=== PATIENT | male | born 1945 | race Caucasian/White ===

== ENCOUNTER 2021-11-09 15:49 | Emergency (ER) | payer OTHER ==
--- OUTSIDE RECORDS SUMMARY | 2021-11-09 15:53 | XMS REPORT | Continuity of Care Document ---
:1945 Author Organization [facility] t Address [address] [place] [address] Care Team Providers Name Role Phone Yolanda FULTON Attending Clinician Freedom SMALLWOOD Attending Clinician Unavailable Agustina DAMON Attending Clinician Unavailable Yolanda Attending Clinician Unavailable CHRIS PEREZ Attending Clinician Unavailable Yolanda Attending Clinician Unavailable CHRIS PEREZ Admitting Clinician Unavailable Payers Payer Name Policy Type Policy Number Effective Date Expiration Date S ource Problems Condition Condition Condition Status Onset Resolution Last Treating Co mments Source Name Details Category Date Date Treatment Clinician Date HIV HIV Disease Active Overview: [facility] positive positive 06-24 [facility] lt 00:00: g of this 00 note might be different from the original. 06/24/21T meryg dovato without problem. VL still pending from off campus lab. Will check labs per routine at [facility] in 6 months. Mail lab order to his home. 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 c c Pure Pure Disease Active UT hyperchole hyperchole 12-05 He alth sterolemia sterolemia 00:00: 00 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 12-05 Health mellitus mellitus 00:00: 00 COVID-19 COVID-19 Disease Active UT virus virus 12-03 Health infection infection 00:00: 00 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 12-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 00:00: 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 (AIDS) (AIDS) Colon Colon Disease Active [facility] Trigger Trigger Disease Active [facility] finger finger 5-21 Health 00:00: 00 Hearing Hearing Disease Active [facility] loss loss 5-10 Health 00:00: 00 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 Impairment Impairment Disease Active U T level: lo level: lo 5-10 Heal th vision of vision of 00:00: one eye one eye 00 Rhinitis Rhinitis Disease Active UT 5-10 Health 00:00: 00 Unspecifie Unspecifie Disease Active U T d visual d visual 5-10 Health loss loss 00:00: 00 History of History of Problem Resolve Univers Stroke Stroke d ity of syndrome syndrome [place] [facility] Acquired Acquired Problem Active Unive rs immune immune [place]y of deficiency [place] syndrome syndrome Physic i (AIDS) (AIDS) ans History of History of Problem Resolve [facility] allergic allergic d ity of rhinitis rhinitis [place] [facility] History of History of Problem Resolve [facility] Chronic Chronic d ity of obstructiv obstructiv [place] [facility] pulmonary pulmonary ans disease disease History of History of Problem Resolve [facility] sinus sinus d ity of tachycardi tachycardi [place] [facility] ans History of History of Problem Resolve [facility] herpes herpes d ity of zoster zoster [place] [facility] History of History of Problem Resolve Univers hyperlipid hyperlipid d it y of emia emia [place] [facility] ans History of History of Problem Resolve Univers Need for Need for d ity of Zostavax Zostavax [place] administra administra Ph ysici tion tion ans History of History of Problem Resolve Univers pneumococc pneumococc d it y of al al [place] vaccinatio vaccinatio Ph ysici n n ans History of History of Problem Resolve Univers Polyneurop Polyneurop d it y of athy athy [place] [facility] ans History of History of Problem Resolve Univers prostatiti prostatiti d it y of s s [place] [facility] History of History of Problem Resolve [facility] sleep sleep d ity of apnea apnea [place] [facility] History of History of Problem Resolve [facility] Urinary Urinary d ity of tract tract [place] infection infection Phys ici ans Personal Personal Problem Resolve Univ ers history of history of d it y of gout gout [place] [facility] Rhinitis Rhinitis Problem Active Unive rs ity of [place] [facility] Hearing Hearing Problem Active [facility] loss loss ity of [place] [facility] Impairment Impairment Problem Active U nivers level of level of ity of vision vision [place] [facility] Idiopathic Idiopathic Problem Active U nivers chronic chronic ity of gout gout [place] without without Physici tophus tophus ans Trigger Trigger Problem Active Univers finger finger ity of [place] [facility] ans Type 2 Type 2 Problem Active Univers diabetes diabetes ity of mellitus mellitus [place] [facility] Pure Pure Problem Active Univers hyperchole hyperchole it y of sterolemia sterolemia [place] [facility] Essential Essential Problem Active Uni vers hypertensi hypertensi it y of on, on, [place] malignant malignant Phys ici ans Congestive Congestive Problem Active U nivers heart heart ity of failure failure [place] [facility] Peripheral Peripheral Problem Active U nivers neuropathy neuropathy it y of , , [place] hereditary hereditary Ph ysici /idiopathi /idiopathi an s c c COVID-19 COVID-19 Problem Active Unive rs virus virus ity of infection infection [place] [facility] [place] Allergies, Adverse Reactions, Alerts This patient has no known allergies or adverse reactions. Family History Family Member Diagnosis Comments Start Date Stop Date Source Unknown Family history of Family Univers ity of Family Member Hypertension History [place] [facility] Unknown Family history of Family Univers ity of Family Member Congestive Heart Failure History [place] [facility] Unknown Family history of Family Univers ity of Family Member Essential History [place] Hypercholesterolemia Phys icians Father Family history of Univers ity of Hypertensive Heart [place] Disease Physicians Social History Social Habit Start Date Stop Date Quantity Comments Source History [facility] Alcohol Std Drinks Medica l Center History [facility] - Alcohol Binge Medical Asad ter Tobacco use and 2019-01-29 2019-01-[address] [facility] - exposure 00:00:00 00:[facility]:00 [facility] Center Alcohol intake 2019-01-29 2019-01-29 [facility] alcohol [facility] Center (finding) History SDOH 2019-01-25 2019-01-[address] [facility] - Alcohol Frequency 00:00:00 00:00:00 [facility] Center Tobacco Comment 2019-01-25 2019-01-[address] [facility] - 00:00[facility]00 00[facility]:00 [facility] Center History of tobacco 1980-01-[address] [facility] - use 00:[facility] Center Sex Ass[birth year] At [birth year] [facility] 00:00:00 00:00:00 Smoking Status Start Date Stop Date Source Unknown if ever smoked [place] [facility] Former smoker 2019-01-29 00:00:00 2019-01-29 00:00:[address] [facility] Medications Ordered Filled Start Stop Current Ordering Indication Dosage Frequency Signature Comments Components Source Medication Medication Date Date Medication? Clinician (SIG) Name Name Acetaminoph Yes UT en 500 MG 8-18 Health capsule 18:29: 05 Acetaminoph Yes UT en 500 MG 8-18 Health capsule 18:29: 05 Acetaminoph 0 Yes UT en 500 MG 8-18 Health capsule 18:29: 05 Accu-Chek 2020-0 Yes TEST BLOOD UT SmartView 5-27 SUGAR Health test strip 00:00: EVERY DAY 00 Accu-Chek 2020-0 Yes TEST BLOOD UT SmartView 5-27 SUGAR Health test strip 00:00: EVERY DAY 00 Accu-Chek 2020-0 Yes TEST BLOOD UT SmartView 5-27 SUGAR Health test strip 00:00: EVERY DAY 00 finasteride Yes 5mg QD Take 5 mg U T (Proscar) 5 5-21 by mouth 1 He alth MG tablet 00:00: (one) time 00 each day. finasteride 2021-0 Yes 5mg QD Take 5 mg U T (Proscar) 5 5-21 by mouth 1 He alth MG tablet 00:00: (one) time 00 each day. finasteride 2021-0 Yes 5mg QD Take 5 mg U T (Proscar) 5 5-21 by mouth 1 He alth MG tablet 00:00: (one) time 00 each day. furosemide 2021-0 Yes 40mg QD Take 40 mg U T (Lasix) 40 4-22 by mouth 1 Hea lth MG tablet 00:00: (one) time 00 each day. furosemide 2021-0 Yes 40mg QD Take 40 mg U T (Lasix) 40 4-22 by mouth 1 Hea lth MG tablet 00:00: () time 00 each day. furosemide 2021-0 Yes 40mg QD Take 40 mg U T (Lasix) 40 4-22 by mouth 1 Hea lth MG tablet 00:00: () time 00 each day. doxazosin 2021-0 Yes 4mg QD Take 4 mg UT (Cardura) 4 4-10 by mouth 1 He alth MG tablet 00:00: (one) time 00 each day. doxazosin 2021-0 Yes 4mg QD Take 4 mg UT (Cardura) 4 4-10 by mouth 1 He alth MG tablet 00:00: (one) time 00 each day. doxazosin 2021-0 Yes 4mg QD Take 4 mg UT (Cardura) 4 4-10 by mouth 1 He alth MG tablet 00:00: (one) time 00 each day. citalopram 2021-0 Yes 20mg QD Take 20 mg U T (CeleXA) 20 4-07 by mouth 1 He alth MG tablet 00:00: (one) time 00 each day. citalopram 2021-0 Yes 20mg QD Take 20 mg U T (CeleXA) 20 4-07 by mouth 1 He alth MG tablet 00:00: (one) time 00 each day. citalopram 2021-0 Yes 20mg QD Take 20 mg U T (CeleXA) 20 4-07 by mouth 1 He alth MG tablet 00:00: (one) time 00 each day. amLODIPine- 2021-0 Yes QD Take by UT benazepril 3-27 mouth 1 Health (Lotrel) 00:00: (one) time 10-40 MG 00 each day. capsule amLODIPine- 2020-0 Yes QD Take by UT benazepril 3-27 mouth 1 Health (Lotrel) 00:00: (one) time 10-40 MG 00 each day. capsule amLODIPine- 2020-0 Yes QD Take by UT benazepril 3-27 mouth 1 Health (Lotrel) 00:00: (one) time 10-40 MG 00 each day. 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 (Atripla) 600-200-300 MG tablet efavirenz-e 0 Yes 1{tbl} QD Take 1 UT mtricitabin 1-06 tablet by [facility] e-tenofovir 00:00: mouth 1 disoproxil 00 (one) time fumarate each day. (Atripla) 600-200-300 MG tablet efavirenz-e 0 Yes 1{tbl} QD Take 1 UT mtricitabin 1-06 tablet by [facility] e-tenofovir 00:00: mouth 1 disoproxil 00 (one) time fumarate each day. (Atripla) 600-200-300 MG tablet albuterol 0 Yes INHALE 2 UT 108 (90 1-04 PUFFS BY Health Base) 00:00: MOUTH MCG/ACT 00 EVERY 4 inhaler HOURS NEEDED NOT COVERED predniSONE Yes 40mg QD Take 40 mg U T (Deltasone) 1-04 by mouth 1 He alth 20 MG 00:00: (one) time tablet 00 each day. albuterol Yes INHALE 2 UT 108 (90 1-04 PUFFS BY Health Base) 00:00: MOUTH MCG/ACT 00 EVERY 4 inhaler HOURS NEEDED NOT COVERED predniSONE Yes 40mg QD Take 40 mg U T (Deltasone) 1-04 by mouth 1 He alth 20 MG 00:00: (one) time tablet 00 each day. albuterol Yes INHALE 2 UT 108 (90 1-04 PUFFS BY Health Base) 00:00: MOUTH MCG/ACT 00 EVERY 4 inhaler HOURS NEEDED NOT COVERED predniSONE Yes 40mg QD Take 40 mg U T (Deltasone) 1-04 by mouth 1 He alth 20 MG 00:00: (one) time tablet 00 each day. Accu-Chek Accu-Chek 2019-0 2020- No Na Ellis as [facility] Smart View Smart View 12-0524 directed [facility] - test strips test strips 00:00: 00:00 Memoria 00 :00 l Outpati ent Clinics zoster Yes INJECT 0.5 UT vaccine-rec 6-12 ML Health ombinant 00:00: Intramuscu adjuvanted 00 lar Give (Shingrix) 1st 50 injection MCG/0.5ML now, then vaccine second injection in 2-6 months zoster Yes INJECT 0.5 UT vaccine-rec 6-12 ML Health ombinant 00:00: Intramuscu adjuvanted 00 lar Give (Shingrix) 1st 50 injection MCG/0.5ML now, then vaccine second injection in 2-6 months zoster 2018- Yes INJECT 0.5 UT vaccine-rec 6-12 ML Health ombinant 00:00: Intramuscu adjuvanted 00 lar Give (Shingrix) 1st 50 injection MCG/0.5ML now, then vaccine second injection in 2-6 months Shingrix 50 Shingrix 50 2018- Yes Jean Marie INJECT 0.5 Univers MCG MCG 6-12 [place] ML ity of Intramuscul Intramuscul 00:00: 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 Intramuscu [place] ar ar 00 lar Give Physici Suspension Suspension 1st ans Reconstitut Reconstitut injection ed ed now, then second injection in 2-6 months Shingrix 50 Shingrix 50 2019-0 Yes Jean Marie Inject 0.5 Univers MCG/0.5ML MCG/0.5ML 6-12 [place] ML ity of Intramuscul Intramuscul 00:00: 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 intramuscu [place] ar ar 00 lar second Physici Suspension Suspension dosage in ans Reconstitut Reconstitut 2 to 6 ed ed months FLAXSEED 2018-0 Yes Q.5D Take by [facility] ORAL 3-23 mouth 2 [facility] - 12:08: (two) Medical 09 times Center daily. multivitami 2019-0 Yes 1{tbl} QD Take [address] n per 3-23 tablet by [facility] - tablet 12:08: mouth Medical 09 daily. Center SAW 0 Yes Take by [facility] PALMETTO 3-23 mouth. [facility] - ORAL 12:08: Medical 09 Center glucosamine 2018-0 Yes QD Take by [facility] /chondr james 3-23 mouth [facility] - A sod 12:08: daily. Medical (OSTEO 09 Center BI-FLEX ORAL) traMADol 2018-0 Yes 50mg Take [address] (ULTRAM) 50 3-23 by mouth Luke s - mg tablet 12:08: every 6 Medic al 09 (six) Center hours as needed for Pain. fluticasone 2018-0 Yes Inhale by [facility] /salmeterol 3-23 mouth via Hussein es - (ADVAIR 12:08: inhaler as Medi viraj DISKUS 09 needed. Center INHL) albuterol 2018-0 Yes 1{puff} Inhale [address] HFA 3-23 puff by [facility] - (VENTOLIN 12:08: mouth via Med ical HFA) 90 09 inhaler Center mcg/actuati every 6 on inhaler (six) hours as needed for Wheezing. metFORMIN 2018-0 Yes 500mg Take [address] (GLUCOPHAGE 3-23 mg by [facility] - ) 500 MG 12:08: mouth 2 Medica l tablet 09 (two) Center times daily with breakfast and dinner. efavirenz-e 2018-0 Yes 1{tbl} QD Take [address] mtrictabine 3-23 tablet by Hussein es - -tenofovir 12:08: mouth Medica l (ATRIPLA) 09 nightly. Center 600-200-300 mg per tablet amlodipine- 2018-0 Yes 1{capsu Q.5D Take [address] benazepril 3-23 le} capsule by Hussein es - (LOTREL) 12:08: mouth 2 Medica l 10-40 mg 09 (two) Center per capsule times daily . eplerenone 0 Yes 25mg QD Take [address] (INSPRA) 25 3-23 by mouth Luke s - MG tablet 12:08: daily. Medica l 09 [place] furosemide 0 Yes 40mg QD Take [address] (LASIX) 40 3-23 by mouth [facility] - MG tablet 12:08: daily. Medica l 09 [place] metoprolol 0 Yes 100mg Q.5D Take [address] (LOPRESSOR) 3-23 mg by [facility] - 100 MG 12:08: mouth 2 Medical tablet 09 (two) Center times daily. aspirin 81 2018-0 Yes 81mg QD Take [address] MG EC -23 by mouth [facility] - tablet 12:08: daily. Medical [address] [place] [address] gabapentin 0 Yes 600mg [id number] Take [address] (NEURONTIN) 3-23 [id number] mg by L ukes - 600 MG 12:08: 3D mouth 3 Medical tablet 09 (three) Center times daily. FLAXSEED 2018-0 Yes Q.5D Take by [facility] ORAL 3-23 mouth 2 [facility] - 12:08: (two) Medical 09 times Center daily. multivitami 2018-0 Yes 1{tbl} QD Take [address] n per 3-23 tablet by [facility] - tablet 12:08: mouth Medical 09 daily. [place] SAW 0 Yes Take by [facility] PALMETTO -23 mouth. [facility] - ORAL 12:08: Medical 09 [place] glucosamine 0 Yes QD Take by [facility] /chondr james 3-23 mouth [facility] - A sod 12:08: daily. Medical (OSTEO 09 Center BI-FLEX ORAL) traMADol 2018-0 Yes 50mg Take [address] (ULTRAM) 50 -23 by mouth Luke s - mg tablet 12:08: every 6 Medic al 09 (six) Center hours as needed for Pain. fluticasone 2018- Yes Inhale by [facility] /salmeterol 3-23 mouth via Hussein es - (ADVAIR 12:08: inhaler as Medi viraj DISKUS 09 needed. Center INHL) albuterol 2018-0 Yes 1{puff} Inhale [address] HFA 3-23 puff by [facility] - (VENTOLIN 12:08: mouth via Med ical HFA) 90 09 inhaler Center mcg/actuati every 6 on inhaler (six) hours as needed for Wheezing. metFORMIN 2018- Yes 500mg Take [address] (GLUCOPHAGE 3-23 mg by [facility] - ) 500 MG 12:08: mouth 2 Medica l tablet 09 (two) Center times daily with breakfast and dinner. efavirenz-e 0 Yes 1{tbl} QD Take [address] mtrictabine 3-23 tablet by Hussein es - -tenofovir 12:08: mouth Medica l (ATRIPLA) 09 nightly. Center 600-200-300 mg per tablet amlodipine- 2018-0 Yes 1{capsu Q.5D Take [address] benazepril 3-23 le} capsule by Hussein es - (LOTREL) 12:08: mouth 2 Medica l 10-40 mg 09 (two) Center per capsule times daily . eplerenone Yes 25mg QD Take [address] (INSPRA) 25 3-23 by mouth Luke s - MG tablet 12:08: daily. Medica l 09 [place] furosemide 0 Yes 40mg QD Take [address] (LASIX) 40 3-23 by mouth [facility] - MG tablet 12:08: daily. Medica l 09 Center metoprolol 0 Yes 100mg Q.5D Take [address] (LOPRESSOR) 3-23 mg by [facility] - 100 MG 12:08: mouth 2 Medical tablet 09 (two) Center times daily. aspirin 81 2019-0 Yes 81mg QD Take [address] MG EC 3-23 by mouth [facility] - tablet 12:08: daily. Medical 09 Center gabapentin 2019-0 Yes 600mg [id number] Take [address] (NEURONTIN) 3-23 [id number] mg by L ukes - 600 MG 12:08: 3D mouth 3 Medical tablet 09 (three) Center times daily. metFORMIN Yes TAKE 1 UT (Glucophage 5-24 TABLET Health ) 500 MG 00:00: TWICE tablet 00 DAILY metFORMIN Yes TAKE 1 UT (Glucophage 5-24 TABLET Health ) 500 MG 00:00: TWICE tablet 00 DAILY metFORMIN Yes TAKE 1 UT (Glucophage 5-24 TABLET Health ) 500 MG 00:00: TWICE tablet 00 DAILY metFORMIN metFORMIN Yes Jean Marie 1 Q0.5D TAKE 1 Univers HCl - 500 HCl - 500 5-24 [place] TABLET ity of MG Oral MG Oral 00:00: 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 TWICE [place] Tablet Tablet 00 DAILY Physici ans gabapentin 2012-11 Yes TAKE 1 UT (Neurontin) 0-07 TABLET BY Hea lth 600 MG 00:00: MOUTH tablet 00 EVERY 8 HOURS gabapentin 2012-11 Yes TAKE 1 UT (Neurontin) 0-07 TABLET BY Hea lth 600 MG 00:00: MOUTH tablet 00 EVERY 8 HOURS gabapentin 2012-11 Yes TAKE 1 UT (Neurontin) 0-07 TABLET BY Hea lth 600 MG 00:00: MOUTH tablet 00 EVERY 8 HOURS Gabapentin Gabapentin 2012-11 Yes Jean Marie 1 Q8H TAKE 1 Univers 600 MG Oral 600 MG Oral 0-07 [place] TABLET BY ity of Tablet Tablet 00:00: 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 MOUTH [place] 00 EVERY 8 Physici HOURS ans doxazosin Yes TAKE 1 UT (Cardura) 2 8-23 TABLET Health MG tablet 00:00: TWICE 00 DAILY eplerenone Yes TAKE 1 UT (Inspra) 25 8-23 TABLET Health MG tablet 00:00: DAILY. 00 doxazosin Yes TAKE 1 UT (Cardura) 2 8-23 TABLET Health MG tablet 00:00: TWICE 00 DAILY eplerenone Yes TAKE 1 UT (Inspra) 25 8-23 TABLET Health MG tablet 00:00: DAILY. 00 doxazosin Yes TAKE 1 UT (Cardura) 2 8-23 TABLET Health MG tablet 00:00: TWICE 00 DAILY eplerenone Yes TAKE 1 UT (Inspra) 25 8-23 TABLET Health MG tablet 00:00: DAILY. 00 Doxazosin Doxazosin Yes TAHIR 1 Q0.5D TAKE 1 Univers Mesylate 2 Mesylate 2 8-23 [place] TABLET ity of MG Oral MG Oral 00:00: M.D. TWICE [place] Tablet Table[facility] Eplerenone Eplerenone Yes TAHIR 1 QD TAKE 1 Univers 25 MG Oral 25 MG Oral 8-23 [place] TABLET ity of Tablet Tablet 00:00: M.D. DAILY. [place] [facility] ans Flaxseed, Yes UT Linseed, 2-12 Health (Flaxseed 00:00: Oil) 1000 00 MG capsule furosemide Yes UT (Lasix) 20 2-12 Health MG tablet 00:00: 00 Flaxseed, Yes UT Linseed, 2-12 Health (Flaxseed 00:00: Oil) 1000 00 MG capsule furosemide Yes UT (Lasix) 20 2-12 Health MG tablet 00:00: 00 Flaxseed, Yes UT Linseed, 2-12 Health (Flaxseed 00:00: Oil) 1000 00 MG capsule furosemide Yes UT (Lasix) 20 2-12 Health MG tablet 00:00: 00 Furosemide Furosemide Yes Jean Marie Univers 20 MG Oral 20 MG Oral 2-12 [place] ity of Tablet Tablet 00:00: 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 [place] [facility] ans Flaxseed Flaxseed Yes Jean Marie Univ ers Oil 1000 MG Oil 1000 MG 2-12 [place] ity of Oral Oral 00:00: 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 [place] Capsule Capsule Physici ans metoprolol Yes TAKE 1 UT tartrate 3-31 TABLET Health (Lopressor) 00:00: EVERY 12 100 MG 00 HOURS tablet DAILY0.15m g atorvastati Yes TAKE 1 UT n (Lipitor) 3-31 TABLET Health 20 MG 00:00: DAILY AT tablet 00 BEDTIME. metoprolol Yes TAKE 1 UT tartrate 3-31 TABLET Health (Lopressor) 00:00: EVERY 12 100 MG 00 HOURS tablet DAILY0.15m g atorvastati Yes TAKE 1 UT n (Lipitor) 3-31 TABLET Health 20 MG 00:00: DAILY AT tablet 00 BEDTIME. metoprolol Yes TAKE 1 UT tartrate 3-31 TABLET Health (Lopressor) 00:00: EVERY 12 100 MG 00 HOURS tablet DAILY0.15m g atorvastati Yes TAKE 1 UT n (Lipitor) 3-31 TABLET Health 20 MG 00:00: DAILY AT tablet 00 BEDTIME. Lipitor 20 Lipitor 20 Yes Jean Marie TAKE 1 Univers MG Oral MG Oral 3-31 [place] TABLET it y of Tablet Tablet 00:00: 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 DAILY AT [place] 00 BEDTIME. Physici ans Metoprolol Metoprolol Yes Jean Marie TAKE 1 Univers Tartrate Tartrate 3-31 [place] TABLET ity of 100 MG Oral 100 MG Oral 00:00: 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 EVERY 12 [place] Tablet Tablet 00 HOURS Physici DAILY0.15m ans g Acetaminoph Acetaminoph Yes U nivers en 500 MG en 500 MG ity o f CAPS CAPS [place] Physici ans Immunizations Ordered Filled Date Status Comments Source Immunization Name Immunization Name Zoster, 2019-08-07 [facility] Unspecified 00:00:00 Zoster, 2019-08-07 Completed [facility] Recombinant 00:00:00 Influenza, High 2019-08-07 Completed [facility] Dose Seasonal, 00:00:00 Preservative Free Zoster, 2019-08-07 Completed [facility] Unspecified 00:00:00 Zoster, 2019-08-07 Completed [facility] Recombinant 00:00:00 Influenza, High 2019-08-07 Completed [facility] Dose Seasonal, 00:00:00 Preservative Free Zoster, 2019-08-07 Completed [facility] Unspecified 00:00:00 Zoster, 2019-08-07 Completed [facility] Recombinant 00:00:00 Influenza, High 2019-08-07 Completed [facility] Dose Seasonal, 00:00:00 Preservative Free Influenza 2019-08-07 Completed University of 00:00:00 [place] [facility] Shingrix 50 MCG 2019-08-07 Completed Universit y of Intramuscular 00:00:00 [place] Suspension Physicians Reconstituted Prevnar 13 2019-04-18 Completed University of Intramuscular 13:47:00 [place] Suspension Physicians Pneumococcal 2019-04-18 [facility] Conjugate PCV 13 00:00:00 Pneumococcal 2019-04-18 Completed [facility] Conjugate PCV 13 00:00:00 Pneumococcal 2019-04-18 Completed [facility] Conjugate PCV 13 00:00:00 Pneumococcal 2019-04-18 Completed [facility] Conjugate PCV 13 00:00:00 Pneumococcal 2019-04-18 Completed [facility] Conjugate PCV 13 00:00:00 Pneumococcal 2019-04-18 Completed [facility] Conjugate PCV 13 00:00:00 Influenza, High 2018-08-07 Completed [facility] Dose Seasonal, 00:00:00 Preservative Free Influenza, High 2018-08-07 Completed [facility] Dose Seasonal, 00:00:00 Preservative Free Influenza, High 2018-08-07 Completed [facility] Dose Seasonal, 00:00:00 Preservative Free Influenza 2018-08-07 Completed University of 00:00:00 [place] [facility] Tdap 2016-11-07 [facility]pleted [facility] 00:00:00 Tdap 2016-11-07 Completed [facility] 00:00:00 Tdap 2016-11-07 Completed [facility] 00:00:00 Zoster, 2015-11-07 Completed [facility] Unspecified 00:00:00 Zoster, 2015-11-07 Completed [facility] Recombinant 00:00:00 Zoster, 2015-11-07 Completed [facility] Unspecified 00:00:00 Zoster, 2015-11-07 Completed [facility] Recombinant 00:00:00 Zoster, 2015-11-07 Completed [facility] Unspecified 00:00:00 Zoster, 2015-11-07 Completed [facility] Recombinant 00:00:00 Influenza, 2015-07-02 Completed [facility] Unspecified 00:00:00 Influenza, 2015-07-02 Completed [facility] Unspecified 00:00:00 Influenza, 2015-07-02 Completed [facility] Unspecified 00:00:00 Influenza 2015-07-02 Completed University of 00:00:00 [place] [facility] Influenza, 2010-07-14 Completed [facility] Unspecified 00:00:00 Influenza, 2010-07-14 Completed [facility] Unspecified 00:00:00 Influenza, 2010-07-14 Completed [facility] Unspecified 00:00:00 Influenza 2010-07-14 Completed University of 00:00:00 [place] [facility] Novel 2009-11-06 Completed [facility] [id number], 00:00:00 all formulations Novel 2009-11-06 Completed [facility] [id number], 00:00:00 all formulations Novel 2009-11-06 Completed [facility] [id number], 00:00:00 all formulations H1N1 Influenza Inj 2009-11-06 Completed Univer sity of 00:00:00 [place] [facility] Fluzone High-Dose Unknown Completed Approx Univers ity of 0.5 ML [place] [facility] Suspension Prefilled Syringe Shingrix 50 MCG Unknown Completed [facility] [place] [facility] Physicians Reconstituted Tdap Unknown Completed [facility] Physicians Vital Signs Vital Name Observation Time Observation Value Comments Source Systolic blood 2020-12-03 143 mm[Hg] [facility] pressure 16:46:00 [place] [facility] Diastolic blood 2020-12-03 79 mm[Hg] University [facility] f pressure 16:46:00 [place] [facility] Weight 2020-12-03 190 [lb_av] [facility] 16:46:00 [place] [facility] Body mass index 2020-12-03 25.77 kg/m2 [place] [facility] (BMI) [Ratio] 16:46:00 [place] [facility] Heart Rate 2020-12-03 68 /min [facility] 16:46:00 [place] [facility] BP Systolic 2019-11-05 106 mm[Hg] Location: [facility] 13:07:00 Position: [place] [facility] Sitting BP Diastolic 2019-11-05 60 mm[Hg] Location: [facility] 13:07:00 Position: [place] [facility] Sitting Height 2019-11-05 72 [in_us] [facility] 13:07:00 [place] [facility] Weight 2019-11-05 218.5 [lb_av] [facility] 13:07:00 [place] [facility] Body Mass Index 2019-11-05 29.63 kg/m2 [place] [facility] Calculated 13:07:00 [place] [facility] Temperature 2019-11-05 97.7 [degF] Method: Oral [facility] 13:07:00 [place] [facility] Heart Rate 2019-11-05 66 /min Location: [facility] 13:07:00 Brachial [place] [facility] Artery; Respiration Rate 2019-11-05 20 /min [facility] 13:07:00 [place] [facility] BP Systolic 2018-10-04 107 mm[Hg] Location: [facility] 13:09:00 Position: [place] [facility] Sitting BP Diastolic 2018-10-04 62 mm[Hg] Location: [facility] 13:09:00 Position: [place] [facility] Sitting Height 2018-10-04 72 [in_us] [facility] 13:09:00 [place] [facility] Weight 2018-10-04 233.375 [lb_av] [facility] f 13:09:00 [place] [facility] Body Mass Index 2018-10-04 31.65 kg/m2 University o f Calculated 13:09:00 [place] [facility] Temperature 2018-10-04 97.6 [degF] Method: [facility] 13:09:00 [place] [facility] Heart Rate 2018-10-04 80 /min Location: R [facility] 13:09:00 Brachial [place] [facility] Artery; Respiration Rate 2018-10-04 16 /min [place] [facility] 13:09:00 [place] [facility] BP Systolic 2018-03-27 110 mm[Hg] Location: [facility]; [facility] 13:04:00 Position: [place] [facility]ician [facility] Sitting BP Diastolic 2018-03-27 58 mm[Hg] Location: RU; [facility] 13:04:00 Position: [place] [facility] Sitting Height 2018-03-27 72 [in_us] [facility] 13:04:00 [place] [facility] Weight 2018-03-27 230.125 [lb_av] [facility] f 13:04:00 [place] [facility] Body Mass Index 2018-03-27 31.21 kg/m2 [place] [facility] Calculated 13:04:00 [place] [facility] Temperature 2018-03-27 97.7 [degF] Method: [facility] 13:04:00 [place] [facility] Heart Rate 2018-03-27 76 /min Location: R [facility] 13:04:00 Brachial [place] [facility] Artery; Respiration Rate 2018-03-27 16 /min [facility] 13:04:00 [place] [facility] BP Systolic 2017-10-03 124 mm[Hg] Location: [facility]; [facility] 13:24:00 Position: [place] [facility] Sitting BP Diastolic 2017-10-03 70 mm[Hg] Location: [facility]; [facility] 13:24:00 Position: [place] [facility] Sitting Height 2017-10-03 72 [in_us] [place] [facility] 13:24:00 [place] [facility] Weight 2017-10-03 238.125 [lb_av] [facility] f 13:24:00 [place] [facility] Body Mass Index 2017-10-03 32.3 kg/m2 University o f Calculated 13:24:00 [place] [facility] Temperature 2017-10-03 97.7 [degF] Method: [facility] 13:24:00 [place] [facility] Heart Rate 2017-10-03 73 /min Location: R [facility] 13:24:00 Brachial [place] [facility] Artery; Respiration Rate 2017-10-03 16 /min [facility] 13:24:00 [place] [facility] Procedures Procedure Date / Time Performing Clinician Source Performed [QL] URINALYSIS, COMPLETE 2020-12-03 [facility]icians [QL] LIPID PANEL 2020-12-03 00:00:00 [facility] [Q] HIV 1 RNA, QN PCR 2020-12-03 00:00:00 [facility] W/RFL TIMI Physicians (RTI,PI,INTEGRASE) [QLH] VITAMIN D, 2019-11-05 00:00:00 [facility] 25-HYDROXY, LC/MS/MS Physicians [QLH] HEMOGLOBIN A1c 2019-11-05 00:00:00 [facility] Physicians [QLH] CMP W/EGFR 2019-11-05 00:00:00 [facility] Physicians [QLH] CD4/CD8 Ratio 2019-11-05 00:00:00 [facility] Profile Physicians [QLH] CBC (INCLUDES 2019-11-05 00:00:00 [facility] DIFF/PLT) Physicians [QH] HIV 1 RNA, 2019-11-05 00:00:00 [facility] QUANTITATIVE REAL TIME PCR Physi cians [QLH] URINALYSIS, COMPLETE 2019-11-05 00:00[facility] TO [facility] Physicians [QLH] CMP W/EGFR 2018-10-04 00:00:00 [facility] Physicians [QLH] CD4/CD8 Ratio 2018-10-04 00:00:00 [facility] Profile Physicians [QLH] CBC (INCLUDES 2018-10-04 00:00:00 [facility] DIFF/PLT) Physicians [QLH] LIPID PANEL 2018-10-04 00:00:00 [facility] Physicians [QH] HIV 1 RNA, 2018-10-04 00:00:00 [facility] [place] QUANTITATIVE REAL TIME PCR Physi cians [QLH] HEMOGLOBIN A1c 2018-10-04 00:00:00 [facility] Physicians [QLH] LIPID PANEL 2018-03-27 00:00:00 [facility] Physicians [QLH] CMP W/EGFR 2018-03-27 00:00:00 [facility] Physicians [QH] HIV 1 RNA, 2018-03-27 00:00:00 [facility] [place] QUANTITATIVE REAL TIME PCR Physi cians [QLH] LIPID PANEL 2017-10-03 00:00:00 [facility] Physicians [QLH] CD4/CD8 Ratio 2017-10-03 00:00:00 [facility] Profile Physicians [L] RNA, Real Time PCR 2017-10-03 00:00:00 [facility] (Non-Graph) Physicians [QLH] HEMOGLOBIN A1c 2017-10-03 00:00:00 [facility] Physicians [QLH] URINALYSIS, COMPLETE 2017-10-03 00:[facility] Physicians History of [facility] Gastrointestinal Surgery Physici ans Laparoscopic Procedure Detail [facility] Phys[facility] Plan of Care Planned Activity Planned Date Details Comments Source Future Scheduled 2021-07-[address] [facility] - Test 00:00:00 (Season Ended) [code Medical Center = INFLUENZA VACCINE (Season Ended)] Future Scheduled 2021-07-[address] [facility] - Test 00:00:00 (Season Ended) [code Medical Center = INFLUENZA VACCINE (Season Ended)] Future Scheduled 2021-06-02 [QL] URINALYSIS, [facility] Test 00:00:00 COMPLETE W/REFLEX TO Physici ans CULTURE [code = [QL] URINALYSIS, COMPLETE W/REFLEX TO CULTURE] Future Scheduled 2021-06-02 [QL] LIPID PANEL [facility] Test 00:00:00 [code = [QL] LIPID Physician s PANEL] Future Scheduled 2021-06-02 [Q] HIV 1 RNA, QN PCR Un [facility] Test 00:00:00 W/RFL TIMI Physicians (RTI,PI,INTEGRASE) [code = [Q] HIV 1 RNA, QN PCR W/RFL TIMI (RTI,PI,INTEGRASE)] Future Scheduled 2020-11-[address] [facility] - Test 00:00:00 (12+) [code = Medical Center DEPRESSION SCREENING (12+)] Future Scheduled 2020-11-[address] [facility] - Test 00:00:00 (12+) [code = Medical Center DEPRESSION SCREENING (12+)] Future Scheduled 2020-11-05 [QLH] VITAMIN D, Univers [facility] Test 00:00:00 25-HYDROXY, LC/MS/MS Physici ans [code = [QLH] VITAMIN D, 25-HYDROXY, LC/MS/MS] Future Scheduled 2020-11-05 [QLH] HEMOGLOBIN A1c [facility] Test 00:00:00 [code = [QL] Physicians HEMOGLOBIN A1c] Future Scheduled 2020-11-05 [QLH] CMP W/EGFR [facility] Test 00:00:00 [code = [QLH] CMP Physicians W/EGFR] Future Scheduled 2020-11-05 [QLH] CD4/CD8 Ratio [facility] Test 00:00:00 Profile [code = [QLH] Physic ians CD4/CD8 Ratio Profile] Future Scheduled 2020-11-05 [QLH] CBC (INCLUDES [facility] Test 00:00:00 DIFF/PLT) [code = Physicians [QL] CBC (INCLUDES DIFF/PLT)] Future Scheduled 2020-11-05 [QH] HIV 1 RNA, [facility] Test 00:00:00 QUANTITATIVE REAL Physicians TIME PCR [code = 08834] Future Scheduled 2020-11-05 [QLH] URINALYSIS, [facility] Test 00:00:00 COMPLETE W/REFLEX TO Physici ans CULTURE [code = [QLH] URINALYSIS, COMPLETE W/REFLEX TO CULTURE] Diagnostic Test 2019-04-03 [QLH] CMP W/EGFR [facility] Pending 00:00:00 [code = [QLH] CMP Physicians W/EGFR] Diagnostic Test 2019-04-03 [QLH] CD4/CD8 Ratio [facility] Pending 00:00:00 Profile [code = [QL] Physic ians CD4/CD8 Ratio Profile] Diagnostic Test 2019-04-03 [QLH] CBC (INCLUDES [facility] Pending 00:00:00 DIFF/PLT) [code = Physicians [QL] CBC (INCLUDES DIFF/PLT)] Diagnostic Test 2019-04-03 [QLH] LIPID PANEL [facility] Pending 00:00:00 [code = [QLH] LIPID Physicia ns PANEL] Diagnostic Test 2019-04-03 [QH] HIV 1 RNA, [facility] Pending 00:00:00 QUANTITATIVE REAL Physicians TIME PCR [code = 80227] Diagnostic Test 2019-04-03 [QLH] HEMOGLOBIN A1c [facility] Pending 00:00:00 [code = [QLH] Physicians HEMOGLOBIN A1c] Diagnostic Test 2019-04-03 [QLH] CMP W/EGFR [facility] Pending 00:00:00 [code = [QLH] CMP Physicians W/EGFR] Diagnostic Test 2019-04-03 [QLH] CD4/CD8 Ratio [facility] Pending 00:00:00 Profile [code = [QLH] Physic ians CD4/CD8 Ratio Profile] Diagnostic Test 2019-04-03 [QLH] CBC (INCLUDES [facility] Pending 00:00:00 DIFF/PLT) [code = Physicians [QLH] CBC (INCLUDES DIFF/PLT)] Diagnostic Test 2019-04-03 [QLH] LIPID PANEL [facility] Pending 00:00:00 [code = [QLH] LIPID Physicia ns PANEL] Diagnostic Test 2019-04-03 [QH] HIV 1 RNA, [facility] Pending 00:00:00 QUANTITATIVE REAL Physicians TIME PCR [code = 87045] Diagnostic Test 2019-04-03 [QLH] HEMOGLOBIN A1c [facility] Pending 00:00:00 [code = [QLH] Physicians HEMOGLOBIN A1c] Diagnostic Test 2019-04-03 [QLH] CMP W/EGFR [facility] Pending 00:00:00 [code = [QLH] CMP Physicians W/EGFR] Diagnostic Test 2019-04-03 [QLH] CD4/CD8 Ratio [facility] Pending 00:00:00 Profile [code = [QLH] Physic ians CD4/CD8 Ratio Profile] Diagnostic Test 2019-04-03 [QLH] CBC (INCLUDES [facility] Pending 00:00:00 DIFF/PLT) [code = Physicians [QLH] CBC (INCLUDES DIFF/PLT)] Diagnostic Test 2019-04-03 [QLH] LIPID PANEL [facility] Pending 00:00:00 [code = [QLH] LIPID Physicia ns PANEL] Diagnostic Test 2019-04-03 [QH] HIV 1 RNA, [facility] Pending 00:00:00 QUANTITATIVE REAL Physicians TIME PCR [code = 85266] Diagnostic Test 2019-04-03 [QLH] HEMOGLOBIN A1c [facility] Pending 00:00:00 [code = [QLH] Physicians HEMOGLOBIN A1c] Diagnostic Test 2019-04-03 [QLH] CMP W/EGFR [facility] Pending 00:00:00 [code = [QLH] CMP Physicians W/EGFR] Diagnostic Test 2019-04-03 [QLH] CD4/CD8 Ratio [facility] Pending 00:00:00 Profile [code = [QLH] Physic ians CD4/CD8 Ratio Profile] Diagnostic Test 2019-04-03 [QLH] CBC (INCLUDES [facility] Pending 00:00:00 DIFF/PLT) [code = Physicians [QLH] CBC (INCLUDES DIFF/PLT)] Diagnostic Test 2019-04-03 [QLH] LIPID PANEL [facility] Pending 00:00:00 [code = [QLH] LIPID Physicia ns PANEL] Diagnostic Test 2019-04-03 [QH] HIV 1 RNA, [facility] Pending 00:00:00 QUANTITATIVE REAL Physicians TIME PCR [code = 55666] Diagnostic Test 2019-04-03 [QLH] HEMOGLOBIN A1c [facility] Pending 00:00:00 [code = [QLH] Physicians HEMOGLOBIN A1c] Diagnostic Test 2019-04-03 [QLH] CMP W/EGFR [facility] Pending 00:00:00 [code = [QLH] CMP Physicians W/EGFR] Diagnostic Test 2019-04-03 [QLH] CD4/CD8 Ratio [facility] Pending 00:00:00 Profile [code = [QLH] Physic ians CD4/CD8 Ratio Profile] Diagnostic Test 2019-04-03 [QLH] CBC (INCLUDES [facility] Pending 00:00:00 DIFF/PLT) [code = Physicians [QLH] CBC (INCLUDES DIFF/PLT)] Diagnostic Test 2019-04-03 [QLH] LIPID PANEL [facility] Pending 00:00:00 [code = [QLH] LIPID Physicia ns PANEL] Diagnostic Test 2019-04-03 [QH] HIV 1 RNA, [facility] Pending 00:00:00 QUANTITATIVE REAL Physicians TIME PCR [code = 02466] Diagnostic Test 2019-04-03 [QLH] HEMOGLOBIN A1c [facility] Pending 00:00:00 [code = [QLH] Physicians HEMOGLOBIN A1c] Future Scheduled 2019-01-26 Hemoglobin A1c [facility] Test 00:[facility] (procedure) [code = 81893124] Future Scheduled 2019-01-[address] [facility] - Test 00:00:00 [facility] (procedure) [code = 43623857] Diagnostic Test 2018-09-27 [QLH] LIPID PANEL [facility] Pending 00:00:00 [code = [QLH] LIPID Physicia ns PANEL] Diagnostic Test 2018-09-27 [QLH] CMP W/EGFR [facility] Pending 00:00:00 [code = [QLH] CMP Physicians W/EGFR] Diagnostic Test 2018-09-27 [QH] HIV 1 RNA, Univers [facility] Pending 00:00:00 QUANTITATIVE REAL Physicians TIME PCR [code = 55073] Diagnostic Test 2018-09-27 [QLH] LIPID PANEL Univers [facility] [place] [facility] Pending 00:00:00 [code = [QLH] LIPID Physicia ns PANEL] Diagnostic Test 2018-09-27 [QLH] CMP W/EGFR [facility] Pending 00:00:00 [code = [QLH] CMP Physicians W/EGFR] Diagnostic Test 2018-09-27 [QH] HIV 1 RNA, [facility] Pending 00:00:00 QUANTITATIVE REAL Physicians TIME PCR [code = 30387] Diagnostic Test 2018-09-27 [QLH] LIPID PANEL Univers [facility] [place] [facility] Pending 00:00:00 [code = [QLH] LIPID Physicia ns PANEL] Diagnostic Test 2018-09-27 [QLH] CMP W/EGFR [facility] Pending 00:00:00 [code = [QLH] CMP Physicians W/EGFR] Diagnostic Test 2018-09-27 [QH] HIV 1 RNA, [facility] Pending 00:00:00 QUANTITATIVE REAL Physicians TIME PCR [code = 83829] Diagnostic Test 2018-09-27 [QLH] LIPID PANEL Univers [facility] Pending 00:00:00 [code = [QLH] LIPID Physicia ns PANEL] Diagnostic Test 2018-09-27 [QLH] CMP W/EGFR [facility] Pending 00:00:00 [code = [QLH] CMP Physicians W/EGFR] Diagnostic Test 2018-09-27 [QH] HIV 1 RNA, [facility] Pending 00:00:00 QUANTITATIVE REAL Physicians TIME PCR [code = 62333] Diagnostic Test 2018-09-27 [QLH] LIPID PANEL [facility] Pending 00:00:00 [code = [QLH] LIPID Physicia ns PANEL] Diagnostic Test 2018-09-27 [QLH] CMP W/EGFR [facility] Pending 00:00:00 [code = [QLH] CMP Physicians W/EGFR] Diagnostic Test 2018-09-27 [QH] HIV 1 RNA, [facility] Pending 00:00:00 QUANTITATIVE REAL Physicians TIME PCR [code = 28651] Diagnostic Test 2018-09-27 [QLH] LIPID PANEL [facility] Pending 00:00:00 [code = [QLH] LIPID Physicia ns PANEL] Diagnostic Test 2018-09-27 [QLH] CMP W/EGFR [facility] Pending 00:00:00 [code = [QLH] CMP Physicians W/EGFR] Diagnostic Test 2018-09-27 [QH] HIV 1 RNA, [facility] Pending 00:00:00 QUANTITATIVE REAL Physicians TIME PCR [code = 58525] Diagnostic Test 2018-04-03 [QLH] LIPID PANEL [facility] Pending 00:00:00 [code = [QLH] LIPID Physicia ns PANEL] Diagnostic Test 2018-04-03 [QLH] CD4/CD8 Ratio [facility] Pending 00:00:00 Profile [code = [QLH] Physic ians CD4/CD8 Ratio Profile] Diagnostic Test 2018-04-03 [L] RNA, Real Time [facility] Pending 00:00:00 PCR (Non-Graph) [code Physic ians = [L] RNA, Real Time PCR (Non-Graph)] Diagnostic Test 2018-04-03 [QLH] HEMOGLOBIN A1c [facility] Pending 00:00:00 [code = [QLH] Physicians HEMOGLOBIN A1c] Diagnostic Test 2018-04-03 [QLH] URINALYSIS, [facility] Pending 00:00:00 COMPLETE W/REFLEX TO Physici ans CULTURE [code = [QLH] URINALYSIS, COMPLETE W/REFLEX TO CULTURE] Diagnostic Test 2018-04-03 [QLH] LIPID PANEL [facility] Pending 00:00:00 [code = [QLH] LIPID Physicia ns PANEL] Diagnostic Test 2018-04-03 [QLH] CD4/CD8 Ratio [facility] Pending 00:00:00 Profile [code = [QLH] Physic ians CD4/CD8 Ratio Profile] Diagnostic Test 2018-04-03 [L] RNA, Real Time [facility] Pending 00:00:00 PCR (Non-Graph) [code Physic ians = [L] RNA, Real Time PCR (Non-Graph)] Diagnostic Test 2018-04-03 [QLH] HEMOGLOBIN A1c [facility] Pending 00:00:00 [code = [QLH] Physicians HEMOGLOBIN A1c] Diagnostic Test 2018-04-03 [QLH] URINALYSIS, [facility] Pending 00:00:00 COMPLETE W/REFLEX TO Physici ans CULTURE [code = [QLH] URINALYSIS, COMPLETE W/REFLEX TO CULTURE] Diagnostic Test 2018-04-03 [QLH] LIPID PANEL [facility] Pending 00:00:00 [code = [QLH] LIPID Physicia ns PANEL] Diagnostic Test 2018-04-03 [QLH] CD4/CD8 Ratio [facility] Pending 00:00:00 Profile [code = [QLH] Physic ians CD4/CD8 Ratio Profile] Diagnostic Test 2018-04-03 [L] RNA, Real Time [facility] Pending 00:00:00 PCR (Non-Graph) [code Physic ians = [L] RNA, Real Time PCR (Non-Graph)] Diagnostic Test 2018-04-03 [QLH] HEMOGLOBIN A1c [facility] Pending 00:00:00 [code = [QLH] Physicians HEMOGLOBIN A1c] Diagnostic Test 2018-04-03 [QLH] URINALYSIS, [facility] Pending 00:00:00 COMPLETE W/REFLEX TO Physici ans CULTURE [code = [QLH] URINALYSIS, COMPLETE W/REFLEX TO CULTURE] Diagnostic Test 2018-04-03 [QLH] LIPID PANEL [facility] Pending 00:00:00 [code = [QLH] LIPID Physicia ns PANEL] Diagnostic Test 2018-04-03 [QLH] CD4/CD8 Ratio [facility] Pending 00:00:00 Profile [code = [QLH] Physic ians CD4/CD8 Ratio Profile] Diagnostic Test 2018-04-03 [L] RNA, Real Time [facility] Pending 00:00:00 PCR (Non-Graph) [code Physic ians = [L] RNA, Real Time PCR (Non-Graph)] Diagnostic Test 2018-04-03 [QLH] HEMOGLOBIN A1c [facility] Pending 00:00:00 [code = [QLH] Physicians HEMOGLOBIN A1c] Diagnostic Test 2018-04-03 [QLH] URINALYSIS, [facility] Pending 00:00:00 COMPLETE W/REFLEX TO Physici ans CULTURE [code = [QLH] URINALYSIS, COMPLETE W/REFLEX TO CULTURE] Future Scheduled 2009-08-[address] [facility] [facility] Test 00:00:00 WELLNESS (YEAR 2 or Medical Center FIRST YEAR if no IPPE) [code = MEDICARE ANNUAL WELLNESS (YEAR 2 or FIRST YEAR if no IPPE)] Future Scheduled 2009-08-[address] [facility] Test 00:00:00 WELLNESS (YEAR 2 or Medical Center FIRST YEAR if no IPPE) [code = MEDICARE ANNUAL WELLNESS (YEAR 2 or FIRST YEAR if no IPPE)] Future Scheduled 2008 PNEUMOCOCCAL 65+ YRS [facility] - Test 00:00:00 (1 of 1 - Medical Center [id number] PCV13) [code = PNEUMOCOCCAL 65+ YRS (1 of 1 - [id number] PCV13)] Future Scheduled 2008 PNEUMOCOCCAL 65+ YRS [facility] - Test 00:00:00 (1 of 1 - [facility] Center [id number] PCV13) [code = PNEUMOCOCCAL 65+ YRS (1 of 1 - [id number] PCV13)] Future Scheduled 1993 SHINGLES VACCINES ([address] [facility] - Test 00:00:00 of 2) [code = Medical Center SHINGLES VACCINES (1 of 2)] Future Scheduled 1993 SHINGLES VACCINES ([address] [facility] - Test 00:00:00 of 2) [code = Medical Center SHINGLES VACCINES (1 of 2)] Future Scheduled 1962 DTAP/TDAP/TD [facility]ACCINES [facility]:00 (1 - Tdap) [code = Medical C enter DTAP/TDAP/TD VACCINES (1 - Tdap)] Future Scheduled 1962 DTAP/TDAP/TD [facility]ACCINES [facility] 00:00:00 (1 - Tdap) [code = Medical C enter DTAP/TDAP/TD VACCINES (1 - Tdap)] Future Scheduled 1961 HEPATITIS C [facility]CRE[facility]ING [facility]00 [code = HEPATITIS C Medical Center SCREENING] Future Scheduled 1961 HEPATITIS C [facility]ING [facility] 00:[facility]:00 [code = HEPATITIS C Medical Center SCREENING] Future Scheduled [address] DIABETIC EYE EXAM [facility] - Test 00:00:00 [code = DIABETIC EYE Medical Center EXAM] Future Scheduled 1953 Urine screening for [facility] - Test 00:00:00 protein (procedure) Medical Center [code = [id number]] Future Scheduled [address] DIABETIC EYE EXAM [facility] - Test 00:00:00 [code = DIABETIC EYE Medical Center EXAM] Future Scheduled 1953 Urine screening for [facility] - Test 00:00:00 protein (procedure) Medical Center [code = [id number]] Encounters Start End Encounter Admission Attending Care Care Encounter Source Date/Time Date/Time Type Type Clinicians Facility Department ID 2021-08-12 2021-08-12 Outpatient [facility] [id number] [facility] 2021-06-24 2021-06-24 Telephonic THEO Guerrero [id number] [place] 13:20:54 16:20:55 Encounter Jean Marie CHOUDHARY [id number] Health MEDICAL [id number] [facility] [id number] 2021-06-24 2021-06-24 Orders Vernell Loja [id number] [place] 00:00:[place] 00:00:00 Only Vernell Loja [id number] Health MEDICAL [id number] [facility] [id number] 2021-06-24 2021-06-24 Telephone Rashmi Berrios [id number] [place] 00:00:[place] 00:00:00 Rashmi Berrios [id number] [facility] [id number] [place] [id number] 2021-06-10 2021-06-10 Outpatient [facility] [id number] [facility] 2021-05-13 2021-05-13 Outpatient [facility] [id number] [facility] 2021-03-11 2021-03-11 Outpatient [facility] [id number] [facility] 2021-02-24 2021-02-24 Outpatient [facility] [id number] [facility] 2021-02-11 2021-02-11 Outpatient [facility] [id number] [facility] 2020-12-29 2020-12-29 Outpatient [facility] [id number] [facility] 2020-12-03 2020-12-03 [id number] 16:00:00 16:00:00 erlin Aj APRN lty - it y of Colleen Guerrero Physici APRN ans 2020-11-12 2020-11-12 Outpatient [facility] [id number] [facility] 2020-07-31 2020-07-31 Outpatient [facility]ML[facility] [id number] [facility] 2020-07-31 2020-07-31 Outpatient [facility]ML[facility] [id number] [facility] 2020-07-21 2020-07-21 [facility] [id number] [facility] 14:10:00 14:10:00 t [employer]enden [employer] s coComment [facility] Out[facility] Clinics 2020-06-18 2020-06-18 [facility] [id number] 11:09:00 11:09:00 t Wenden [employer] [facility] Medicine Outpati ent Clinics 2020-06-12 2020-06-12 [facility] [id number] 10:34:00 10:34:00 t Inherited Health [facility] Medicine Outpati ent Clinics 2020-05-19 2020-05-19 [facility] [id number] 13:08:00 13:08:00 t Inherited Health [facility] Medicine Outpati ent Clinics 2020-04-28 2020-04-28 [facility] [id number] 09:20:00 09:20:00 t Inherited Health [facility] Medicine Outpati ent Clinics 2020-02-07 2020-02-07 [facility] [id number] 10:34:00 10:34:00 t Inherited Health [facility] Medicine Outpati ent Clinics 2020-01-21 2020-01-21 [facility] [id number] 13:40:00 13:40:00 t [employer] [facility] Medicine Outpati ent Clinics 2019-12-17 2019-12-17 [facility] [id number] 14:00:00 14:00:00 t Inherited Health [facility] Medicine Outpati ent Clinics 2019-12-12 2019-12-12 [facility] [id number] 15:25:00 15:25:00 t [employer] coComment [facility] [facility] 2019-12-05 2019-12-05 [facility] [id number] 16:40:00 16:40:00 t [facility] 2019-12-04 2019-12-04 [facility] [id number] 16:11:00 16:11:00 t [facility] 2019-11-05 2019-11-05 AppointTHEO Vie[facility] [id number] 13:00:00 13:00:00 t; DONALDO Aj lty - it y of Colleen Guerrero 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 2019-08-24 2019-08-24 [facility] [id number] [address] 11:23:00 11:23:00 t [facility] 2019-06-06 2019-06-06 [facility] [id number] 09:20:00 09:20:00 t [facility] s [facility] 2019-04-18 2019-04-18 [facility] THEO Guerrero [id number] [facility] 13:00:00 13:00:00 t; DONALDO Aj y of Celia Guerrero 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 2018-12-06 2018-12-06 [facility] [id number] 08:45:00 08:45:00 t [facility] s [facility] 2018-11-17 2018-11-17 [facility] [id number] [address] 11:56:00 11:56:00 t [facility] 2018-10-04 2018-10-04 AppointTHEO Vieira [id number] [facility] 13:00:00 13:00:00 t; DONALDO Aj Multi it y of Lee Guerrero 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 2018-06-05 2018-06-05 [facility] [id number] 08:15:00 08:15:00 t [facility] 2018-03-27 2018-03-27 [facility] THEO Guerrero [place] [id number] [facility] 13:00:00 13:00:00 t; DONALDO Aj Multi it y of Lexie, Specialty Vinh as 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 2017-10-03 2017-10-03 [facility] THEO Guerrero [place] [id number] [facility] 13:15:00 13:15:00 t; GABRIELA Aj Multi ity of [place], Specialty Vinh as GABRIELA Aj Physic i ans 2017-03-30 2017-03-30 [facility] THEO Guerrero UTP [id number] Univers 13:00:00 13:00:00 t; GABRIELA Aj ity of [place], [place] GABRIELA Aj Physic i ans 2016-09-22 2016-09-22 [facility] Yolanda THEO UTP [id number] Univers 11:15:00 11:15:00 t; GABRIELA Aj ity of [place], [place] GABRIELA Aj Physic i ans 2016-01-14 2016-01-14 [facility] [id number] [facility] 09:30:00 09:30:00 t; GABRIELA Aj ity of [place], [place] GABRIELA Aj Physic i ans 2016-01-07 2016-01-07 [facility] Yolanda, THEO UTP [id number] Univers 10:00:00 10:00:00 t; GABRIELA Aj ity of [place], [place] GABRIELA Aj Physic i ans Results Test Description Test Time Test Comments Results Result Comments Source Positive Retinal Eye Exam (Diabetic) 2019-02-14 06:00:00 Test Item Value Reference Range Interpretation Comme nts Positive Diabetic Eye Screening (test code = Positive Diabetic Eye [id number] A Screening) [facility] [id number] 18:51:00Surgical Pathology Report Case: [id number] Authorizing Provider: Terri Perez Collected: 01/26/2019 Joie Molina MD OrderingLocation: [facility] Received: 01/29/2019 0754 Pathologist: Nora Ramon MD Specimen: Polyp, Colon - Sigmoid COLON, SIGMOID, POLYP, POLYPECTOMY: - TUBULAR ADENOMA Signing Pathologist Direct Phone Line: [phone] signed by Nora Ramon MD on 01/31/2019 at 6:51 PMNo definitive features of high grade dysplasia are seen.Intradepartmental consultation: Dr. Krishna Austin has also reviewed selected slide ofthis case (A1) and concurs with the diagnosis.[id number] polypSigmoid colon polypThe specimen is received in a formalin-filled container and labeled with the patient's information and labeled "sigmoid colon polyp" and consists of two fuentes-red polyps measuring 0.6 and 1 cm in aggregate. Both are inked blue at the resection margin. Serially sectioned and submitted entirely as follows: A1, larger polyp,A2, smaller polyp. CG/pl PerformedHEPATIC FUNCTION [id number] 06:16:00 Test Item Value Reference Range Interpretation Comments TOTAL PROTEIN (BEAKER) (test code = 5.9 gm/dL 6.0-8.3 L 770) ALBUMIN (BEAKER) (test code = 1145) 3.3 g/dL 3.5-5.0 L BILIRUBIN TOTAL (BEAKER) (test code 0.4 mg/dL 0.2-1.2 = 377) BILIRUBIN DIRECT (BEAKER) (test 0.2 mg/dL 0.1-0.5 code = 706) ALKALINE PHOSPHATASE (BEAKER) (test 71 U/L 40-150 code = 346) AST (SGOT) (BEAKER) (test code = 19 U/L 5-34 353) ALT (SGPT) (BEAKER) (test code = 18 U/L 6-55 347) BASIC METABOLIC [id number] 06:16:00 Test Item Value Reference Range Interpretation Comments SODIUM (BEAKER) 140 meq/L 136-145 (test code = 381) POTASSIUM (BEAKER) 3.4 meq/L 3.5-5.1 L (test code = 379) CHLORIDE (BEAKER) 107 meq/L 98-107 (test code = 382) CO2 (BEAKER) (test 27 meq/L 22-29 code = 355) BLOOD UREA NITROGEN 9 mg/dL 7-21 (BEAKER) (test code = 354) CREATININE (BEAKER) 0.70 mg/dL 0.57-1.25 (test code = 358) GLUCOSE RANDOM 87 mg/dL 70-105 (BEAKER) (test code = 652) CALCIUM (BEAKER) 9.2 mg/dL 8.4-10.2 (test code = 697) EGFR (BEAKER) (test 110 mL/min/1.73 ESTIM ATED GFR IS code = 1092) sq m NOT ACCURATE CREATININE CLEARANCE IN PREDICTING GLOMERULAR FILTRATION RATE . ESTIMATED GFR I S NOT APPLICABLE FOR DIALYSIS PATIEN TS. CBC W/PLT COUNT & AUTO [id number] 05:39:00 Test Item Value Reference Range Interpretation Comments WHITE BLOOD CELL COUNT (BEAKER) 6.5 K/ L 3.5-10.5 (test code = 775) RED BLOOD CELL COUNT (BEAKER) 3.93 M/ L 4.63-6.08 L (test code = 761) HEMOGLOBIN (BEAKER) (test code = 13.1 GM/DL 13.7-17.5 L 410) HEMATOCRIT (BEAKER) (test code = 37.9 % 40.1-51.0 L 411) MEAN CORPUSCULAR VOLUME (BEAKER) 96.4 fL 79.0-92.2 H (test code = 753) MEAN CORPUSCULAR HEMOGLOBIN 33.3 pg 25.7-32.2 H (BEAKER) (test code = 751) MEAN CORPUSCULAR HEMOGLOBIN CONC 34.6 GM/DL 32.3-36.5 (BEAKER) (test code = 752) RED CELL DISTRIBUTION WIDTH 12.2 % 11.6-14.4 (BEAKER) (test code = 412) PLATELET COUNT (BEAKER) (test 127 K/CU MM 150-450 L code = 756) MEAN PLATELET VOLUME (BEAKER) 9.0 fL 9.4-12.4 L (test code = 754) NUCLEATED RED BLOOD CELLS 0 /100 WBC 0-0 (BEAKER) (test code = 413) NEUTROPHILS RELATIVE PERCENT 62 % (BEAKER) (test code = 429) LYMPHOCYTES RELATIVE PERCENT 27 % (BEAKER) (test code = 430) MONOCYTES RELATIVE PERCENT 9 % (BEAKER) (test code = 431) EOSINOPHILS RELATIVE PERCENT 1 % (BEAKER) (test code = 432) BASOPHILS RELATIVE PERCENT 0 % (BEAKER) (test code = 437) NEUTROPHILS ABSOLUTE COUNT 4.03 K/ L 1.78-5.38 (BEAKER) (test code = 670) LYMPHOCYTES ABSOLUTE COUNT 1.78 K/ L 1.32-3.57 (BEAKER) (test code = 414) MONOCYTES ABSOLUTE COUNT (BEAKER) 0.59 K/ L 0.30-0.82 (test code = 415) EOSINOPHILS ABSOLUTE COUNT 0.09 K/ L 0.04-0.54 (BEAKER) (test code = 416) BASOPHILS ABSOLUTE COUNT (BEAKER) 0.02 K/ L 0.01-0.08 (test code = 417) IMMATURE GRANULOCYTES-RELATIVE 0 % 0-1 PERCENT (BEAKER) (test code = 2801) POCT-GLUCOSE [id number] 22:19:00 Test Item Value Reference Range Interpretation Comments POC-GLUCOSE METER 157 mg/dL 70-110 H TESTED AT [place] [address] ([facility]) (test code = LILY Phillip [facility] 1538) [address] POCT-GLUCOSE [id number] 16:45:00 Test Item Value Reference Range Interpretation Comments POC-GLUCOSE METER 129 mg/dL 70-110 H TESTED AT [place] [address] ([facility]) ([facility] = [facility] 1538) [address] POTASSIUM-STAT [id number] 12:37:00 Test Item Value Reference Range Interpretation Comments POTASSIUM (BEAKER) (test code = 3.5 meq/L 3.6-5.5 L 379) HEMOGLOBIN-STAT [id number] 12:37:00 Test Item Value Reference Range Interpretation Comments HEMOGLOBIN (BEAKER) (test code = 14.2 g/dL 13.0-16.8 410) POCT-GLUCOSE [id number] 12:20:00 Test Item Value Reference Range Interpretation Comments POC-GLUCOSE METER 98 mg/dL 70-110 TESTED AT [place] [address] ([facility]) (test code = [facility] [address] 1538)
--- NOTE | 2021-11-09 17:02 | RAD REPORT ---
EXAM DESCRIPTION: RAD - Shoulder Right 2 View - 11/09/2021 4:42 pm CLINICAL HISTORY: PAIN COMPARISON: No comparisons FINDINGS: Diffuse osteopenia is seen. Prominent glenohumeral joint arthritic changes are present. Mo derate ossific fragment is seen in the axillary recess region. No acute fracture or dislocation visua lized.
--- NOTE | 2021-11-09 17:03 | RAD REPORT ---
EXAM DESCRIPTION: RAD - Humerus Right - 11/09/2021 4:42 pm CLINICAL HISTORY: PAIN COMPARISON: No comparisons FINDINGS: Moderate diffuse osteopenia is seen. Significant glenohumeral arthritic changes are presen t. Calcific fragment is noted axillary recess region. No acute fracture seen.
--- NOTE | 2021-11-09 17:07 | EDPHYS ---
Physician Documentation [facility] Name: Gavin Fraire Age: 76 yrs Sex: Male : 1945 Arrival Date: 11/09/2021 Time: 15:53 Bed Waiting Private MD: Radha Ellis ED Physician Vikash Jay HPI: 11/09 16:24 This 76 yrs old Male presents to ER via Ambulatory with complaints of Fall Injury, Arm kb Injury. 16:24 Details of fall: The patient fell from an upright position, while walking. Onset: The kb symptoms/episode began/occurred today. Associated injuries: The patient sustained anterior aspect of right shoulder and posterior aspect of right shoulder, painful injury. Severity of symptoms: At their worst the symptoms were moderate, in the emergency department the symptoms are unchanged. The patient has not experienced similar symptoms in the past. The patient has not recently seen a physician. Pt states he was walking up a hill and fell onto outstretched hand. reports pain to right shoulder . Historical: - Allergies: 16:06 No Known Allergies; iw - PMHx: 16:06 COPD; CHF; HIV; Hypertension; cva/tia, L eye blind; "borderline diabetes"; iw - Immunization history:: Adult Immunizations up to date, Client reports receiving the 2nd dose of the Covid vaccine. - Social history:: Smoking status: Patient denies any tobacco usage or history of. ROS: 16:24 Constitutional: Negative for fever, chills, and weight loss. kb 16:24 MS/extremity: Positive for decreased range of motion, pain, tenderness, of the posterior aspect of right shoulder and anterior aspect of right shoulder. 16:24 All other systems are negative. Exam: 16:24 Constitutional: This is a well developed, well nourished patient who is awake, alert, kb and in no acute distress. Head/Face: Normocephalic, atraumatic. ENT: Moist Mucous membranes Respiratory: Respirations even and unlabored. No increased work of breathing. Talking in full sentences Skin: Warm, dry with normal turgor. Normal color. Neuro: Awake and alert, GCS 15, oriented to person, place, time, and situation. Moves all extremities. Normal gait. Psych: Awake, alert, with orientation to person, place and time. Behavior, mood, and affect are within normal limits. 16:24 Musculoskeletal/extremity: Extremities: grossly normal except: noted in the posterior aspect of right shoulder and anterior aspect of right shoulder: decreased ROM, pain, tenderness, ROM: limited active range of motion due to pain, limited passive range of motion due to pain, Circulation is intact in all extremities. Vital Signs: 16:04 BP 138 / 52; Pulse 66; Resp 18; Temp 97.4; Pulse Ox 97% ; Weight 90.72 kg; Height 6 ft. iw 0 in. (182.88 cm); Pain 3/10; 16:04 Body Mass Index 27.12 (90.72 kg, 182.88 cm) iw MDM: 16:25 Data reviewed: vital signs, nurses notes. Data interpreted: Pulse oximetry: on room air kb is 97 %. Interpretation: normal. 16:54 Patient medically screened. kb 17:05 Counseling: I had a detailed discussion with the patient and/or guardian regarding: the kb historical points, exam findings, and any diagnostic results supporting the discharge/admit diagnosis, radiology results, the need for outpatient follow up, a family practitioner, to return to the emergency department if symptoms worsen or persist or if there are any questions or concerns that arise at home. 11/09 16:09 Order name: Shoulder Right (2 View) XRAY; Complete Time: 17:04 iw 11/09 16:09 Order name: Humerus Right XRAY; Complete Time: 17:04 iw 11/09 17:06 Order name: Sling kb Administered Medications: No medications were administered Disposition: 11/10 08:46 Co-signature as Attending Physician, Vikash Jay MD I agree with the assessment and geno plan of care. Disposition Summary: 11/09/21 17:06 Discharge Ordered Location: Home kb Condition: Stable kb Diagnosis - Pain in right shoulder kb - Fall on same level from slipping, tripping and stumbling without subsequent kb striking against object Followup: kb - With: Emergency Department - When: As needed - Reason: Worsening of condition Followup: kb - With: Private Physician - When: 2 - 3 days - Reason: Recheck today's complaints, Continuance of care, Re-evaluation by your physician Discharge Instructions: - Discharge Summary Sheet kb - Shoulder Pain, [id number]-[id number] kb Forms: - Medication Reconciliation Form kb - Thank You Letter kb - Antibiotic Education kb - Prescription Opioid Use kb Signatures: Dispatcher [employer] Jessica Galeana, HUMAN RESOURCES BENEFITS COORDINATOR-C HUMAN RESOURCES BENEFITS COORDINATOR-Vikash Chavez MD MD cha Williams, Irene, RN RN iw Corrections: (The following items were deleted from the chart) 11/09 16:07 16:06 PMHx: Pneumonia; iw iw
--- NOTE | 2021-11-09 17:07 | ER ---
Nurse's Notes [facility] Name: Gavin Fraire Age: 76 yrs Sex: Male : 1945 Arrival Date: 11/09/2021 Time: 15:53 Bed Waiting Private MD: Radha Ellis Diagnosis: Pain in right shoulder;Fall on same level from slipping, tripping and stumbling without subsequent striking against object Presentation: 11/09 16:04 Chief complaint: Patient states: was walking up a hill and fell. Broke fall with right iw hand. c/o pain to right arm and shoulder. Coronavirus screen: Vaccine status: Patient reports receiving the 2nd dose of the covid vaccine. Ebola Screen: Patient negative for fever greater than or equal to 101.5 degrees Fahrenheit, and additional compatible Ebola Virus Disease symptoms Patient denies exposure to infectious person. Patient denies travel to an Ebola-affected area in the 21 days before illness onset. No symptoms or risks identified at this time. Initial Sepsis Screen: Does the patient meet any 2 criteria? No. Patient's initial sepsis screen is negative. Does the patient have a suspected source of infection? No. Patient's initial sepsis screen is negative. Risk Assessment: Do you want to hurt yourself or someone else? Patient reports no desire to harm self or others. Onset of symptoms was November 09, 2021. 16:04 Method Of Arrival: Ambulatory iw 16:04 Acuity: PERLITA 4 iw Triage Assessment: 16:05 General: Appears in no apparent distress. comfortable, Behavior is calm, cooperative. iw Pain: Complains of pain in right arm Pain currently is 3 out of 10 on a pain scale. Historical: - Allergies: 16:06 No Known Allergies; iw - PMHx: 16:06 COPD; CHF; HIV; Hypertension; cva/tia, L eye blind; "borderline diabetes"; iw - Immunization history:: Adult Immunizations up to date, Client reports receiving the 2nd dose of the Covid vaccine. - Social history:: Smoking status: Patient denies any tobacco usage or history of. Vital Signs: 16:04 BP 138 / 52; Pulse 66; Resp 18; Temp 97.4; Pulse Ox 97% ; Weight 90.72 kg; Height 6 ft. iw 0 in. (182.88 cm); Pain 3/10; 16:04 Body Mass Index 27.12 (90.72 kg, 182.88 cm) iw ED Course: 15:53 Patient arrived in ED. as 15:53 Radha Ellis MD is Private Physician. as 16:05 Triage completed. iw 16:05 Arm band placed on. iw 16:42 Shoulder Right (2 View) XRAY In Process Unspecified. EDMS 16:42 Humerus Right XRAY In Process Unspecified. EDMS 16:49 Jessica Jose FNP-C is PHCP. kb 16:49 Vikash Jay MD is Attending Physician. kb Administered Medications: No medications were administered Outcome: 17:06 Discharge ordered by . kb 17:23 Patient left the ED. kb Signatures: Dispatcher [employer] EDMS Jessica Jose FNP-C FNP-Ckb Martinez, Amelia as Williams, Irene, RN RN iw Corrections: (The following items were deleted from the chart) 16:07 16:06 PMHx: Pneumonia; iw iw 16:08 16:04 Pulse 66bpm; Resp 18bpm; Pulse Ox 97%; Temp 97.4F; iw iw
[2021-11-09 17:27] VITALS: BP 138/52; TEMP 97.4; O2SAT 97
== END 2021-11-09 17:23 | disposition home or self-care (01) ==
LOC: ER 15:49
DX: M25.511 Pain in right shoulder (principal); W01.0XXA Fall on same level from slipping, tripping and stumbling without subsequent striking against object, initial encounter; Y93.01 Activity, walking, marching and hiking; I10 Essential (primary) hypertension; Z21 Asymptomatic human immunodeficiency virus [HIV] infection status
CPT/HCPCS: 99282

== ENCOUNTER 2022-07-20 08:16 | Emergency (ER) | payer OTHER ==
--- OUTSIDE RECORDS SUMMARY | 2022-07-20 08:24 | XMS REPORT | Continuity of Care Document ---
:1945 Author Organization [facility] t Address [address] [place] [address] Dr. V[address]. [address] [place] [address] Care Team Providers Name Role Phone Jean Marie Guerrero APRN Primary Care Physician Radha Ellis Attending Clinician Unavailable JEAN MARIE GUERRERO Attending Clinician Unavailable Jana Silveira RN Attending Clinician Unavailable Vernell Loja MA Attending Clinician Unavailable Rashmi Berrios RN Attending Clinician Unavailable Jean Marie Guerrero APRN Attending Clinician Unavailable TERRI PEREZ Attending Clinician Unavailable Jean Marie Guerrero NP Attending Clinician Unavailable TERRI PEREZ Admitting Clinician Unavailable Payers Payer Name Policy Type Policy Number Effective Date Expiration Date S rosanne MEDICARE PART A [id number] 2008 AND B 00:00:00 Problems Condition Condition Condition Status Onset Resolution Last Treating Co mments Source Name Details Category Date Date Treatment Clinician Date HIV HIV Disease Active Overview: [facility] positive positive 8-18 [facility] 00:00: g of this 00 note might be different from the original. 06/24/21T aking dovato without problem. VL still pending from off campus lab. Will check labs per routine at [facility] in 6 months. Mail lab order to his home. 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 c c Pure Pure Disease Active hyperchole hyperchole 12-05 He alth sterolemia sterolemia 00:00: 00 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 12-05 Health mellitus mellitus 00:00: 00 COVID-19 COVID-19 Disease Active [facility] virus virus 12-03 Health infection infection 00:00: 00 Acquired Acquired Disease Active immune immune 12-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 00:00: 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 (AIDS) (AIDS) Colon Colon Disease [facility] Trigger Trigger Disease Active [facility] finger finger 5-21 Health 00:00: 00 Hearing Hearing Disease Active [facility] loss loss 5-10 Health 00:00: 00 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 Idiopathic Idiopathic Disease Active [facility] T chronic [...] 00 History of History of Problem Resolve [facility] Stroke Stroke d Physici syndrome syndrome ans Acquired Acquired Problem Active [facility] immune immune [facility] deficiency deficiency an s syndrome syndrome (AIDS) (AIDS) History of History of Problem Resolve UT allergic allergic d Physic i rhinitis rhinitis ans History of History of Problem Resolve [facility] Chronic Chronic d Physici obstructiv obstructiv an s e e pulmonary pulmonary disease disease History of History of Problem Resolve [facility] sinus sinus d [facility]ici tachycardi tachycardi an s a a History of History of Problem Resolve UT herpes herpes d Physici zoster zoster ans History of History of Problem Resolve UT hyperlipid hyperlipid d Ph ysici emia emia ans History of History of Problem Resolve UT Need for Need for d Physic i Zostavax Zostavax ans administra administra tion tion History of History of Problem Resolve UT pneumococc pneumococc d Ph ysici al al ans vaccinatio vaccinatio n n History of History of Problem Resolve UT Polyneurop Polyneurop d Ph ysici athy athy ans History of History of Problem Resolve UT prostatiti prostatiti d Ph ysici s s ans History of History of Problem Resolve UT sleep sleep d Physici apnea apnea ans History of History of Problem Resolve UT Urinary Urinary d Physici tract tract ans infection infection Personal Personal Problem Resolve UT history of history of d Ph ysici gout gout ans Rhinitis Rhinitis Problem Active [facility] ans Hearing Hearing Problem Active [facility] loss loss Physici ans Impairment Impairment Problem Active U T level of level of Physic i vision vision ans Idiopathic Idiopathic Problem Active U T chronic chronic Physici gout gout 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 Trigger Trigger Problem Active UT finger finger Physici ans Type 2 Type 2 Problem Active UT diabetes diabetes Physic i mellitus mellitus ans Pure Pure Problem Active UT hyperchole hyperchole Ph ysici sterolemia sterolemia an s Essential Essential Problem Active UT hypertensi hypertensi Ph ysici on, on, ans malignant malignant Congestive Congestive Problem Active U T heart heart Physici failure failure ans 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 Family History Family Member Diagnosis Comments Start Date Stop Date Source Unknown Family history of Family [facility] Family Member Hypertension History Unknown Family history of Family [facility] Family Member Congestive Heart Failure History Unknown Family history of Family [facility] Family Member Essential History Hypercholesterolemia Father Family history of [facility] Hypertensive Heart Disease Social History Social Habit Start Date Stop Date Quantity Comments Source Exposure to Not sure [facility] SARS-CoV-2 (event) History SDOH [facility] Alcohol Binge Medical Asad ter History SDOH [facility] Alcohol Comment Medical C enter History SDOH [facility] Alcohol Std Drinks [facility] Alcohol intake 2019-01-29 2019-01-29 [facility] (finding) Tobacco Comment 2019-01-25 2019-01-[address] [facility] Tobacco use and 2019-01-25 2019-01-[address] [facility] exposure 00:00[facility]00 00:[facility]:00 [facility] History SDOH 2019-01-25 2019-01-[address] [facility] Alcohol Frequency 00:00:00 00:00:00 Medical Center History of tobacco 1980-01-[address] [facility] use 00:00:00 [facility] Center Sex Assigned At [address] [facility] Smoking Status Start Date Stop Date Source Tobacco smoking [facility] consumption unknown Former smoker 2019-01-29 00:00:00 2019-01-[address] [facility] 00:[facility]:00 Center Medications Ordered Filled Start Stop Current Ordering Indication Dosage Frequency Signature Comments Components Source Medication Medication Date Date Medication? Clinician (SIG) Name Name arformotero Yes Q12H every 12 UT l (Brovana) 2-16 (twelve) Heal th 15 MCG/2ML 12:22: hours. nebulizer 10 solution aspirin 81 Yes 81mg QD Take 81 mg U T MG EC 2-16 by mouth 1 Health tablet 12:22: (one) time 10 each day. Multiple Yes 1{tbl} QD Take 1 UT Vitamin 2-16 tablet by Health (Multi-Tamica 12:22: mouth 1 min) tablet 10 (one) time each day. tiotropium Yes 1{capsu 1 capsule UT (Spiriva 2-16 le} 1 (one) Health HandiHaler) 12:22: time each 18 MCG 10 day at the inhalation same time. capsule traMADol 0 Yes 1 (one) UT (Ultram) 50 2-16 time each Hea lth MG tablet 12:22: day at the 10 same time. clotrimazol Yes USE 1 UT e-betametha 1-24 APPLICATIO He alth sone 00:00: N (Lotrisone) 00 EXTERNALLY cream TWICE A DAY 42 DAYS DULoxetine Yes 60mg QD Take 60 mg U T (Cymbalta) 1-21 by mouth 1 Hea lth [address] 00:00: (one) time capsule 00 each day. Acetaminoph 0 Yes UT en 500 MG 8-18 Health capsule 18:29: 05 Acetaminoph 2020-0 Yes UT en 500 MG 8-18 Health capsule 18:29: 05 Acetaminoph 2020-0 Yes UT en 500 MG 8-18 Health capsule 18:29: 05 Acetaminoph 2020-0 Yes UT en 500 MG 8-18 Health capsule 13:29: 05 Acetaminoph 2020-0 Yes UT en 500 MG 8-18 Health capsule 13:29: 05 Accu-Chek 2020-0 Yes TEST BLOOD UT [...] test strip 00:00: EVERY DAY 00 finasteride 0 Yes 5mg QD Take 5 mg U T (Proscar) 5 5-21 by mouth 1 He alth MG tablet 00:00: (one) time 00 each day. finasteride 0 Yes 5mg QD Take 5 mg U T (Proscar) 5 5-21 by mouth 1 He alth MG tablet 00:00: (one) time 00 each day. finasteride 2021-0 Yes 5mg QD Take 5 mg U T (Proscar) 5 5-21 by mouth 1 He alth MG tablet 00:00: () time 00 each day. finasteride 2021-0 Yes 5mg QD Take 5 mg U T (Proscar) 5 5-21 by mouth 1 He alth MG tablet 00:00: () time 00 each day. finasteride 2021-0 Yes 5mg QD Take 5 mg U T (Proscar) 5 5-21 by mouth 1 He alth MG tablet 00:00: () time 00 each [...] mouth 1 He alth MG tablet 00:00: () time 00 each day. doxazosin 2021-0 Yes 4mg QD Take 4 mg UT (Cardura) 4 4-10 by mouth 1 He alth MG tablet 00:00: () time 00 each day. doxazosin 2021-0 Yes 4mg QD Take 4 mg UT (Cardura) 4 4-10 by mouth 1 He alth MG tablet 00:00: () time 00 each [...] 10-40 MG 00 each day. capsule amLODIPine- 2021-0 Yes QD Take by UT benazepril 3-27 mouth 1 Health (Lotrel) 00:00: (one) time 10-40 MG 00 each day. capsule amLODIPine- 2021-0 Yes QD Take by UT benazepril 3-27 mouth 1 Health (Lotrel) 00:00: (one) time 10-40 MG 00 each day. capsule amLODIPine- 2021-0 Yes QD Take by UT benazepril 3-27 mouth 1 Health (Lotrel) 00:00: (one) time 10-40 MG 00 each day. 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 (Atripla) 600-200-300 MG tablet efavirenz-e Yes 1{tbl} QD Take 1 UT mtricitabin 1-06 tablet by [facility] e-tenofovir 00:00: mouth 1 disoproxil 00 (one) time fumarate each day. (Atripla) 600-200-300 MG tablet efavirenz-e Yes 1{tbl} QD Take 1 UT mtricitabin 1-06 tablet by [facility] e-tenofovir 00:00: mouth 1 disoproxil 00 (one) time fumarate each day. (Atripla) 600-200-300 MG tablet efavirenz-e 0 Yes 1{tbl} QD Take 1 UT mtricitabin 1-06 tablet by [facility] e-tenofovir 00:00: mouth 1 disoproxil 00 (one) time fumarate each day. (Atripla) 600-200-300 MG tablet efavirenz-e 0 Yes 1{tbl} QD Take 1 UT mtricitabin 1-06 tablet by [facility] e-tenofovir 00:00: mouth 1 disoproxil 00 (one) time fumarate each day. (Atripla) 600-200-300 MG tablet albuterol 0 Yes INHALE 2 UT 108 (90 1-04 PUFFS BY Health Base) 00:00: MOUTH MCG/ACT 00 EVERY 4 inhaler HOURS NEEDED NOT COVERED predniSONE 0 Yes 40mg QD Take 40 mg U T (Deltasone) 1-04 by mouth 1 He alth 20 MG 00:00: (one) time tablet 00 each day. albuterol 0 Yes INHALE 2 UT 108 (90 1-04 PUFFS BY Health Base) 00:00: MOUTH MCG/ACT 00 EVERY 4 inhaler HOURS NEEDED NOT COVERED predniSONE 0 Yes 40mg QD Take 40 mg U T (Deltasone) 1-04 by mouth 1 He alth 20 MG 00:00: (one) time tablet 00 each day. albuterol 0 Yes INHALE 2 UT 108 (90 1-04 PUFFS BY Health Base) 00:00: MOUTH MCG/ACT 00 EVERY 4 inhaler HOURS NEEDED NOT COVERED predniSONE Yes 40mg QD Take 40 mg U T (Deltasone) 1-04 by mouth 1 He alth 20 MG 00:00: (one) time tablet 00 each day. albuterol 0 Yes INHALE 2 UT 108 (90 1-04 PUFFS BY Health Base) 00:00: MOUTH MCG/ACT 00 EVERY 4 inhaler HOURS NEEDED NOT COVERED predniSONE 0 Yes 40mg QD Take 40 mg U T (Deltasone) 1-04 by mouth 1 He alth 20 MG 00:00: (one) time tablet 00 each day. albuterol 0 Yes INHALE 2 UT 108 (90 1-04 PUFFS BY Health Base) 00:00: MOUTH MCG/ACT 00 EVERY 4 inhaler HOURS NEEDED NOT COVERED predniSONE 0 Yes 40mg QD Take 40 mg U T (Deltasone) 1-04 by mouth 1 He alth 20 MG 00:00: (one) time tablet 00 each day. 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 Center 600-200-300 mg per tablet amlodipine- 2019-0 Yes 1{capsu Q.5D Take [address] benazepril 3- le} capsule by [facility] (LOTREL) 12:08: mouth 2 Medica l 10-40 mg 09 (two) Center per capsule times daily . eplerenone 2018-0 Yes 25mg QD Take [address] (INSPRA) 25 -23 by mouth Luke s MG tablet 12:08: daily. Medica l 09 [place] furosemide 0 Yes 40mg QD Take [address] (LASIX) 40 -23 by mouth [facility] MG tablet 12:08: daily. Medica l 09 [place] metoprolol 0 Yes 100mg Q.5D Take [address] (LOPRESSOR) 3-23 mg by [facility] 100 MG 12:08: mouth 2 Medical tablet 09 (two) Center times daily. aspirin 81 2018- Yes 81mg QD Take [address] MG EC - by mouth [facility] tablet 12:08: daily. Medical 09 [place] gabapentin 0 Yes 600mg [id number] Take [address] (NEURONTIN) 3-23 [id number] mg by L ukes 600 MG 12:08: 3D mouth 3 Medical tablet 09 (three) Center times daily. FLAXSEED 2018-0 Yes Q.5D Take by [facility] ORAL - mouth 2 [facility] 12:08: (two) Medical 09 times Center daily. multivitami 2019-0 Yes 1{tbl} QD Take [address] n per 01-27 tablet by [facility] tablet 12:08: mouth Medical 09 daily. [place] SAW 2018-0 Yes Take by [facility] PALMETTO -23 mouth. [facility] ORAL 12:08: Medical 09 [place] glucosamine 2018-0 Yes QD Take by [facility] /chondr james -23 mouth [facility] A sod 12:08: daily. Medical (OSTEO 09 [place] BI-FLEX ORAL) traMADol 2018-0 Yes 50mg Take [address] [facility] (ULTRAM) 50 -23 by mouth Luke s mg tablet 12:08: every 6 Medic al 09 (six) Center hours as needed for Pain. fluticasone 2018-0 Yes Inhale by [facility] /salmeterol 3-23 mouth via [facility] (ADVAIR 12:08: inhaler as Medi viraj DISKUS 09 needed. Center INH) albuterol 2018- Yes 1{puff} Inhale [address] HFA 3-23 puff by [facility] (VENTOLIN 12:08: mouth via Med ical HFA) 90 09 inhaler Center mcg/actuati every 6 on inhaler (six) hours as needed for Wheezing. efavirenz-e 2018- Yes 1{tbl} QD Take [address] mtrictabine 3-23 tablet by [facility] es -tenofovir 12:08: mouth Medica l (ATRIPLA) 09 nightly. Center 600-200-300 mg per tablet amlodipine- 0 Yes 1{capsu Q.5D Take [address] benazepril 3-23 le} capsule by [facility] (LOTREL) 12:08: mouth 2 Medica l 10-40 mg 09 (two) Center per capsule times daily . eplerenone Yes 25mg QD Take [address] (INSPRA) 25 3-23 by mouth Luke s MG tablet 12:08: daily. Medica l 09 [place] furosemide 0 Yes 40mg QD Take [address] (LASIX) 40 3-23 by mouth [facility] MG tablet 12:08: daily. Medica l 09 [place] metoprolol 0 Yes 100mg Q.5D Take [address] (LOPRESSOR) 3-23 mg by [facility] 100 MG 12:08: mouth 2 Medical tablet 09 (two) Center times daily. aspirin 81 2018- Yes 81mg QD Take [address] MG EC 3-23 by mouth [facility] tablet 12:08: daily. Medical 09 Center gabapentin 0 Yes 600mg Q.[id number] Take [address] (NEURONTIN) 3-23 [id number] mg by L ukes 600 MG 12:08: 3D mouth 3 Medical tablet 09 (three) Center times daily. FLAXSEED 2019-0 Yes Q.5D Take by [facility] ORAL 3-23 mouth 2 [facility] 12:08: (two) Medical 09 times Center daily. multivitami 2018- Yes 1{tbl} QD Take [address] n per 3-23 tablet by [facility] tablet 12:08: mouth Medical 09 daily. Center metFORMIN 2018- Yes 500mg Take [address] (GLUCOPHAGE 3-23 mg by [facility] ) 500 MG 12:08: mouth 2 Medica l tablet 09 (two) Center times daily with breakfast and dinner. SAW 2018-0 Yes Take by [facility] 3-23 mouth. [facility] ORAL 12:08: Medical 09 Center glucosamine 2019-0 Yes QD Take by [facility] /chondr james 3-23 mouth [facility] A sod 12:08: daily. Medical (OSTEO 09 Center BI-FLEX ORAL) traMADol 2018-0 Yes 50mg Take [address] (ULTRAM) 50 3-23 by mouth Luke s mg tablet 12:08: every 6 Medic al 09 (six) Center hours as needed for Pain. fluticasone 0 Yes Inhale by [facility] /salmeterol 3-23 mouth via [facility] (ADVAIR 12:08: inhaler as Medi viraj DISKUS 09 needed. Center INHL) albuterol 2018-0 Yes 1{puff} Inhale [address] HFA 3-23 puff by [facility] (VENTOLIN 12:08: mouth via Med ical HFA) 90 09 inhaler Center mcg/actuati every 6 on inhaler (six) hours as needed for Wheezing. metFORMIN Yes 500mg Take [address] (GLUCOPHAGE 3-23 mg by [facility] ) 500 MG 12:08: mouth 2 Medica l tablet 09 (two) Center times daily with breakfast and dinner. efavirenz-e 2018-0 Yes 1{tbl} QD Take [address] mtrictabine 3-23 tablet by Hussein es -tenofovir 12:08: mouth Medica l (ATRIPLA) 09 nightly. Center 600-200-300 mg per tablet amlodipine- 2018-0 Yes 1{capsu Q.5D Take [address] benazepril 3-23 le} capsule by [facility] (LOTREL) 12:08: mouth 2 Medica l 10-40 mg 09 (two) Center per capsule times daily . eplerenone 2019-0 Yes 25mg QD Take [address] (INSPRA) 25 3-23 by mouth Luke s MG tablet 12:08: daily. Medica l 09 Center furosemide 2018-0 Yes 40mg QD Take [address] (LASIX) 40 3-23 by mouth [facility] MG tablet 12:08: daily. Medica l 09 [place] metoprolol 2019-0 Yes 100mg Q.5D Take [address] (LOPRESSOR) 3-23 mg by [facility] 100 MG 12:08: mouth 2 Medical tablet 09 (two) Center times daily. aspirin 81 2019-0 Yes 81mg QD Take [address] MG EC 3-23 by mouth [facility] tablet 12:08: daily. Medical [address] [place] [address] gabapentin 2019-0 Yes 600mg [id number] Take [address] (NEURONTIN) 3-23 [id number] mg by L ukes 600 MG 12:08: 3D mouth 3 Medical tablet 09 (three) Center times daily. FLAXSEED 2019-0 Yes Q.5D Take by [facility] ORAL 3-23 mouth 2 [facility] 12:08: (two) Medical 09 times Center daily. multivitami 2019-0 Yes 1{tbl} QD Take [address] n per 3-23 tablet by [facility] tablet 12:08: mouth Medical 09 daily. [place] SAW 2018-0 Yes Take by [facility] 3-23 mouth. [facility] ORAL 12:08: Medical 09 Center glucosamine 2019-0 Yes QD Take by [facility] /chondr james 3-23 mouth [facility] A sod 12:08: daily. Medical (OSTEO 09 Center BI-FLEX ORAL) traMADol 2019-0 Yes 50mg Take [address] (ULTRAM) 50 3-23 by mouth Luke s mg tablet 12:08: every 6 Medic al 09 (six) Center hours as needed for Pain. fluticasone 2019-0 Yes Inhale by [facility] /salmeterol 3-23 mouth via [facility] (ADVAIR 12:08: inhaler as Medi viraj DISKUS 09 needed. Center INHL) albuterol 2019-0 Yes 1{puff} Inhale [address] HFA 3-23 puff by [facility] (VENTOLIN 12:08: mouth via Med ical HFA) 90 09 inhaler Center mcg/actuati every 6 on inhaler (six) hours as needed for Wheezing. metFORMIN 2019-0 Yes 500mg Take [address] (GLUCOPHAGE 3-23 mg by [facility] ) 500 MG 12:08: mouth 2 Medica l tablet 09 (two) Center times daily with breakfast and dinner. 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 00 doxazosin Yes TAKE 1 UT (Cardura) 2 8-23 TABLET Health MG tablet 00:00: TWICE 00 DAILY Doxazosin Doxazosin Yes TAHIR 1 Q0.5D TAKE 1 UT Mesylate 2 Mesylate 2 8-23 [facility] TABLET [facility] MG Oral MG Oral 00:00: M.D. TWICE ans Tablet Tablet 00 DAILY eplerenone Yes TAKE 1 UT (Inspra) 25 8-23 TABLET Health MG tablet 00:00: DAILY. 00 Eplerenone Eplerenone Yes TAHIR 1 QD TAKE 1 UT 25 MG Oral 25 MG Oral 8-23 [facility] TABLET [facility] Tablet Tablet 00:00: M.D. DAILY. ans doxazosin Yes TAKE 1 UT (Cardura) [...] TABLET Health MG tablet 00:00: DAILY. 00 Furosemide Furosemide Yes Jean Marie UT 20 MG Oral 20 MG Oral 2-12 [facility] Tablet Tablet 00:00: 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 ans 00 Flaxseed Flaxseed Yes Jean Marie UT Oil 1000 MG Oil 1000 MG 2-12 [facility] Oral Oral 00:00: 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 ans Capsule Capsule 00 Flaxseed, Yes UT Linseed, 2-12 Health [...] 20 2-12 Health MG tablet 00:00: 00 Lipitor 20 Lipitor 20 Yes Jean Marie TAKE 1 UT MG Oral MG Oral 3-31 [facility] TABLET Ph ysici Tablet Tablet 00:00: 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 DAILY AT ans 00 BEDTIME. Metoprolol Metoprolol Yes Jean Marie TAKE 1 UT Tartrate Tartrate 3-31 [facility] TABLET [facility] 100 MG Oral 100 MG Oral 00:00: 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 EVERY 12 ans Tablet Tablet 00 HOURS DAILY0.15m g metoprolol Yes TAKE 1 UT tartrate 3-31 [...] MG 00:00: DAILY AT tablet 00 BEDTIME. Acetaminoph Acetaminoph Yes U T en 500 MG en 500 MG Physi ci CAPS CAPS ans Immunizations Ordered Filled Date Status Comments Source Immunization Name Immunization Name Zoster, Unspecified 2019-08-07 Completed [facility] alth 00:00:00 Zoster, Recombinant 2019-08-07 Completed [facility] 00:00:00 Influenza, High 2019-08-07 [facility] Dose Seasonal, 00:00:00 Preservative Free Zoster, Unspecified 2019-08-07 Completed [facility] 00:00:00 Zoster, Recombinant 2019-08-07 Completed [facility] 00:00:00 Influenza, High 2019-08-07 [facility] D[facility]al 00:00:00 Zoster, Unspecified 2019-08-07 Completed [facility] alth 00:00:00 Zoster, Recombinant 2019-08-07 Completed [facility] 00:00:00 Influenza, High 2019-08-07 [facility] Dose Seasonal 00:00:00 Zoster, Unspecified 2019-08-07 Completed [facility] alth 00:00:00 Zoster, Recombinant 2019-08-07 Completed [facility] 00:00:00 Influenza, High 2019-08-07 [facility]pleted [facility] Dose Seasonal, 00:00:00 Preservative Free Zoster, Unspecified 2019-08-07 Completed [facility] alth 00:00:00 Zoster, Recombinant 2019-08-07 Completed [facility] alth 00:00:00 Influenza, High 2019-08-07 [facility]pleted [facility] Dose Seasonal, 00:00:00 Preservative Free Influenza 2019-08-07 Completed [facility] 00:00:00 Shingrix 50 MCG 2019-08-07 Completed [facility] ians Intramuscular 00:00:00 Suspension Reconstituted Prevnar 13 2019-04-18 Completed [facility] Intramuscular 13:47:00 Suspension Pneumococcal 2019-04-18 Completed [facility] Conjugate PCV [...] Influenza, High 2018-08-07 Completed [facility] Dose Seasonal 00:00:00 Influenza, High 2018-08-07 Completed [facility] Dose Seasonal 00:00:00 Influenza, High 2018-08-07 Completed [facility] Dose Seasonal, 00:00:00 Preservative Free Influenza, High 2018-08-07 Completed [facility] Dose Seasonal, 00:00:00 Preservative Free Influenza 2018-08-07 Completed [facility] 00:00:00 Tdap 2016-11-07 [facility]pleted [facility] 00:00:00 Tdap 2016-11-07 [facility]pleted [facility] 00:00:00 Tdap 2016-11-07 [facility]pleted [facility] 00:00:00 Tdap 2016-11-07 [facility]pleted [facility] 00:00:00 Tdap 2016-11-07 [facility]pleted [facility] 00:00:00 Zoster, Unspecified 2015-11-07 Completed [facility] al[facility] 00:00:00 Zoster, Recombinant 2015-11-07 Completed [facility] 00:00:00 Zoster, Unspecified 2015-11-07 Completed [facility] 00:00:00 Zoster, Recombinant 2015-11-07 Completed [facility] 00:00:00 Zoster, Unspecified 2015-11-07 Completed [facility] 00:00:00 Zoster, Recombinant 2015-11-07 Completed [facility] 00:00:00 Zoster, Unspecified 2015-11-07 Completed [facility] 00:00:00 Zoster, Recombinant 2015-11-07 Completed [facility] 00:00:00 Zoster, Unspecified 2015-11-07 Completed [facility] 00:00:00 Zoster, Recombinant 2015-11-07 Completed [facility] 00:00:00 Influenza, 2015-07-02 [facility]pleted [facility] Unspecified 00:00:00 Influenza, 2015-07-02 Completed [facility] Unspecified 00:00:00 Influenza, 2015-07-02 Completed [facility] 00:00:00 Influenza, 2015-07-02 Completed [facility] 00:00:00 Influenza, 2015-07-02 Completed [facility] 00:00:00 Influenza 2015-07-02 Completed [facility] 00:00:00 Influenza, 2010-07-14 Completed [facility] 00:00:00 Influenza, 2010-07-14 Completed [facility] 00:00:00 Influenza, 2010-07-14 Completed [facility] 00:00:00 Influenza, 2010-07-14 Completed [facility] 00:00:00 Influenza, 2010-07-14 Completed [facility] 00:00:00 Influenza 2010-07-14 Completed [facility] 00:00:00 Novel 2009-11-06 Completed [facility] Tvbivtylt-X2V7-30, 00:00:00 all formulations Novel 2009-11-06 Completed [facility] Kxebwdtrg-U1S8-42, 00:00:00 all formulations Novel 2009-11-06 Completed [facility] Kfdqzfrhv-Q7R3-07, 00:00:00 all formulations Novel 2009-11-06 Completed [facility] Rkcwehmfi-L4U2-68, 00:00:00 all formulations Novel 2009-11-06 Completed [facility] Rhhzppdjs-E7H6-22, 00:00:00 all formulations H1N1 Influenza Inj 2009-11-06 Completed [facility] 00:00:00 Fluzone High-Dose Unknown Completed Approx [facility] 0.5 ML Intramuscular Suspension Prefilled Syringe Shingrix 50 MCG Unknown Completed [facility] Intramuscular Suspension Reconstituted Tdap Unknown Completed [facility] Vital Signs Vital Name Observation Time Observation Value Comments Source Systolic blood 2020-12-03 16:46:00 143 mm[Hg] [facility] pressure Diastolic blood 2020-12-03 16:46:00 79 mm[Hg] [facility] pressure Weight 2020-12-03 16:46:00 190 [lb_av] [facility] Body mass index 2020-12-03 16:46:00 25.77 kg/m2 [facility] (BMI) [Ratio] Heart Rate 2020-12-03 16:46:00 68 /min [facility] BP Systolic 2019-11-05 13:07:00 106 mm[Hg] Location: RUE; [facility] Position: Sitting BP Diastolic 2019-11-05 13:07:00 60 mm[Hg] Location: RUE; [facility] Position: Sitting Height 2019-11-05 13:07:00 72 [in_us] [facility] Weight 2019-11-05 13:07:00 218.5 [lb_av] [facility] Body Mass Index 2019-11-05 13:07:00 29.63 kg/m2 [facility] Calculated Temperature 2019-11-05 13:07:00 97.7 [degF] Method: Oral [facility] Heart Rate 2019-11-05 13:07:00 66 /min [facility]: R [facility] Brachial Artery; Respiration Rate 2019-11-05 13:07:00 20 /min [facility] BP Systolic 2018-10-04 13:09:00 107 mm[Hg] Location: RUE; [facility] Position: Sitting BP Diastolic 2018-10-04 13:09:00 62 mm[Hg] Location: RUE; [facility] Position: Sitting Height 2018-10-04 13:09:00 72 [in_us] [facility] Weight 2018-10-04 13:09:00 233.375 [lb_av] [facility] Body Mass Index 2018-10-04 13:09:00 31.65 kg/m2 [facility] Calculated Temperature 2018-10-04 13:09:00 97.6 [degF] Method: Oral [facility] Heart Rate 2018-10-04 13:09:00 80 /min [facility]: [facility] Brachial Artery; Respiration Rate 2018-10-04 13:09:00 16 /min [facility] BP Systolic 2018-03-27 13:04:00 110 mm[Hg] Location: RUE; [facility] Position: Sitting BP Diastolic 2018-03-27 13:04:00 58 mm[Hg] Location: RUE; [facility] Position: Sitting Height 2018-03-27 13:04:00 72 [in_us] [facility] Weight 2018-03-27 13:04:00 230.125 [lb_av] [facility] Body Mass Index 2018-03-27 13:04:00 31.21 kg/m2 [facility] Calculated Temperature 2018-03-27 13:04:00 97.7 [degF] Method: Oral [facility] Heart Rate 2018-03-27 13:04:00 76 /min [facility]: [facility] Brachial Artery; Respiration Rate 2018-03-27 13:04:00 16 /min [facility] BP Systolic 2017-10-03 13:24:00 124 mm[Hg] Location: [facility]; [facility] Position: Sitting BP Diastolic 2017-10-03 13:24:00 70 mm[Hg] [facility]; [facility] Position: Sitting Height 2017-10-03 13:24:00 72 [in_us] [facility] Weight 2017-10-03 13:24:00 238.125 [lb_av] [facility] Body Mass Index 2017-10-03 13:24:00 32.3 kg/m2 [facility] Calculated Temperature 2017-10-03 13:24:00 97.7 [degF] Method: Oral [facility] Heart Rate 2017-10-03 13:24:00 73 /min [facility]: [facility] Brachial Artery; Respiration Rate 2017-10-03 13:24:00 16 /min [facility] Procedures Procedure Date / Time Performed Performing Clinician [facility] e [QL] URINALYSIS, COMPLETE 2020-12-03 00:00:00 [facility] W/REFLEX TO CULTURE [QL] LIPID PANEL 2020-12-03 00:00:00 [facility] [Q] HIV 1 RNA, QN PCR W/RFL 2020-12-03 00:00:00 [facility] TIMI (RTI,PI,INTEGRASE) [QLH] VITAMIN D, 25-HYDROXY, 2019-11-05 00:00:00 [facility] LC/MS/MS [QLH] HEMOGLOBIN A1c 2019-11-05 00:00:00 [facility] [QLH] CMP W/EGFR 2019-11-05 00:00:00 [facility] [QLH] CD4/CD8 Ratio Profile 2019-11-05 00:00:00 [facility] [QLH] CBC (INCLUDES DIFF/PLT) 2019-11-05 00:00:00 [facility] [QH] HIV 1 RNA, QUANTITATIVE 2019-11-05 00:00:00 [facility] REAL TIME PCR [QLH] URINALYSIS, COMPLETE 2019-11-05 00:00:00 [facility] W/REFLEX TO CULTURE [QLH] CMP W/EGFR 2018-10-04 00:00:00 [facility] [QLH] CD4/CD8 Ratio Profile 2018-10-04 00:00:00 [facility] [QLH] CBC (INCLUDES DIFF/PLT) 2018-10-04 00:00:00 [facility] [QLH] LIPID PANEL 2018-10-04 00:00:00 [facility] [QH] HIV 1 RNA, QUANTITATIVE 2018-10-04 00:00:00 [facility] REAL TIME PCR [QLH] HEMOGLOBIN A1c 2018-10-04 00:00:00 [facility] [QLH] LIPID PANEL 2018-03-27 00:00:00 [facility] [QLH] CMP W/EGFR 2018-03-27 00:00:00 [facility] [QH] HIV 1 RNA, QUANTITATIVE 2018-03-27 00:00:00 [facility] REAL TIME PCR [QLH] LIPID PANEL 2017-10-03 00:00:00 [facility] [QLH] CD4/CD8 Ratio Profile 2017-10-03 00:00:00 [facility] [L] RNA, Real Time PCR 2017-10-03 00:00:00 [facility] (Non-Graph) [QLH] HEMOGLOBIN A1c 2017-10-03 00:00:00 [facility] [QLH] URINALYSIS, COMPLETE 2017-10-03 00:00:00 [facility] W/REFLEX TO CULTURE History [facility] Gastrointestinal [facility] Surgery Laparoscopic Procedure Detail History of Surgery [facility] Deferens Vasectomy Plan of Care Planned Activity Planned Date Details Comments Source Future Scheduled 2021-07-[address] [facility] 00:00:00 (Season Ended) [code Medical Center = INFLUENZA VACCINE (Season Ended)] Future Scheduled 2021-07-[address] [facility] 00:00:00 (Season Ended) [code Medical Center = INFLUENZA VACCINE (Season Ended)] Future Scheduled 2021-06-02 [QL] UR[facility]ALYSIS, [facility] 00:[facility]:00 COMPLETE W/REFLEX TO CULTURE [code = [QL] URINALYSIS, COMPLETE W/REFLEX TO CULTURE] Future Scheduled 2021-06-02 [QL] LIPID PANEL [facility] 00:00:00 [code = [QL] LIPID PANEL] Future Scheduled 2021-06-02 [Q] HIV 1 RNA, QN PCR [facility] 00:00:00 W/RFL TIMI (RTI,PI,INTEGRASE) [code = [Q] HIV 1 RNA, QN PCR W/RFL TIMI (RTI,PI,INTEGRASE)] Future Scheduled 2020-11-[address] [facility] 00:00:00 (12+) [code = Medical Center DEPRESSION SCREENING (12+)] Future Scheduled 2020-11-[address] [facility] 00:00:00 (12+) [code = [facility] DEPRESSION SCREENING (12+)] Future Scheduled 2020-11-05 [QLH] VITAMIN D, [facility] 00:00:00 25-HYDROXY, LC/MS/MS [code = [QLH] VITAMIN D, 25-HYDROXY, LC/MS/MS] Future Scheduled 2020-11-05 [QLH] HEMOGLOBIN A1c [facility] 00:00:00 [code = [QLH] HEMOGLOBIN A1c] Future Scheduled 2020-11-05 [QLH] CMP W/EGFR [facility] 00:00:00 [code = [QLH] CMP W/EGFR] Future Scheduled 2020-11-05 [QLH] CD4/CD8 Ratio [facility] 00:00:00 Profile [code = [QLH] CD4/CD8 Ratio Profile] Future Scheduled 2020-11-05 [QLH] CBC (INCLUDES [facility] 00:[facility]:00 DIFF/PLT) [code = [QLH] CBC (INCLUDES DIFF/PLT)] Future Scheduled 2020-11-05 [QH] HIV 1 RNA, [facility] 00:00:00 QUANTITATIVE REAL TIME PCR [code = 36374] Future Scheduled 2020-11-05 [QLH] URINALYSIS, [facility] 00:00:00 COMPLETE W/REFLEX TO CULTURE [code = [QLH] URINALYSIS, COMPLETE W/REFLEX TO CULTURE] Diagnostic Test 2019-04-03 [QLH] CMP W/EGFR [facility] Pending 00:00:00 [code = [QLH] CMP W/EGFR] Diagnostic Test 2019-04-03 [QLH] CD4/CD8 Ratio [facility] 00:00:00 Profile [code = [QLH] CD4/CD8 Ratio Profile] Diagnostic Test 2019-04-03 [QLH] CBC (INCLUDES [facility]ending 00:00:00 DIFF/PLT) [code = [QLH] CBC (INCLUDES DIFF/PLT)] Diagnostic Test 2019-04-03 [QLH] LIPID PANEL [facility] Pending 00:00:00 [code = [QLH] LIPID PANEL] Diagnostic Test 2019-04-03 [QH] HIV 1 RNA, [facility] Pending 00:00:00 QUANTITATIVE REAL TIME PCR [code = 09291] Diagnostic Test 2019-04-03 [QLH] HEMOGLOBIN A1c [facility] Pending 00:00:00 [code = [QLH] HEMOGLOBIN A1c] Diagnostic Test 2019-04-03 [QLH] CMP W/EGFR [facility] 00:00:00 [code = [QLH] CMP W/EGFR] Diagnostic Test 2019-04-03 [QLH] CD4/CD8 Ratio [facility] 00:00:00 Profile [code = [QLH] CD4/CD8 Ratio Profile] Diagnostic Test 2019-04-03 [QLH] CBC (INCLUDES [facility]ending 00:00:00 DIFF/PLT) [code = [QLH] CBC (INCLUDES DIFF/PLT)] Diagnostic Test 2019-04-03 [QLH] LIPID PANEL [facility] Pending 00:00:00 [code = [QLH] LIPID PANEL] Diagnostic Test 2019-04-03 [QH] HIV 1 RNA, [facility] Pending 00:00:00 QUANTITATIVE REAL TIME PCR [code = 80672] Diagnostic Test 2019-04-03 [QLH] HEMOGLOBIN A1c [facility] Pending 00:00:00 [code = [QLH] HEMOGLOBIN A1c] Diagnostic Test 2019-04-03 [QLH] CMP W/EGFR [facility] 00:00:00 [code = [QLH] CMP W/EGFR] Diagnostic Test 2019-04-03 [QLH] CD4/CD8 Ratio [facility] 00:00:00 Profile [code = [QLH] CD4/CD8 Ratio Profile] Diagnostic Test 2019-04-03 [QLH] CBC (INCLUDES [facility]ending 00:00:00 DIFF/PLT) [code = [QLH] CBC (INCLUDES DIFF/PLT)] Diagnostic Test 2019-04-03 [QLH] LIPID PANEL [facility]ending 00:00:00 [code = [QLH] LIPID PANEL] Diagnostic Test 2019-04-03 [QH] HIV 1 RNA, [facility] Pending 00:00:00 QUANTITATIVE REAL TIME PCR [code = 25771] Diagnostic Test 2019-04-03 [QLH] HEMOGLOBIN A1c [facility] 00:00:00 [code = [QLH] HEMOGLOBIN A1c] Diagnostic Test 2019-04-03 [QLH] CMP W/EGFR [facility] 00:00:00 [code = [QLH] CMP W/EGFR] Diagnostic Test 2019-04-03 [QLH] CD4/CD8 Ratio [facility] 00:00:00 Profile [code = [QLH] CD4/CD8 Ratio Profile] Diagnostic Test 2019-04-03 [QLH] CBC (INCLUDES [facility] 00:00:00 DIFF/PLT) [code = [QLH] CBC (INCLUDES DIFF/PLT)] Diagnostic Test 2019-04-03 [QLH] LIPID PANEL [facility] 00:00:00 [code = [QLH] LIPID PANEL] Diagnostic Test 2019-04-03 [QH] HIV 1 RNA, [facility]ending 00:00:00 QUANTITATIVE REAL TIME PCR [code = 04257] Diagnostic Test 2019-04-03 [QLH] HEMOGLOBIN A1c [facility] 00:00:00 [code = [QLH] HEMOGLOBIN A1c] Diagnostic Test 2019-04-03 [QLH] CMP W/EGFR [facility] 00:00:00 [code = [QLH] CMP W/EGFR] Diagnostic Test 2019-04-03 [QLH] CD4/CD8 Ratio [facility] 00:00:00 Profile [code = [QLH] CD4/CD8 Ratio Profile] Diagnostic Test 2019-04-03 [QLH] CBC (INCLUDES [facility] 00:00:00 DIFF/PLT) [code = [QLH] CBC (INCLUDES DIFF/PLT)] Diagnostic Test 2019-04-03 [QLH] LIPID PANEL [facility] 00:00:00 [code = [QLH] LIPID PANEL] Diagnostic Test 2019-04-03 [QH] HIV 1 RNA, [facility] Pending 00:00:00 QUANTITATIVE REAL TIME PCR [code = 50348] Diagnostic Test 2019-04-03 [QLH] HEMOGLOBIN A1c [facility] 00:00:00 [code = [QLH] HEMOGLOBIN A1c] Future Scheduled 2019-01-[address] [facility] (procedure) [code = 08856239] Future Scheduled 2019-01-[address] [facility] (procedure) [code = 34167357] Diagnostic Test 2018-09-27 [QLH] LIPID PANEL [facility] 00:00:00 [code = [QLH] LIPID PANEL] Diagnostic Test 2018-09-27 [QLH] CMP W/EGFR [facility] 00:00:00 [code = [QLH] CMP W/EGFR] Diagnostic Test 2018-09-27 [QH] HIV 1 RNA, [facility]ending 00:00:00 QUANTITATIVE REAL TIME PCR [code = 77709] Diagnostic Test 2018-09-27 [QLH] LIPID PANEL [facility]ending 00:00:00 [code = [QLH] LIPID PANEL] Diagnostic Test 2018-09-27 [QLH] CMP W/EGFR [facility] 00:00:00 [code = [QLH] CMP W/EGFR] Diagnostic Test 2018-09-27 [QH] HIV 1 RNA, [facility] Pending 00:00:00 QUANTITATIVE REAL TIME PCR [code = 48519] Diagnostic Test 2018-09-27 [QLH] LIPID PANEL [facility]ending 00:00:00 [code = [QLH] LIPID PANEL] Diagnostic Test 2018-09-27 [QLH] CMP W/EGFR [facility] 00:00:00 [code = [QLH] CMP W/EGFR] Diagnostic Test 2018-09-27 [QH] HIV 1 RNA, [facility] Pending 00:00:00 QUANTITATIVE REAL TIME PCR [code = 42266] Diagnostic Test 2018-09-27 [QLH] LIPID PANEL [facility]ending 00:00:00 [code = [QLH] LIPID PANEL] Diagnostic Test 2018-09-27 [QLH] CMP W/EGFR [facility]ending 00:00:00 [code = [QLH] CMP W/EGFR] Diagnostic Test 2018-09-27 [QH] HIV 1 RNA, [facility] Pending 00:00:00 QUANTITATIVE REAL TIME PCR [code = 95580] Diagnostic Test 2018-09-27 [QLH] LIPID PANEL [facility] Pending 00:00:00 [code = [QLH] LIPID PANEL] Diagnostic Test 2018-09-27 [QLH] CMP W/EGFR [facility] 00:00:00 [code = [QLH] CMP W/EGFR] Diagnostic Test 2018-09-27 [QH] HIV 1 RNA, [facility] Pending 00:00:00 QUANTITATIVE REAL TIME PCR [code = 22906] Diagnostic Test 2018-09-27 [QLH] LIPID PANEL [facility]ending 00:00:00 [code = [QLH] LIPID PANEL] Diagnostic Test 2018-09-27 [QLH] CMP W/EGFR [facility] 00:00:00 [code = [QLH] CMP W/EGFR] Diagnostic Test 2018-09-27 [QH] HIV 1 RNA, [facility] Pending 00:00:00 QUANTITATIVE REAL TIME PCR [code = 25084] Diagnostic Test 2018-04-03 [QLH] LIPID PANEL [facility]ending 00:00:00 [code = [QLH] LIPID PANEL] Diagnostic Test 2018-04-03 [QLH] CD4/CD8 Ratio [facility] 00:00:00 Profile [code = [QLH] CD4/CD8 Ratio Profile] Diagnostic Test 2018-04-03 [L] RNA, Real Time [facility] 00:00:00 PCR (Non-Graph) [code = [L] RNA, Real Time PCR (Non-Graph)] Diagnostic Test 2018-04-03 [QLH] HEMOGLOBIN A1c [facility]ending 00:00:00 [code = [QLH] HEMOGLOBIN A1c] Diagnostic Test 2018-04-03 [QLH] URINALYSIS, [facility] Pending 00:00:00 COMPLETE W/REFLEX TO CULTURE [code = [QLH] URINALYSIS, COMPLETE W/REFLEX TO CULTURE] Diagnostic Test 2018-04-03 [QLH] LIPID PANEL [facility]ending 00:00:00 [code = [QLH] LIPID PANEL] Diagnostic Test 2018-04-03 [QLH] CD4/CD8 Ratio [facility] 00:00:00 Profile [code = [QLH] CD4/CD8 Ratio Profile] Diagnostic Test 2018-04-03 [L] RNA, Real Time [facility] 00:00:00 PCR (Non-Graph) [code = [L] RNA, Real Time PCR (Non-Graph)] Diagnostic Test 2018-04-03 [QLH] HEMOGLOBIN A1c [facility]ending 00:00:00 [code = [QLH] HEMOGLOBIN A1c] Diagnostic Test 2018-04-03 [QLH] URINALYSIS, [facility]ending 00:00:00 COMPLETE W/REFLEX TO CULTURE [code = [QLH] URINALYSIS, COMPLETE W/REFLEX TO CULTURE] Diagnostic Test 2018-04-03 [QLH] LIPID PANEL [facility]ending 00:00:00 [code = [QLH] LIPID PANEL] Diagnostic Test 2018-04-03 [QLH] CD4/CD8 Ratio [facility] 00:00:00 Profile [code = [QLH] CD4/CD8 Ratio Profile] Diagnostic Test 2018-04-03 [L] RNA, Real Time [facility] 00:00:00 PCR (Non-Graph) [code = [L] RNA, Real Time PCR (Non-Graph)] Diagnostic Test 2018-04-03 [QLH] HEMOGLOBIN A1c [facility]ending 00:00:00 [code = [QLH] HEMOGLOBIN A1c] Diagnostic Test 2018-04-03 [QLH] URINALYSIS, [facility]ending 00:00:00 COMPLETE W/REFLEX TO CULTURE [code = [QLH] URINALYSIS, COMPLETE W/REFLEX TO CULTURE] Diagnostic Test 2018-04-03 [QLH] LIPID PANEL [facility]ending 00:00:00 [code = [QLH] LIPID PANEL] Diagnostic Test 2018-04-03 [QLH] CD4/CD8 Ratio [facility] 00:00:00 Profile [code = [QLH] CD4/CD8 Ratio Profile] Diagnostic Test 2018-04-03 [L] RNA, Real Time [facility] 00:00:00 PCR (Non-Graph) [code = [L] RNA, Real Time PCR (Non-Graph)] Diagnostic Test 2018-04-03 [QLH] HEMOGLOBIN A1c [facility] 00:00:00 [code = [QLH] HEMOGLOBIN A1c] Diagnostic Test 2018-04-03 [QLH] URINALYSIS, [facility]ending 00:00:00 COMPLETE W/REFLEX TO CULTURE [code = [QLH] URINALYSIS, COMPLETE W/REFLEX TO CULTURE] Future Scheduled 2009-08-[address] [facility] 00:00:00 WELLNESS (YEAR 2 or Medical Center FIRST YEAR if no IPPE) [code = MEDICARE ANNUAL WELLNESS (YEAR 2 or FIRST YEAR if no IPPE)] Future Scheduled 2009-08-[address] [facility] 00:00:00 WELLNESS (YEAR 2 or Medical Center FIRST YEAR if no IPPE) [code = MEDICARE ANNUAL WELLNESS (YEAR 2 or FIRST YEAR if no IPPE)] Future Scheduled 2008 PNEUMOCOCCAL 65+ YRS [facility] 00:00:00 (1 of 1 - Medical Center [id number] PCV13) [code = PNEUMOCOCCAL 65+ YRS (1 of 1 - [id number] PCV13)] Future Scheduled 2008 PNEUMOCOCCAL 65+ YRS [facility] 00:00:00 (1 of 1 - [facility] [id number] PCV13) [code = PNEUMOCOCCAL 65+ YRS (1 of 1 - [id number] PCV13)] Future Scheduled 1993 SHINGLES VACCINES ([address] [facility] 00:00:00 of 2) [code = [facility] SHINGLES VACCINES (1 of 2)] Future Scheduled 1993 SHINGLES VACCINES ([address] [facility] 00:00:00 of 2) [code = [facility] SHINGLES VACCINES (1 of 2)] Future Scheduled 1962 DTAP/TDAP/TD [facility]ACCINES [facility] 00:00:00 (1 - Tdap) [code = Medical C enter DTAP/TDAP/TD VACCINES (1 - Tdap)] Future Scheduled 1962 DTAP/TDAP/TD [facility]ACCINES [facility] 00:00:00 (1 - Tdap) [code = Medical C enter DTAP/TDAP/TD VACCINES (1 - Tdap)] Future Scheduled 1961 HE[facility]ITIS C [facility]ING [facility] 00:00:00 [code = HEPATITIS C Medical Center SCREENING] Future Scheduled 1961 HEPATITIS C [facility] 00:00:00 [code = HEPATITIS C Medical Center SCREENING] Future Scheduled [address] DI[address]ETIC EYE EXAM [facility] 00:00:00 [code = DIABETIC EYE Medical Center EXAM] Future Scheduled 1953 Urine screening for [facility] 00:00:00 protein (procedure) Medical Center [code = 155950229] Future Scheduled [address] EYE EXAM [facility] 00:00:00 [code = DIABETIC EYE Medical Center EXAM] Future Scheduled 1953 Urine screening for [facility] 00:00:00 protein (procedure) Medical Center [code = 807470747] Encounters Start End Encounter Admission Attending Care Care Encounter Source Date/Time Date/Time Type Type Clinicians Facility Department ID 2022-05-14 Out[facility] [id number] 2 Common 11:45:00 [facility] 2022-05-05 Outpatient Caleb Rad[facility] [id number] 2 Common 14:39:00 [facility] 2022-03-16 Outpatient [facility] [id number] [place] 09:11:45 [id number] [facility] 2022-02-16 Outpatient Caleb Radha [facility] [id number] 2 Common 08:33:01 [facility] 2022-02-15 Outpatient Ellis Radha [facility] [id number] 2 Common 08:35:00 [facility] 2021-12-02 Outpatient Ellis Radha [facility] [id number] 2 Common 14:14:32 [id number] [facility] 2021-12-02 Outpatient Ellis, Na [facility] [id number] 2 Common 13:56:08 [id number] [facility] 2021-12-02 Outpatient Ellis, Na [facility] [id number] 2 Common 13:28:46 [id number] [facility] 2021-12-02 Outpatient Ellis, Na [facility] [id number] 2 Common 12:48:43 [id number] [facility] 2021-12-02 Outpatient Ellis, Na [facility] [id number] 2 Common 12:48:23 [id number] [facility] 2021-12-02 Outpatient Ellis, Na [facility] [id number] 2 Common 12:46:22 [id number] [facility] 2021-12-02 Outpatient Ellis, Na [facility] [id number] 2 Common 12:28:48 [id number] [facility] 2021-12-02 Outpatient Ellis, Na [facility] [id number] 2 Common 12:17:49 [id number] [facility] 2021-12-02 Outpatient Ellis, Na [facility] [id number] 2 Common 12:15:28 [id number] [facility] 2021-12-02 Outpatient Ellis, Na [facility] [id number] 2 Common 11:48:08 [id number] [facility] 2021-12-02 Outpatient Ellis, Na [facility] [id number] 2 Common 11:36:26 [id number] [facility] 2021-12-02 Outpatient Ellis, Na [facility] [id number] 2 Common 11:27:13 [id number] [facility] 2021-12-02 Outpatient Ellis, Na [facility] [id number] 2 Common 11:18:24 [id number] [facility] 2021-12-02 Outpatient Ellis, Na [facility] [id number] 2 Common 11:13:46 [id number] [facility] 2021-12-02 Outpatient Caleb, Na [facility] [id number] 2 Common 11:06:49 [id number] [facility] 2021-12-02 Outpatient Caleb, Na [facility] [id number] 2 Common 11:04:24 [id number] [facility] 2021-11-30 Outpatient DANG [facility] [id number] [place] 09:05:52 [facility] 2022-07-19 2022-07-19 ambulatory [facility] [id number] Common 00:00:00 00:00:00 [facility] 2022-07-01 2022-07-01 ambulatory [facility] [id number] Common 00:00:00 00:00:00 [facility] 2022-07-01 2022-07-01 ambulatory [facility] [id number] Common 00:00:00 00:00:00 [facility] 2022-06-21 2022-06-21 ambulatory [facility] [id number] Common 00:00:00 00:00:00 [facility] 2022-05-18 2022-05-18 ambulatory [facility] [id number] Common 00:00:00 00:00:00 [facility] 2022-04-30 2022-04-30 ambulatory [facility] [id number] Common 00:00:00 00:00:00 [facility] 2022-02-17 2022-02-17 ambulatory [facility] [id number] Common 00:00:00 00:00:00 [facility] 2022-01-14 2022-01-14 ambulatory [facility] [id number] Common 00:00:00 00:00:00 [facility] 2021-12-23 2021-12-23 Telephone Jana Silveira [place] [id number] [place] 00:00:00 00:00:00 Jana Silveira [id number] Health MEDICAL [id number] [facility] [id number] 2021-11-30 2021-11-30 Telephone THEO Guerrero [id number] [place] 00:00:00 00:00:00 Jean Marie CHOUDHARY [id number] H [facility] MEDICAL [id number] [facility] [id number] 2021-11-30 2021-11-30 ambulatory STLMLC STLMLC [id number] Common 00:00:00 00:00:00 [facility] 2021-11-18 2021-11-18 ambulatory STLMLC STLMLC [id number] Common 00:00:00 00:00:00 [facility] 2021-08-12 2021-08-12 Outpatient STLMLC STLMLC [id number] Common 00:00:00 00:00:00 [facility] 2021-06-24 2021-06-24 Telephonic THEO Guerrero [id number] [place] 13:20:54 16:20:55 Encounter Jean Marie MCKEONFRANCO [id number] Health MEDICAL [id number] [facility] [id number] 2021-06-24 2021-06-24 Orders Vernell Loja [id number] [place] 00:00:00 00:00:00 Only Vernell Loja [id number] Health MEDICAL [id number] [facility] [id number] 2021-06-24 2021-06-24 Telephone Rashmi Berrios [place] 1.2.84 [id number] [id number] [place] 00:00:00 00:00:00 Rashmi Berrios [id number] Health MEDICAL [id number] [facility] [id number] 2021-06-10 2021-06-10 Outpatient STLMLC STLMLC [id number] Common 00:00:00 00:00:00 [facility] 2021-05-13 2021-05-13 Outpatient STLMLC STLMLC [id number] Common 00:00:00 00:00:00 [facility] 2021-03-11 2021-03-11 Outpatient STLMLC STLMLC [id number] Common 00:00:00 00:00:00 [facility] 2021-02-24 2021-02-24 Outpatient STLMLC STLMLC [id number] Common 00:00:00 00:00:00 [facility] 2021-02-11 2021-02-11 Outpatient STLMLC STLMLC [id number] Common 00:00:00 00:00:00 [facility] 2020-12-29 2020-12-29 Outpatient STLMLC STLMLC [id number] Common 00:00:00 00:00:00 [facility] 2020-12-03 2020-12-03 THEO Padgett [id number] [place] 16:00:00 16:00:00 erlin Aj APRN lty - Ph Colleen Dozier APRN 2020-11-12 2020-11-12 Outpatient STLMLC STLMLC [id number] Common 00:00:00 00:00:00 [facility] 2020-07-31 2020-07-31 Outpatient STLMLC STLMLC [id number] Common 00:00:00 00:00:00 [facility] 2020-07-31 2020-07-31 Outpatient STLMLC STLMLC [id number] Common 00:00:00 00:00:00 [facility] 2020-07-21 2020-07-21 [facility]patient [facility] [id number] Common 14:10:00 14:10:[address] [facility] 2020-06-18 2020-06-18 [facility] [id number] Common 11:09:00 11:09:[address] [facility] 2020-06-12 2020-06-12 [facility] [id number] Common 10:34:00 10:34:[address] [facility] 2020-05-19 2020-05-19 [facility] [id number] Common 13:08:00 13:08:[address] [facility] 2020-04-28 2020-04-28 [facility] [id number] Common 09:20:00 09:20:[address] [facility] 2020-02-07 2020-02-07 [facility] [id number] Common 10:34:00 10:34:[address] [facility] 2020-01-21 2020-01-21 [facility] [id number] Common 13:40:00 13:40:[address] [facility] 2019-12-17 2019-12-17 [facility] [id number] Common 14:00:00 14:00:[address] [facility] 2019-12-12 2019-12-12 [facility] [id number] Common 15:25:00 15:25:[address] [facility] 2019-12-05 2019-12-05 [facility] [id number] Common 16:40:00 16:40:[address] [facility] 2019-12-04 2019-12-04 [facility] [id number] Common 16:11:00 16:11:[address] [facility] 2019-11-05 2019-11-05 THEO [place] [id number] [place] 13:00:00 13:00:00 tAri Aj APRN lty - Ph Colleen Dozier APRN 2019-08-24 2019-08-24 [facility] [id number] Common 11:23:00 11:23:[address] [facility] 2019-06-06 2019-06-06 [facility] [id number] Common 09:20:00 09:20:[address] [facility] 2019-04-18 2019-04-18 Solomon Guerrero, THEO [facility]TP [id number] [place] 13:00:00 13:00:00 t; DONALDO Aj Ph kar Dozier, 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 2018-12-06 2018-12-06 [facility] [id number] Common 08:45:00 08:45:[address] [facility] 2018-11-17 2018-11-17 [facility] [id number] Common 11:56:00 11:56:[address] [facility] 2018-10-04 2018-10-04 Solomon Guerrero, THEO [place] [id number] [place] 13:00:00 13:00:00 t; DONALDO Aj Multi Ph santy Guerrero, Specialty ans DONALDO Aj 2018-06-05 2018-06-05 [facility] [id number] Common 08:15:00 08:15:[address] [facility] 2018-03-27 2018-03-27 Solomon Guerrero, [facility] [place] [id number] [place] 13:00:00 13:00:00 t; DONALDO Aj Multi Ph santy Guerrero, Specialty ans DONALDO Aj 2017-10-03 2017-10-03 Solomon Guerrero, THEO [place] [id number] [place] 13:15:00 13:15:00 t; GABRIELA Aj Phys gustavo Guerrero, Specialty ans GABRIELA Aj 2017-03-30 2017-03-30 Solomon Guerrero, THEO [facility] [id number] [place] 13:00:00 13:00:00 t; GABRIELA Aj Phys gustavo Calebcke, ans Jean Marie, WATERPROOFER 2016-09-22 2016-09-22 Solomon Guerrero, THEO [facility] [id number] [place] 11:15:00 11:15:00 t; GABRIELA Aj gustavo Elliscke, ans Jean Marie, WATERPROOFER 2016-01-14 2016-01-14 THEO Padgett [facility] [id number] [place] 09:30:00 09:30:00 t; GABRIELA Aj Phys gustavo Elliscke, ans Jean Marie, WATERPROOFER 2016-01-07 2016-01-07 Solomon Guerrero, THEO [facility] [id number] [place] 10:00:00 10:00:00 t; GABRIELA Aj gustavo Elliscke, kar Aj NP Results Test Description Test Time Test Comments Results Result Comments Source Positive Retinal Eye Exam (Diabetic) 2019-02-14 06:00:00 Test Item Value Reference Range Interpretation Comme nts Positive Diabetic Eye Screening (test code = Positive Diabetic Eye [id number] A Screening) [place] PhysiciansTISSUE [id number] 18:51:00Surgical Pathology Report Case: [id number] Authorizing Provider: Terri Perez Collected: 01/26/2019 154Agnes Molina MD Ordering Location: [facility] Received: 01/29/2019 0754 Pathologist: Nora Ramon MD Specimen: Polyp, Colon - Sigmoid COLON, SIGMOID, POLYP, POLYPECTOMY: - TUBULAR ADENOMA Signing Pathologist Direct Phone Line: [phone] signed by Nora Ramon MD on01/31/2019 at 6:51 PMNo definitive features of high grade dysplasia are seen.Intradepartmental consult ation: Dr. Krishna Austin has also reviewed selected slide of this case (A1) and concurs with the diagnosis.[id number] polypSigmoid colon polypThe specimen is received in a formalin-filled container and labeled with the patient's information and labeled "sigmoid colon polyp" and consists of two fuentes-red polyps measuring 0.6 and 1 cm in aggregate. Both are inked blue at the resection margin. Serially sectioned and submitted entirely as follows: A1, larger polyp, A2, smaller polyp. CG/pl PerformedHEPATIC FUNCTION [id number] 06:16:00 Test Item Value Reference Range Interpretation [...] = 18 U/L 6-55 347) BASIC METABOLIC [id number] 06:16:00 Test Item Value Reference Range Interpretation [...] PATIEN TS. CBC W/PLT COUNT & AUTO [id number] 05:39:00 Test Item Value Reference Range Interpretation [...] PERCENT (BEAKER) (test code = 2801) POCT-GLUCOSE [id number] 22:19:00 Test Item Value Reference Range Interpretation Comments POC-GLUCOSE METER 157 mg/dL 70-110 H TESTED AT [facility] 6720 (BEAKER) (test code = LILY Phillip [facility] 1538) [id number] POCT-GLUCOSE [id number] 16:45:00 Test Item Value Reference Range Interpretation Comments POC-GLUCOSE METER 129 mg/dL 70-110 H TESTED AT [place] [address] ([facility]) (test code = LILY Phillip [facility] 1538) [address] POTASSIUM-STAT [id number] 12:37:00 Test Item Value Reference Range Interpretation Comments POTASSIUM ([facility]) (test code = 3.5 meq/L 3.6-5.5 L 379) HEMOGLOBIN-STAT [id number] 12:37:00 Test Item Value Reference Range Interpretation Comments HEMOGLOBIN ([facility]) (test code = 14.2 g/dL 13.0-16.8 410) POCT-GLUCOSE [id number] 12:20:00 Test Item Value Reference Range Interpretation Comments POC-GLUCOSE METER 98 mg/dL 70-110 TESTED AT [place] [address] ([facility]) (test code = LILY Phillip [facility] [address] 1538)
[2022-07-20 09:31] LABS: Hematocrit 38.5 % (39.6-49.0); Lymphocytes % 32.5 % (15.3-44.8); MCV 101.7 fL (80-100); MPV 6.8 fL (7.6-11.3); RBC Red Blood Cell Count 3.79 M/uL (4.33-5.43)
[2022-07-20 09:40] LABS: Protime INR 1.08
[2022-07-20 09:52] LABS: Albumin 3.2 g/dL (3.4-5.0); Bilirubin Direct 0.2 mg/dL (0-0.2); Bilirubin Total 0.6 mg/dL (0.2-1.0); Magnesium 2.1 mg/dL (1.8-2.4); Potassium 3.5 mmol/L (3.5-5.1); Protein, Total 6.6 g/dL (6.4-8.2); Troponin High Sensitivity 5.9 pg/mL (<58.9)
--- NOTE | 2022-07-20 10:48 | RAD REPORT ---
EXAM DESCRIPTION: US - Extrem Venous W Compress [place] - 07/20/2022 10:17 am CLINICAL HISTORY: Painbilateral lower extremities COMPARISON: None. TECHNIQUE: Real-time sonographic evaluation of the bilateral lower extremity common femoral, superfi cial femoral, popliteal and posterior tibial veins was performed. FINDINGS: Normal compressibility, flow augmentation, phasic flow and spontaneous flow are identified in the left and right lower extremity common femoral, superficial femoral, popliteal and posterior t ibial veins. No intraluminal filling defects seen. A 2.5 centimeter left popliteal fossa cyst is present without cyst rupture or hemorrhage findings. IMPRESSION: No DVT in either lower extremity. Small left popliteal fossa cyst without rupture or hemorrhage findings.
--- NOTE | 2022-07-20 10:55 | RAD REPORT ---
EXAM DESCRIPTION: RAD - Chest Single View - 07/20/2022 10:24 am CLINICAL HISTORY: COUGH COMPARISON: January 2018 TECHNIQUE: AP portable chest image was obtained 07/20/2022 10:24 am . FINDINGS: Lung volumes are low. Chronic interstitial opacification matches prior imaging. No acute f ailure, infiltrate or mass lesion identifiable. Heart and vasculature are normal. No measurable pleur al effusion and no pneumothorax. No acute bony abnormality seen. No acute aortic findings suspected. IMPRESSION: No acute cardiopulmonary process. No worrisome change from the prior study.
[2022-07-20] MEDS ORDERED: MUPIROCIN 2% OINT 22GM TUBE TOP ONE (11:08)
--- NOTE | 2022-07-20 11:13 | EDPHYS ---
Physician Documentation [facility] Name: Gavin Fraire Age: 76 yrs Sex: Male : 1945 Arrival Date: 07/20/2022 Time: 08:30 Bed 15 Private MD: ED Physician Vikash Jay HPI: 07/20 11:05 This 76 yrs old Male presents to ER via Ambulatory with complaints of Leg geno Swelling. 11:05 The patient presents with pain, swelling, tenderness. The complaints affect the right geno leg. Context: The problem was sustained at home, resulted from an unknown cause, the patient can fully bear weight. Onset: The symptoms/episode began/occurred 2 day(s) ago. Modifying factors: The symptoms are alleviated by elevating leg, remaining still. Associated signs and symptoms: The patient has no apparent associated signs or symptoms. Treatment prior to arrival includes: no previous treatment. Severity of symptoms: At their worst the symptoms were mild, in the emergency department the symptoms are unchanged. The patient has not experienced similar symptoms in the past. Historical: - PMHx: 08:50 CHF; COPD; cva/tia, L eye blind; HIV; Hypertension; Diabetes mellitus; jh5 - Immunization history:: Adult Immunizations up to date. - Social history:: Smoking status: Patient denies any tobacco usage or history of. - Family history:: not pertinent. ROS: 11:05 Constitutional: Negative for fever, chills, and weight loss, Eyes: Negative for injury, geno pain, redness, and discharge, ENT: Negative for injury, pain, and discharge, Neck: Negative for injury, pain, and swelling, Cardiovascular: Negative for chest pain, palpitations, and edema, Respiratory: Negative for shortness of breath, cough, wheezing, and pleuritic chest pain, Abdomen/GI: Negative for abdominal pain, nausea, vomiting, diarrhea, and constipation, Back: Negative for injury and pain, : Negative for injury, bleeding, discharge, and swelling, Skin: Negative for injury, rash, and discoloration, Neuro: Negative for headache, weakness, numbness, tingling, and seizure, Psych: Negative for depression, anxiety, suicide ideation, homicidal ideation, and hallucinations, Allergy/Immunology: Negative for hives, rash, and allergies, Endocrine: Negative for neck swelling, polydipsia, polyuria, polyphagia, and marked weight changes, Hematologic/Lymphatic: Negative for swollen nodes, abnormal bleeding, and unusual bruising. 11:05 MS/extremity: Positive for erythema, pain, swelling, tenderness, red, minimally tender , multiple scratches. Exam: 11:05 Constitutional: This is a well developed, well nourished patient who is awake, alert, geno and in no acute distress. Head/Face: Normocephalic, atraumatic. Eyes: Pupils equal round and reactive to light, extra-ocular motions intact. Lids and lashes normal. Conjunctiva and sclera are non-icteric and not injected. Cornea within normal limits. Periorbital areas with no swelling, redness, or edema. ENT: Nares patent. No nasal discharge, no septal abnormalities noted. Tympanic membranes are normal and external auditory canals are clear. Oropharynx with no redness, swelling, or masses, exudates, or evidence of obstruction, uvula midline. Mucous membranes moist. Neck: Trachea midline, no thyromegaly or masses palpated, and no cervical lymphadenopathy. Supple, full range of motion without nuchal rigidity, or vertebral point tenderness. No Meningismus. Chest/axilla: Normal chest wall appearance and motion. Nontender with no deformity. No lesions are appreciated. Cardiovascular: Regular rate and rhythm with a normal S1 and S2. No gallops, murmurs, or rubs. Normal PMI, no JVD. No pulse deficits. Respiratory: Lungs have equal breath sounds bilaterally, clear to auscultation and percussion. No rales, rhonchi or wheezes noted. No increased work of breathing, no retractions or nasal flaring. Abdomen/GI: Soft, non-tender, with normal bowel sounds. No distension or tympany. No guarding or rebound. No evidence of tenderness throughout. Back: No spinal tenderness. No costovertebral tenderness. Full range of motion. Male : Normal genitalia with no discharge or lesions. Neuro: Awake and alert, GCS 15, oriented to person, place, time, and situation. Cranial nerves II-XII grossly intact. Motor strength 5/5 in all extremities. Sensory grossly intact. Cerebellar exam normal. Normal gait. Psych: Awake, alert, with orientation to person, place and time. Behavior, mood, and affect are within normal limits. 11:05 Musculoskeletal/extremity: ROM: no acute changes, intact in all extremities, full active range of motion, full passive range of motion, Circulation is intact in all extremities. numbness, Compartment Syndrome exam of affected extremity: is normal. Joints: All joints are normal except DVT Exam: No signs of deep vein thrombosis. no pain, no swelling, no tenderness, negative Homans' sign noted on exam, no appreciated bluish discoloration, no increased warmth, pain, swelling, erythema, that is mild. 11:05 Skin: cellulitis, that is minimal, on the lateral aspect of right calf, right ankle, right calf, right Achilles, medial aspect of right calf, right titus and anterior aspect of right ankle. 11:15 ECG was reviewed by the Attending Physician. [facility] Vital Signs: 08:47 BP 125 / 73; Pulse 72; Resp 18; Temp 98.4; Pulse Ox 100% ; Weight 95.25 kg; Height 6 jh5 ft. 0 in. (182.88 cm); Pain 6/10; 11:29 BP 129 / 68; Pulse 71; Resp 18; Pulse Ox 94% on R/A; em6 08:47 Body Mass Index 28.48 (95.25 kg, 182.88 cm) jh5 MDM: 08:58 Patient medically screened. [facility] 11:11 Differential diagnosis: contusion, tendonitis. Data reviewed: vital signs, nurses [facility] notes, lab test result(s), EKG, radiologic studies, doppler, plain films. Data interpreted: fermentation engineer: rate is 72 beats/min, rhythm is regular, Pulse oximetry: on room air is 100 %. Test interpretation: by ED physician or midlevel provider: ECG, plain radiologic studies. Counseling: I had a detailed discussion with the patient and/or guardian regarding: the historical points, exam findings, and any diagnostic results supporting the discharge/admit diagnosis, lab results, radiology results, the need for outpatient follow up, for definitive care, a family practitioner, a general surgeon. 07/20 08:59 Order name: Basic Metabolic Panel; Complete Time: 10:49 [facility] 07/20 08:59 Order name: CBC with Diff; Complete Time: 10:49 [facility] 07/20 08:59 Order name: LFT's; Complete Time: 10:49 [facility] 07/20 08:59 Order name: Magnesium; Complete Time: 10:49 [facility] 07/20 08:59 Order name: NT PRO-BNP; Complete Time: 10:49 [facility] 07/20 08:59 Order name: PT-INR; Complete Time: 10:49 [facility] 07/20 08:59 Order name: Troponin HS; Complete Time: 10:49 [facility] 07/20 08:59 Order name: XRAY Chest (1 view); Complete Time: 11:00 [facility] 07/20 08:59 Order name: EKG; Complete Time: 09:01 [facility] 07/20 08:59 Order name: Cardiac monitoring; Complete Time: 09:23 [facility] 07/20 08:59 Order name: US Extremity Venous W Compression [place]; Complete Time: 10:50 [facility] 07/20 08:59 Order name: EKG - Nurse/Tech; Complete Time: 09:23 [facility] 07/20 08:59 Order name: IV Saline Lock; Complete Time: 09:23 [facility] 07/20 08:59 Order name: Labs collected and sent; Complete Time: 09:23 [facility] 07/20 08:59 Order name: O2 Per Protocol; Complete Time: 09:38 [facility] 07/20 08:59 Order name: O2 Sat Monitoring; Complete Time: 09:23 [facility] EC:15 Rate is 67 beats/min. Rhythm is regular. QRS Stitzer is Normal. DE interval is normal. QRS geno interval is normal. QT interval is normal. No Q waves. T waves are Normal. No ST changes noted. Clinical impression: NSR w/ Non-specific ST/T Changes and No evidence of ischemia. Interpreted by me. Reviewed by me. Administered Medications: 11:00 Drug: Bactroban (mupirocin) Ointment 2 % 1 application Route: Topical; Site: affected em6 area; 11:38 Follow up: Response: No adverse reaction em6 11:15 Drug: Doxycycline 200 mg Route: PO; em6 11:37 Follow up: Response: No adverse reaction em6 11:15 Drug: Bactrim (trimethoprim-sulfamethoxazole) (160 mg-800 mg (DS) 1 tablet Route: PO; em6 11:37 Follow up: Response: No adverse reaction em6 Disposition Summary: 07/20/22 11:13 Discharge Ordered Location: Home geno Problem: new geno Symptoms: have improved geno Condition: Stable geno Diagnosis - Cellulitis of right lower limb geno - Type 2 diabetes mellitus with hyperglycemia geno Followup: geno - With: Private Physician - When: 2 - 3 days - Reason: Recheck today's complaints, Continuance of care, Re-evaluation by your physician Discharge Instructions: - Discharge Summary Sheet geno - Cellulitis, Adult geno - Type 2 Diabetes Mellitus, Diagnosis, Adult geno - Hyperglycemia geno - Cellulitis, Adult, [id number] [facility] - Diabetes Mellitus and Nutrition, Adult [facility] Forms: - Medication Reconciliation Form [facility] - Thank You Letter geno - Antibiotic Education [facility] - Prescription Opioid Use [facility] Prescriptions: - Doxycycline Hyclate 100 mg Oral Tablet - take 1 tablet by ORAL route every 12 hours; 20 tablet; Refills: 0, Product [facility] Selection Permitted - Bactrim DS 800-160 mg Oral Tablet - take 1 tablet by ORAL route every 12 hours for 10 days; 20 tablet; Refills: 0, [facility] Product Selection Permitted - Centany 2 % Topical ointment - apply 1 application by TOPICAL route 3 times per day; 45 gram; Refills: 0, [facility] Product Selection Permitted Signatures: Dispatcher [employer] Vikash Gipson MD MD cha Rees, Jessica RN RN jh5 Andressa Cifuentes RN RN em6 Corrections: (The following items were deleted from the chart) 08:51 08:50 PMHx: "borderline diabetes"; [facility]
--- NOTE | 2022-07-20 11:13 | ER ---
Nurse's Notes [facility] Name: Gavin Fraire Age: 76 yrs Sex: Male : 1945 Arrival Date: 07/20/2022 Time: 08:30 Bed 15 Private MD: Diagnosis: Cellulitis of right lower limb;Type 2 diabetes mellitus with hyperglycemia Presentation: 07/20 08:47 Chief complaint: Patient states: right calf, ankle, and foot swelling to just right jh5 leg. Thought it was fluid retention due to his CHF. Pt denies any trauma to right leg. Coronavirus screen: Vaccine status: Patient reports receiving the 2nd dose of the covid vaccine. Ebola Screen: Patient negative for fever greater than or equal to 101.5 degrees Fahrenheit, and additional compatible Ebola Virus Disease symptoms Patient denies exposure to infectious person. Patient denies travel to an Ebola-affected area in the 21 days before illness onset. Initial Sepsis Screen: Does the patient meet any 2 criteria? No. Patient's initial sepsis screen is negative. Does the patient have a suspected source of infection? No. Patient's initial sepsis screen is negative. Risk Assessment: Do you want to hurt yourself or someone else? Patient reports no desire to harm self or others. Onset of symptoms was July 08, 2022. 08:47 Method Of Arrival: Ambulatory [facility] 08:47 Acuity: PERLITA 3 jh5 Triage Assessment: 08:50 General: Appears in no apparent distress. uncomfortable, well groomed, well developed, 5 Behavior is calm, cooperative, appropriate for age. Pain: Complains of pain in right leg. Historical: - PMHx: 08:50 CHF; COPD; cva/tia, L eye blind; HIV; Hypertension; Diabetes mellitus; jh5 - Immunization history:: Adult Immunizations up to date. - Social history:: Smoking status: Patient denies any tobacco usage or history of. - Family history:: not pertinent. Screenin:00 Abuse screen: Denies threats or abuse. em6 09:00 Nutritional screening: No deficits noted. Tuberculosis screening: No symptoms or risk em6 factors identified. Fall Risk IV access (20 points). Assessment: 09:00 General: Appears in no apparent distress. Behavior is calm, cooperative. Pain: Pain: em6 Complains of pain in right lower leg Pain currently is 4 out of 10 on a pain scale. 09:00 Neuro: Mcclendon Agitation-Sedation Scale (RASS): 0 - Alert and Calm. Cardiovascular: em6 Heart tones present Patient's skin is warm and dry. Respiratory: Airway is patent Respiratory effort is even, unlabored, Respiratory pattern is regular, symmetrical, Breath sounds are clear bilaterally. GI: No signs and/or symptoms were reported involving the gastrointestinal system. : No signs and/or symptoms were reported regarding the genitourinary system. EENT: No signs and/or symptoms were reported regarding the EENT system. Derm: Skin redness noted in the right lower leg. skin is dry. no drainage noted. swelling noted only in right leg. Musculoskeletal: Circulation, motion, and sensation intact. Range of motion: intact in all extremities. 10:00 Reassessment: Patient appears in no apparent distress at this time. No changes from em6 previously documented assessment. Patient and/or family updated on plan of care and expected duration. Pain level reassessed. Patient is alert, oriented x 3, equal unlabored respirations, skin warm/dry/pink. 11:29 Reassessment: Patient appears in no apparent distress at this time. No changes from em6 previously documented assessment. Patient and/or family updated on plan of care and expected duration. Pain level reassessed. Patient is alert, oriented x 3, equal unlabored respirations, skin warm/dry/pink. Vital Signs: 08:47 BP 125 / 73; Pulse 72; Resp 18; Temp 98.4; Pulse Ox 100% ; Weight 95.25 kg; Height 6 jh5 ft. 0 in. (182.88 cm); Pain 6/10; 11:29 BP 129 / 68; Pulse 71; Resp 18; Pulse Ox 94% on R/A; em6 08:47 Body Mass Index 28.48 (95.25 kg, 182.88 cm) [facility] ED Course: 08:30 Patient arrived in ED. am2 08:50 Triage completed. [facility] 08:50 Arm band placed on right wrist. [facility] 08:58 Vikash Jay MD is Attending Physician. [facility] 09:00 Patient has correct armband on for positive identification. Bed in low position. Call em6 light in reach. Side rails up X 1. 09:22 Inserted saline lock: 20 gauge in right forearm, using aseptic technique. Blood mb7 collected. 09:23 EKG done, by ED staff, reviewed by Vikash Jay MD. mb7 09:23 Basic Metabolic Panel Sent. mb7 09:23 CBC with Diff Sent. mb7 09:23 LFT's Sent. mb7 09:23 NT PRO-BNP Sent. mb7 09:23 Magnesium Sent. mb7 09:23 Troponin HS Sent. mb7 09:23 PT-INR Sent. mb7 09:37 Nate Andrade, RN is Primary Nurse. jd3 09:47 Radiology exam delayed due to pt not in room at the time of attempt. md1 10:18 US Extremity Venous W Compression [place] In Process Unspecified. EDMS 10:27 XRAY Chest (1 view) In Process Unspecified. EDMS 11:36 No provider procedures requiring assistance completed. IV discontinued, intact, em6 bleeding controlled, No redness/swelling at site. Pressure dressing applied. Administered Medications: 11:00 Drug: Bactroban (mupirocin) Ointment 2 % 1 application Route: Topical; Site: affected em6 area; 11:38 Follow up: Response: No adverse reaction em6 11:15 Drug: Doxycycline 200 mg Route: PO; em6 11:37 Follow up: Response: No adverse reaction em6 11:15 Drug: Bactrim (trimethoprim-sulfamethoxazole) (160 mg-800 mg (DS) 1 tablet Route: PO; em6 11:37 Follow up: Response: No adverse reaction em6 Medication: 11:29 VIS not applicable for this client. em6 Outcome: 11:13 Discharge ordered by . geno 11:37 Discharged to home ambulatory. em6 11:37 Condition: stable 11:37 Discharge instructions given to patient, Instructed on discharge instructions, follow up and referral plans. medication usage, Demonstrated understanding of instructions, follow-up care, medications, Prescriptions given X 3. 11:38 Patient left the ED. em6 Signatures: Dispatcher [employer] EDMS Vikash Jay MD MD cha Moreno, Amanda am2 Nate Andrade, RN RN jd3 Shellie Wolf md1 Nathalie Charles RN RN 5 Komal Ayala mb7 Andressa Cifuentes RN RN em6 Corrections: (The following items were deleted from the chart) 08:51 08:50 PMHx: "borderline diabetes"; jh5 jh5 11:27 09:00 Pain: em6 em6 11:25 Neuro: Mcclendon Agitation-Sedation Scale (RASS): 0 - Alert and Calm em6 em6 : 11:25 Cardiovascular: Heart tones present Patient's skin is warm and dry. em6 em6 : 11:25 Respiratory: Airway is patent Respiratory effort is even, unlabored, Respiratory em6 pattern is regular, symmetrical, Breath sounds are clear bilaterally. em6 :25 GI: No signs and/or symptoms were reported involving the gastrointestinal system. em6 em6 11:25 : No signs and/or symptoms were reported regarding the genitourinary system. [id number] 11:25 EENT: No signs and/or symptoms were reported regarding the EENT system. em6 em6 : 11:25 Derm: Skin redness noted in the right lower leg. skin is dry. no drainage noted. em6 swelling noted only in right leg. em6 11:25 Musculoskeletal: Circulation, motion, and sensation intact. Range of motion: em6 intact in all extremities, em6
[2022-07-20] MEDS ORDERED: SMZ./TMP. 800/160 MG TABLET ONE (11:24)
[2022-07-20] MEDS ORDERED: DOXYCYCLINE 100 MG CAP PO ONE (11:25)
[2022-07-20 12:31] VITALS: TEMP 98.4
[2022-07-20 12:34] VITALS: BP 129/68; O2SAT 94
--- NOTE | 2022-07-21 17:13 | EKG ---
Test Date: 2022-07-20 Test Time: 09:19:09 [employer]: MB MEASUREMENT RESULTS: Intervals: Rate: 67 NM: 172 QRSD: 94 QT: 426 QTc: 450 [place]: P: 54 NM: 172 QRS: -9 T: 60 INTERPRETIVE STATEMENTS: Normal sinus rhythm Possible Anterior infarct, age undetermined Abnormal ECG Compared to ECG 07/20/2022 09:18:07 Myocardial infarct finding now present T-wave abnormality no longer present Prolonged QT interval no longer present Electronically Signed On 07-21-22 17:07:07 CDT by Ryne Gonzalez
--- NOTE | 2022-07-21 17:13 | EKG ---
Test Date: 2022-07-20 Test Time: 09:18:07 Fry Cook: ELSA MEASUREMENT RESULTS: Intervals: Rate: 67 [place]: 184 QRSD: 82 QT: 438 QTc: 462 [place]: P: 50 [place]: 184 QRS: -2 T: 136 INTERPRETIVE STATEMENTS: Normal sinus rhythm Low voltage QRS Abnormal QRS-T angle, consider primary T wave abnormality Prolonged QT Abnormal ECG Compared to ECG 01/06/2018 05:56:08 Low QRS voltage now present T-wave abnormality now present Prolonged QT interval now present Sinus tachycardia no longer present Fusion complex(es) no longer present Electronically Signed On 07-21-22 17:07:08 CDT by Ryne Gonzalez
== END 2022-07-20 11:38 | disposition home or self-care (01) ==
LOC: ER 08:16
DX: L03.115 Cellulitis of right lower limb (principal); E11.65 Type 2 diabetes mellitus with hyperglycemia; I10 Essential (primary) hypertension; Z21 Asymptomatic human immunodeficiency virus [HIV] infection status
CPT/HCPCS: 36415; 71045; 80048; 80076; 83735; 83880; 84484; 85025; 85610; 93005; 93970; 99284

== ENCOUNTER 2022-11-18 15:23 | Inpatient (IN) | payer OTHER ==
--- OUTSIDE RECORDS SUMMARY | 2022-11-18 15:31 | XMS REPORT | Continuity of Care Document ---
:1945 Author Organization [facility] t Address Critical access hospital[address] [place] [address] Care Team Providers Name Role Phone Jean [...] Expiration Date S rosanne MEDICARE PART A [id number] 2008 AND B 00:00:00 Rosalind Miller [id number] Common Sp miguel - [facility] MEDICARE MB [id number] 2008 [facility] NOVITAS 00:00:00 - [facility] Problems Condition Condition Condition Status Onset Resolution Last Treating Co mments Source Name Details Category Date Date Treatment Clinician Date AF AF Disease Active UT (paroxysma (paroxysma 18 He alth l atrial l atrial 00:00: fibrillati fibrillati 00 on) on) Essential Essential Disease Active hypertensi hypertensi 12-05 He alth on, on, 00:00: malignant malignant 00 Memory Memory Disease Active loss loss 12-05 Health 00:00: 00 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 , , 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 c c Pure Pure Disease Active hyperchole hyperchole 12-05 He alth sterolemia sterolemia 00:00: 00 COVID-19 COVID-19 Disease Active virus virus 12-03 Health infection infection 00:00: 00 Acquired Acquired Disease Active immune immune 12-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 00:00: 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 (AIDS) (AIDS) Colon Colon Disease Active [facility] Trigger Trigger [...] visual 5-10 Health loss loss 00:00: 00 [id number] Left Problem Common hydrocele [facility] [id number] Gross Problem Common hematuria [facility] [id number] Lower Problem Common urinary Spirit tract - [facility] symptoms (LUTS) [facility] [id number] Balanopost Problem Com mon hitis [facility] [id number] Incomplete Problem Co mmon emptying Spirit of bladder - [facility] [id number] BPH loc w Problem Com mon urin Spirit obs/LUTS - [facility] [id number] Venous Problem Common stasis Spirit dermatitis - [facility] of lower extremity [facility] [id number] Neuropathy Problem Co mmon of right Spirit lower - [facility] extremity [facility] Atrial AF Problem Common fibrillati (paroxysma Sp miguel on l atrial - CHI fibrillati St ) [facility] Primary Primary Problem Common localized localized Spir it osteoarthr osteoarthr - [facility] osis of osis, St ankle lower leg [facility] AND/OR Medical foot Center [id number] COPD with Problem Com mon acute Spirit lower [facility] respirator [facility] infection [facility] Seasonal Allergic Problem Commo n allergic rhinitis, Spiri t rhinitis seasonal - [facility] 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 - [facility] Benign Benign Problem Common prostatic prostatic Spir it hypertroph hypertroph - [facility] Chronic Chronic Problem Common obstructiv obstructiv Sp miguel e e - [facility] pulmonary pulmonary [facility] [id number] Other Problem Common chronic Spirit pain - [facility] Type II Controlled Problem Comm on diabetes type 2 [facility] mellitus diabetes - [facility] without mellitus St complicati without [facility] on complicati Medica l on, Center without long-term current use of insulin [id number] Insect Problem Common bite, Spirit initial - [facility] encounter [facility] 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, - [facility] systolic, St left NYHA [facility] class 4 Medical Center Primary Acute gout Problem Comm on gout [facility] HIV HIV Problem Common positive positive [facility] [id number] Unsteady Problem Commo n gait [facility] [id number] COPD Problem Common exacerbati Spirit on - [facility] [id number] Recent Problem Common change in Spirit frequency - [facility] of bowel [facility] [id number] Requires Problem Com mon 07 supplement Spirit al oxygen - [facility] [id number] History of Problem Co mmon colon Spirit polyps - [facility] [id number] Congestive Problem Com mon heart Spirit failure, - [facility] unspecifie [facility] chronicity Medica , [place] unspecifie d heart failure type [id number] Obstructiv Problem Com mon e sleep Spirit apnea - [facility] Edema Edema, Problem Common lower Spirit extremity - [facility] Mixed Depression Problem Commo n anxiety with Spirit and anxiety - [facility]I depressive [facility] [id number] Type 2 Problem Common diabetes, Spirit controlled - [facility] , with [facility] [id number] Benign Problem Commo n 101 prostatic Spirit hyperplasi - [facility] a with [facility] urinary [facility] tract Center symptoms Anxiety Anxiety Problem Common Spirit - [facility] Hypertensi HTN Problem Commo n on (hypertens Spirit ion) - [facility] Hyperlipid Hyperlipid Problem C ommon emia emia [facility] History of History of Problem Resolve UT [...] Date Stop Date Quantity Comments Source History of Tobacco [facility] - Use [facility] Center History SDOH [facility] Alcohol Binge Medical Asad ter History SDOH [facility] Alcohol Comment Medical C enter History SDOH [facility] Alcohol Std Drinks Medica l Center Exposure to Not sure [facility] SARS-CoV-2 (event) Alcohol intake 2019-01-29 2019-01-29 [facility] Medical Center (finding) Tobacco Comment 2019-01-25 2019-01-[address] [facility] 00:[facility] Center Tobacco use and 2019-01-25 2019-01-[address] [facility] exposure 00:00:00 00:00:00 Medical Center History SDOH 2019-01-25 2019-01-[address] [facility] Alcohol Frequency 00:00:00 00:00:00 [facility] Center Sex Assigned At [address] [facility] 00[facility]00 [facility] Center Smoking Status Start Date Stop Date Source Former Smoker 2022-11-02 00:00:00 2022-11-02 Common Spiri t - [facility] 00:00:00 [facility] Tobacco smoking [facility] consumption unknown Medications Ordered Filled Start Stop Current Ordering Indication Dosage Frequency Signature Comments Components Source Medication Medication Date Date Medication? Clinician (SIG) Name Name yiselo Yes Q12H every 12 UT l (Brovana) [...] at the inhalation same time. capsule traMADol Yes 1 (one) UT (Ultram) 50 2-16 time each Hea lth MG tablet 12:22: day at the 10 same time. clotrimazol Yes USE 1 UT e-betametha -24 APPLICATIO He alth sone 00:00: N (Lotrisone) 00 EXTERNALLY cream TWICE A DAY 42 DAYS Clotrimazol Clotrimazol 2021- No 1{appli BID Clotrimazo e-Betametha e-Betametha 11-30 04-18 cation} le-Betamet sone 1-0.05 sone 1-0.05 00:00: 00:00 hasone % % 00 :00 1-0.05 % Clotrimazol Clotrimazol 202- No 1{appli BID Clotrimazo e-Betametha e-Betametha 24 04-18 cation} le-Betamet sone 1-0.05 sone 1-0.05 00:00: 00:00 hasone % % 00 :00 1-0.05 % DULoxetine Yes 60mg QD Take 60 mg U T (Cymbalta) 1-21 by mouth 1 [facility]a [facility] [address] 00:00: (one) time capsule 00 each day. Acetaminoph 2021-0 Yes UT en 500 MG 8-18 Health [...] test strip 00:00: EVERY DAY 00 finasteride 2020-0 Yes 5mg QD Take 5 mg U T (Proscar) 5 5-21 by mouth 1 He alth MG tablet 00:00: (one) time 00 each day. finasteride 2020-0 Yes 5mg QD Take 5 mg U T (Proscar) 5 5-21 by mouth 1 He alth MG tablet 00:00: (one) time 00 each day. finasteride 2020-0 Yes 5mg QD Take 5 mg U T (Proscar) 5 5-21 by mouth 1 He alth MG tablet 00:00: (one) time 00 each day. finasteride 2020-0 Yes 5mg QD Take 5 mg U T (Proscar) 5 5-21 by mouth 1 He alth MG tablet 00:00: (one) time 00 each day. finasteride 2020-0 Yes 5mg QD Take 5 mg U T (Proscar) 5 5-21 by mouth 1 He alth MG tablet 00:00: (one) time 00 each day. furosemide 2020-0 Yes 40mg QD Take 40 mg U [...] 00:00: (one) time 00 each day. citalopram 1-0 Yes 20mg QD Take 20 mg U T (CeleXA) 20 4-07 by mouth 1 He alth MG tablet 00:00: (one) time 00 each day. citalopram 2021-0 Yes 20mg QD Take 20 mg U T (CeleXA) 20 4-07 by mouth 1 He alth MG tablet 00:00: (one) time 00 each day. amLODIPine- 1-0 Yes QD Take by UT benazepril 3-27 mouth 1 Health (Lotrel) 00:00: (one) time 10-40 MG 00 each day. capsule amLODIPine- 1-0 Yes QD Take by UT benazepril 3-27 mouth 1 Health (Lotrel) 00:00: (one) time 10-40 MG 00 each day. capsule amLODIPine- 1-0 Yes QD Take by UT benazepril 3-27 mouth 1 Health (Lotrel) 00:00: (one) time 10-40 MG 00 each day. capsule amLODIPine- 1-0 Yes QD Take by UT benazepril 3-27 mouth 1 Health (Lotrel) 00:00: (one) time 10-40 MG 00 each day. capsule amLODIPine- 1-0 Yes QD Take by UT benazepril 3-27 mouth 1 Health (Lotrel) 00:00: (one) time 10-40 MG 00 each day. capsule Dolutegravi 2020-0 Yes TAKE 1 UT r-lamiVUDin 1-27 TABLET Health e (Dovato) 00:00: DAILY 50-300 MG 00 tablet Dolutegravi 2020-0 Yes TAKE 1 UT r-lamiVUDin 1-27 TABLET Health e (Dovato) 00:00: DAILY 50-300 MG 00 tablet Dolutegravi 1-0 Yes TAKE 1 UT r-lamiVUDin 1-27 TABLET Health e (Dovato) 00:00: DAILY 50-300 MG 00 tablet Dolutegravi 1-0 Yes TAKE 1 UT r-lamiVUDin 1-27 TABLET Health e (Dovato) 00:00: DAILY 50-300 MG 00 tablet Dovato Dovato 2020-0 Yes Jean Marie 1 QD TAKE 1 UT 50-300 MG 50-300 MG 1-27 [place] TABLET Physici Oral Tablet Oral Tablet 00:00: VP DIRECTOR OF CREATIVE STRATEGY DAILY ans 00 efavirenz-e 0 Yes 1{tbl} QD Take 1 UT mtricitabin 1-[address] [facility] e-tenofovir 00:00: mouth 1 disoproxil 00 (one) time fumarate each day. (Atripla) 600-200-300 MG tablet efavirenz-e Yes 1{tbl} QD Take 1 UT mtricitabin 1-06 tablet [address] [facility] e-tenofovir 00:00: mouth 1 disoproxil 00 (one) time fumarate each day. (Atripla) 600-200-300 MG tablet efavirenz-e Yes 1{tbl} QD Take 1 UT mtricitabin 1-06 tablet by [facility] e-tenofovir 00:00: mouth 1 disoproxil 00 (one) time fumarate each day. (Atripla) 600-200-300 MG tablet efavirenz-e Yes 1{tbl} QD Take 1 UT mtricitabin 1-06 tablet [address] [facility] e-tenofovir 00:00: mouth 1 disoproxil 00 (one) time fumarate each day. (Atripla) 600-200-300 MG tablet efavirenz-e Yes 1{tbl} QD Take 1 UT mtricitabin 1-[address] tablet [address] [facility] e-tenofovir 00:00: mouth 1 disoproxil 00 (one) time fumarate each day. (Atripla) 600-200-300 MG tablet albuterol 0 Yes INHALE 2 UT 108 (90 1-04 PUFFS BY Health Base) 00:00: MOUTH MCG/ACT 00 EVERY 4 inhaler HOURS NEEDED NOT COVERED predniSONE 2020-0 Yes 40mg QD Take 40 mg U T (Deltasone) 1-04 by mouth 1 He alth 20 MG 00:00: (one) time tablet 00 each day. albuterol Yes INHALE 2 UT 108 (90 1-04 PUFFS BY [facility]) 00:00: MOUTH MCG/ACT 00 EVERY 4 inhaler HOURS NEEDED NOT COVERED predniSONE 2020-0 Yes 40mg QD Take 40 mg U [...] each day. Accu-Chek Accu-Chek 2019-0 2020- No Radha Ellis as Common Smart View Smart View 12-0524 directed Spirit test strips test strips 00:00: 00:00 - [facility]I 00 :00 [facility] zoster 2019-0 Yes INJECT 0.5 UT vaccine-rec 6-12 ML Health ombinant 00:00: Intramuscu adjuvanted 00 lar Give (Shingrix) 1st 50 injection MCG/0.5ML now, then vaccine second injection in 2-6 months zoster 2019-0 Yes INJECT 0.5 UT vaccine-rec 6-12 ML Health ombinant 00:00: Intramuscu adjuvanted 00 lar Give (Shingrix) 1st 50 injection MCG/0.5ML now, then vaccine second injection in 2-6 months zoster 2019-0 Yes INJECT 0.5 UT vaccine-rec 6-12 ML Health ombinant 00:00: Intramuscu adjuvanted 00 lar Give (Shingrix) 1st 50 injection MCG/0.5ML now, then vaccine second injection in 2-6 months zoster 2019 Yes INJECT 0.5 UT vaccine-rec 6-12 ML Health ombinant 00:00: Intramuscu adjuvanted 00 lar Give (Shingrix) 1st 50 injection MCG/0.5ML now, then vaccine second injection in 2-6 months zoster 2019- Yes INJECT 0.5 UT vaccine-rec 6-12 ML Health ombinant 00:00: Intramuscu adjuvanted 00 lar Give (Shingrix) 1st 50 injection MCG/0.5ML now, then vaccine second injection in 2-6 months Shingrix 50 Shingrix 50 2019 Yes Jean Marie INJECT 0.5 UT MCG MCG 6-12 [place] ML [facility]ici Intramuscul Intramuscul 00:00: VP DIRECTOR OF CREATIVE STRATEGY Intramuscu ans ar ar 00 lar Give Suspension Suspension 1st Reconstitut Reconstitut injection ed ed now, then second injection in 2-6 months Shingrix 50 Shingrix 50 2018- Yes Jean Marie Inject 0.5 UT MCG/0.5ML MCG/0.5ML 6-12 [place] ML Physici Intramuscul Intramuscul 00:00: VP DIRECTOR OF CREATIVE STRATEGY intramuscu ans ar ar 00 lar second Suspension Suspension dosage in Reconstitut Reconstitut 2 to 6 ed ed months efavirenz-e Yes 1{tbl} QD Take [address] mtrictabine 3-23 tablet by Hussein es -tenofovir 12:08: mouth Medica l (ATRIPLA) 09 nightly. Center 600-200-300 mg per tablet amlodipine- Yes 1{capsu Q.5D Take [address] benazepril 3-23 le} capsule by Hussein es (LOTREL) 12:08: mouth 2 Medica l 10-40 mg 09 (two) Center per capsule times daily . efavirenz-e Yes 1{tbl} QD Take [address] mtrictabine 3-23 tablet by Hussein es -tenofovir 12:08: mouth Medica l (ATRIPLA) 09 nightly. Center 600-200-300 mg per tablet amlodipine- Yes 1{capsu Q.5D Take [address] benazepril 3-23 le} capsule by Hussein es (LOTREL) 12:08: mouth 2 Medica l 10-40 mg 09 (two) Center per capsule times daily . eplerenone 2018-0 Yes 25mg QD Take [address] (INSPRA) 25 3-23 by mouth Luke s MG tablet 12:08: daily. Medica l 09 [place] furosemide 2019-0 Yes 40mg QD Take [address] (LASIX) 40 3-23 by mouth [facility] MG tablet 12:08: daily. Medica l 09 [place] metoprolol 2018-0 Yes 100mg Q.5D Take [address] (LOPRESSOR) 3-23 mg by [facility] 100 MG 12:08: mouth 2 Medical tablet 09 (two) Center times daily. aspirin 81 2019- Yes 81mg QD Take [address] MG EC 3-23 by mouth [facility] tablet 12:08: daily. Medical 09 [place] gabapentin 2018-0 Yes 600mg Q.[id number] Take [address] (NEURONTIN) 3-23 [id number] mg by L ukes 600 MG 12:08: 3D mouth 3 Medical tablet 09 (three) Center times daily. FLAXSEED 2018-0 Yes Q.5D Take by [facility] ORAL 3-23 mouth 2 [facility] 12:08: (two) Medical 09 times Center daily. multivitami 2018-0 Yes 1{tbl} QD Take [address] n per -23 tablet by [facility] tablet 12:08: mouth Medical 09 daily. [place] SAW 2018-0 Yes Take by [facility] PALMETTO 3-23 mouth. [facility] ORAL 12:08: Medical 09 [place] glucosamine 2018-0 Yes QD Take by CHI [...] Center times daily with breakfast and dinner. eplerenone 2018- Yes 25mg QD Take [address] (INSPRA) 25 3-23 by mouth Luke s MG tablet 12:08: daily. Medica [address] furosemide 2018-0 Yes 40mg QD Take [address] (LASIX) 40 3-23 by mouth [facility] MG tablet 12:08: daily. Medica [address] metoprolol 0 Yes 100mg Q.5D Take [address] (LOPRESSOR) 3-23 mg by [facility] 100 MG 12:08: mouth 2 Medical tablet 09 (two) Center times daily. aspirin 81 2019- Yes 81mg QD Take [address] MG EC -23 by mouth [facility] tablet 12:08: daily. [address] gabapentin 2018-0 Yes 600mg Q.[id number] Take [address] (NEURONTIN) 3-23 [id number] mg by L ukes 600 MG 12:08: 3D mouth 3 Medical tablet 09 (three) Center times daily. FLAXSEED 2018-0 Yes Q.5D Take by [facility] ORAL 3-23 mouth 2 [facility] 12:08: (two) Medical 09 times Center daily. multivitami 2019-0 Yes 1{tbl} QD Take [address] n per - tablet by [facility] tablet 12:08: mouth Medical 09 daily. [place] SAW 0 Yes Take by [facility] PALMETTO -23 mouth. [facility] ORAL 12:08: Medical [address] [place] [address] glucosamine 2018-0 Yes QD Take by [facility] /chondr james 3-23 mouth [facility] A sod 12:08: daily. Medical (OSTEO 09 [place] BI-FLEX ORAL) traMADol 2018-0 Yes 50mg Take [...] times daily with breakfast and dinner. efavirenz-e 2018- Yes 1{tbl} QD Take [address] mtrictabine 3-23 tablet by Hussein es -tenofovir 12:08: mouth Medica l (ATRIPLA) 09 nightly. Center 600-200-300 mg per tablet amlodipine- 2018-0 Yes 1{capsu Q.5D Take [address] benazepril 3-23 le} capsule by Hussein es (LOTREL) 12:08: mouth 2 Medica l 10-40 mg 09 (two) Center per capsule times daily . eplerenone 2018- Yes 25mg QD Take [address] (INSPRA) 25 3-23 by mouth Luke s MG tablet 12:08: daily. Medica l 09 [place] furosemide 2018-0 Yes 40mg QD Take [address] (LASIX) 40 3-23 by mouth [facility] MG tablet 12:08: daily. Medica l 09 [place] metoprolol 0 Yes 100mg Q.5D Take [address] (LOPRESSOR) 3-23 mg by [facility] 100 MG 12:08: mouth 2 Medical tablet 09 (two) Center times daily. aspirin 81 2019-0 Yes 81mg QD Take [address] MG EC 3-23 by mouth [facility] tablet 12:08: daily. Medical 09 Center gabapentin 2018-0 Yes 600mg Q.[id number] Take [address] (NEURONTIN) 3-23 [id number] mg by L ukes 600 MG 12:08: [...] [facility]ukes ORAL 12:08: Medical 09 Center glucosamine 20190 Yes QD Take by [facility] /chondr [...] (six) hours as needed for Wheezing. metFORMIN 0 Yes 500mg Take [address] (GLUCOPHAGE [...] 12:08: daily. Medica l 09 Center metoprolol 2019-0 Yes 100mg Q.5D Take [address] (LOPRESSOR) 3-23 mg by [facility] 100 MG 12:08: mouth 2 Medical tablet 09 (two) Center times daily. aspirin 81 2019-0 Yes 81mg QD Take [address] MG EC 3-23 by mouth [facility] tablet 12:08: daily. Medical 09 [place] gabapentin 2019-0 Yes 600mg Q.[id number] Take [address] (NEURONTIN) 3-23 [id number] mg by L ukes 600 MG 12:08: 3D mouth 3 Medical tablet 09 (three) Center times daily. FLAXSEED 2019-0 Yes Q.5D Take by [facility] ORAL 3-23 mouth 2 [facility] 12:08: (two) Medical 09 times Center daily. multivitami 2019-0 Yes 1{tbl} QD Take [address] n per 3-23 tablet by [facility] tablet 12:08: mouth Medical 09 daily. [place] SAW 2018-0 Yes Take by [facility] [...] times daily with breakfast and dinner. metFORMIN 2017-0 Yes TAKE 1 UT (Glucophage 5-24 TABLET [...] TABLET Physici MG Oral MG Oral 00:00: VP DIRECTOR OF CREATIVE STRATEGY TWICE ans Tablet Tablet 00 DAILY gabapentin [...] [place]ke TABLET BY Physici Tablet Tablet 00:00: VP DIRECTOR OF CREATIVE STRATEGY MOUTH ans 00 EVERY 8 HOURS doxazosin [...] M.D. TWICE ans Tablet Tablet 00 DAILY Eplerenone Eplerenone Yes TAHIR 1 QD TAKE 1 UT 25 MG Oral 25 MG Oral 8-23 BROOKE TABLET Physici Tablet Tablet 00:00: M.D. DAILY. ans 00 Flaxseed, Yes UT Linseed, 2-12 Health [...] 00:00: 00 Furosemide Furosemide Yes Jean Marie UT 20 MG Oral 20 MG Oral 2-12 [place] Physici Tablet Tablet 00:00: VP DIRECTOR OF CREATIVE STRATEGY ans 00 Flaxseed Flaxseed Yes Jean Marie UT Oil 1000 MG Oil 1000 MG 2-12 [place] Physici Oral Oral 00:00: VP DIRECTOR OF CREATIVE STRATEGY ans Capsule Capsule 00 metoprolol Yes TAKE 1 UT tartrate 3-31 [...] [place] TABLET Ph ysici Tablet Tablet 00:00: VP DIRECTOR OF CREATIVE STRATEGY DAILY AT ans 00 BEDTIME. Metoprolol Metoprolol Yes Jean Marie TAKE 1 UT Tartrate Tartrate 3-31 [place] TABLET Physici 100 MG Oral 100 MG Oral 00:00: VP DIRECTOR OF CREATIVE STRATEGY EVERY 12 ans Tablet Tablet 00 HOURS DAILY0.15m g Spiriva Spiriva No 1{capsu QD Spiriva HandiHaler HandiHaler le} HandiHaler 18 MCG 18 MCG 18 MCG Advair Advair No Advair Diskus Diskus Diskus 250-50 250-50 250-50 MCG/DOSE MCG/DOSE MCG/DOSE Lasix 20 MG Lasix 20 MG No 1{table QD Lasix 20 t} MG Accu-Chek Accu-Chek No Accu-Chek SmartView - SmartView - SmartView - Gabapentin Gabapentin No 2{table TID Gabapentin 600 MG 600 MG t} 600 MG Finasteride Finasteride No Finasterid 5 MG 5 MG e 5 MG Potassium Potassium No Potassium Chloride Chloride Chloride traMADol traMADol No 1{table QD traMADol HCl 50 MG HCl 50 MG t_as_ne HCl 50 MG eded} Allopurinol Allopurinol No Allopurino l metFORMIN metFORMIN No metFORMIN HCl 500 MG HCl 500 MG HCl 500 MG DULoxetine DULoxetine No 1{capsu DULoxetine HCl 30 MG HCl 30 MG le} HCl 30 MG Cardura 1 Cardura 1 No 1{table QD Cardura 1 MG MG t} MG Atripla Atripla No Atripla Eplerenone Eplerenone No Eplerenone Metoprolol Metoprolol No BID Metoprolol Tartrate Tartrate Tartrate 100 MG 100 MG 100 MG Ventolin Ventolin No 2{puffs QID Ventolin HFA 90 HFA 90 _as_nee HFA 90 MCG/ACT MCG/ACT ded} MCG/ACT Aspir-81 81 Aspir-81 81 No 1{table QD Aspir-81 MG MG t} 81 MG Metoprolol Metoprolol No Metoprolol Tartrate Tartrate Tartrate 100 MG 100 MG 100 MG amLODIPine amLODIPine No amLODIPine Besy-Benaze Besy-Benaze Besy-Benaz pril HCl pril HCl epril HCl 10-40 MG 10-40 MG 10-40 MG Lipitor 20 Lipitor 20 No 1{table QD Lipitor 20 MG MG t} MG Doxazosin Doxazosin No 1{table QD Doxazosin Mesylate 4 Mesylate 4 t} Mesylate 4 MG MG MG Brovana 15 Brovana 15 No 2{ml} BID Brovana 15 MCG/2ML MCG/2ML MCG/2ML Doxazosin Doxazosin No Doxazosin Mesylate 4 Mesylate 4 Mesylate 4 MG MG MG Eplerenone Eplerenone No 1{table QD Eplerenone 25 MG 25 MG t} 25 MG Lotrel Lotrel No 1{table QD Lotrel 10-40 MG 10-40 MG t} 10-40 MG Spiriva Spiriva No 1{capsu QD Spiriva HandiHaler HandiHaler le} HandiHaler 18 MCG 18 MCG 18 MCG Advair Advair No Advair Diskus Diskus Diskus 250-50 250-50 250-50 MCG/DOSE MCG/DOSE MCG/DOSE Lasix 20 MG Lasix 20 MG No 1{table QD Lasix 20 t} MG Accu-Chek Accu-Chek No Accu-Chek SmartView - SmartView - SmartView - Gabapentin Gabapentin No 2{table TID Gabapentin 600 MG 600 MG t} 600 MG Finasteride Finasteride No Finasterid 5 MG 5 MG e 5 MG Potassium Potassium No Potassium Chloride Chloride Chloride traMADol traMADol No 1{table QD traMADol HCl 50 MG HCl 50 MG t_as_ne HCl 50 MG eded} Allopurinol Allopurinol No Allopurino l metFORMIN metFORMIN No metFORMIN HCl 500 MG HCl 500 MG HCl 500 MG DULoxetine DULoxetine No 1{capsu DULoxetine HCl 30 MG HCl 30 MG le} HCl 30 MG Cardura 1 Cardura 1 No 1{table QD Cardura 1 MG MG t} MG Atripla Atripla No Atripla Eplerenone Eplerenone No Eplerenone Metoprolol Metoprolol No BID Metoprolol Tartrate Tartrate Tartrate 100 MG 100 MG 100 MG Ventolin Ventolin No 2{puffs QID Ventolin HFA 90 HFA 90 _as_nee HFA 90 MCG/ACT MCG/ACT ded} MCG/ACT Aspir-81 81 Aspir-81 81 No 1{table QD Aspir-81 MG MG t} 81 MG Metoprolol Metoprolol No Metoprolol Tartrate Tartrate Tartrate 100 MG 100 MG 100 MG amLODIPine amLODIPine No amLODIPine Besy-Benaze Besy-Benaze Besy-Benaz pril HCl pril HCl epril HCl 10-40 MG 10-40 MG 10-40 MG Lipitor 20 Lipitor 20 No 1{table QD Lipitor 20 MG MG t} MG Doxazosin Doxazosin No 1{table QD Doxazosin Mesylate 4 Mesylate 4 t} Mesylate 4 MG MG MG Brovana 15 Brovana 15 No 2{ml} BID Brovana 15 MCG/2ML MCG/2ML MCG/2ML Doxazosin Doxazosin No Doxazosin Mesylate 4 Mesylate 4 Mesylate 4 MG MG MG Eplerenone Eplerenone No 1{table QD Eplerenone 25 MG 25 MG t} 25 MG Lotrel Lotrel No 1{table QD Lotrel 10-40 MG 10-40 MG t} 10-40 MG Spiriva Spiriva No 1{capsu QD Spiriva HandiHaler HandiHaler le} HandiHaler 18 MCG 18 MCG 18 MCG Advair Advair No Advair Diskus Diskus Diskus 250-50 250-50 250-50 MCG/DOSE MCG/DOSE MCG/DOSE Lasix 20 MG Lasix 20 MG No 1{table QD Lasix 20 t} MG Accu-Chek Accu-Chek No Accu-Chek SmartView - SmartView - SmartView - Gabapentin Gabapentin No 2{table TID Gabapentin 600 MG 600 MG t} 600 MG Finasteride Finasteride No Finasterid 5 MG 5 MG e 5 MG Potassium Potassium No Potassium Chloride Chloride Chloride traMADol traMADol No 1{table QD traMADol HCl 50 MG HCl 50 MG t_as_ne HCl 50 MG eded} Allopurinol Allopurinol No Allopurino l metFORMIN metFORMIN No metFORMIN HCl 500 MG HCl 500 MG HCl 500 MG DULoxetine DULoxetine No 1{capsu DULoxetine HCl 30 MG HCl 30 MG le} HCl 30 MG Cardura 1 Cardura 1 No 1{table QD Cardura 1 MG MG t} MG Atripla Atripla No Atripla Eplerenone Eplerenone No Eplerenone Metoprolol Metoprolol No BID Metoprolol Tartrate Tartrate Tartrate 100 MG 100 MG 100 MG Ventolin Ventolin No 2{puffs QID Ventolin HFA 90 HFA 90 _as_nee HFA 90 MCG/ACT MCG/ACT ded} MCG/ACT Aspir-81 81 Aspir-81 81 No 1{table QD Aspir-81 MG MG t} 81 MG Metoprolol Metoprolol No Metoprolol Tartrate Tartrate Tartrate 100 MG 100 MG 100 MG amLODIPine amLODIPine No amLODIPine Besy-Benaze Besy-Benaze Besy-Benaz pril HCl pril HCl epril HCl 10-40 MG 10-40 MG 10-40 MG Lipitor 20 Lipitor 20 No 1{table QD Lipitor 20 MG MG t} MG Doxazosin Doxazosin No 1{table QD Doxazosin Mesylate 4 Mesylate 4 t} Mesylate 4 MG MG MG Brovana 15 Brovana 15 No 2{ml} BID Brovana 15 MCG/2ML MCG/2ML MCG/2ML Doxazosin Doxazosin No Doxazosin Mesylate 4 Mesylate 4 Mesylate 4 MG MG MG Eplerenone Eplerenone No 1{table QD Eplerenone 25 MG 25 MG t} 25 MG Lotrel Lotrel No 1{table QD Lotrel 10-40 MG 10-40 MG t} 10-40 MG Spiriva Spiriva No 1{capsu QD Spiriva HandiHaler HandiHaler le} HandiHaler 18 MCG 18 MCG 18 MCG Advair Advair No Advair Diskus Diskus Diskus 250-50 250-50 250-50 MCG/DOSE MCG/DOSE MCG/DOSE Lasix 20 MG Lasix 20 MG No 1{table QD Lasix 20 t} MG Accu-Chek Accu-Chek No Accu-Chek SmartView - SmartView - SmartView - Gabapentin Gabapentin No 2{table TID Gabapentin 600 MG 600 MG t} 600 MG amLODIPine amLODIPine No amLODIPine Besy-Benaze Besy-Benaze Besy-Benaz pril HCl pril HCl epril HCl 10-40 MG 10-40 MG 10-40 MG Advair Advair No Advair Diskus Diskus Diskus 250-50 250-50 250-50 MCG/DOSE MCG/DOSE MCG/DOSE Lotrel Lotrel No 1{table QD Lotrel 10-40 MG 10-40 MG t} 10-40 MG Spiriva Spiriva No 1{capsu QD Spiriva HandiHaler HandiHaler le} HandiHaler 18 MCG 18 MCG 18 MCG Accu-Chek Accu-Chek No Accu-Chek SmartView - SmartView - SmartView - Lasix 20 MG Lasix 20 MG No 1{table QD Lasix 20 t} MG Doxazosin Doxazosin No Doxazosin Mesylate 4 Mesylate 4 Mesylate 4 MG MG MG Gabapentin Gabapentin No 2{table TID Gabapentin 600 MG 600 MG t} 600 MG metFORMIN metFORMIN No metFORMIN HCl 500 MG HCl 500 MG HCl 500 MG Finasteride Finasteride No Finasterid 5 MG 5 MG e 5 MG Eplerenone Eplerenone No 1{table QD Eplerenone 25 MG 25 MG t} 25 MG Atripla Atripla No Atripla Metoprolol Metoprolol No Metoprolol Tartrate Tartrate Tartrate 100 MG 100 MG 100 MG Lipitor 20 Lipitor 20 No 1{table QD Lipitor 20 MG MG t} MG Doxazosin Doxazosin No 1{table QD Doxazosin Mesylate 4 Mesylate 4 t} Mesylate 4 MG MG MG Metoprolol Metoprolol No BID Metoprolol Tartrate Tartrate Tartrate 100 MG 100 MG 100 MG Ventolin Ventolin No 2{puffs QID Ventolin HFA 90 HFA 90 _as_nee HFA 90 MCG/ACT MCG/ACT ded} MCG/ACT Aspir-81 81 Aspir-81 81 No 1{table QD Aspir-81 MG MG t} 81 MG DULoxetine DULoxetine No 1{capsu DULoxetine HCl 30 MG HCl 30 MG le} HCl 30 MG Brovana 15 Brovana 15 No 2{ml} BID Brovana 15 MCG/2ML MCG/2ML MCG/2ML traMADol traMADol No 1{table QD traMADol HCl 50 MG HCl 50 MG t_as_ne HCl 50 MG eded} Potassium Potassium No Potassium Chloride Chloride Chloride Allopurinol Allopurinol No Allopurino l Cardura 1 Cardura 1 No 1{table QD Cardura 1 MG MG t} MG Eplerenone Eplerenone No Eplerenone amLODIPine amLODIPine No amLODIPine Besy-Benaze Besy-Benaze Besy-Benaz pril HCl pril HCl epril HCl 10-40 MG 10-40 MG 10-40 MG Advair Advair No Advair Diskus Diskus Diskus 250-50 250-50 250-50 MCG/DOSE MCG/DOSE MCG/DOSE Lotrel Lotrel No 1{table QD Lotrel 10-40 MG 10-40 MG t} 10-40 MG Spiriva Spiriva No 1{capsu QD Spiriva HandiHaler HandiHaler le} HandiHaler 18 MCG 18 MCG 18 MCG Accu-Chek Accu-Chek No Accu-Chek SmartView - SmartView - SmartView - Lasix 20 MG Lasix 20 MG No 1{table QD Lasix 20 t} MG Doxazosin Doxazosin No Doxazosin Mesylate 4 Mesylate 4 Mesylate 4 MG MG MG Gabapentin Gabapentin No 2{table TID Gabapentin 600 MG 600 MG t} 600 MG metFORMIN metFORMIN No metFORMIN HCl 500 MG HCl 500 MG HCl 500 MG Finasteride Finasteride No Finasterid 5 MG 5 MG e 5 MG Eplerenone Eplerenone No 1{table QD Eplerenone 25 MG 25 MG t} 25 MG Atripla Atripla No Atripla Metoprolol Metoprolol No Metoprolol Tartrate Tartrate Tartrate 100 MG 100 MG 100 MG Lipitor 20 Lipitor 20 No 1{table QD Lipitor 20 MG MG t} MG Doxazosin Doxazosin No 1{table QD Doxazosin Mesylate 4 Mesylate 4 t} Mesylate 4 MG MG MG Metoprolol Metoprolol No BID Metoprolol Tartrate Tartrate Tartrate 100 MG 100 MG 100 MG Ventolin Ventolin No 2{puffs QID Ventolin HFA 90 HFA 90 _as_nee HFA 90 MCG/ACT MCG/ACT ded} MCG/ACT Aspir-81 81 Aspir-81 81 No 1{table QD Aspir-81 MG MG t} 81 MG DULoxetine DULoxetine No 1{capsu DULoxetine HCl 30 MG HCl 30 MG le} HCl 30 MG Brovana 15 Brovana 15 No 2{ml} BID Brovana 15 MCG/2ML MCG/2ML MCG/2ML traMADol traMADol No 1{table QD traMADol HCl 50 MG HCl 50 MG t_as_ne HCl 50 MG eded} Potassium Potassium No Potassium Chloride Chloride Chloride Allopurinol Allopurinol No Allopurino l Cardura 1 Cardura 1 No 1{table QD Cardura 1 MG MG t} MG Eplerenone Eplerenone No Eplerenone Ventolin Ventolin No 2{puffs QID Ventolin HFA 90 HFA 90 _as_nee HFA 90 MCG/ACT MCG/ACT ded} MCG/ACT metFORMIN metFORMIN No 2{table BID metFORMIN HCl 500 MG HCl 500 MG t_with_ HCl 500 MG meals} metFORMIN metFORMIN No metFORMIN HCl 500 MG HCl 500 MG HCl 500 MG Gabapentin Gabapentin No 2{table TID Gabapentin 600 MG 600 MG t} 600 MG Advair Advair No Advair Diskus Diskus Diskus 250-50 250-50 250-50 MCG/DOSE MCG/DOSE MCG/DOSE Spiriva Spiriva No 1{capsu QD Spiriva HandiHaler HandiHaler le} HandiHaler 18 MCG 18 MCG 18 MCG Metoprolol Metoprolol No BID Metoprolol Tartrate Tartrate Tartrate 100 MG 100 MG 100 MG Lotrel Lotrel No 1{table QD Lotrel 10-40 MG 10-40 MG t} 10-40 MG traMADol traMADol No 1{table QD traMADol HCl 50 MG HCl 50 MG t_as_ne HCl 50 MG eded} Brovana 15 Brovana 15 No 2{ml} BID Brovana 15 MCG/2ML MCG/2ML MCG/2ML Cardura 1 Cardura 1 No 1{table QD Cardura 1 MG MG t} MG Aspir-81 81 Aspir-81 81 No 1{table QD Aspir-81 MG MG t} 81 MG Finasteride Finasteride No Finasterid 5 MG 5 MG e 5 MG Potassium Potassium No Potassium Chloride Chloride Chloride Eplerenone Eplerenone No 1{table QD Eplerenone 25 MG 25 MG t} 25 MG amLODIPine amLODIPine No amLODIPine Besy-Benaze Besy-Benaze Besy-Benaz pril HCl pril HCl epril HCl 10-40 MG 10-40 MG 10-40 MG Accu-Chek Accu-Chek No Accu-Chek SmartView - SmartView - SmartView - Atripla Atripla No Atripla Lipitor 20 Lipitor 20 No 1{table QD Lipitor 20 MG MG t} MG Allopurinol Allopurinol No Allopurino l Eplerenone Eplerenone No Eplerenone Lasix 20 MG Lasix 20 MG No 1{table QD Lasix 20 t} MG DULoxetine DULoxetine No 1{capsu DULoxetine HCl 30 MG HCl 30 MG le} HCl 30 MG Finasteride Finasteride No 1{table QD Finasterid 5 MG 5 MG t} e 5 MG Doxazosin Doxazosin No 1{table QD Doxazosin Mesylate 4 Mesylate 4 t} Mesylate 4 MG MG MG Ventolin Ventolin No 2{puffs QID Ventolin HFA 90 HFA 90 _as_nee HFA 90 MCG/ACT MCG/ACT ded} MCG/ACT metFORMIN metFORMIN No 2{table BID metFORMIN HCl 500 MG HCl 500 MG t_with_ HCl 500 MG meals} metFORMIN metFORMIN No metFORMIN HCl 500 MG HCl 500 MG HCl 500 MG Gabapentin Gabapentin No 2{table TID Gabapentin 600 MG 600 MG t} 600 MG Advair Advair No Advair Diskus Diskus Diskus 250-50 250-50 250-50 MCG/DOSE MCG/DOSE MCG/DOSE Spiriva Spiriva No 1{capsu QD Spiriva HandiHaler HandiHaler le} HandiHaler 18 MCG 18 MCG 18 MCG Metoprolol Metoprolol No BID Metoprolol Tartrate Tartrate Tartrate 100 MG 100 MG 100 MG Lotrel Lotrel No 1{table QD Lotrel 10-40 MG 10-40 MG t} 10-40 MG traMADol traMADol No 1{table QD traMADol HCl 50 MG HCl 50 MG t_as_ne HCl 50 MG eded} Brovana 15 Brovana 15 No 2{ml} BID Brovana 15 MCG/2ML MCG/2ML MCG/2ML Cardura 1 Cardura 1 No 1{table QD Cardura 1 MG MG t} MG Aspir-81 81 Aspir-81 81 No 1{table QD Aspir-81 MG MG t} 81 MG Finasteride Finasteride No Finasterid 5 MG 5 MG e 5 MG Potassium Potassium No Potassium Chloride Chloride Chloride Eplerenone Eplerenone No 1{table QD Eplerenone 25 MG 25 MG t} 25 MG amLODIPine amLODIPine No amLODIPine Besy-Benaze Besy-Benaze Besy-Benaz pril HCl pril HCl epril HCl 10-40 MG 10-40 MG 10-40 MG Accu-Chek Accu-Chek No Accu-Chek SmartView - SmartView - SmartView - Atripla Atripla No Atripla Lipitor 20 Lipitor 20 No 1{table QD Lipitor 20 MG MG t} MG Allopurinol Allopurinol No Allopurino l Eplerenone Eplerenone No Eplerenone Lasix 20 MG Lasix 20 MG No 1{table QD Lasix 20 t} MG DULoxetine DULoxetine No 1{capsu DULoxetine HCl 30 MG HCl 30 MG le} HCl 30 MG Finasteride Finasteride No 1{table QD Finasterid 5 MG 5 MG t} e 5 MG Doxazosin Doxazosin No Doxazosin Mesylate 4 Mesylate 4 Mesylate 4 MG MG MG Lasix 20 MG Lasix 20 MG No 1{table QD Lasix 20 t} MG Spiriva Spiriva No 1{capsu QD Spiriva HandiHaler HandiHaler le} HandiHaler 18 MCG 18 MCG 18 MCG Finasteride Finasteride No 1{table QD Finasterid 5 MG 5 MG t} e 5 MG Eplerenone Eplerenone No 1{table QD Eplerenone 25 MG 25 MG t} 25 MG metFORMIN metFORMIN No 2{table BID metFORMIN HCl 500 MG HCl 500 MG t_with_ HCl 500 MG meals} amLODIPine amLODIPine No amLODIPine Besy-Benaze Besy-Benaze Besy-Benaz pril HCl pril HCl epril HCl 10-40 MG 10-40 MG 10-40 MG Advair Advair No Advair Diskus Diskus Diskus 250-50 250-50 250-50 MCG/DOSE MCG/DOSE MCG/DOSE metFORMIN metFORMIN No metFORMIN HCl 500 MG HCl 500 MG HCl 500 MG Atripla Atripla No Atripla Brovana 15 Brovana 15 No 2{ml} BID Brovana 15 MCG/2ML MCG/2ML MCG/2ML Aspir-81 81 Aspir-81 81 No 1{table QD Aspir-81 MG MG t} 81 MG Accu-Chek Accu-Chek No Accu-Chek SmartView - SmartView - SmartView - Finasteride Finasteride No Finasterid 5 MG 5 MG e 5 MG Potassium Potassium No Potassium Chloride Chloride Chloride DULoxetine DULoxetine No 1{capsu DULoxetine HCl 30 MG HCl 30 MG le} HCl 30 MG Ventolin Ventolin No 2{puffs QID Ventolin HFA 90 HFA 90 _as_nee HFA 90 MCG/ACT MCG/ACT ded} MCG/ACT traMADol traMADol No 1{table QD traMADol HCl 50 MG HCl 50 MG t_as_ne HCl 50 MG eded} Lipitor 20 Lipitor 20 No 1{table QD Lipitor 20 MG MG t} MG Gabapentin Gabapentin No 2{table TID Gabapentin 600 MG 600 MG t} 600 MG Allopurinol Allopurinol No Allopurino l Cardura 1 Cardura 1 No 1{table QD Cardura 1 MG MG t} MG Doxazosin Doxazosin No Doxazosin Mesylate 4 Mesylate 4 Mesylate 4 MG MG MG Lotrel Lotrel No 1{table QD Lotrel 10-40 MG 10-40 MG t} 10-40 MG Eplerenone Eplerenone No Eplerenone Metoprolol Metoprolol No BID Metoprolol Tartrate Tartrate Tartrate 100 MG 100 MG 100 MG Finasteride Finasteride No Finasterid 5 MG 5 MG e 5 MG Potassium Potassium No Potassium Chloride Chloride Chloride traMADol traMADol No 1{table QD traMADol HCl 50 MG HCl 50 MG t_as_ne HCl 50 MG eded} Allopurinol Allopurinol No Allopurino l metFORMIN metFORMIN No metFORMIN HCl 500 MG HCl 500 MG HCl 500 MG DULoxetine DULoxetine No 1{capsu DULoxetine HCl 30 MG HCl 30 MG le} HCl 30 MG Acetaminoph Acetaminoph Yes U T en 500 MG en 500 MG Physi ci CAPS CAPS ans Cardura 1 Cardura 1 No 1{table QD Cardura 1 MG MG t} MG Atripla Atripla No Atripla Eplerenone Eplerenone No Eplerenone Metoprolol Metoprolol No BID Metoprolol Tartrate Tartrate Tartrate 100 MG 100 MG 100 MG Ventolin Ventolin No 2{puffs QID Ventolin HFA 90 HFA 90 _as_nee HFA 90 MCG/ACT MCG/ACT ded} MCG/ACT Aspir-81 81 Aspir-81 81 No 1{table QD Aspir-81 MG MG t} 81 MG Metoprolol Metoprolol No Metoprolol Tartrate Tartrate Tartrate 100 MG 100 MG 100 MG amLODIPine amLODIPine No amLODIPine Besy-Benaze Besy-Benaze Besy-Benaz pril HCl pril HCl epril HCl 10-40 MG 10-40 MG 10-40 MG Lipitor 20 Lipitor 20 No 1{table QD Lipitor 20 MG MG t} MG Doxazosin Doxazosin No 1{table QD Doxazosin Mesylate 4 Mesylate 4 t} Mesylate 4 MG MG MG Brovana 15 Brovana 15 No 2{ml} BID Brovana 15 MCG/2ML MCG/2ML MCG/2ML Doxazosin Doxazosin No Doxazosin Mesylate 4 Mesylate 4 Mesylate 4 MG MG MG Eplerenone Eplerenone No 1{table QD Eplerenone 25 MG 25 MG t} 25 MG Lotrel Lotrel No 1{table QD Lotrel 10-40 MG 10-40 MG t} 10-40 MG Spiriva Spiriva No 1{capsu QD Spiriva HandiHaler HandiHaler le} HandiHaler 18 MCG 18 MCG 18 MCG Advair Advair No Advair Diskus Diskus Diskus 250-50 250-50 250-50 MCG/DOSE MCG/DOSE MCG/DOSE Lasix 20 MG Lasix 20 MG No 1{table QD Lasix 20 t} MG Accu-Chek Accu-Chek No Accu-Chek SmartView - SmartView - SmartView - Gabapentin Gabapentin No 2{table TID Gabapentin 600 MG 600 MG t} 600 MG Allopurinol Allopurinol No Allopurino l Ventolin Ventolin No 2{puffs QID Ventolin HFA 90 HFA 90 _as_nee HFA 90 MCG/ACT MCG/ACT ded} MCG/ACT Potassium Potassium No Potassium Chloride Chloride Chloride Citalopram Citalopram No 1{table QD Citalopram Hydrobromid Hydrobromid t} Hydrobromi e 20 MG e 20 MG de 20 MG Doxazosin Doxazosin No 1{table QD Doxazosin Mesylate 4 Mesylate 4 t} Mesylate 4 MG MG MG Metoprolol Metoprolol No BID Metoprolol Tartrate Tartrate Tartrate 100 MG 100 MG 100 MG Brovana 15 Brovana 15 No 2{ml} BID Brovana 15 MCG/2ML MCG/2ML MCG/2ML Spiriva Spiriva No 1{capsu QD Spiriva HandiHaler HandiHaler le} HandiHaler 18 MCG 18 MCG 18 MCG metFORMIN metFORMIN No 2{table BID metFORMIN HCl 500 MG HCl 500 MG t_with_ HCl 500 MG meals} Lotrel Lotrel No 1{table QD Lotrel 10-40 MG 10-40 MG t} 10-40 MG Lipitor 20 Lipitor 20 No 1{table QD Lipitor 20 MG MG t} MG Aspir-81 81 Aspir-81 81 No 1{table QD Aspir-81 MG MG t} 81 MG amLODIPine amLODIPine No amLODIPine Besy-Benaze Besy-Benaze Besy-Benaz pril HCl pril HCl epril HCl 10-40 MG 10-40 MG 10-40 MG Finasteride Finasteride No 1{table QD Finasterid 5 MG 5 MG t} e 5 MG Atripla Atripla No Atripla traMADol traMADol No 1{table QD traMADol HCl 50 MG HCl 50 MG t_as_ne HCl 50 MG eded} Metoprolol Metoprolol No Metoprolol Tartrate Tartrate Tartrate 100 MG 100 MG 100 MG Advair Advair No Advair Diskus Diskus Diskus 250-50 250-50 250-50 MCG/DOSE MCG/DOSE MCG/DOSE Doxazosin Doxazosin No 1{table QD Doxazosin Mesylate 4 Mesylate 4 t} Mesylate 4 MG MG MG Gabapentin Gabapentin No 2{table TID Gabapentin 600 MG 600 MG t} 600 MG Cardura 1 Cardura 1 No 1{table QD Cardura 1 MG MG t} MG Eplerenone Eplerenone No 1{table QD Eplerenone 25 MG 25 MG t} 25 MG Accu-Chek Accu-Chek No Accu-Chek SmartView - SmartView - SmartView - Eplerenone Eplerenone No Eplerenone Citalopram Citalopram No Citalopram Hydrobromid Hydrobromid Hydrobromi e 20 MG e 20 MG de 20 MG Lasix 20 MG Lasix 20 MG No 1{table QD Lasix 20 t} MG metFORMIN metFORMIN No 2{table BID metFORMIN HCl 500 MG HCl 500 MG t_with_ HCl 500 MG meals} amLODIPine amLODIPine No amLODIPine Besy-Benaze Besy-Benaze Besy-Benaz pril HCl pril HCl epril HCl 10-40 MG 10-40 MG 10-40 MG metFORMIN metFORMIN No 2{table BID metFORMIN HCl 500 MG HCl 500 MG t_with_ HCl 500 MG meals} Ventolin Ventolin No 2{puffs QID Ventolin HFA 90 HFA 90 _as_nee HFA 90 MCG/ACT MCG/ACT ded} MCG/ACT Lasix 20 MG Lasix 20 MG No 1{table QD Lasix 20 t} MG Spiriva Spiriva No 1{capsu QD Spiriva HandiHaler HandiHaler le} HandiHaler 18 MCG 18 MCG 18 MCG Finasteride Finasteride No 1{table QD Finasterid 5 MG 5 MG t} e 5 MG Advair Advair No Advair Diskus Diskus Diskus 250-50 250-50 250-50 MCG/DOSE MCG/DOSE MCG/DOSE Gabapentin Gabapentin No 2{table TID Gabapentin 600 MG 600 MG t} 600 MG Metoprolol Metoprolol No Metoprolol Tartrate Tartrate Tartrate 100 MG 100 MG 100 MG Doxazosin Doxazosin No 1{table QD Doxazosin Mesylate 4 Mesylate 4 t} Mesylate 4 MG MG MG Eplerenone Eplerenone No 1{table QD Eplerenone 25 MG 25 MG t} 25 MG Potassium Potassium No Potassium Chloride Chloride Chloride DULoxetine DULoxetine No 1{capsu DULoxetine HCl 30 MG HCl 30 MG le} HCl 30 MG Cardura 1 Cardura 1 No 1{table QD Cardura 1 MG MG t} MG Metoprolol Metoprolol No BID Metoprolol Tartrate Tartrate Tartrate 100 MG 100 MG 100 MG Atripla Atripla No Atripla traMADol traMADol No 1{table QD traMADol HCl 50 MG HCl 50 MG t_as_ne HCl 50 MG eded} Lotrel Lotrel No 1{table QD Lotrel 10-40 MG 10-40 MG t} 10-40 MG Accu-Chek Accu-Chek No Accu-Chek SmartView - SmartView - SmartView - Brovana 15 Brovana 15 No 2{ml} BID Brovana 15 MCG/2ML MCG/2ML MCG/2ML Aspir-81 81 Aspir-81 81 No 1{table QD Aspir-81 MG MG t} 81 MG Allopurinol Allopurinol No Allopurino l Lipitor 20 Lipitor 20 No 1{table QD Lipitor 20 MG MG t} MG Finasteride Finasteride No Finasterid 5 MG 5 MG e 5 MG Eplerenone Eplerenone No Eplerenone Doxazosin Doxazosin No Doxazosin Mesylate 4 Mesylate 4 Mesylate 4 MG MG MG metFORMIN metFORMIN No metFORMIN HCl 500 MG HCl 500 MG HCl 500 MG metFORMIN metFORMIN No 2{table BID metFORMIN HCl 500 MG HCl 500 MG t_with_ HCl 500 MG meals} traMADol traMADol No 1{table QD traMADol HCl 50 MG HCl 50 MG t_as_ne HCl 50 MG eded} Doxazosin Doxazosin No Doxazosin Mesylate 4 Mesylate 4 Mesylate 4 MG MG MG Metoprolol Metoprolol No Metoprolol Tartrate Tartrate Tartrate 100 MG 100 MG 100 MG Spiriva Spiriva No 1{capsu QD Spiriva HandiHaler HandiHaler le} HandiHaler 18 MCG 18 MCG 18 MCG Eplerenone Eplerenone No 1{table QD Eplerenone 25 MG 25 MG t} 25 MG Ventolin Ventolin No 2{puffs QID Ventolin HFA 90 HFA 90 _as_nee HFA 90 MCG/ACT MCG/ACT ded} MCG/ACT Lipitor 20 Lipitor 20 No 1{table QD Lipitor 20 MG MG t} MG amLODIPine amLODIPine No amLODIPine Besy-Benaze Besy-Benaze Besy-Benaz pril HCl pril HCl epril HCl 10-40 MG 10-40 MG 10-40 MG Aspir-81 81 Aspir-81 81 No 1{table QD Aspir-81 MG MG t} 81 MG Finasteride Finasteride No 1{table QD Finasterid 5 MG 5 MG t} e 5 MG Potassium Potassium No Potassium Chloride Chloride Chloride Atripla Atripla No Atripla Metoprolol Metoprolol No BID Metoprolol Tartrate Tartrate Tartrate 100 MG 100 MG 100 MG Finasteride Finasteride No Finasterid 5 MG 5 MG e 5 MG Cardura 1 Cardura 1 No 1{table QD Cardura 1 MG MG t} MG Lasix 20 MG Lasix 20 MG No 1{table QD Lasix 20 t} MG metFORMIN metFORMIN No metFORMIN HCl 500 MG HCl 500 MG HCl 500 MG Advair Advair No Advair Diskus Diskus Diskus 250-50 250-50 250-50 MCG/DOSE MCG/DOSE MCG/DOSE Accu-Chek Accu-Chek No Accu-Chek SmartView - SmartView - SmartView - Lotrel Lotrel No 1{table QD Lotrel 10-40 MG 10-40 MG t} 10-40 MG Gabapentin Gabapentin No 2{table TID Gabapentin 600 MG 600 MG t} 600 MG Eplerenone Eplerenone No Eplerenone DULoxetine DULoxetine No 1{capsu DULoxetine HCl 30 MG HCl 30 MG le} HCl 30 MG Doxazosin Doxazosin No 1{table QD Doxazosin Mesylate 4 Mesylate 4 t} Mesylate 4 MG MG MG Brovana 15 Brovana 15 No 2{ml} BID Brovana 15 MCG/2ML MCG/2ML MCG/2ML Allopurinol Allopurinol No Allopurino l Accu-Chek Accu-Chek No Accu-Chek SmartView - SmartView - SmartView - Eplerenone Eplerenone No 1{table QD Eplerenone 25 MG 25 MG t} 25 MG Lasix 20 MG Lasix 20 MG No 1{table QD Lasix 20 t} MG traMADol traMADol No 1{table QD traMADol HCl 50 MG HCl 50 MG t_as_ne HCl 50 MG eded} Ventolin Ventolin No 2{puffs QID Ventolin HFA 90 HFA 90 _as_nee HFA 90 MCG/ACT MCG/ACT ded} MCG/ACT Lipitor 20 Lipitor 20 No 1{table QD Lipitor 20 MG MG t} MG Potassium Potassium No Potassium Chloride Chloride Chloride Aspir-81 81 Aspir-81 81 No 1{table QD Aspir-81 MG MG t} 81 MG Advair Advair No Advair Diskus Diskus Diskus 250-50 250-50 250-50 MCG/DOSE MCG/DOSE MCG/DOSE metFORMIN metFORMIN No metFORMIN HCl 500 MG HCl 500 MG HCl 500 MG Spiriva Spiriva No 1{capsu QD Spiriva HandiHaler HandiHaler le} HandiHaler 18 MCG 18 MCG 18 MCG Metoprolol Metoprolol No BID Metoprolol Tartrate Tartrate Tartrate 100 MG 100 MG 100 MG Gabapentin Gabapentin No 2{table TID Gabapentin 600 MG 600 MG t} 600 MG Doxazosin Doxazosin No Doxazosin Mesylate 4 Mesylate 4 Mesylate 4 MG MG MG Metoprolol Metoprolol No Metoprolol Tartrate Tartrate Tartrate 100 MG 100 MG 100 MG metFORMIN metFORMIN No 2{table BID metFORMIN HCl 500 MG HCl 500 MG t_with_ HCl 500 MG meals} Lotrel Lotrel No 1{table QD Lotrel 10-40 MG 10-40 MG t} 10-40 MG Finasteride Finasteride No Finasterid 5 MG 5 MG e 5 MG amLODIPine amLODIPine No amLODIPine Besy-Benaze Besy-Benaze Besy-Benaz pril HCl pril HCl epril HCl 10-40 MG 10-40 MG 10-40 MG Allopurinol Allopurinol No Allopurino l Finasteride Finasteride No 1{table QD Finasterid 5 MG 5 MG t} e 5 MG Brovana 15 Brovana 15 No 2{ml} BID Brovana 15 MCG/2ML MCG/2ML MCG/2ML Doxazosin Doxazosin No 1{table QD Doxazosin Mesylate 4 Mesylate 4 t} Mesylate 4 MG MG MG Atripla Atripla No Atripla DULoxetine DULoxetine No 1{capsu DULoxetine HCl 30 MG HCl 30 MG le} HCl 30 MG Eplerenone Eplerenone No Eplerenone Cardura 1 Cardura 1 No 1{table QD Cardura 1 MG MG t} MG Aspir-81 81 Aspir-81 81 No 1{table QD Aspir-81 MG MG t} 81 MG Spiriva Spiriva No 1{capsu QD Spiriva HandiHaler HandiHaler le} HandiHaler 18 MCG 18 MCG 18 MCG metFORMIN metFORMIN No 2{table BID metFORMIN HCl 500 MG HCl 500 MG t_with_ HCl 500 MG meals} Finasteride Finasteride No 1{table QD Finasterid 5 MG 5 MG t} e 5 MG Eplerenone Eplerenone No 1{table QD Eplerenone 25 MG 25 MG t} 25 MG Ventolin Ventolin No 2{puffs QID Ventolin HFA 90 HFA 90 _as_nee HFA 90 MCG/ACT MCG/ACT ded} MCG/ACT Metoprolol Metoprolol No BID Metoprolol Tartrate Tartrate Tartrate 100 MG 100 MG 100 MG Lasix 20 MG Lasix 20 MG No 1{table QD Lasix 20 t} MG Accu-Chek Accu-Chek No Accu-Chek SmartView - SmartView - SmartView - amLODIPine amLODIPine No amLODIPine Besy-Benaze Besy-Benaze Besy-Benaz pril HCl pril HCl epril HCl 10-40 MG 10-40 MG 10-40 MG DULoxetine DULoxetine No 1{capsu DULoxetine HCl 30 MG HCl 30 MG le} HCl 30 MG Cardura 1 Cardura 1 No 1{table QD Cardura 1 MG MG t} MG Doxazosin Doxazosin No Doxazosin Mesylate 4 Mesylate 4 Mesylate 4 MG MG MG Finasteride Finasteride No Finasterid 5 MG 5 MG e 5 MG Gabapentin Gabapentin No 2{table TID Gabapentin 600 MG 600 MG t} 600 MG Allopurinol Allopurinol No Allopurino l Doxazosin Doxazosin No 1{table QD Doxazosin Mesylate 4 Mesylate 4 t} Mesylate 4 MG MG MG traMADol traMADol No 1{table QD traMADol HCl 50 MG HCl 50 MG t_as_ne HCl 50 MG eded} Advair Advair No Advair Diskus Diskus Diskus 250-50 250-50 250-50 MCG/DOSE MCG/DOSE MCG/DOSE Brovana 15 Brovana 15 No 2{ml} BID Brovana 15 MCG/2ML MCG/2ML MCG/2ML Metoprolol Metoprolol No Metoprolol Tartrate Tartrate Tartrate 100 MG 100 MG 100 MG Potassium Potassium No Potassium Chloride Chloride Chloride metFORMIN metFORMIN No metFORMIN HCl 500 MG HCl 500 MG HCl 500 MG Atripla Atripla No Atripla Eplerenone Eplerenone No Eplerenone Lipitor 20 Lipitor 20 No 1{table QD Lipitor 20 MG MG t} MG Lotrel Lotrel No 1{table QD Lotrel 10-40 MG 10-40 MG t} 10-40 MG Aspir-81 81 Aspir-81 81 No 1{table QD Aspir-81 MG MG t} 81 MG Lasix 20 MG Lasix 20 MG No 1{table QD Lasix 20 t} MG metFORMIN metFORMIN No 2{table BID metFORMIN HCl 500 MG HCl 500 MG t_with_ HCl 500 MG meals} Spiriva Spiriva No 1{capsu QD Spiriva HandiHaler HandiHaler le} HandiHaler 18 MCG 18 MCG 18 MCG Eplerenone Eplerenone No 1{table QD Eplerenone 25 MG 25 MG t} 25 MG amLODIPine amLODIPine No amLODIPine Besy-Benaze Besy-Benaze Besy-Benaz pril HCl pril HCl epril HCl 10-40 MG 10-40 MG 10-40 MG Metoprolol Metoprolol No BID Metoprolol Tartrate Tartrate Tartrate 100 MG 100 MG 100 MG Ventolin Ventolin No 2{puffs QID Ventolin HFA 90 HFA 90 _as_nee HFA 90 MCG/ACT MCG/ACT ded} MCG/ACT Accu-Chek Accu-Chek No Accu-Chek SmartView - SmartView - SmartView - DULoxetine DULoxetine No 1{capsu DULoxetine HCl 30 MG HCl 30 MG le} HCl 30 MG Cardura 1 Cardura 1 No 1{table QD Cardura 1 MG MG t} MG Doxazosin Doxazosin No Doxazosin Mesylate 4 Mesylate 4 Mesylate 4 MG MG MG Metoprolol Metoprolol No Metoprolol Tartrate Tartrate Tartrate 100 MG 100 MG 100 MG Gabapentin Gabapentin No 2{table TID Gabapentin 600 MG 600 MG t} 600 MG Allopurinol Allopurinol No Allopurino l Doxazosin Doxazosin No 1{table QD Doxazosin Mesylate 4 Mesylate 4 t} Mesylate 4 MG MG MG traMADol traMADol No 1{table QD traMADol HCl 50 MG HCl 50 MG t_as_ne HCl 50 MG eded} Advair Advair No Advair Diskus Diskus Diskus 250-50 250-50 250-50 MCG/DOSE MCG/DOSE MCG/DOSE Brovana 15 Brovana 15 No 2{ml} BID Brovana 15 MCG/2ML MCG/2ML MCG/2ML Finasteride Finasteride No Finasterid 5 MG 5 MG e 5 MG Potassium Potassium No Potassium Chloride Chloride Chloride metFORMIN metFORMIN No metFORMIN HCl 500 MG HCl 500 MG HCl 500 MG Atripla Atripla No Atripla Eplerenone Eplerenone No Eplerenone Lipitor 20 Lipitor 20 No 1{table QD Lipitor 20 MG MG t} MG Lotrel Lotrel No 1{table QD Lotrel 10-40 MG 10-40 MG t} 10-40 MG Aspir-81 81 Aspir-81 81 No 1{table QD Aspir-81 MG MG t} 81 MG Lasix 20 MG Lasix 20 MG No 1{table QD Lasix 20 t} MG metFORMIN metFORMIN No 2{table BID metFORMIN HCl 500 MG HCl 500 MG t_with_ HCl 500 MG meals} Spiriva Spiriva No 1{capsu QD Spiriva HandiHaler HandiHaler le} HandiHaler 18 MCG 18 MCG 18 MCG Eplerenone Eplerenone No 1{table QD Eplerenone 25 MG 25 MG t} 25 MG amLODIPine amLODIPine No amLODIPine Besy-Benaze Besy-Benaze Besy-Benaz pril HCl pril HCl epril HCl 10-40 MG 10-40 MG 10-40 MG Metoprolol Metoprolol No BID Metoprolol Tartrate Tartrate Tartrate 100 MG 100 MG 100 MG Ventolin Ventolin No 2{puffs QID Ventolin HFA 90 HFA 90 _as_nee HFA 90 MCG/ACT MCG/ACT ded} MCG/ACT Accu-Chek Accu-Chek No Accu-Chek SmartView - SmartView - SmartView - DULoxetine DULoxetine No 1{capsu DULoxetine HCl 30 MG HCl 30 MG le} HCl 30 MG Cardura 1 Cardura 1 No 1{table QD Cardura 1 MG MG t} MG Doxazosin Doxazosin No Doxazosin Mesylate 4 Mesylate 4 Mesylate 4 MG MG MG Metoprolol Metoprolol No Metoprolol Tartrate Tartrate Tartrate 100 MG 100 MG 100 MG Gabapentin Gabapentin No 2{table TID Gabapentin 600 MG 600 MG t} 600 MG Allopurinol Allopurinol No Allopurino l Doxazosin Doxazosin No 1{table QD Doxazosin Mesylate 4 Mesylate 4 t} Mesylate 4 MG MG MG traMADol traMADol No 1{table QD traMADol HCl 50 MG HCl 50 MG t_as_ne HCl 50 MG eded} Advair Advair No Advair Diskus Diskus Diskus 250-50 250-50 250-50 MCG/DOSE MCG/DOSE MCG/DOSE Brovana 15 Brovana 15 No 2{ml} BID Brovana 15 MCG/2ML MCG/2ML MCG/2ML Finasteride Finasteride No Finasterid 5 MG 5 MG e 5 MG Potassium Potassium No Potassium Chloride Chloride Chloride metFORMIN metFORMIN No metFORMIN HCl 500 MG HCl 500 MG HCl 500 MG Atripla Atripla No Atripla Eplerenone Eplerenone No Eplerenone Lipitor 20 Lipitor 20 No 1{table QD Lipitor 20 MG MG t} MG Lotrel Lotrel No 1{table QD Lotrel 10-40 MG 10-40 MG t} 10-40 MG Aspir-81 81 Aspir-81 81 No 1{table QD Aspir-81 MG MG t} 81 MG Lasix 20 MG Lasix 20 MG No 1{table QD Lasix 20 t} MG metFORMIN metFORMIN No 2{table BID metFORMIN HCl 500 MG HCl 500 MG t_with_ HCl 500 MG meals} Spiriva Spiriva No 1{capsu QD Spiriva HandiHaler HandiHaler le} HandiHaler 18 MCG 18 MCG 18 MCG Eplerenone Eplerenone No 1{table QD Eplerenone 25 MG 25 MG t} 25 MG Metoprolol Metoprolol No BID Metoprolol Tartrate Tartrate Tartrate 100 MG 100 MG 100 MG Ventolin Ventolin No 2{puffs QID Ventolin HFA 90 HFA 90 _as_nee HFA 90 MCG/ACT MCG/ACT ded} MCG/ACT Accu-Chek Accu-Chek No Accu-Chek SmartView - SmartView - SmartView - Cardura 1 Cardura 1 No 1{table QD Cardura 1 MG MG t} MG Potassium Potassium No Potassium Chloride Chloride Chloride Eplerenone Eplerenone No Eplerenone Metoprolol Metoprolol No Metoprolol Tartrate Tartrate Tartrate 100 MG 100 MG 100 MG Gabapentin Gabapentin No 2{table TID Gabapentin 600 MG 600 MG t} 600 MG Brovana 15 Brovana 15 No 2{ml} BID Brovana 15 MCG/2ML MCG/2ML MCG/2ML DULoxetine DULoxetine No 1{capsu DULoxetine HCl 30 MG HCl 30 MG le} HCl 30 MG traMADol traMADol No 1{table QD traMADol HCl 50 MG HCl 50 MG t_as_ne HCl 50 MG eded} Advair Advair No Advair Diskus Diskus Diskus 250-50 250-50 250-50 MCG/DOSE MCG/DOSE MCG/DOSE metFORMIN metFORMIN No metFORMIN HCl 500 MG HCl 500 MG HCl 500 MG Finasteride Finasteride No Finasterid 5 MG 5 MG e 5 MG Allopurinol Allopurinol No Allopurino l Atripla Atripla No Atripla Doxazosin Doxazosin No Doxazosin Mesylate 4 Mesylate 4 Mesylate 4 MG MG MG Lipitor 20 Lipitor 20 No 1{table QD Lipitor 20 MG MG t} MG Lotrel Lotrel No 1{table QD Lotrel 10-40 MG 10-40 MG t} 10-40 MG amLODIPine amLODIPine No amLODIPine Besy-Benaze Besy-Benaze Besy-Benaz pril HCl pril HCl epril HCl 10-40 MG 10-40 MG 10-40 MG Eplerenone Eplerenone No 1{table QD Eplerenone 25 MG 25 MG t} 25 MG Allopurinol Allopurinol No Allopurino l Aspir-81 81 Aspir-81 81 No 1{table QD Aspir-81 MG MG t} 81 MG Brovana 15 Brovana 15 No 2{ml} BID Brovana 15 MCG/2ML MCG/2ML MCG/2ML DULoxetine DULoxetine No 1{capsu DULoxetine HCl 30 MG HCl 30 MG le} HCl 30 MG Cardura 1 Cardura 1 No 1{table QD Cardura 1 MG MG t} MG traMADol traMADol No 1{table QD traMADol HCl 50 MG HCl 50 MG t_as_ne HCl 50 MG eded} Potassium Potassium No Potassium Chloride Chloride Chloride metFORMIN metFORMIN No metFORMIN HCl 500 MG HCl 500 MG HCl 500 MG Lotrel Lotrel No 1{table QD Lotrel 10-40 MG 10-40 MG t} 10-40 MG amLODIPine amLODIPine No amLODIPine Besy-Benaze Besy-Benaze Besy-Benaz pril HCl pril HCl epril HCl 10-40 MG 10-40 MG 10-40 MG Finasteride Finasteride No 1{table QD Finasterid 5 MG 5 MG t} e 5 MG Eplerenone Eplerenone No Eplerenone Doxazosin Doxazosin No 1{table QD Doxazosin Mesylate 4 Mesylate 4 t} Mesylate 4 MG MG MG Finasteride Finasteride No Finasterid 5 MG 5 MG e 5 MG Metoprolol Metoprolol No BID Metoprolol Tartrate Tartrate Tartrate 100 MG 100 MG 100 MG Atripla Atripla No Atripla Metoprolol Metoprolol No Metoprolol Tartrate Tartrate Tartrate 100 MG 100 MG 100 MG Ventolin Ventolin No 2{puffs QID Ventolin HFA 90 HFA 90 _as_nee HFA 90 MCG/ACT MCG/ACT ded} MCG/ACT Lipitor 20 Lipitor 20 No 1{table QD Lipitor 20 MG MG t} MG Doxazosin Doxazosin No Doxazosin Mesylate 4 Mesylate 4 Mesylate 4 MG MG MG Spiriva Spiriva No 1{capsu QD Spiriva HandiHaler HandiHaler le} HandiHaler 18 MCG 18 MCG 18 MCG Advair Advair No Advair Diskus Diskus Diskus 250-50 250-50 250-50 MCG/DOSE MCG/DOSE MCG/DOSE Lasix 20 MG Lasix 20 MG No 1{table QD Lasix 20 t} MG Accu-Chek Accu-Chek No Accu-Chek SmartView - SmartView - SmartView - Gabapentin Gabapentin No 2{table TID Gabapentin 600 MG 600 MG t} 600 MG Finasteride Finasteride No Finasterid 5 MG 5 MG e 5 MG Potassium Potassium No Potassium Chloride Chloride Chloride traMADol traMADol No 1{table QD traMADol HCl 50 MG HCl 50 MG t_as_ne HCl 50 MG eded} Allopurinol Allopurinol No Allopurino l metFORMIN metFORMIN No metFORMIN HCl 500 MG HCl 500 MG HCl 500 MG DULoxetine DULoxetine No 1{capsu DULoxetine HCl 30 MG HCl 30 MG le} HCl 30 MG Cardura 1 Cardura 1 No 1{table QD Cardura 1 MG MG t} MG Atripla Atripla No Atripla Eplerenone Eplerenone No Eplerenone Metoprolol Metoprolol No BID Metoprolol Tartrate Tartrate Tartrate 100 MG 100 MG 100 MG Ventolin Ventolin No 2{puffs QID Ventolin HFA 90 HFA 90 _as_nee HFA 90 MCG/ACT MCG/ACT ded} MCG/ACT Aspir-81 81 Aspir-81 81 No 1{table QD Aspir-81 MG MG t} 81 MG Metoprolol Metoprolol No Metoprolol Tartrate Tartrate Tartrate 100 MG 100 MG 100 MG amLODIPine amLODIPine No amLODIPine Besy-Benaze Besy-Benaze Besy-Benaz pril HCl pril HCl epril HCl 10-40 MG 10-40 MG 10-40 MG Lipitor 20 Lipitor 20 No 1{table QD Lipitor 20 MG MG t} MG Doxazosin Doxazosin No 1{table QD Doxazosin Mesylate 4 Mesylate 4 t} Mesylate 4 MG MG MG Brovana 15 Brovana 15 No 2{ml} BID Brovana 15 MCG/2ML MCG/2ML MCG/2ML Doxazosin Doxazosin No Doxazosin Mesylate 4 Mesylate 4 Mesylate 4 MG MG MG Eplerenone Eplerenone No 1{table QD Eplerenone 25 MG 25 MG t} 25 MG Lotrel Lotrel No 1{table QD Lotrel 10-40 MG 10-40 MG t} 10-40 MG Immunizations Ordered Filled Date Status Comments Source [...] Physicians 00:00:00 Novel 2009-11-06 Completed [facility] [id number]-T2V2-03, 00:00:00 all formulations Novel 2009-11-06 Completed [facility] Cefrdpqrl-H9U2-57, 00:00:00 all formulations Novel 2009-11-06 Completed [facility] Biqhudmzb-W1M1-87, 00:00:00 all formulations Novel 2009-11-06 Completed [facility] Ppbknuuiw-U8L3-88, 00:00:00 all formulations Novel 2009-11-06 Completed [facility] Zageudfip-B5W2-44, 00:00:00 all formulations H1N1 Influenza Inj 2009-11-06 Completed [facility] 00:[facility]:00 Fluzone High-Dose Unknown Completed [facility]x [facility] 0.5 ML Intramuscular Suspension Prefilled Syringe Shingrix 50 MCG Unknown Completed [facility] Intramuscular Suspension Reconstituted Tdap Unknown Completed [facility] Vital Signs Vital Name Observation Time Observation Value Comments Source height 2022-10-26 72 [in_i] Common [facility] - 14:00:00 [facility] weight 2022-10-26 226 [lb_av] [facility] - 14:00:00 [facility] bmi 2022-10-26 30.65 kg/m2 [facility] - 14:00:00 [facility] height 2022-10-06 72 [in_i] [facility] - 13:15:00 [facility] weight 2022-10-06 226.2 [lb_av] [facility] - 13:15:00 [facility] temperature 2022-10-06 98.3 [degF] [facility] - 13:15:00 [facility] bmi 2022-10-06 30.67 kg/m2 [facility] - 13:15:00 [facility] oximetry 2022-10-06 97 % [facility] - 13:15:00 [facility] respiratory rate 2022-10-06 16 /min [facility] 13:15[facility]00 [facility] blood pressure 2022-10-06 152 mm[Hg] [facility] - systolic 13:15:00 [facility] blood pressure 2022-10-06 68 mm[Hg] [facility] - diastolic 13:15:00 [facility] height 2022-10-04 72 [in_i] [facility] - 15:00:00 [facility] weight 2022-10-04 227.2 [lb_av] [facility] - 15:00:00 [facility] temperature 2022-10-04 97.8 [degF] [facility] - 15:00:00 [facility] bmi 2022-10-04 30.81 kg/m2 [facility] - 15:00:00 [facility] oximetry 2022-10-04 95 % [facility] - 15:00:00 [facility] respiratory rate 2022-10-04 16 /min [facility] 15:[facility]:00 [facility] blood pressure 2022-10-04 136 mm[Hg] [facility] - systolic 15:00:00 [facility] blood pressure 2022-10-04 63 mm[Hg] [facility] - diastolic 15:00:00 [facility] height 2022-07-29 72 [in_i] [facility] - 13:40:00 [facility] weight 2022-07-29 218.0 [lb_av] [facility] - 13:40:00 [facility] temperature 2022-07-29 97.8 [degF] [facility] - 13:40:00 [facility] bmi 2022-07-29 29.56 kg/m2 [facility] - 13:40:00 [facility] oximetry 2022-07-29 95 % [facility] - 13:40:00 [facility] respiratory rate 2022-07-29 16 /min [facility] 13:40:00 [facility] blood pressure 2022-07-29 122 mm[Hg] [facility] - systolic 13:40:00 [facility] blood pressure 2022-07-29 60 mm[Hg] [facility] - diastolic 13:40:00 [facility] height 2022-07-01 72 [in_i] [facility] - 15:20:00 [facility] weight 2022-07-01 216.0 [lb_av] [facility] - 15:20:00 [facility] temperature 2022-07-01 98.6 [degF] [facility] - 15:20:00 [facility] bmi 2022-07-01 29.29 kg/m2 [facility] - 15:20:00 [facility] oximetry 2022-07-01 93 % [facility] - 15:20:00 [facility] respiratory rate 2022-07-01 18 /min [facility] 15:20:00 [facility] blood pressure 2022-07-01 134 mm[Hg] [facility] - systolic 15:20:00 [facility] blood pressure 2022-07-01 58 mm[Hg] [facility] - diastolic 15:20:00 [facility] height 2022-07-01 72 [in_i] [facility] - 15:20:00 [facility] weight 2022-07-01 216.0 [lb_av] [facility] - 15:20:00 [facility] temperature 2022-07-01 98.6 [degF] [facility] - 15:20:00 [facility] bmi 2022-07-01 29.29 kg/m2 [facility] - 15:20:00 [facility] oximetry 2022-07-01 93 % [facility] - 15:20:00 [facility] respiratory rate 2022-07-01 18 /min [facility] 15:20:00 [facility] blood pressure 2022-07-01 134 mm[Hg] [facility] - systolic 15:20:00 [facility] blood pressure 2022-07-01 58 mm[Hg] [facility] - diastolic 15:20:00 [facility] height 2022-01-14 72 [in_i] [facility] - 09:45:00 [facility] weight 2022-01-14 211.8 [lb_av] [facility] - 09:45:00 [facility] temperature 2022-01-14 97.6 [degF] [facility] - 09:45:00 [facility] bmi 2022-01-14 28.72 kg/m2 [facility] - 09:45:00 [facility] oximetry 2022-01-14 96 % [facility] - 09:45:00 [facility] respiratory rate 2022-01-14 18 /min [facility] - 09:45:00 [facility] blood pressure 2022-01-14 108 mm[Hg] [facility] - systolic 09:45:00 [facility] blood pressure 2022-01-14 55 mm[Hg] [facility] - diastolic 09:45:00 [facility] height 2021-11-30 72 [in_i] [facility] - 16:00:00 [facility] weight 2021-11-30 212.6 [lb_av] [facility] - 16:00:00 [facility] temperature 2021-11-30 98 [degF] [facility] - 16:00:00 [facility] bmi 2021-11-30 28.83 kg/m2 [facility] - 16:00:00 [facility] oximetry 2021-11-30 95 % [facility] - 16:00:00 [facility] respiratory rate 2021-11-30 18 /min [facility] - 16:00:00 [facility] blood pressure 2021-11-30 124 mm[Hg] [facility] - systolic 16:00:00 [facility] blood pressure 2021-11-30 60 mm[Hg] [facility] - diastolic 16:00:00 [facility] height 2021-11-18 72 [in_i] [facility] - 08:00:00 [facility] weight 2021-11-18 198 [lb_av] [facility] - 08:00:00 [facility] temperature 2021-11-18 97.8 [degF] [facility] - 08:00:00 [facility] bmi 2021-11-18 26.85 kg/m2 [facility] - 08:00:00 [facility] height 2021-08-12 72 [in_i] [facility] - 08:00:00 [facility] weight 2021-08-12 198 [lb_av] [facility] - 08:00:00 [facility] bmi 2021-08-12 26.85 kg/m2 [facility] - 08:00:00 [facility] Systolic blood 2020-12-03 143 mm[Hg] [facility] pressure 16:46:00 Diastolic blood 2020-12-03 79 mm[Hg] [facility] pressure 16:46:00 Weight 2020-12-03 190 [lb_av] [facility] 16:46:00 Body mass index 2020-12-03 25.77 kg/m2 [facility] (BMI) [Ratio] 16:46:00 Heart Rate 2020-12-03 68 /min [facility] 16:46:00 BP Systolic 2019-11-05 106 mm[Hg] Location: [facility]; [facility] 13:07:00 Position: Sitting BP Diastolic 2019-11-05 60 mm[Hg] Location: [facility]; [facility] 13:07:00 Position: Sitting Height 2019-11-05 72 [in_us] [facility] 13:07:00 Weight 2019-11-05 218.5 [lb_av] [facility] 13:07:00 Body Mass Index 2019-11-05 29.63 kg/m2 [facility] Calculated 13:07:00 Temperature 2019-11-05 97.7 [degF] Method: Oral [facility] 13:07:00 Heart Rate 2019-11-05 66 /min Location: [facility] 13:07:00 Brachial Artery; Respiration Rate 2019-11-05 20 /min [facility] 13:07:00 BP Systolic 2018-10-04 107 mm[Hg] Location: [facility]; [facility] 13:09:00 Position: Sitting BP Diastolic 2018-10-04 62 mm[Hg] Location: [facility]; [facility] 13:09:00 Position: Sitting Height 2018-10-04 72 [in_us] [facility] 13:09:00 Weight 2018-10-04 233.375 [lb_av] [facility] 13:09:00 Body Mass Index 2018-10-04 31.65 kg/m2 [facility] Calculated 13:09:00 Temperature 2018-10-04 97.6 [degF] Method: Oral [facility] 13:09:00 Heart Rate 2018-10-04 80 /min Location: R [facility] 13:09:00 Brachial Artery; Respiration Rate 2018-10-04 16 /min [facility] 13:09:00 BP Systolic 2018-03-27 110 mm[Hg] Location: [facility]; [facility] 13:04:00 Position: Sitting BP Diastolic 2018-03-27 58 mm[Hg] Location: [facility]; [facility] 13:04:00 Position: Sitting Height 2018-03-27 72 [in_us] [facility] 13:04:00 Weight 2018-03-27 230.125 [lb_av] [facility] 13:04:00 Body Mass Index 2018-03-27 31.21 kg/m2 [facility] Calculated 13:04:00 Temperature 2018-03-27 97.7 [degF] Method: Oral [facility] 13:04:00 Heart Rate 2018-03-27 76 /min Location: R [facility] 13:04:00 Brachial Artery; Respiration Rate 2018-03-27 16 /min [facility] 13:04:00 BP Systolic 2017-10-03 124 mm[Hg] Location: [facility]; [facility] 13:24:00 Position: Sitting BP Diastolic 2017-10-03 70 mm[Hg] Location: [facility]; [facility] 13:24:00 Position: Sitting Height 2017-10-03 72 [in_us] [facility] 13:24:00 Weight 2017-10-03 238.125 [lb_av] [facility] 13:24:00 Body Mass Index 2017-10-03 32.3 kg/m2 [facility] Calculated 13:24:00 Temperature 2017-10-03 97.7 [degF] Method: Oral [facility] 13:24:00 Heart Rate 2017-10-03 73 /min Location: R [facility] 13:24:00 Brachial Artery; Respiration Rate 2017-10-03 16 /min [facility] 13:24:00 Procedures Procedure Date / Time Performed Performing Clinician Sour e [QL] URINALYSIS, COMPLETE 2020-12-03 00:00:00 [facility] W/REFLEX TO CULTURE [QL] LIPID PANEL 2020-12-03 00:00:00 [facility] [Q] HIV 1 RNA, QN PCR W/RFL 2020-12-03 00:00:00 [facility] TIMI (RTI,PI,INTEGRASE) [QLH] VITAMIN D, 25-HYDROXY, [...] [facility] 00:[facility]:00 (12+) [code = [facility] DEPRESSION SCREENING (12+)] Future Scheduled 2020-11-05 [...] 00:00:00 QUANTITATIVE REAL TIME PCR [code = 46963] Future Scheduled 2020-11-05 [QLH] URINALYSIS, [facility] [...] 00:00:00 QUANTITATIVE REAL TIME PCR [code = 07821] Diagnostic Test 2019-04-03 [QLH] HEMOGLOBIN A1c [facility] [...] 00:00:00 QUANTITATIVE REAL TIME PCR [code = 32330] Diagnostic Test 2019-04-03 [QLH] HEMOGLOBIN A1c [facility] [...] 00:00:00 QUANTITATIVE REAL TIME PCR [code = 84229] Diagnostic Test 2019-04-03 [QLH] HEMOGLOBIN A1c [facility] [...] 00:00:00 QUANTITATIVE REAL TIME PCR [code = 92750] Diagnostic Test 2019-04-03 [QLH] HEMOGLOBIN A1c [facility] [...] 00:00:00 QUANTITATIVE REAL TIME PCR [code = 89283] Diagnostic Test 2019-04-03 [QLH] HEMOGLOBIN A1c [facility] Pending 00:00:00 [code = [QLH] HEMOGLOBIN A1c] Future Scheduled 2019-01-[address] [facility] [code = 80421420] Future Scheduled 2019-01-[address] [facility] [code = 06647738] Diagnostic Test 2018-09-27 [QLH] LIPID PANEL [facility] Pending 00:00:00 [code = [QLH] LIPID PANEL] Diagnostic Test 2018-09-27 [QLH] CMP W/EGFR [facility] 00:00:00 [code = [QLH] CMP W/EGFR] Diagnostic Test 2018-09-27 [QH] HIV 1 RNA, [facility] 00:00:00 QUANTITATIVE REAL TIME PCR [code = 20685] Diagnostic Test 2018-09-27 [QLH] LIPID PANEL [facility] Pending 00:00:00 [code = [QLH] LIPID PANEL] Diagnostic Test 2018-09-27 [QLH] CMP W/EGFR [facility] 00:00:00 [code = [QLH] CMP W/EGFR] Diagnostic Test 2018-09-27 [QH] HIV 1 RNA, [facility] 00:00:00 QUANTITATIVE REAL TIME PCR [code = 78939] Diagnostic Test 2018-09-27 [QLH] LIPID PANEL [facility] Pending 00:00:00 [code = [QLH] LIPID PANEL] Diagnostic Test 2018-09-27 [QLH] CMP W/EGFR [facility] 00:00:00 [code = [QLH] CMP W/EGFR] Diagnostic Test 2018-09-27 [QH] HIV 1 RNA, [facility] 00:00:00 QUANTITATIVE REAL TIME PCR [code = 62294] Diagnostic Test 2018-09-27 [QLH] LIPID PANEL [facility] Pending 00:00:00 [code = [QLH] LIPID PANEL] Diagnostic Test 2018-09-27 [QLH] CMP W/EGFR [facility] Pending 00:00:00 [code = [QLH] CMP W/EGFR] Diagnostic Test 2018-09-27 [QH] HIV 1 RNA, [facility] 00:00:00 QUANTITATIVE REAL TIME PCR [code = 35775] Diagnostic Test 2018-09-27 [QLH] LIPID PANEL [facility] Pending 00:00:00 [code = [QLH] LIPID PANEL] Diagnostic Test 2018-09-27 [QLH] CMP W/EGFR [facility] 00:00:00 [code = [QLH] CMP W/EGFR] Diagnostic Test 2018-09-27 [QH] HIV 1 RNA, [facility] 00:00:00 QUANTITATIVE REAL TIME PCR [code = 30121] Diagnostic Test 2018-09-27 [QLH] LIPID PANEL [facility]ending 00:00:00 [code = [QLH] LIPID PANEL] Diagnostic Test 2018-09-27 [QLH] CMP W/EGFR [facility]ending 00:00:00 [code = [QLH] CMP W/EGFR] Diagnostic Test 2018-09-27 [QH] HIV 1 RNA, [facility] 00:00:00 QUANTITATIVE REAL TIME PCR [code = 97161] Diagnostic Test 2018-04-03 [QLH] LIPID PANEL [facility] ([facility] of 1 - [facility] [id number] PCV13) [code = PNEUMOCOCCAL 65+ YRS (1 of 1 - [id number] PCV13)] Future Scheduled 2008 PNEUMOCOCCAL 65+ [facility]RS [facility] 00:00:00 (1 of 1 - [facility] [id number] PCV13) [code = PNEUMOCOCCAL 65+ YRS (1 of 1 - [id number] PCV13)] Future Scheduled 1993 SHINGLES VACCINES ([address] [facility] 00:00:00 of 2) [code = [facility] Center SHINGLES VACCINES (1 of 2)] Future Scheduled 1993 SHINGLES VACCINES ([address] [facility] 00:00:00 of 2) [code = Medical [...] 00:00:00 protein (procedure) [facility] [code = 378875741] Future Scheduled [address] DIABETIC EYE EXAM [facility] 00:00:00 [code = DIABETIC EYE [facility] EXAM] Future Scheduled [address] Urine screening for [facility] 00:00:00 protein (procedure) [facility] [code = 513726966] Encounters Start End Encounter Admission Attending Care Care Encounter Source Date/Time Date/Time Type Type Clinicians Facility Department ID 2022-10-22 Outpatient Radah Ellis [facility] [id number] 2 Common 08:28:00 [id number] [facility] 2022-09-29 Outpatient Radha Ellis [facility] [id number] 2 Common 11:11:01 [id number] [facility] 2022-05-14 Outpatient Ellis, Na [facility]LMLC [facility] [id number] 2 Common 11:45:00 [facility] 2022-05-05 Outpatient Ellis, Na STLMLC STLML[facility] [id number] 2 Common 14:39:00 [facility] 2022-02-16 Outpatient Ellis, Na STLMLC STLMLC [id number] 2 Common 08:33:01 [facility] 2022-02-15 Outpatient Ellis, Na STLMLC STL[facility]C [id number] 2 Common 08:35:00 [facility] 2021-12-02 Outpatient Ellis, Na STLMLC STLMLC [id number] 2 Common 14:14:32 [id number] [facility] 2021-12-02 Outpatient Ellis, Na STLMLC STLMLC [id number] 2 Common 13:56:08 [id number] [facility] 2021-12-02 Outpatient Ellis, Na STLMLC STL[facility]C [id number] 2 Common 13:28:46 [id number] [facility] 2021-12-02 Outpatient Ellis, Na STLMLC STLMLC [id number] 2 Common 12:48:43 [id number] [facility] 2021-12-02 Outpatient Ellis, Na STLMLC STL[facility]C [id number] 2 Common 12:48:23 [id number] [facility] 2021-12-02 Outpatient Ellis, Na STLMLC STLMLC [id number] 2 Common 12:46:22 [id number] [facility] 2021-12-02 Outpatient Ellis, Na STLMLC STLMLC [id number] 2 Common 12:28:48 [id number] [facility] 2021-12-02 Outpatient Ellis, Na STLMLC STLMLC [id number] 2 Common 12:17:49 [id number] [facility] 2021-12-02 Outpatient Ellis, Na STLMLC STLMLC [id number] 2 Common 12:15:28 [id number] [facility] 2021-12-02 Outpatient Ellis, Na STLMLC STLMLC [id number] 2 Common 11:48:08 [id number] [facility] 2021-12-02 Outpatient Ellis, Na STLMLC STLMLC [id number] 2 Common 11:36:26 [id number] [facility] 2021-12-02 Outpatient Ellis, Na STLMLC STLMLC [id number] 2 Common 11:27:13 [id number] [facility] 2021-12-02 Outpatient Ellis, Na STLMLC STLMLC [id number] 2 Common 11:18:24 [id number] [facility] 2021-12-02 Outpatient Ellis, Na STLMLC STLMLC [id number] 2 Common 11:13:46 [id number] [facility] 2021-12-02 Outpatient Ellis, Na STLMLC STLMLC [id number] 2 Common 11:06:49 [id number] [facility] 2021-12-02 Outpatient Ellis, Na STLMLC STLMLC [id number] 2 Common 11:04:24 [id number] [facility] 2021-11-[address] [facility] [id number] [place] 09:05:52 [facility] 2022-10-26 2022-10-26 OL DIG E/M STLMLC STLMLC [id number] Common 00:00:00 00:00:00 [facility] 20 Spir it MIN [facility] 2022-10-06 2022-10-06 OFFICE STLMLC STLMLC [id number] Co mmon 00:00:00 00:00:00 VISIT [facility] ESTAB PT - CHI LEVEL 2 [facility] 2022-10-04 2022-10-04 OFFICE STLMLC STLMLC [id number] [facility] 00:00:00 00:00:00 VISIT [facility] ESTAB PT - CHI LEVEL 4 [facility] 2022-09-27 2022-09-27 (TEL) STLMLC STLMLC [id number] [facility] 00:00:00 00:00:00 [facility] 2022-07-29 2022-07-29 OFFICE STLMLC STLMLC [id number] [facility] 00:00:00 00:00:00 VISIT EST Spir it PT LEVEL 3 - [facility] 2022-07-27 2022-07-27 (TEL) STLMLC STLMLC [id number] [facility] mmon 00:00:00 00:00:00 [facility] 2022-07-23 2022-07-23 (TEL) STLMLC STLMLC [id number] [facility] 00:00:00 00:00:00 [facility] 2022-07-19 2022-07-19 (TEL) STLMLC STLMLC [id number] [facility] 00:00:00 00:00:00 [facility] 2022-07-01 2022-07-01 SUB ANNUAL STLMLC STLMLC [id number] Common 00:00:00 00:00:00 MCR [facility] VISIT [facility] 2022-07-01 2022-07-01 OFFICE STLMLC STLMLC [id number] [facility] 00:00:00 00:00:00 VISIT EST Spir it PT LEVEL 3 - [facility] 2022-06-21 2022-06-21 (TEL) STLMLC STLMLC [id number] [facility] 00:00:00 00:00:00 [facility] 2022-05-18 2022-05-18 (TEL) STLMLC STLMLC [id number] [facility] 00:00:00 00:00:00 [facility] 2022-04-30 2022-04-30 (TEL) STLMLC STLMLC [id number] [facility] mmon 00:00:00 00:00:00 [facility] 2022-02-17 2022-02-17 OFFICE STLMLC STLMLC [id number] Co mmon 00:00:00 00:00:00 VISIT [facility] PT - CHI LEVEL 4 [facility] 2022-01-14 2022-01-14 OFFICE STLMLC STLMLC [id number] Co mmon 00:00:00 00:00:00 [facility]ISIT [facility] PT - CHI LEVEL 2 [facility] 2021-12-23 2021-12-23 Telephone Raoul Jana CARDOSO [id number] [place] 00:00:00 00:00:00 RaoulEliotnate EUGENE [id number] Health MEDICAL [id number] [place] [id number] 2021-11-30 2021-11-30 Telephone THEO Guerrero [id number] [place] 00:00:00 00:00:00 Jean Marie CHOUDHARY [id number] [facility] [id number] [facility] [id number] 2021-11-30 2021-11-30 OFFICE STLMLC STLMLC [id number] Co mmon 00:00:00 00:00:00 VISIT [facility] PT LEVEL 5 - [facility] 2021-11-18 2021-11-18 OL DIG E/M STLMLC STLMLC [id number] Common 00:00:00 00:00:00 SVC 21+ Spirit MIN - [facility] 2021-08-12 2021-08-12 OL DIG E/M STLMLC STLMLC [id number] Common 00:00:00 00:00:00 SVC 21+ Spirit MIN - [facility] 2021-06-24 2021-06-24 Telephonic THEO Guerrero [id number] [place] 13:20:54 16:20:55 Encounter Jean Marie CHOUDHARY [id number] Health MEDICAL [id number] [facility] [id number] 2021-06-24 2021-06-24 Orders Vernell Loja [id number] [place] 00:00:00 00:00:00 Only Vernell Loja [id number] Health MEDICAL [id number] [facility] [id number] 2021-06-24 2021-06-24 Telephone Rashmi Berrios [id number] [place] 00:00:00 00:00:00 Rashmi Berrios [id number] [facility] [id number] [place] [id number] 2021-06-10 2021-06-10 Outpatient STLMLC STLMLC [id number] Common 00:00:00 00:00:00 [facility] 2021-05-13 2021-05-13 Outpatient STLMLC STLMLC [id number] Common 00:00:00 00:00:00 [facility] 2021-03-11 2021-03-11 Outpatient STLMLC STLMLC [id number] Common 00:00:00 00:00:00 [facility] 2021-02-24 2021-02-24 Outpatient STLMLC STLMLC [id number] Common 00:00:00 00:00:00 [facility] 2021-02-11 2021-02-11 Outpatient STLMLC STLMLC [id number] Common 00:00:00 00:00:00 [facility] 2020-12-29 2020-12-29 Outpatient STLMLC STLMLC [id number] Common 00:00:00 00:00:00 [facility] 2020-12-03 2020-12-[address] [facility] [id number] [place] 16:00:00 16:00:00 erlin Aj APRN lty - Ph Colleen Dozier APRN 2020-11-12 2020-11-12 Outpatient STLMLC STLMLC [id number] Common 00:00:00 00:00:00 [facility] 2020-07-31 2020-07-31 Outpatient STLMLC STLMLC [id number] Common 00:00:00 00:00:00 [facility] 2020-07-31 2020-07-31 Outpatient STLMLC STLMLC [id number] Common 00:00:00 00:00:00 [facility] 2020-07-21 2020-07-21 [facility] [id number] Common 14:10:00 14:10:[address] [facility] 2020-06-18 2020-06-18 [facility] [id number] Common 11:09:00 11:09:[address] [facility] 2020-06-12 2020-06-12 [facility] [id number] Common 10:34:00 10:34:[address] [facility] 2020-05-19 2020-05-19 [facility] [id number] Common 13:08:00 13:08:[address] [facility] 2020-04-28 2020-04-28 [facility] [id number] Common 09:20:00 09:20:[address] [facility] 2020-02-07 2020-02-07 [facility] [id number] Common 10:34:00 10:34:[address] [facility] 2020-01-21 2020-01-21 [facility] [id number] Common 13:40:00 13:40:[address] [facility] 2019-12-17 2019-12-17 [facility] [id number] Common 14:00:00 14:00:[address] [facility] 2019-12-12 2019-12-12 [facility] [id number] Common 15:25:00 15:25:[address] [facility] 2019-12-05 2019-12-05 [facility] [id number] Common 16:40:00 16:40:[address] [facility] 2019-12-04 2019-12-04 [facility] [id number] Common 16:11:00 16:11:[address] [facility] 2019-11-05 2019-11-05 THEO Padgett Multispecia [id number] [place] 13:00:00 13:00:00 t; DONALDO Aj lty - Colleen Suárez APRN 2019-08-24 2019-08-24 [facility] [id number] Common 11:23:00 11:23:[address] [facility] 2019-06-06 2019-06-06 [facility] [id number] Common 09:20:00 09:20:[address] [facility] 2019-04-18 2019-04-18 THEO Padgett [facility] [id number] [place] 13:00:00 13:00:00 t; DONALDO Aj Ph kar Dozier APRN 2018-12-06 2018-12-06 [facility] [id number] Common 08:45:00 08:45:[address] [facility] 2018-11-17 2018-11-17 [facility] [id number] Common 11:56:00 11:56:[address] [facility] 2018-10-04 2018-10-04 THEO Padgett [id number] [place] 13:00:00 13:00:00 t; DONALDO Aj Multi Ph santy Guerrero, Specialty kar Aj APRN 2018-06-05 2018-06-05 [facility] [id number] Common 08:15:00 08:15:[address] [facility] 2018-03-27 2018-03-27 THEO Padgett [id number] [place] 13:00:00 13:00:00 t; DONALDO Aj Multi Ph santy Guerrero, Specialty akr Aj APRN 2017-10-03 2017-10-03 THEO Padgett [id number] [place] 13:15:00 13:15:00 t; GABRIELA Aj Multi Phys ici Hardwicke, Specialty ans GABRIELA Aj 2017-03-30 2017-03-30 Appointlonny Hardhansele, UTP UTP [id number] [place] 13:00:00 13:00:00 t; GABRIELA Aj Phys ici Hardwicke, ans Jean Marie, COMMODITIES REQUIREMENTS ANALYST 2016-09-22 2016-09-22 Appointlonny Hardallencke, UTP [facility] [id number] [place] 11:15:00 11:15:00 t; GABRIELA Aj Phys ici Hardwicke, ans Jean Marie, COMMODITIES REQUIREMENTS ANALYST 2016-01-14 2016-01-14 Appointmen Hardallencke, UTP UTP [id number] [place] 09:30:00 09:30:00 t; GABRIELA jA Phys ici Hardwicke, ans Jean Marie, COMMODITIES REQUIREMENTS ANALYST 2016-01-07 2016-01-07 Appointlonny Elliotte, UTP UTP [id number] UT 10:00:00 10:00:00 t; GABRIELA Aj Phys ici Hardwicke, ans Jean Marie, COMMODITIES REQUIREMENTS ANALYST Results Test Description Test Time Test Comments Results Result Comments Source Positive Retinal Eye Exam (Diabetic) 2019-02-14 06:00:00 Test Item Value Reference Range Interpretation Comme nts Positive Diabetic Eye Screening (test code = Positive Diabetic Eye [id number] A Screening) PR PhysiciansTISSUE [id number] 18:51:00Surgical Pathology Report Case: [id number] Authorizing Provider: Terri Perez Collected: 01/26/2019 154Agnes Molina MD Ordering Location: [facility] Received: 01/29/2019 0754 Pathologist: Nora Ramon MD Specimen: Polyp, Colon - Sigmoid COLON, SIGMOID, POLYP, POLYPECTOMY: - TUBULAR ADENOMA Signing Pathologist Direct Phone Line: [phone] signed by Nora Ramon MD on 01/31/2019 at 6:51 PMNo definitive features of high grade dysplasia are seen.Intradepartmental consul tation: Dr. Krsihna Austin has also reviewed selected slide of this case (A1) and concurs with the diagnosis.[id number] polypSigmoid colon polypThe specimen is received in a formalin-filled container and labeled with the patient's information and labeled "sigmoid colon polyp" and consists of two fuentes-red polyps measuring 0.6 and 1 cm in aggregate. Both are inked blue at the resection margin. Serially sectioned and submitted entirely as follows: A1, larger polyp, A2, smaller polyp. CG/pl PerformedBASIC METABOLIC [id number] 06:16:00 Test Item Value Reference Range Interpretation [...] S NOT APPLICABLE FOR DIALYSIS PATIEN TS. HEPATIC FUNCTION [id number] 06:16:00 Test Item Value Reference Range Interpretation [...] (test code = 18 U/L 6-55 347) CBC W/PLT COUNT & AUTO [id number] 05:39:00 Test Item Value Reference Range Interpretation [...] 417) IMMATURE GRANULOCYTES-RELATIVE 0 % 0-1 PERCENT ([facility]) (test code = 2801) POCT-GLUCOSE [id number] 22:19:00 Test Item Value Reference Range Interpretation Comments POC-GLUCOSE METER 157 mg/dL 70-110 H TESTED AT [place] [address] ([facility]) (test code = LILY Phillip [facility] 1538) 17604 POCT-GLUCOSE [id number] 16:45:00 Test Item Value Reference Range Interpretation Comments POC-GLUCOSE METER 129 mg/dL 70-110 H TESTED AT [place] [address] ([facility]) (test code = [facility] Marjan [facility] 1538) [address]013 POTASSIUM-STAT [id number] 12:37:00 Test Item Value Reference Range Interpretation Comments POTASSIUM ([facility]) (test code = 3.5 meq/L 3.6-5.5 L 379) HEMOGLOBIN-STAT [id number] 12:37:00 Test Item Value Reference Range Interpretation Comments HEMOGLOBIN ([facility]) (test code = 14.2 g/dL 13.0-16.8 410) POCT-GLUCOSE [id number] 12:20:00 Test Item Value Reference Range Interpretation Comments POC-GLUCOSE METER 98 mg/dL 70-110 TESTED AT [place] [address] ([facility]) (test code = [facility] Marjan [facility] [address] 1538)
--- NOTE | 2022-11-18 16:21 | RAD REPORT ---
EXAM DESCRIPTION: RAD - Chest Single View - 11/18/2022 4:09 pm CLINICAL HISTORY: SWELLING COMPARISON: Chest Single View dated 07/20/2022; Chest Single View dated 01/06/2018; Chest Pa And Lat (2 Views) dated 12/29/2017; Chest Single View dated 12/28/2017 FINDINGS: Lines: None. Lungs: Linear opacities in the lung bases. Pleural: No significant pleural effusions or pneumothorax. Cardiac: The heart size is within normal limits. Mediastinum: Within normal limits. Bones: No acute fractures. Other: None IMPRESSION: Linear opacities in lung bases likely reflecting atelectasis or scarring.
[2022-11-18 16:22] LABS: Absolute Lymphocytes (CBC) 1.6 K/uL (0.7-4.9); Hematocrit 37.8 % (39.6-49.0); Lymphocytes % 28.8 % (15.3-44.8); MPV 6.8 fL (7.6-11.3); RBC Red Blood Cell Count 3.74 M/uL (4.33-5.43)
[2022-11-18 16:23] LABS: Protime INR 1.04
--- NOTE | 2022-11-18 16:29 | RAD REPORT ---
EXAM DESCRIPTION: US - Extrem Venous W Compress [place] - 11/18/2022 4:18 pm CLINICAL HISTORY: SWELLING COMPARISON: Extrem Venous W Compress [place] dated 07/20/2022 TECHNIQUE: Real-time sonographic evaluation of the lower extremity deep venous systems was performed using color Doppler, grayscale, and compression. FINDINGS: Bilateral lower extremities. Normal compressibility, flow augmentation, phasic flow and spontaneous flow is identified in both the left and right lower extremity deep venous systems. No intraluminal filling defects seen. Lee cyst in the popliteal fossa measuring 2.3 x 1.2 cm. IMPRESSION: No DVT in either lower extremity.
[2022-11-18] MEDS ORDERED: FENTANYL CITR 100 MCG/2 ML ONE (16:31)
--- NOTE | 2022-11-18 16:39 | RAD REPORT ---
EXAM DESCRIPTION: US - Lower Extremity Arterial Bilat - 11/18/2022 4:18 pm CLINICAL HISTORY: Leg pain COMPARISON: None FINDINGS: Triphasic flow is present in the right common femoral artery, superficial femoral artery, and popliteal artery . Monophasic flow in the posterior tibial and dorsalis pedis artery. The common femoral, superficial femoral and popliteal arteries in the left lower extremity demonstrat e triphasic waveforms.The posterior tibial and dorsalis pedis arteries demonstrate triphasic waveform s in the left lower extremity.. IMPRESSION: Monophasic flow in the right posterior tibial and dorsalis pedis arteries consistent wit h moderate to high grade stenoses.
[2022-11-18 16:46] LABS: Potassium 3.5 mmol/L (3.5-5.1); Troponin High Sensitivity 7.4 pg/mL (<58.9)
--- NOTE | 2022-11-18 17:03 | ER ---
Nurse's Notes [facility] Name: Gavin Fraire Age: 77 yrs Sex: Male : 1945 Arrival Date: 11/18/2022 Time: 15:24 Bed 20 Private MD: Radha Ellis Diagnosis: Cellulitis of right lower limb Presentation: 11/18 15:31 Coronavirus screen: At this time, the client does not indicate any symptoms associated aa5 with coronavirus-19. Ebola Screen: Patient denies travel to an Ebola-affected area in the 21 days before illness onset. Initial Sepsis Screen: Does the patient meet any 2 criteria? No. Patient's initial sepsis screen is negative. Does the patient have a suspected source of infection? No. Patient's initial sepsis screen is negative. Risk Assessment: Do you want to hurt yourself or someone else? Patient reports no desire to harm self or others. Onset of symptoms was 2022. 15:31 Acuity: PERLITA 3 aa5 15:31 Method Of Arrival: Ambulatory aa5 15:31 Chief complaint: Patient states: "I was sent to [place] to a vascular surgeon for my aa5 legs about 3 weeks ago and my legs are red and they told me if they were red to come to the ER". Historical: - Allergies: 15:33 No Known Allergies; aa5 - PMHx: 15:32 CHF; COPD; cva/tia, L eye blind; diabetes mellitus; HIV; Hypertension; aa5 - Immunization history:: Adult Immunizations unknown. - Social history:: Smoking status: Patient denies any tobacco usage or history of. Screenin:40 [facility] ED Fall Risk Assessment (Adult) History of falling in the last 3 months, mb9 including since admission No falls in past 3 months (0 pts) Confusion or Disorientation No (0 pts) Intoxicated or Sedated No (0 pts) Impaired Gait Yes (1 pt) Mobility Assist Device Used Yes (1 pt) Altered Elimination No (0 pt) Score/Fall Risk Level 0 - 2 = Low Risk Oriented to surroundings, Maintained a safe environment, Educated pt \\T\\ family on fall prevention, incl call for assistance when getting out of bed. Abuse screen: Denies threats or abuse. Nutritional screening: No deficits noted. Tuberculosis screening: No symptoms or risk factors identified. Assessment: 15:42 General: Appears in no apparent distress. comfortable, Behavior is calm, cooperative, mb9 appropriate for age. Pain: Complains of pain in right leg and left leg Pain does not radiate. Pain currently is 1 out of 10 on a pain scale. Quality of pain is described as aching. Neuro: Mcclendon Agitation-Sedation Scale (RASS): 0 - Alert and Calm Level of Consciousness is awake, alert, obeys commands, Oriented to person, place, time, situation, Appropriate for age. Cardiovascular: Heart tones S1 S2 present Capillary refill is > 3 seconds is sluggish in bilateral toes Rhythm is regular. Respiratory: Airway is patent Respiratory effort is even, unlabored, Respiratory pattern is regular, symmetrical, Breath sounds are coarse bilaterally. GI: Abdomen is round distended, Bowel sounds present X 4 quads. Abd is soft and non tender X 4 quads. : No signs and/or symptoms were reported regarding the genitourinary system. EENT: No signs and/or symptoms were reported regarding the EENT system. Derm: Skin is pink, warm \\T\\ dry. Derm: Skin is erythematous noted to bilateral lower extremities. Musculoskeletal: Range of motion: intact in all extremities, Swelling present in right leg and left leg. 15:42 Cardiovascular: Pulses are 1+ in right posterior tibial artery, right dorsalis pedis mb9 artery, left posterior tibial artery and left dorsalis pedis artery Edema is 1+ to right midcalf, right foot and right toes. Musculoskeletal: 15:55 Reassessment: Ultrasound at bedside. mb9 16:00 Reassessment: first set of blood cultures sent. mb9 16:38 Reassessment: Second set of blood cultures sent. mb9 17:19 Reassessment: No changes from previously documented assessment. Patient and/or family mb9 updated on plan of care and expected duration. Pain level reassessed. Patient is alert, oriented x 3, equal unlabored respirations, skin warm/dry/pink. 17:21 Reassessment: Pts Christelle larios, phone numer: [phone]. mb9 17:36 Reassessment: Spoke to pts Christelle larios, to inform of hospitalization and pt request mb9 of bringing home medications. 19:11 Reassessment: Patient appears in no apparent distress at this time. Patient and/or jb4 family updated on plan of care and expected duration. Pain level reassessed. Patient is alert, oriented x 3, equal unlabored respirations, skin warm/dry/pink. Admitting provider at the bedside. 20:26 Reassessment: Patient appears in no apparent distress at this time. Patient and/or jb4 family updated on plan of care and expected duration. Pain level reassessed. Patient is alert, oriented x 3, equal unlabored respirations, skin warm/dry/pink. Pt ambulated to restroom with steady gait. 20:57 Reassessment: attempted to call report, no answer. jb4 21:34 Reassessment: Patient appears in no apparent distress at this time. Patient and/or jb4 family updated on plan of care and expected duration. Pain level reassessed. Patient is alert, oriented x 3, equal unlabored respirations, skin warm/dry/pink. Vital Signs: 15:31 BP 163 / 84; Pulse 80; Resp 24 S; Temp 98.1(O); Pulse Ox 92% on R/A; Weight 99.79 kg aa5 (R); Height 6 ft. 0 in. (182.88 cm) (R); 17:20 BP 160 / 83; Pulse 84; Resp 20; Pulse Ox 96% on R/A; Pain 0/10; mb9 19:11 BP 161 / 79; Pulse 74; Resp 16; Pulse Ox 94% on R/A; jb4 20:26 BP 152 / 69; Pulse 78; Resp 18; Pulse Ox 92% ; jb4 21:34 BP 144 / 84; Pulse 68; Resp 20; Temp 98.1(TE); Pulse Ox 91% on R/A; jb4 15:31 Body Mass Index 29.84 (99.79 kg, 182.88 cm) aa5 ED Course: 15:24 Patient arrived in ED. am2 15:25 Radha Ellis MD is Private Physician. am2 15:31 [facility]. cp 15:31 Vikash Jay MD is Attending Physician. cp 15:31 Arm band placed on. aa5 15:32 Triage completed. aa5 15:32 Placed in gown. Bed in low position. Call light in reach. Side rails up X 1. Client mb9 placed on continuous cardiac and pulse oximetry monitoring. NIBP monitoring applied. build and deployment engineer on. Door closed. Noise minimized. Warm blanket given. 15:36 Komal Ayala, RN is Primary Nurse. mb9 15:50 EKG done, by ED staff, reviewed by Vikash BENNETT. mb9 15:50 Inserted saline lock: 20 gauge in left forearm, using aseptic technique. Blood mb9 collected. 16:08 Procalcitonin Sent. mb9 16:08 Basic Metabolic Panel Sent. mb9 16:08 CBC with Diff Sent. mb9 16:08 Magnesium Sent. mb9 16:08 NT PRO-BNP Sent. mb9 16:08 PT-INR Sent. mb9 16:08 Troponin HS Sent. mb9 16:11 XRAY Chest (1 view) In Process Unspecified. EDMS 16:20 US Extremity Venous W Compression [place] In Process Unspecified. EDMS 16:20 US Lower Extremity Arterial Bilateral In Process Unspecified. EDMS 16:44 Blood Culture Adult (2) Sent. mb9 16:45 Inserted saline lock: 18 gauge in right forearm, using aseptic technique. mb9 17:02 Zain Nichols is Hospitalizing Provider. cp 17:19 SARS RAPID Sent. mb9 17:38 No provider procedures requiring assistance completed. mb9 21:35 Patient admitted, IV remains in place. jb4 Administered Medications: 16:32 Drug: fentaNYL (PF) 25 mcg Route: IVP; Site: left forearm; mb9 17:09 Follow up: Response: No adverse reaction mb9 17:19 Drug: vancoMYCIN 1 grams Route: IVPB; Infused Over: 2 hrs; Site: right forearm; mb9 Medication: 21:35 VIS not applicable for this client. jb4 Outcome: 17:02 Decision to Hospitalize by Provider. cp 21:34 Admitted to Tele accompanied by tech, via wheelchair, room 415, with chart, Report jb4 called to NELSON Scherer 21:34 Condition: stable 21:34 Discharge instructions given to patient, Instructed on the need for admit, Demonstrated understanding of instructions. 21:35 Patient left the ED. jb4 Signatures: Dispatcher [employer] Colette Arellano, RN RN aa5 Vikash Javed PA PA cp Brian Palma RN RN jb4 Phyllis Capellan am2 Komal Ayala, RN RN mb9 Corrections: (The following items were deleted from the chart) 16:06 15:42 Cardiovascular: Heart tones S1 S2 present Capillary refill is > 3 seconds is mb9 sluggish in bilateral toes Rhythm is regular mb9 15:42 Derm: Skin is erythematous noted to bilateral lower extremities mb9 mb9
--- NOTE | 2022-11-18 17:03 | EDPHYS ---
Physician Documentation [facility] Name: Gavin Fraire Age: 77 yrs Sex: Male : 1945 Arrival Date: 11/18/2022 Time: 15:24 Bed 20 Private MD: Radha Ellis ED Physician Vikash Jay HPI: 11/18 15:43 This 77 yrs old Male presents to ER via Ambulatory with complaints of Leg Swelling, Leg cp Pain - infection. 15:43 The patient presents with pain, that is acute, swelling, tenderness, erythema. The cp complaints affect the right titus. Onset: The symptoms/episode began/occurred gradually. Associated signs and symptoms: Pertinent positives: calf tenderness, warmth, Pertinent negatives fever. Severity of symptoms: in the emergency department the symptoms are unchanged, despite home interventions. Historical: - Allergies: 15:33 No Known Allergies; aa5 - PMHx: 15:32 CHF; COPD; cva/tia, L eye blind; diabetes mellitus; HIV; Hypertension; aa5 - Immunization history:: Adult Immunizations unknown. - Social history:: Smoking status: Patient denies any tobacco usage or history of. ROS: 15:45 Constitutional: Negative for body aches, chills, fever, poor PO intake. cp 15:45 MS/extremity: Positive for erythema, pain, swelling, tenderness, of the right lower cp leg, Negative for injury or acute deformity. 15:45 Eyes: Negative for injury, pain, redness, and discharge. cp 15:45 ENT: Negative for drainage from ear(s), ear pain, sore throat, difficulty swallowing, difficulty handling secretions. 15:45 Cardiovascular: Positive for edema, Negative for chest pain, palpitations. 15:45 Respiratory: Negative for cough, shortness of breath, wheezing. 15:45 Abdomen/GI: Negative for abdominal pain, nausea, vomiting, and diarrhea. 15:45 Skin: Positive for erythema, swelling, of the right lower leg. 15:45 Neuro: Negative for altered mental status, headache. 15:45 All other systems are negative. Exam: 15:50 Constitutional: The patient appears in no acute distress, alert, awake, cp non-diaphoretic, non-toxic, well developed, well nourished. 15:50 Head/Face: Normocephalic, atraumatic. cp 15:50 Eyes: Periorbital structures: appear normal, Conjunctiva: normal, no exudate, no injection, Sclera: no appreciated abnormality, Lids and lashes: appear normal, bilaterally. 15:50 ENT: External ear(s): are unremarkable, Nose: is normal, Mouth: Lips: moist, Oral mucosa: moist, Posterior pharynx: Airway: no evidence of obstruction, patent. 15:50 Chest/axilla: Inspection: normal. 15:50 Cardiovascular: Rate: normal, Rhythm: regular, Pulses: weak, palpable dorsalis pedis pulse bilaterally, Edema: ankle edema, that is mild, JVD: is not appreciated. 15:50 Respiratory: the patient does not display signs of respiratory distress, Respirations: normal, no use of accessory muscles, no retractions, labored breathing, is not present, Breath sounds: are clear throughout, no decreased breath sounds, no stridor, no wheezing. 15:50 Abdomen/GI: Inspection: abdomen appears normal, Palpation: abdomen is soft and non-tender, in all quadrants. 15:50 Back: pain, is absent, ROM is normal. 15:50 Skin: cellulitis, that is moderate, well demarcated, on the right lower leg. 15:50 Neuro: Orientation: to person, place \T\ time. Mentation: is normal. 15:54 ECG was reviewed by the Attending Physician. Vital Signs: 15:31 BP 163 / 84; Pulse 80; Resp 24 S; Temp 98.1(O); Pulse Ox 92% on R/A; Weight 99.79 kg aa5 (R); Height 6 ft. 0 in. (182.88 cm) (R); 17:20 BP 160 / 83; Pulse 84; Resp 20; Pulse Ox 96% on R/A; Pain 0/10; mb9 19:11 BP 161 / 79; Pulse 74; Resp 16; Pulse Ox 94% on R/A; jb4 20:26 BP 152 / 69; Pulse 78; Resp 18; Pulse Ox 92% ; jb4 21:34 BP 144 / 84; Pulse 68; Resp 20; Temp 98.1(TE); Pulse Ox 91% on R/A; jb4 15:31 Body Mass Index 29.84 (99.79 kg, 182.88 cm) aa5 MDM: 15:37 Patient medically screened. geno 15:41 Patient medically screened. geno 16:00 Differential diagnosis: PAD, cellulitis, DVT, abscess, sepsis. cp 17:00 Data reviewed: vital signs, nurses notes, lab test result(s), EKG, radiologic studies, cp ultrasound. 17:00 Consideration of Admission/Observation Patient was admitted/placed on observation. cp Independent interpretation of the following test(s) in the Emergency Department EKG: See my EKG interpretation above X-Ray: My interpretation is chest xray. Test considered but Not performed: Other Details cardiac echo. Care significantly affected by the following chronic conditions: Diabetes, Hypertension, Congestive Heart Failure, Chronic Obstructive Pulmonary Disease. 11/18 15:43 Order name: Basic Metabolic Panel; Complete Time: 16:56 cp 11/18 15:43 Order name: CBC with Diff; Complete Time: 16:40 cp 11/18 16:40 Interpretation: Normal except: RBC 3.74; HGB 12.6; HCT 37.8; MCV 101.0; MPV 6.8. cp 11/18 15:43 Order name: Magnesium; Complete Time: 16:56 cp 11/18 15:43 Order name: NT PRO-BNP; Complete Time: 16:56 cp 11/18 15:43 Order name: PT-INR; Complete Time: 16:40 cp 11/18 15:43 Order name: Troponin HS; Complete Time: 16:56 cp 11/18 15:43 Order name: XRAY Chest (1 view); Complete Time: 16:40 cp 11/18 15:43 Order name: Lactate w/ 2H reflex if indic.; Complete Time: 16:40 cp 11/18 15:43 Order name: Procalcitonin; Complete Time: 17:56 cp 11/18 15:43 Order name: Blood Culture Adult (2) cp 11/18 15:43 Order name: US Extremity Venous W Compression [place]; Complete Time: 16:40 cp 11/18 15:43 Order name: US Lower Extremity Arterial Bilateral; Complete Time: 16:40 cp 11/18 16:41 Interpretation: Report reviewed. 11/18 17:09 Order name: SARS RAPID; Complete Time: 18:10 mb9 11/18 15:43 Order name: EKG; Complete Time: 15:44 cp 11/18 15:43 Order name: Cardiac monitoring; Complete Time: 15:45 cp 11/18 15:43 Order name: EKG - Nurse/Tech; Complete Time: 15:53 cp 11/18 15:43 Order name: IV Saline Lock; Complete Time: 16:08 cp 11/18 15:43 Order name: Labs collected and sent; Complete Time: 16:08 cp 11/18 15:43 Order name: O2 Per Protocol; Complete Time: 15:45 cp 11/18 15:43 Order name: O2 Sat Monitoring; Complete Time: 15:45 cp EC:54 Rate is 70 beats/min. Rhythm is regular. IL interval is normal. QRS interval is normal. cp QT interval is normal. Interpreted by me. Reviewed by me. Administered Medications: 16:32 Drug: fentaNYL (PF) 25 mcg Route: IVP; Site: left forearm; mb9 17:09 Follow up: Response: No adverse reaction mb9 17:19 Drug: vancoMYCIN 1 grams Route: IVPB; Infused Over: 2 hrs; Site: right forearm; mb9 Disposition Summary: 11/18/22 17:02 Hospitalization Ordered Hospitalization Status: Inpatient Admission cp Provider: Zain Nichols cp Location: Telemetry/MedSurg (Inpatient) cp Condition: Stable cp Problem: new cp Symptoms: are unchanged cp Bed/Room Type: Standard cp Room Assignment: 415(11/18/22 20:03) Diagnosis - Cellulitis of right lower limb cp Forms: - Medication Reconciliation Form cp - SBAR form cp Signatures: Dispatcher [employer] EDMS Mariaa Arredondo RN RN mw Anderson, Corey, MD MD cha Calderon, Audri RN RN aa5 Vikash Javed PA PA cp Brown, Sophia, PA-C PA-C sb4 Komal Ayala RN RN mb9 Corrections: (The following items were deleted from the chart) 20:03 17:02 cp mw
[2022-11-18] MEDS ORDERED: VANCOMYCIN 1 GM/VIAL ONE (17:10)
[2022-11-18] MEDS ORDERED: NA CHLORIDE 0.9% 250 ML ONE (17:11)
[2022-11-18 18:06] LABS: SARS-CoV-2 Antigen Rapid Res Negative (Negative)
--- NOTE | 2022-11-18 19:34 | P.HP ---
Certification for Inpatient Patient admitted to: Inpatient With expected LOS: <2 Midnights Patient will require the following post-hospital care: None Practitioner: I am a practitioner with admitting privileges, knowledge of patient current condition, hospital course, and medical plan of care. Services: Services provided to patient in accordance with Admission requirements found in Title 42 Section 412.3 of the Code of Federal Regulations Patient History Date of Service: 11/18/22 Reason for admission: Cellulitus RLE History of Present Illness: Patient is a 77 year old male with past medical history of CHF, COPD, CAD, PAD, non insulin dependent type 2 diabetes, hypertension, HIV, anemia who presented to the emergency department with complaints of right leg pain and redness. Patient reports that he had a procedure done (is unclear what specifically) with a vascular surgeon about 3 weeks ago and was told to come to the ED if his leg became red. It was noted to be cellulitic without abscess. Neurovascularly intact. Venous ultrasound negative. Arterial ultrasound showed "Monophasic flow in the right posterior tibial and dorsalis pedis arteries consistent with moderate to high grade stenoses." Labs unremarkable. He was started on vancomyin in the emergency department. He will be admitted for further management. Allergies No Known Allergies Allergy (Verified 12/28/17 16:43) Home medications list reviewed: Yes Home Medications: Aspirin 81 mg PO DAILY 11/10/17 Atorvastatin Calcium [Lipitor*] 20 mg PO BEDTIME 11/10/17 Efavirenz/Emtricitab/Tenofovir [Atripla Tablet] 600 mg PO BEDTIME 11/10/17 Eplerenone 25 mg PO DAILY 11/10/17 Flaxseed Oil 1,000 mg PO DAILY 11/10/17 Gabapentin 600 mg PO TID 11/10/17 Albuterol Inhaler [Ventolin Inhaler*] 2 puff IH Q6H PRN #1 hfa.aer.ad 11/12/17 Furosemide [Lasix*] 40 mg PO DAILY #30 tab 11/12/17 Doxazosin [Cardura*] 4 mg PO BID 12/28/17 Finasteride [Proscar*] 5 mg PO DAILY 12/28/17 Metformin HCl [Glucophage*] 500 mg PO BIDWM 12/28/17 Metoprolol Succinate [Toprol Xl] 100 mg PO BID 12/28/17 allopurinoL [Zyloprim*] 300 mg PO DAILY tab 12/30/17 Amlodipine Besylate/Benazepril [Lotrel 10-40 mg Capsule] 1 each PO DAILY 01/06/18 Arformoterol Tartrate [Brovana] 15 mcg NEB TIDRESP 01/06/18 Fluticasone/Salmeterol [Advair 250-50 Diskus] 1 each IH BIDRESP 01/06/18 levoFLOXacin [Levaquin*] 500 mg PO DAILY #7 tab 01/09/18 predniSONE [Deltasone*] 10 mg PO BID #20 tab 01/09/18 - Past Medical/Surgical History Diabetic: Yes -: HIV -: COPD -: HTN -: CAD -: BPH -: Hyperlipidemia -: Neuropathy -: Chronic back pain -: Pneumonia -: Diabetes -type 2 -: Hernia surgery -: Scrotal sx Psychosocial/ Personal History: The patient is a . He has 1 child. He is retired. - Family History Mother -: Cancer Notes: Breast Cancer Father -: Heart disease - Social History Smoking Status: Never smoker Alcohol use: No CD- Drugs: No Caffeine use: Yes Place of Residence: Home Review of Systems Integumentary: Other (Right leg redness, pain) Physical Examination - Vital Signs Temperature: 98.1 F Blood Pressure: 161/79 Pulse: 74 Respirations: 16 Pulse Ox (%): 94 - Physical Exam General: Alert, In no apparent distress HEENT: Atraumatic, PERRLA, EOMI, Sclerae nonicteric Neck: Supple, 2+ carotid pulse no bruit Respiratory: Clear to auscultation bilaterally, Normal air movement Cardiovascular: Regular rate/rhythm, Normal S1 S2 Gastrointestinal: Normal bowel sounds, No tenderness Musculoskeletal: No tenderness Integumentary: Tenderness/swelling, Erythema, Warmth Neurological: Normal speech, Normal strength at 5/5 x4 extr, Normal affect - Studies Laboratory Data (last 24 hrs) 11/18/22 16:02: PT 11.4, INR 1.04 11/18/22 16:02: WBC 5.50, Hgb 12.6 L, Hct 37.8 L, Plt Count 173 11/18/22 16:02: Sodium 141, Potassium 3.5, BUN 17, Creatinine 0.84, Glucose 102, Magnesium 2.0 Assessment and Plan - Problems (Diagnosis) (1) Cellulitis of right lower extremity Current Visit: Yes Status: Acute (2) Peripheral arterial disease Current Visit: Yes Status: Acute (3) COPD (chronic obstructive pulmonary disease) Current Visit: Yes Status: Chronic Qualifiers: COPD type: unspecified COPD Qualified Code(s): J44.9 - Chronic obstructive pulmonary disease, unspecified (4) CAD (coronary artery disease) Current Visit: Yes Status: Chronic Qualifiers: Coronary Disease-Associated Artery/Lesion type: [place] artery [place] vs. transplanted heart: [place] heart Associated angina: without angina Qualified Code(s): I25.10 - Atherosclerotic heart disease of [place] coronary artery without angina pectoris (5) CHF (congestive heart failure) Current Visit: Yes Status: Chronic Qualifiers: Heart failure type: diastolic Heart failure chronicity: chronic Qualified Code(s): I50.32 - Chronic diastolic (congestive) heart failure (6) HIV disease Current Visit: Yes Status: Chronic (7) HTN (hypertension) Current Visit: Yes Status: Chronic Qualifiers: Hypertension type: primary hypertension Qualified Code(s): I10 - Essential (primary) hypertension (8) Hyperlipidemia Current Visit: Yes Status: Chronic Qualifiers: Hyperlipidemia type: mixed hyperlipidemia Qualified Code(s): E78.2 - Mixed hyperlipidemia (9) Neuropathy Current Visit: Yes Status: Chronic (10) Anemia Current Visit: Yes Status: Chronic Qualifiers: Anemia type: unspecified type Qualified Code(s): D64.9 - Anemia, unspecified - Plan Patient is admitted for further management of RLE cellulitus. Continue vancomyin. Blood cultures obtained. Patient does NOT meet sepsis criteria. Wound care consulted. Strict blood sugar control with sliding scale. Lipid panel and A1C ordered. Monitor and replete electrolytes per protocol. Reconcile and continue home medications. Lovenox for VTE prophylaxis. Full code. Discharge Plan: Home Plan to discharge in: 24 Hours - Advance Directives Does patient have a Living Will: Yes Does patient have a Durable POA for Healthcare: Yes - Code Status/Comfort Care Code Status Assessed: Yes Code Status: Full Code Physician Review: Patient Assessed, Agree with Above Assessment and Plan Critical Care: No Time Spent Managing Pts Care (In Minutes): 50
[2022-11-18] MEDS ORDERED: VANCOMYCIN 1 GM in NA CHLORIDE 0.9% 250 ML IVPB SCH (22:21)
[2022-11-18] MEDS: INSULIN -REGULAR HUMAN 50 UNIT/0.5 ML ML SQ SCH (22:21)
[2022-11-18] MEDS ORDERED: ONDANSETRON 4 MG/2 ML VIAL IV PRN (22:21)
[2022-11-18] MEDS ORDERED: ACETAMINOPHEN 500 MG TAB PO PRN (22:21)
[2022-11-18] MEDS ORDERED: FENTANYL CITR 100 MCG/2 ML IV PRN (22:32)
[2022-11-19 04:28] LABS: Absolute Lymphocytes (CBC) 1.7 K/uL (0.7-4.9); Hematocrit 36.4 % (39.6-49.0); Lymphocytes % 29.9 % (15.3-44.8); MCV 101.5 fL (80-100); MPV 7.2 fL (7.6-11.3); RBC Red Blood Cell Count 3.58 M/uL (4.33-5.43)
[2022-11-19 04:49] LABS: Magnesium 2.1 mg/dL (1.6-2.4); Phosphorus 2.5 mg/dL (2.5-4.9); Potassium 3.2 mmol/L (3.5-5.1); Thyroid Stimulating Hormone 2.33 uIU/mL (0.358-3.740)
[2022-11-19] MEDS ORDERED: VANCOMYCIN 1 GM/VIAL ONE (05:34)
[2022-11-19] MEDS ORDERED: NA CHLORIDE 0.9% 500 ML ONE (05:35)
[2022-11-19] MEDS: VANCOMYCIN 1.75 GM in NA CHLORIDE 0.9% 500 ML IVPB SCH (06:00)
[2022-11-19] MEDS: INSULIN -REGULAR HUMAN 50 UNIT/0.5 ML ML SQ SCH ×4 (07:11→21:00)
[2022-11-19] MEDS: ENOXAPARIN 40 MG/0.4 ML SQ SCH (07:48)
[2022-11-19 08:30] VITALS: O2SAT 90
[2022-11-19] MEDS ORDERED: POTASSIUM CL SA 10 MEQ TAB PO ONE (09:00)
[2022-11-19] MEDS: HYDROCODONE/APAP 7.5/325 MG TAB PO PRN ×3 (10:33→20:52)
--- NOTE | 2022-11-19 10:49 | EKG ---
Test Date: 2022-11-18 Test Time: 15:49:33 Film Laboratory Technician: MB MEASUREMENT RESULTS: Intervals: Rate: 72 CO: 164 QRSD: 96 QT: 410 QTc: 448 [place]: P: 47 CO: 164 QRS: -7 T: 66 INTERPRETIVE STATEMENTS: Normal sinus rhythm Nonspecific ST abnormality Abnormal ECG Compared to ECG 07/20/2022 09:19:09 ST (T wave) deviation now present Myocardial infarct finding no longer present Electronically Signed On 11-19-22 10:46:37 FIRE MANAGEMENT OFFICER by Ryne Gonzalez
--- NOTE | 2022-11-19 19:48 | P.PN ---
Subjective Date of Service: 11/19/22 Chief Complaint: Cellulitus RLE Patient reports significant improvement in bilateral lower extremity swelling especially on the right. He states his lower extremity redness have also improved. Physical Examination - Vital Signs Temperature: 97.5 F Blood Pressure: 160/70 Pulse: 76 Respirations: 16 Pulse Ox (%): 95 Assessment And Plan - Current Problems (Diagnosis) (1) Venous stasis dermatitis Current Visit: Yes Status: Acute (2) Cellulitis of right lower extremity Current Visit: Yes Status: Acute (3) Peripheral arterial disease Current Visit: Yes Status: Acute (4) HTN (hypertension) Current Visit: Yes Status: Chronic Qualifiers: Hypertension type: primary hypertension Qualified Code(s): I10 - Essential (primary) hypertension - Plan Physical Exam General: Alert, In no apparent distress Neck: Supple, 2+ carotid pulse no bruit Respiratory: Clear to auscultation bilaterally, Normal air movement Cardiovascular: Regular rate/rhythm, Normal S1 S2 Gastrointestinal: Normal bowel sounds, No tenderness Musculoskeletal: No tenderness Integumentary: Bilateral leg erythema, bilateral venous stasis dermatitis. Neurological: No focal motor deficit. Plan: I suspect patient's leg erythema and redness most likely secondary to venous stasis rather than cellulitis. Erythema and leg swelling significantly improved. Given that patient recently had vascular surgery done on his right leg, will continue antibiotics. Follow cultures. Keep lower extremities elevated. Start Lasix therapy Pain management as needed Discharge once blood culture shows no growth.
[2022-11-19] MEDS ORDERED: POLYETHYL GLY 3350 17 GM/DOSE PO PRN (19:50)
[2022-11-19] MEDS ORDERED: ALBUTEROL INHALER 60 PUFF/8 GM IH PRN (19:50)
[2022-11-19] MEDS: GABAPENTIN 300 MG CAP PO SCH (20:54)
[2022-11-19] MEDS: METOPROLOL TAR 50 MG TAB PO SCH (20:56)
[2022-11-19] MEDS: POTASSIUM CL SA 10 MEQ TAB PO SCH (20:58)
[2022-11-19] MEDS ORDERED: DULOXETINE 30 MG CAP PO SCH (21:00)
[2022-11-19] MEDS ORDERED: ATORVASTATIN 20 MG TAB PO SCH (21:00)
[2022-11-20] MEDS: HYDROCODONE/APAP 7.5/325 MG TAB PO PRN ×2 (00:53→07:04)
[2022-11-20] MEDS: VANCOMYCIN 1.75 GM in NA CHLORIDE 0.9% 500 ML IVPB SCH (00:53)
[2022-11-20 03:31] VITALS: BMI 29.5
[2022-11-20 04:29] LABS: Magnesium 2.1 mg/dL (1.6-2.4); Phosphorus 2.8 mg/dL (2.5-4.9); Potassium 3.8 mmol/L (3.5-5.1)
[2022-11-20] MEDS: INSULIN -REGULAR HUMAN 50 UNIT/0.5 ML ML SQ SCH (07:30)
[2022-11-20] MEDS ORDERED: METFORMIN ER 500 MG TAB PO SCH (08:00)
[2022-11-20] MEDS ORDERED: BENAZEPRIL 20 MG TAB PO SCH (09:00)
[2022-11-20] MEDS ORDERED: EPLERENONE 25 MG PO SCH (09:00)
[2022-11-20] MEDS ORDERED: FUROSEMIDE 40 MG/4 ML VIAL IV SCH (09:00)
[2022-11-20] MEDS ORDERED: AMLODIPINE 10 MG TAB PO SCH (09:00)
[2022-11-20] MEDS ORDERED: allopurinoL 300 MG TAB PO SCH (09:00)
[2022-11-20] MEDS ORDERED: ASPIRIN 81 MG CHEWABLE TABLET PO SCH (09:00)
[2022-11-20] MEDS ORDERED: HOME MED 1 EA UNK (Fluticasone/Umeclidin/Vilanter [Trelegy Ellipta 100-62.5-25] Blst.W.Dev IH SCH (09:00)
[2022-11-20] MEDS ORDERED: POTASSIUM CL SA 10 MEQ TAB PO ONE (09:00)
[2022-11-20] MEDS: POTASSIUM CL SA 10 MEQ TAB PO SCH (09:21)
[2022-11-20] MEDS: METOPROLOL TAR 50 MG TAB PO SCH (09:22)
[2022-11-20] MEDS: GABAPENTIN 300 MG CAP PO SCH (09:22)
[2022-11-20] MEDS: ENOXAPARIN 40 MG/0.4 ML SQ SCH (09:24)
[2022-11-20 10:13] VITALS: BP 143/70; TEMP 98
--- NOTE | 2022-11-20 12:57 | P.DS ---
Admission Date: 11/18/22 Discharge Date: 11/20/22 Disposition: ROUTINE DISCHARGE Discharge Condition: FAIR Reason for Admission: Cellulitus RLE - Problems (1) Venous stasis dermatitis Current Visit: Yes Status: Acute (2) Cellulitis of right lower extremity Current Visit: Yes Status: Acute (3) Peripheral arterial disease Current Visit: Yes Status: Acute (4) HTN (hypertension) Current Visit: Yes Status: Chronic Qualifiers: Hypertension type: primary hypertension Qualified Code(s): I10 - Essential (primary) hypertension Brief History of Present Illness: Patient is a 77 year old male with past medical history of CHF, COPD, CAD, PAD, non insulin dependent type 2 diabetes, hypertension, HIV, anemia who presented to the emergency department with complaints of right leg pain and redness. Patient reports that he had a procedure done (is unclear what specifically) with a vascular surgeon about 3 weeks ago and was told to come to the ED if his leg became red. It was noted to be erythematous without abscess. Neurovascularly intact. Venous ultrasound negative. Arterial ultrasound showed "Monophasic flow in the right posterior tibial and dorsalis pedis arteries consistent with moderate to high grade stenoses." Labs unremarkable. He was started on vancomyin in the emergency department. Patient admitted for further management. Hospital Course: Patient admitted to the medical floor and treated with IV vancomycin. Blood cultures yielded no growth. He was also treated with Lasix for edema. Patient's pain and swelling significantly improved. His leg erythema is bilateral, worse on the right leg. No leukocytosis or fever. Patient lower extremity redness more likely venous than cellulitis. Patient advised to keep his lower extremities elevated in the lying and sitting position. His vitals have been stable, patient is discharged with oral Augmentin to cover infection. Home medications resumed on discharge. Vital Signs/Physical Exam: Temp Pulse Resp BP Pulse Ox 98.0 F 67 24 H 143/70 H 88 L 11/20/22 08:00 11/20/22 08:00 11/20/22 08:00 11/20/22 08:00 11/20/22 08:00 General: Alert, In no apparent distress, Oriented x3 HEENT: Mucous membr. moist/pink Neck: JVD not distended Respiratory: Clear to auscultation bilaterally, Normal air movement Cardiovascular: Regular rate/rhythm, Normal S1 S2 Gastrointestinal: Soft and benign, Non-distended Musculoskeletal: Erythema (Bilateral lower extremities, worse on the right) Integumentary: Other (Bilateral venous stasis dermatitis) Neurological: Normal strength at 5/5 x4 extr Laboratory Data at Discharge: WBC 5.60 K/uL (4.3-10.9) 11/19/22 03:48 Hgb 12.3 g/dL (13.6-17.9) L 11/19/22 03:48 Hct 36.4 % (39.6-49.0) L 11/19/22 03:48 Plt Count 158 K/uL (152-406) 11/19/22 03:48 PT 11.4 SECONDS (9.5-12.5) 11/18/22 16:02 INR 1.04 11/18/22 16:02 Sodium 141 mmol/L (136-145) 11/20/22 03:39 Potassium 3.8 mmol/L (3.5-5.1) D 11/20/22 03:39 BUN 12 mg/dL (7-18) 11/20/22 03:39 Creatinine 0.69 mg/dL (0.70-1.30) L 11/20/22 03:39 Glucose 140 mg/dL (74-106) H 11/20/22 03:39 Phosphorus 2.8 mg/dL (2.5-4.9) 11/20/22 03:39 Magnesium 2.1 mg/dL (1.6-2.4) 11/20/22 03:39 Triglycerides 64 mg/dL (<150) 11/19/22 03:48 Cholesterol 128 mg/dL (<200) 11/19/22 03:48 HDL Cholesterol 85 mg/dL (40-60) H 11/19/22 03:48 Cholesterol/HDL Ratio 1.51 11/19/22 03:48 Home Medications: Albuterol Inhaler [Ventolin Inhaler*] 2 puff IH QIDP PRN 11/18/22 Allopurinol 300 mg PO DAILY 11/18/22 Amlodipine Besylate/Benazepril [Lotrel 10-40 mg Capsule] 1 tab PO DAILY 11/18/22 Aspirin 81 mg PO DAILY 11/18/22 Atorvastatin Calcium [Lipitor*] 20 mg PO BEDTIME 11/18/22 Duloxetine [Cymbalta *] 60 mg PO BEDTIME 11/18/22 Eplerenone 25 mg PO DAILY 11/18/22 Flaxseed Oil [Flaxseed] 1 cap PO DAILY 11/18/22 Fluticasone/Umeclidin/Vilanter [Trelegy Ellipta 100-62.5-25] 1 puff IH DAILY 11/18/22 Furosemide [Lasix*] 40 mg PO DAILY 11/18/22 Gabapentin 600 mg PO TID 11/18/22 Metformin ER [Glucophage ER*] 1,000 mg PO BIDWM 11/18/22 Metoprolol Tartrate [Lopressor] 50 mg PO BID 11/18/22 Polyethylene Glycol 3350 [Miralax] 1 packet PO DAILYPRN PRN 11/18/22 Amox/Clavulanate [Augmentin 875-125 Tab] 1 each PO BID #14 tab 11/20/22 Hydrocodone 7.5/APAP 325 [[place] 7.5/325 mg*] 1 tab PO Q4H PRN #15 tab 11/20/22 New Medications: Amox/Clavulanate [Augmentin 875-125 Tab] 1 each PO BID #14 tab Hydrocodone 7.5/APAP 325 [[place] 7.5/325 mg*] 1 tab PO Q4H PRN #15 tab PRN Reason: Pain Scale 8-10 (Severe) Followup: Radha Ellis DO [Primary Care Provider] - (Call to schedule appointment.) Time spent managing pt's care (in minutes): 32
== END 2022-11-20 13:06 | disposition home or self-care (01) | DRG 300 ==
LOC: ER 15:23 → ERHOLD 19:24 → 4TH 20:52
PROVIDERS: ADMIT Internal Medicine; ATTEND Internal Medicine
DX: I87.2 Venous insufficiency (chronic) (peripheral) (principal); I50.32 Chronic diastolic (congestive) heart failure; I11.0 Hypertensive heart disease with heart failure; J44.9 Chronic obstructive pulmonary disease, unspecified; H54.62 Unqualified visual loss, left eye, normal vision right eye; D64.9 Anemia, unspecified; G89.29 Other chronic pain; M54.9 Dorsalgia, unspecified; E11.40 Type 2 diabetes mellitus with diabetic neuropathy, unspecified; E11.51 Type 2 diabetes mellitus with diabetic peripheral angiopathy without gangrene; I25.10 Atherosclerotic heart disease of native coronary artery without angina pectoris; Z21 Asymptomatic human immunodeficiency virus [HIV] infection status; Z86.73 Personal history of transient ischemic attack (TIA), and cerebral infarction without residual deficits; Z79.52 Long term (current) use of systemic steroids; Z79.82 Long term (current) use of aspirin; Z79.84 Long term (current) use of oral hypoglycemic drugs; Z79.899 Other long term (current) drug therapy; Z20.822 Contact with and (suspected) exposure to COVID-19
CPT/HCPCS: 36415; 71045; 80048; 80061; 82947; 83036; 83605; 83735; 83880; 84100; 84145; 84443; 84484; 85025; 85610; 87040; 87811; 93005; 93925; 93970; 99285; J1650; J1940; J3010; J3370; J7040; J7050

== ENCOUNTER 2023-06-23 13:29 | Inpatient (IN) | payer OTHER ==
--- OUTSIDE RECORDS SUMMARY | 2023-06-23 13:39 | XMS REPORT | Continuity of Care Document ---
:1945 Author Organization [facility] t Address [address] [place] [id number] Care Team Providers Name Role Phone Jean Marie Guerrero APRN Primary Care Physician Cheryl Krishna Attending Clinician Unavailable Radha Ellis Attending Clinician Unavailable JEAN MARIE GUERRERO Attending Clinician Unavailable Raoul DAMON, Jana Attending Clinician Unavailable Vernell Loja MA Attending Clinician Unavailable Rashmi Berrios RN Attending Clinician Unavailable Jean Marie Guerrero APRN Attending Clinician Unavailable TERRI PEREZ Attending Clinician Unavailable Jean Marie Guerrero NP Attending Clinician Unavailable TERRI PEREZ Admitting Clinician Unavailable Payers Payer Name Policy Type Policy Number Effective Date Expiration Date S rosanne MEDICARE PART A [id number] 2008 AND B 00:00:00 HUMANA 53 [id number] 2022 [facility] 00:00:00 - [facility] [place] [id number] [id number] [facility] miguel - [facility] MEDICARE [id number] 2008 [facility] NOVITAS 00:00:00 [facility] Problems Condition Condition Condition Status Onset Resolution [...] sterolemia 00:00: 00 COVID-19 COVID-19 Disease Active [facility] virus virus 12-03 Health infection infection 00:00: 00 Acquired Acquired Disease Active immune immune 12-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 00:00: 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 (AIDS) (AIDS) Colon Colon Disease Active [facility] St polyp polyp 3- [facility] Center Trigger Trigger [...] visual 5-10 Health loss loss 00:00: 00 [id number] Left Problem Common hydrocele [facility] [id number] Gross Problem Common hematuria [facility] [id number] Lower Problem Common urinary [facility] tract - [facility] symptoms (LUTS) [facility] [id number] Balanopost Problem Com mon hitis Spirit - [facility] [id number] Incomplete Problem Co mmon emptying Spirit of bladder - [facility] [id number] BPH loc w Problem Com mon urin Spirit obs/LUTS - [facility] [id number] Venous Problem Common stasis Spirit dermatitis - [facility] of lower extremity [facility] [id number] Neuropathy Problem Co mmon of right Spirit lower - [facility] extremity [facility] Atrial AF Problem Common fibrillati (paroxysma Sp miguel on l atrial - [facility] fibrillati [facility] Primary Primary Problem Common localized localized Spir it osteoarthr osteoarthr - [facility] osis of osis, ankle lower leg [facility] AND/OR Medical foot [place] [id number] COPD with Problem Com mon acute Spirit lower [facility] respirator [facility] infection [facility] Seasonal Allergic Problem Commo n allergic rhinitis, Spiri t rhinitis seasonal - [facility] 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 - [facility] Benign Benign Problem Common prostatic prostatic Spir it hypertroph hypertroph - [facility] Chronic Chronic Problem Common obstructiv obstructiv Sp miguel e e - [facility] pulmonary pulmonary disease [facility] [id number] Other Problem Common chronic Spirit pain [facility] Type II Controlled Problem Comm on diabetes type 2 [facility] mellitus diabetes - [facility] without mellitus St complicati without [facility] on complicati Medica l on, Center without long-term current use of insulin [id number] Insect Problem Common bite, Spirit initial - [facility] encounter [facility] 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, - [facility] systolic, St left NYHA [facility] class 4 Medical Center Primary Acute gout Problem Comm on gout Spirit - [facility] HIV HIV Problem Common positive positive Spirit [facility] [id number] Unsteady Problem Commo n gait Spirit [facility] [id number] COPD Problem Common exacerbati Spirit on [facility] [id number] Recent Problem Common change in Spirit frequency - [facility] of bowel [facility] [id number] Requires Problem Com mon 07 supplement Spirit al oxygen - [facility] [id number] History of Problem Co mmon colon Spirit polyps - [facility] [id number] Congestive Problem Com mon heart Spirit failure, - [facility] unspecifie [facility] chronicity Medica , [place] unspecifie d heart failure type [id number] Obstructiv Problem Com mon e sleep Spirit apnea - [facility] Edema Edema, Problem Common lower Spirit extremity - [facility] Mixed Depression Problem Commo n anxiety with Spirit and anxiety - [facility] depressive [facility] [id number] Type 2 Problem Common diabetes, Spirit controlled - [facility] , with [facility] [id number] Benign Problem Commo n 101 prostatic Spirit hyperplasi - [facility] a with [facility] [address] urinary [facility] tract Center symptoms Anxiety Anxiety Problem [facility] Hypertensi HTN Problem Commo n on (hypertens Spirit ion) - [facility] Hyperlipid Hyperlipid Problem C ommon emia emia Spirit [facility] History of History of Problem Resolve UT [...] History of Tobacco [facility] - Use [facility] St kes [facility] Center History SDOH [facility] Alcohol Binge Medical Asad [facility] History SDOH [facility] Alcohol Std Drinks Medica l Center History SDOH [facility] Alcohol Comment Medical C enter Exposure to Not sure [facility] SARS-CoV-2 (event) Alcohol intake 2019-01-29 2019-01-29 [facility]er [facility] alcohol Medical Center (finding) Tobacco Comment 2019-01-25 2019-01-[address] [facility] 00:[facility] 00:00:00 Medical Center History SDOH 2019-01-25 2019-01-[address] [facility] Alcohol Frequency 00:00:00 00:00:00 Medical Center Tobacco use and 2019-01-25 2019-01-[address] [facility] [facility] exposure 00:00:00 00:00:00 Medical Center Sex Assigned At [address] [facility] 00[facility] Center Smoking Status Start Date Stop Date Source Former Smoker 2022-12-07 00:00:00 2022-12-07 [facility] - [facility] 00:[facility]:00 [facility] Tobacco smoking [facility] consumption unknown Medications Ordered Filled Start Stop Current Ordering Indication Dosage Frequency Signature Comments Components Source Medication Medication Date Date Medication? Clinician (SIG) Name Name alex Yes Q12H every 12 UT l (Brovana) [...] time. clotrimazol Yes USE 1 UT e-betametha 11-30 APPLICATIO He alth sone 00:00: N (Lotrisone) 00 EXTERNALLY cream TWICE A DAY 42 DAYS Clotrimazol Clotrimazol 2021- No 1{appli BID Clotrimazo e-Betametha e-Betametha 11-30 04-18 cation} le-Betamet sone 1-0.05 sone 1-0.05 00:00: 00:00 hasone % % 00 :00 1-0.05 % Clotrimazol Clotrimazol 2021- No 1{appli BID Clotrimazo e-Betametha e-Betametha 24 04-18 cation} le-Betamet sone 1-0.05 sone 1-0.05 00:00: 00:00 hasone % % 00 :00 1-0.05 % DULoxetine Yes 60mg QD Take 60 mg U T (Cymbalta) 1-21 by mouth 1 [facility]a [facility] [address] 00:00: (one) time capsule 00 each day. Acetaminoph 2020-0 Yes UT en 500 MG [...] test strip 00:00: EVERY DAY 00 Accu-Chek 2021-0 Yes TEST BLOOD UT SmartView 5-27 [facility] test strip 00:00: EVERY DAY 00 Accu-Chek 1-0 Yes TEST BLOOD UT SmartView 5-27 [facility] test strip 00:00: EVERY DAY 00 Accu-Chek 2021-0 Yes TEST BLOOD UT SmartView 5-27 [facility] Health test strip 00:00: EVERY DAY 00 Accu-Chek 2021-0 Yes TEST BLOOD UT SmartView 5-27 SUGAR [...] tablet 00:00: () time 00 each day. citalopram 2021-0 Yes [...] 10-40 MG 00 each day. capsule Dolutegravi 2021-0 Yes TAKE 1 UT r-lamiVUDin 1-27 TABLET Health e (Dovato) 00:00: DAILY 50-300 MG 00 tablet Dolutegravi 2021-0 Yes TAKE 1 UT r-lamiVUDin 1-27 TABLET Health e (Dovato) 00:00: DAILY 50-300 MG 00 tablet Dolutegravi 2021-0 Yes TAKE 1 UT r-lamiVUDin 1-27 TABLET Health e (Dovato) 00:00: DAILY 50-300 MG 00 tablet Dolutegravi 2021-0 Yes TAKE 1 UT r-lamiVUDin 1-27 TABLET Health e (Dovato) 00:00: DAILY 50-300 MG 00 tablet Dovato Dovato Yes Jean Marie 1 QD TAKE 1 UT 50-300 MG 50-300 MG 1-27 [facility] TABLET [facility] Oral Tablet Oral Tablet 00:00: TUB ATTENDANT DAILY ans 00 efavirenz-e 0 Yes 1{tbl} [...] each day. (Atripla) 600-200-300 MG tablet albuterol Yes INHALE 2 UT 108 (90 1-04 PUFFS BY [facility]) 00:00: MOUTH MCG/ACT 00 EVERY 4 [...] (one) time tablet 00 each day. albuterol 2020-0 Yes INHALE 2 UT 108 (90 1-04 PUFFS BY Health Base) 00:00: MOUTH MCG/ACT 00 EVERY 4 inhaler HOURS NEEDED NOT COVERED predniSONE 2020-0 Yes 40mg QD Take 40 mg U T (Deltasone) 1-04 by mouth 1 He alth 20 MG 00:00: (one) time tablet 00 each day. albuterol 2020-0 Yes INHALE 2 UT 108 (90 1-04 PUFFS BY Health Base) 00:00: MOUTH MCG/ACT 00 EVERY 4 inhaler HOURS NEEDED NOT COVERED predniSONE 2020-0 Yes 40mg QD Take 40 mg U T (Deltasone) 1-04 by mouth 1 He alth 20 MG 00:00: (one) time tablet 00 each day. albuterol 2020-0 Yes INHALE 2 UT 108 (90 1-04 PUFFS BY Health Base) 00:00: MOUTH MCG/ACT 00 EVERY 4 inhaler HOURS NEEDED NOT COVERED predniSONE 2020-0 Yes 40mg QD Take 40 mg U T (Deltasone) 1-04 by mouth 1 He alth 20 MG 00:00: (one) time tablet 00 each day. Accu-Chek Accu-Chek 2020-0 2020- No Na Ellis as Common Smart View Smart View 12-0524 directed Spirit test strips test strips 00:00: 00:00 - [facility] 00 :00 [facility] Shingrix 50 Shingrix 50 2018-0 Yes Jean Marie INJECT 0.5 UT MCG MCG 6-12 [facility] ML [facility] Intramuscul Intramuscul 00:00: TUB ATTENDANT Intramuscu ans ar ar 00 lar Give Suspension Suspension 1st Reconstitut Reconstitut injection ed ed now, then second injection in 2-6 months Shingrix 50 Shingrix 50 2019-0 Yes Jean Marie Inject 0.5 UT MCG/0.5ML MCG/0.5ML 6-12 [facility] Intramuscul Intramuscul 00:00: TUB ATTENDANT intramuscu ans ar ar 00 lar second Suspension Suspension dosage in Reconstitut Reconstitut 2 to 6 ed ed months zoster 2018- Yes INJECT 0.5 UT [...] then vaccine second injection in 2-6 months FLAXSEED Yes Q.5D Take by [facility] ORAL 3-23 mouth 2 [facility] 12:08: (two) Medical 09 times Center daily. multivitami Yes 1{tbl} QD Take [address] n per 3-23 tablet by [facility] tablet 12:08: mouth Medical 09 daily. [place] SAW Yes Take by [facility] PALMETTO 3-23 mouth. [facility] ORAL 12:08: Medical 09 Center glucosamine Yes QD Take by [facility] /chondr james 3-23 mouth [facility] A sod 12:08: daily. Medical (OSTEO 09 Center BI-FLEX ORAL) traMADol Yes 50mg Take [address] [...] times daily with breakfast and dinner. efavirenz-e Yes 1{tbl} QD Take 1 CH [...] 12:08: daily. Medica l 09 Center furosemide 2019-0 Yes 40mg QD Take 40 [...] mouth [facility] tablet 12:08: daily. Medical 09 [place] gabapentin 2019-0 Yes 600mg Q.[id number] Take [address] (NEURONTIN) 3-23 [id number] mg by L ukes 600 MG 12:08: 3D mouth 3 Medical tablet 09 (three) Center times daily. FLAXSEED 2019-0 Yes Q.5D Take by [facility] ORAL 3-23 mouth 2 [facility] 12:08: (two) Medical 09 times Center daily. multivitami 2019-0 Yes 1{tbl} QD Take [address] n per 3-23 tablet by [facility] tablet 12:08: mouth Medical 09 daily. [place] SAW 2018-0 Yes Take by [facility] 3-23 mouth. [facility] ORAL 12:08: Medical 09 [place] glucosamine 2019-0 Yes QD Take by CHI [...] times daily with breakfast and dinner. eplerenone 2019-0 Yes 25mg QD Take [address] (INSPRA) 25 3-23 by mouth Luke s MG tablet 12:08: daily. Medica l 09 [place] furosemide 2019-0 Yes 40mg QD Take [address] (LASIX) 40 3-23 by mouth [facility] MG tablet 12:08: daily. Medica l 09 [place] metoprolol 2019-0 Yes 100mg Q.5D Take [address] (LOPRESSOR) 3-23 mg by [facility] 100 MG 12:08: mouth 2 Medical tablet 09 (two) Center times daily. aspirin 81 2019-0 Yes 81mg QD Take [address] MG EC 3-23 by mouth [facility] tablet 12:08: daily. Medical 09 [place] gabapentin 2019-0 Yes 600mg Q.[id number] Take [address] (NEURONTIN) 3-23 [id number] mg by L ukes 600 MG 12:08: 3D mouth 3 Medical tablet 09 (three) Center times daily. FLAXSEED 2019-0 Yes Q.5D Take by [facility] ORAL 3-23 mouth 2 [facility] 12:08: (two) Medical 09 times Center daily. multivitami 2019-0 Yes 1{tbl} QD Take [address] n per 3-23 tablet by [facility] tablet 12:08: mouth Medical 09 daily. [place] SAW 0 Yes Take by [facility] 3-23 mouth. [facility] ORAL 12:08: Medical 09 [place] glucosamine 2018-0 Yes QD Take by CHI [...] s MG tablet 12:08: daily. Medica l [address] [place] [address] furosemide 0 Yes 40mg QD Take [address] (LASIX) 40 3-23 by mouth [facility] MG tablet 12:08: daily. Medica l [address] [place] [address] metoprolol 2018-0 Yes 100mg Q.5D Take [address] (LOPRESSOR) 3-23 mg by [facility] 100 MG 12:08: mouth 2 Medical tablet 09 (two) Center times daily. aspirin 81 2018-0 Yes 81mg QD Take [address] MG EC 3-23 by mouth [facility] tablet 12:08: daily. Medical [address] [place] [address] gabapentin 2018-0 Yes 600mg Q.[id number] Take [address] (NEURONTIN) 3-23 [id number] mg by L ukes 600 MG 12:08: 3D mouth 3 Medical tablet 09 (three) Center times daily. FLAXSEED 2018-0 Yes Q.5D Take by [facility] ORAL 3-23 mouth 2 [facility] 12:08: (two) Medical 09 times Center daily. multivitami 2019-0 Yes 1{tbl} QD Take [address] n per 3-23 tablet by [facility] tablet 12:08: mouth Medical 09 daily. [place] SAW 0 Yes Take by [facility] 3-23 mouth. [facility] ORAL 12:08: Medical 09 [place] glucosamine 2019-0 Yes QD Take by CHI [...] Medical 09 Center gabapentin 2019-0 Yes 600mg Q.[id number] Take [address] (NEURONTIN) 3-23 [id number] mg by L ukes 600 MG 12:08: 3D mouth 3 Medical tablet 09 (three) Center times daily. FLAXSEED 2019-0 Yes Q.5D Take by [facility] ORAL 3-23 mouth 2 [facility] 12:08: (two) Medical 09 times Center daily. multivitami 2019-0 Yes 1{tbl} QD Take [address] n per 3-23 tablet by [facility] tablet 12:08: mouth Medical 09 daily. Center SAW 2018-0 Yes Take by [facility] [...] times daily with breakfast and dinner. efavirenz-e 2019-0 Yes 1{tbl} QD Take 1 CH [...] Luke s MG tablet 12:08: daily. Medica [address] furosemide Yes 40mg QD Take [address] (LASIX) 40 3-23 by mouth [facility] MG tablet 12:08: daily. Medica [address] metoprolol Yes 100mg Q.5D Take [address] (LOPRESSOR) 3-23 mg by [facility] 100 MG 12:08: mouth 2 Medical tablet 09 (two) Center times daily. aspirin 81 Yes 81mg QD Take [address] MG EC 3-23 by mouth [facility] tablet 12:08: daily. [address] gabapentin Yes 600mg Q.[id number] Take [address] (NEURONTIN) 3-23 [id number] mg by L ukes 600 MG 12:08: 3D mouth 3 Medical tablet 09 (three) Center times daily. metFORMIN metFORMIN Yes Jean Marie 1 Q0.5D TAKE 1 UT HCl - 500 HCl - 500 5-24 [facility] TABLET [facility] MG Oral MG Oral 00:00: TUB ATTENDANT TWICE ans Tablet Tablet 00 DAILY metFORMIN Yes TAKE 1 UT [...] 500 MG 00:00: TWICE tablet 00 DAILY Gabapentin Gabapentin 2012-11 Yes Jean Marie 1 Q8H TAKE 1 UT 600 MG Oral 600 MG Oral 0-07 [facility] TABLET BY [facility] Tablet Tablet 00:00: TUB ATTENDANT MOUTH ans 00 EVERY 8 HOURS gabapentin 2012-11 Yes [...] TAKE 1 UT (Neurontin) 0-07 TABLET BY a lth 600 MG 00:00: MOUTH tablet 00 EVERY 8 HOURS gabapentin 2012-11 Yes TAKE 1 UT (Neurontin) 0-07 TABLET BY [facility] lt 600 MG 00:00: MOUTH tablet 00 EVERY 8 HOURS Doxazosin Doxazosin Yes TAIHR 1 Q0.5D TAKE 1 UT Mesylate 2 Mesylate 2 8-23 RBOOKE TABLET Physici MG Oral MG Oral 00:00: M.D. TWICE ans Tablet Tablet 00 DAILY Eplerenone Eplerenone Yes TAHIR 1 QD TAKE 1 UT 25 MG Oral 25 MG Oral 8-23 BROOKE TABLET [facility] Tablet Tablet 00:00: M.D. DAILY. ans 00 doxazosin Yes TAKE 1 UT (Cardura) [...] Oral 2-12 [facility] Tablet Tablet 00:00: TUB ATTENDANT ans 00 Flaxseed Flaxseed Yes Jean Marie UT Oil 1000 MG Oil 1000 MG 2-12 [facility] Oral Oral 00:00: TUB ATTENDANT ans Capsule Capsule 00 Flaxseed, Yes UT [...] [place] TABLET Ph ysici Tablet Tablet 00:00: TUB ATTENDANT DAILY AT ans 00 BEDTIME. Metoprolol Metoprolol Yes Jean Marie TAKE 1 UT Tartrate Tartrate 3-31 [facility] TABLET [facility] 100 MG Oral 100 MG Oral 00:00: TUB ATTENDANT EVERY 12 ans Tablet Tablet 00 HOURS [...] MG 00:00: DAILY AT tablet 00 BEDTIME. Potassium Potassium No Potassium Chloride Chloride Chloride [...] 100 MG 100 MG Finasteride Finasteride No 1{table QD Finasterid 5 MG 5 MG t} e 5 MG traMADol traMADol No 1{table QD traMADol HCl 50 MG HCl 50 MG t_as_ne HCl 50 MG eded} amLODIPine amLODIPine No amLODIPine Besy-Benaze Besy-Benaze Besy-Benaz pril HCl pril HCl epril HCl 10-40 MG 10-40 MG 10-40 MG Ventolin Ventolin No 2{puffs QID Ventolin HFA 90 HFA 90 _as_nee HFA 90 MCG/ACT MCG/ACT ded} MCG/ACT Potassium Potassium No Potassium Chloride Chloride Chloride Lipitor 20 Lipitor 20 No 1{table QD Lipitor 20 MG MG t} MG DULoxetine DULoxetine No 1{capsu DULoxetine HCl 30 MG HCl 30 MG le} HCl 30 MG Aspir-81 81 Aspir-81 81 No 1{table [...] MG HCl 500 MG HCl 500 MG Cardura 1 Cardura 1 No 1{table QD Cardura 1 MG MG t} MG Lotrel Lotrel No 1{table QD Lotrel 10-40 MG 10-40 MG t} 10-40 MG Allopurinol Allopurinol No Allopurino l Brovana 15 Brovana 15 No 2{ml} BID Brovana 15 MCG/2ML MCG/2ML MCG/2ML Eplerenone Eplerenone No 1{table QD Eplerenone 25 MG 25 MG t} 25 MG metFORMIN metFORMIN No 2{table BID metFORMIN HCl 500 MG HCl 500 MG t_with_ HCl 500 MG meals} Doxazosin Doxazosin No Doxazosin Mesylate 4 Mesylate [...] 5 MG 5 MG e 5 MG Immunizations Ordered Filled Date Status Comments [...] Recombinant 2015-11-07 [facility] 00:[facility]:00 Influenza 2015-07-02 [facility] 00:[facility]:00 Influenza, 2015-07-02 [facility] Unspecified 00:00:00 Influenza, 2015-07-02 Completed [facility] Unspecified 00:00:00 Influenza, 2015-07-02 Completed [facility] Unspecified 00:00:00 Influenza, 2015-07-02 Completed [facility] Unspecified 00:00:00 Influenza, 2015-07-02 Completed [facility] Unspecified 00:00:00 Influenza 2010-07-14 Completed [facility] 00:00:00 Influenza, 2010-07-14 Completed [facility] Unspecified 00:00:00 Influenza, 2010-07-14 Completed [facility] Unspecified 00:00:00 Influenza, 2010-07-14 Completed [facility] Unspecified 00:00:00 Influenza, 2010-07-14 Completed [facility] Unspecified 00:00:00 Influenza, 2010-07-14 Completed [facility] Unspecified 00:00:00 H1N1 Influenza Inj 2009-11-06 Completed [facility] 00:[facility]:00 Novel 2009-11-06 Completed [facility] Hfqsdqqhj-Y2B0-49, 00:00:00 all formulations Novel 2009-11-06 Completed [facility] Pjzhhydnm-N7K7-88, 00:00:00 all formulations Novel 2009-11-06 Completed [facility] Tedmxveow-U3G9-39, 00:00:00 all formulations Novel 2009-11-06 Completed [facility] Oefzhvtyp-P3H3-13, 00:00:00 all formulations Novel 2009-11-06 Completed [facility] Qlooyygqx-B9Q6-57, 00:00:00 all formulations Fluzone High-Dose Unknown Completed [facility]x [facility] 0.5 ML Intramuscular Suspension Prefilled Syringe Shingrix 50 MCG Unknown Completed [facility] Intramuscular Suspension Reconstituted Tdap Unknown Completed [facility] Vital Signs Vital Name Observation Time Observation Value Comments Source height 2022-10-26 72 [in_i] [facility] - 14:00:00 [facility] weight 2022-10-26 226 [lb_av] [facility] - 14:00:00 [facility] bmi 2022-10-26 30.65 kg/m2 [facility] - 14:00:00 [facility] height 2022-10-06 72 [in_i] [facility] - 13:15:00 [facility] weight 2022-10-06 226.2 [lb_av] [facility] - 13:15:00 [facility] temperature 2022-10-06 98.3 [degF] [facility] - 13:15:00 [facility] bmi 2022-10-06 30.67 kg/m2 [facility] - 13:15:00 [facility] oximetry 2022-10-06 97 % [facility] - 13:15:00 [facility] respiratory rate 2022-10-06 16 /min [facility] - 13:15:00 [facility] blood pressure 2022-10-06 152 mm[Hg] [facility] - systolic 13:15:00 [facility] blood pressure 2022-10-06 68 mm[Hg] [facility] - diastolic 13:15:00 [facility] height 2022-10-04 72 [in_i] [facility] - 15:00:00 [facility] weight 2022-10-04 227.2 [lb_av] [facility] - 15:00:00 [facility] temperature 2022-10-04 97.8 [degF] [facility] - 15:00:00 [facility] bmi 2022-10-04 30.81 kg/m2 [facility] - 15:00:00 [facility] oximetry 2022-10-04 95 % [facility] - 15:00:00 [facility] respiratory rate 2022-10-04 16 /min [facility] - 15:00:00 [facility] blood pressure 2022-10-04 136 mm[Hg] [facility] - systolic 15:00:00 [facility] blood pressure 2022-10-04 63 mm[Hg] [facility] - diastolic 15:00:00 [facility] height 2022-07-29 72 [in_i] [facility] - 13:40:00 [facility] weight 2022-07-29 218.0 [lb_av] [facility] - 13:40:00 [facility] temperature 2022-07-29 97.8 [degF] [facility] - 13:40:00 [facility] bmi 2022-07-29 29.56 kg/m2 [facility] - 13:40:00 [facility] oximetry 2022-07-29 95 % [facility] - 13:40:00 [facility] respiratory rate 2022-07-29 16 /min [facility] - 13:40:00 [facility] blood pressure 2022-07-29 122 mm[Hg] [facility] - systolic 13:40:00 [facility] blood pressure 2022-07-29 60 mm[Hg] [facility] - diastolic 13:40:00 [facility] height 2022-07-01 72 [in_i] [facility] - 15:20:00 [facility] weight 2022-07-01 216.0 [lb_av] [facility] - 15:20:00 [facility] temperature 2022-07-01 98.6 [degF] [facility] - 15:20:00 [facility] bmi 2022-07-01 29.29 kg/m2 [facility] - 15:20:00 [facility] oximetry 2022-07-01 93 % [facility] - 15:20:00 [facility] respiratory rate 2022-07-01 18 /min [facility] - 15:20:00 [facility] blood pressure 2022-07-01 134 mm[Hg] [facility] - systolic 15:20:00 [facility] blood pressure 2022-07-01 58 mm[Hg] [facility] - diastolic 15:20:00 [facility] height 2022-07-01 72 [in_i] [facility] - 15:20:00 [facility] weight 2022-07-01 216.0 [lb_av] [facility] - 15:20:00 [facility] temperature 2022-07-01 98.6 [degF] [facility] - 15:20:00 [facility] bmi 2022-07-01 29.29 kg/m2 [facility] - 15:20:00 [facility] oximetry 2022-07-01 93 % [facility] - 15:20:00 [facility] respiratory rate 2022-07-01 18 /min [facility] - 15:20:00 [facility] blood pressure 2022-07-01 134 mm[Hg] [facility] - systolic 15:20:00 [facility] blood pressure 2022-07-01 58 mm[Hg] [facility] - diastolic 15:20:00 [facility] height 2022-01-14 72 [in_i] [facility] - 09:45:00 [facility] weight 2022-01-14 211.8 [lb_av] [facility] - 09:45:00 [facility] temperature 2022-01-14 97.6 [degF] [facility] - 09:45:00 [facility] bmi 2022-01-14 28.72 kg/m2 [facility] - 09:45:00 [facility] oximetry 2022-01-14 96 % [facility] - 09:45:00 [facility] respiratory rate 2022-01-14 18 /min [facility] - 09:45:00 [facility] blood pressure 2022-01-14 108 mm[Hg] [facility] - systolic 09:45:00 [facility] blood pressure 2022-01-14 55 mm[Hg] [facility] - diastolic 09:45:00 [facility] height 2021-11-30 72 [in_i] [facility] - 16:00:00 [facility] weight 2021-11-30 212.6 [lb_av] [facility] 16:[facility]00 [facility] temperature 2021-11-30 98 [degF] [facility] - 16:00:00 [facility] bmi 2021-11-30 28.83 kg/m2 [facility] - 16:00:00 [facility] oximetry 2021-11-30 95 % [facility] - 16:00:00 [facility] respiratory rate 2021-11-30 18 /min [facility]00 [facility] blood pressure 2021-11-30 124 mm[Hg] [facility] - systolic 16:00:00 [facility] blood pressure 2021-11-30 60 mm[Hg] [facility] - diastolic 16:00:00 [facility] height 2021-11-18 72 [in_i] [facility] - 08:00:00 [facility] weight 2021-11-18 198 [lb_av] [facility] - 08:00:00 [facility] temperature 2021-11-18 97.8 [degF] [facility] - 08:00:00 [facility] bmi 2021-11-18 26.85 kg/m2 [facility] - 08:00:00 [facility] height 2021-08-12 72 [in_i] [facility] - 08:00:00 [facility] weight 2021-08-12 198 [lb_av] [facility] - 08:00:00 [facility] bmi 2021-08-12 26.85 kg/m2 [facility] - 08:00:00 [facility] Systolic blood 2020-12-03 143 mm[Hg] [facility] pressure 16:46:00 Diastolic blood 2020-12-03 79 mm[Hg] [facility] pressure 16:46:00 Weight 2020-12-03 190 [lb_av] [facility] 16:46:00 Body mass index 2020-12-03 25.77 kg/m2 [facility] (BMI) [Ratio] 16:46:00 Heart Rate 2020-12-03 68 /min [facility] 16:46:00 BP Systolic 2019-11-05 106 mm[Hg] Location: [facility] Physicians 13:07:00 Position: Sitting BP Diastolic 2019-11-05 60 mm[Hg] Location: [facility] Physicians 13:07:00 Position: Sitting Height 2019-11-05 72 [in_us] [facility] 13:07:00 Weight 2019-11-05 218.5 [lb_av] [facility] 13:07:00 Body Mass Index 2019-11-05 29.63 kg/m2 [facility] Calculated 13:07:00 Temperature 2019-11-05 97.7 [degF] Method: Oral [facility] 13:07:00 Heart Rate 2019-11-05 66 /min Location: R [facility] 13:07:00 Brachial Artery; Respiration Rate 2019-11-05 20 /min [facility] 13:07:00 BP Systolic 2018-10-04 107 mm[Hg] Location: [facility]; [facility] 13:09:00 Position: Sitting BP Diastolic 2018-10-04 62 mm[Hg] Location: [facility]; [facility] 13:09:00 Position: Sitting Height 2018-10-04 72 [...] BP Diastolic 2017-10-03 70 mm[Hg] Location: [facility]; [facility] 13:24:00 Position: Sitting Height 2017-10-03 72 [...] Procedure Date / Time Performed Performing Clinician Sourc e [QL] URINALYSIS, COMPLETE 2020-12-03 00:00:00 [facility] [...] 00:00:00 QUANTITATIVE REAL TIME PCR [code = 67287] Future Scheduled 2020-11-05 [QLH] URINALYSIS, [facility] [...] 00:00:00 QUANTITATIVE REAL TIME PCR [code = 83598] Diagnostic Test 2019-04-03 [QLH] HEMOGLOBIN A1c [facility] [...] 00:00:00 QUANTITATIVE REAL TIME PCR [code = 13146] Diagnostic Test 2019-04-03 [QLH] HEMOGLOBIN A1c [facility] [...] 00:00:00 QUANTITATIVE REAL TIME PCR [code = 40852] Diagnostic Test 2019-04-03 [QLH] HEMOGLOBIN A1c [facility] [...] 00:00:00 QUANTITATIVE REAL TIME PCR [code = 71926] Diagnostic Test 2019-04-03 [QLH] HEMOGLOBIN A1c [facility] [...] 00:00:00 QUANTITATIVE REAL TIME PCR [code = 36616] Diagnostic Test 2019-04-03 [QLH] HEMOGLOBIN A1c [facility] Pending 00:00:00 [code = [QLH] HEMOGLOBIN A1c] Future Scheduled 2019-01-26 Hemoglobin A1c [facility] ke Test 00:00:00 [facility] (procedure) [code = 62261939] Future Scheduled 2019-01-[address] [facility] Test 00:00:00 [facility] (procedure) [code = 45264148] Diagnostic Test 2018-09-27 [QLH] LIPID PANEL [facility] Pending 00:00:00 [code = [QLH] LIPID PANEL] Diagnostic Test 2018-09-27 [QLH] CMP W/EGFR [facility] Pending 00:00:00 [code = [QLH] CMP W/EGFR] Diagnostic Test 2018-09-27 [QH] HIV 1 RNA, [facility] Pending 00:00:00 QUANTITATIVE REAL TIME PCR [code = 95928] Diagnostic Test 2018-09-27 [QLH] LIPID PANEL [facility] Pending 00:00:00 [code = [QLH] LIPID PANEL] Diagnostic Test 2018-09-27 [QLH] CMP W/EGFR [facility] Pending 00:00:00 [code = [QLH] CMP W/EGFR] Diagnostic Test 2018-09-27 [QH] HIV 1 RNA, [facility] Pending 00:00:00 QUANTITATIVE REAL TIME PCR [code = 65634] Diagnostic Test 2018-09-27 [QLH] LIPID PANEL [facility] Pending 00:00:00 [code = [QLH] LIPID PANEL] Diagnostic Test 2018-09-27 [QLH] CMP W/EGFR [facility] Pending 00:00:00 [code = [QLH] CMP W/EGFR] Diagnostic Test 2018-09-27 [QH] HIV 1 RNA, [facility] Pending 00:00:00 QUANTITATIVE REAL TIME PCR [code = 03972] Diagnostic Test 2018-09-27 [QLH] LIPID PANEL [facility] Pending 00:00:00 [code = [QLH] LIPID PANEL] Diagnostic Test 2018-09-27 [QLH] CMP W/EGFR [facility] Pending 00:00:00 [code = [QLH] CMP W/EGFR] Diagnostic Test 2018-09-27 [QH] HIV 1 RNA, [facility] Pending 00:00:00 QUANTITATIVE REAL TIME PCR [code = 10872] Diagnostic Test 2018-09-27 [QLH] LIPID PANEL [facility] Pending 00:00:00 [code = [QLH] LIPID PANEL] Diagnostic Test 2018-09-27 [QLH] CMP W/EGFR [facility] Pending 00:00:00 [code = [QLH] CMP W/EGFR] Diagnostic Test 2018-09-27 [QH] HIV 1 RNA, [facility] Pending 00:00:00 QUANTITATIVE REAL TIME PCR [code = 55651] Diagnostic Test 2018-09-27 [QLH] LIPID PANEL [facility] Pending 00:00:00 [code = [QLH] LIPID PANEL] Diagnostic Test 2018-09-27 [QLH] CMP W/EGFR [facility] Pending 00:00:00 [code = [QLH] CMP W/EGFR] Diagnostic Test 2018-09-27 [QH] HIV 1 RNA, [facility] Pending 00:00:00 QUANTITATIVE REAL TIME PCR [code = 51746] Diagnostic Test 2018-04-03 [QLH] LIPID PANEL [facility] [...] 00:00:00 (1 of 1 - [facility] [id number] PCV13) [code = PNEUMOCOCCAL 65+ YRS (1 of 1 - VHZF89_Jwrumep PCV13)] Future Scheduled 2008 PNEUMOCOCCAL 65+ YRS [facility] Test 00:00:00 (1 of 1 - Medical Center STUC82_Aooxthi PCV13) [code = PNEUMOCOCCAL 65+ YRS (1 of 1 - [id number]_Xyxzpnc PCV13)] Future Scheduled 1993 SHINGLES VACCINES (1 [facility]procedure[facility] [place] [code = 194947407] Future Scheduled [address] DIABETIC EYE EXAM [facility] Test 00:00:00 [code = DIABETIC EYE [facility] EXAM] Future Scheduled 1953 Urine screening for [facility] Test 00:00:00 [facility] (procedure) [facility] [code = 857463431] Encounters Start End Encounter Admission Attending Care Care Encounter Source Date/Time Date/Time Type Type Clinicians Facility Department ID 2023-03-01 Outpatient Krishna, STLMLC STLMLC [id number] Common 13:15:01 Cheryl [id number] [facility] 2022-12-07 Outpatient Krishna, STLMLC STLMLC [id number] Common 10:44:00 Cheryl 23120 [facility] 2022-10-22 Outpatient Ellis, Na STLMLC STLMLC [id number] 2 Common 08:28:00 [facility] 2022-09-29 Outpatient Ellis, Na STLMLC STLMLC [id number] 2 Common 11:11:01 [facility] 2022-05-14 Outpatient Ellis, Na STLMLC STLMLC [id number] 2 Common 11:45:00 [facility] 2022-05-05 Outpatient Ellis, Na STLMLC STLMLC [id number] 2 Common 14:39:00 [facility] 2022-02-16 Outpatient Ellis, Na STLMLC STLMLC [id number] 2 Common 08:33:01 [facility] 2022-02-15 Outpatient Ellis, Na STLMLC STLMLC [id number] 2 Common 08:35:00 [facility] 2021-12-02 Outpatient Ellis, Na STLMLC STLMLC [id number] 2 Common 14:14:32 [facility] 2021-12-02 Outpatient Ellis, Na STLMLC STLMLC [id number] 2 Common 13:56:08 83920 [facility] 2021-12-02 Outpatient Ellis, Na STLMLC STLMLC [id number] 2 Common 13:28:46 52934 [facility] 2021-12-02 Outpatient Ellis, Na STLMLC STLMLC [id number] 2 Common 12:48:43 88026 [facility] 2021-12-02 Outpatient Ellis, Na STLMLC STLMLC [id number] 2 Common 12:48:23 99839 [facility] 2021-12-02 Outpatient Ellis, Na STLMLC STLMLC [id number] 2 Common 12:46:22 11401 [facility] 2021-12-02 Outpatient Ellis, Na STLMLC STLMLC [id number] 2 Common 12:28:48 76557 [facility] 2021-12-02 Outpatient Ellis, Na STLMLC STLMLC [id number] 2 Common 12:17:49 04315 [facility] 2021-12-02 Outpatient Ellis, Na STLMLC STLMLC [id number] 2 Common 12:15:28 66922 [facility] 2021-12-02 Outpatient Ellis, Na STLMLC STLMLC [id number] 2 Common 11:48:08 52802 [facility] 2021-12-02 Outpatient Ellis, Na STLMLC STLMLC [id number] 2 Common 11:36:26 67029 [facility] 2021-12-02 Outpatient Ellis, Na STLMLC STLMLC [id number] 2 Common 11:27:13 51424 [facility] 2021-12-02 Outpatient Ellis, Na STLMLC STLMLC [id number] 2 Common 11:18:24 06337 [facility] 2021-12-02 Outpatient Ellis, Na STLMLC STLMLC [id number] 2 Common 11:13:46 33589 [facility] 2021-12-02 Outpatient Ellis, Na STLMLC STLMLC [id number] 2 Common 11:06:49 92242 [facility] 2021-12-02 Outpatient Ellis, Na STLMLC STLMLC [id number] 2 Common 11:04:24 92161 [facility] 2021-11-30 [id number] [place] 09:05:52 [facility] 2022-12-09 2022-12-09 (TEL) STLMLC STLMLC [id number] Co mmon 00:00:00 00:00:00 [facility] 2022-10-26 2022-10-26 OL DIG E/M STLMLC STLMLC [id number] Common 00:00:00 00:00:00 C 09-26 Spir it MIN [facility] 2022-10-06 2022-10-06 OFFICE STLMLC STLMLC [id number] Co mmon 00:00:00 00:00:00 VISIT [facility] ESTAB PT - CHI LEVEL 2 [facility] 2022-10-04 2022-10-04 OFFICE STLMLC STLMLC [id number] Co mmon 00:00:00 00:00:00 VISIT [facility] ESTAB PT - CHI LEVEL 4 [facility] 2022-09-27 2022-09-27 (TEL) STLMLC STLMLC [id number] Co mmon 00:00:00 00:00:00 [facility] 2022-07-29 2022-07-29 OFFICE STLMLC STLMLC [id number] Co mmon 00:00:00 00:00:00 VISIT EST Spir it PT LEVEL 3 - [facility] 2022-07-27 2022-07-27 (TEL) STLMLC STLMLC [id number] Co mmon 00:00:00 00:00:00 [facility] 2022-07-23 2022-07-23 (TEL) STLMLC STLMLC [id number] [facility] 00:00:00 00:00:00 [facility] 2022-07-19 2022-07-19 (TEL) STLMLC STLMLC [id number] [facility]mon 00:00:00 00:00:00 [facility] - [facility] 2022-07-01 2022-07-01 SUB ANNUAL STLMLC STLMLC [id number] Common 00:00:00 00:00:00 MCR [facility] WELLNESS - CHI VISIT [facility] 2022-07-01 2022-07-01 OFFICE STLMLC STLMLC [id number] Co mmon 00:00:00 00:00:00 VISIT EST Spir it PT LEVEL 3 - [facility] 2022-06-21 2022-06-21 (TEL) STLMLC STLMLC [id number] Co mmon 00:00:00 00:00:00 [facility] 2022-05-18 2022-05-18 (TEL) STLMLC STLMLC [id number] Co mmon 00:00:00 00:00:00 [facility] 2022-04-30 2022-04-30 (TEL) STLMLC STLMLC [id number] Co mmon 00:00:00 00:00:00 [facility] - [facility]I [facility] 2022-02-17 2022-02-17 OFFICE STLMLC STLMLC [id number] Co mmon 00:00:00 00:00:00 [facility]IT [facility] ESTAB PT - CHI LEVEL 4 [facility] 2022-01-14 2022-01-14 OFFICE STLMLC STLMLC [id number] Co mmon 00:00:00 00:00:00 [facility] ESTAB PT - CHI LEVEL 2 [facility] 2021-12-23 2021-12-23 Telephone Jana Silveira [id number] [place] 00:00:00 00:00:00 Jana Silveira [id number] Health MEDICAL [id number] [place] [id number] 2021-11-30 2021-11-30 Telephone THEO Guerrero [id number] [place] 00:00:00 00:00:00 Jean Marie CHOUDHARY [id number] [facility] [id number] [facility] [id number] 2021-11-30 2021-11-30 OFFICE STLMLC STLMLC [id number] Co mmon 00:00:00 00:00:00 VISIT NEW Spir it PT LEVEL 5 - [facility] 2021-11-18 2021-11-18 OL DIG E/M STLMLC STLMLC [id number] Common 00:00:00 00:00:00 SVC 21+ Spirit MIN [facility] 2021-08-12 2021-08-12 OL DIG E/M STLMLC STLMLC [id number] Common 00:00:00 00:00:00 SVC 21+ Spirit MIN [facility] 2021-06-24 2021-06-24 Telephonic THEO Guerrero [id number] [place] 13:20:54 16:20:55 Encounter Jean Marie CHOUDHARY [id number] Health MEDICAL [id number] [facility] [id number] 2021-06-24 2021-06-24 Orders Vernell Loja [id number] [place] 00:00:00 00:00:00 Only Vernell Loja [id number] Health MEDICAL [id number] [facility] [id number] 2021-06-24 2021-06-24 Telephone Rashmi Berrios [place] [id number] [place] 00:00:00 00:00:00 Rashmi Berrios [id number] Health MEDICAL [id number] [place] [id number] 2021-06-10 2021-06-10 Outpatient STLMLC STLMLC [id number] Common 00:00:00 00:00:00 [facility] 2021-05-13 2021-05-13 Outpatient STLMLC STLMLC [id number] Common 00:00:00 00:00:00 [facility] 2021-03-11 2021-03-11 Outpatient STLMLC STLMLC [id number] Common 00:00:00 00:00:00 [facility] 2021-02-24 2021-02-24 Outpatient STLMLC STLMLC [id number] Common 00:00:00 00:00:00 [facility] 2021-02-11 2021-02-11 Outpatient STLMLC STLMLC [id number] Common 00:00:00 00:00:00 [facility] 2020-12-29 2020-12-29 Outpatient STLMLC STLMLC [id number] Common 00:00:00 00:00:00 [facility] 2020-12-03 2020-12-03 THEO Padgett [id number] [place] 16:00:00 16:00:00 erlin Aj APRN lty - Ph Colleen Dozire APRN 2020-11-12 2020-11-12 Outpatient STLMLC STLMLC [id number] Common 00:00:00 00:00:00 [facility] 2020-07-31 2020-07-31 Outpatient STLMLC STLMLC [id number] Common 00:00:00 00:00:00 [facility] 2020-07-31 2020-07-31 Outpatient STLMLC STLMLC [id number] Common 00:00:00 00:00:00 [facility] 2020-07-21 2020-07-21 [facility] [id number] Common 14:10:00 14:10:[address] [facility] 2020-06-18 2020-06-18 [facility] [id number] Common 11:09:00 11:09:[address] [facility] 2020-06-12 2020-06-12 [facility] [id number] Common 10:34:00 10:34:[address] [facility] 2020-05-19 2020-05-19 [facility] [id number] Common 13:08:00 13:08:[address] [facility] 2020-04-28 2020-04-28 [facility] [id number] Common 09:20:00 09:20:[address] [facility] 2020-02-07 2020-02-07 [facility] [id number] Common 10:34:00 10:34:[address] [facility] 2020-01-21 2020-01-21 [facility] [id number] Common 13:40:00 13:40:[address] [facility] 2019-12-17 2019-12-17 [facility] [id number] Common 14:00:00 14:00:[address] [facility] 2019-12-12 2019-12-12 [facility] [id number] Common 15:25:00 15:25:[address] [facility] 2019-12-05 2019-12-05 [facility] [id number] Common 16:40:00 16:40:[address] [facility] 2019-12-04 2019-12-04 [facility] [id number] Common 16:11:00 16:11:[address] [facility] 2019-11-05 2019-11-05 THEO Padgett [id number] [place] 13:00:00 13:00:00 erlin Aj APRN lty - Ph Colleen Dozier APRN 2019-08-24 2019-08-24 [facility] [id number] Common 11:23:00 11:23:[address] [facility] 2019-06-06 2019-06-06 [facility] [id number] Common 09:20:00 09:20:[address] [facility] 2019-04-18 2019-04-18 Solomon Guerrero, [facility] UTP [id number] [place] 13:00:00 13:00:00 t; DONALDO Aj Ph kar Dozier, TUB ATTENDANT 2018-12-06 2018-12-06 [facility] [id number] Common 08:45:00 08:45:[address] [facility] 2018-11-17 2018-11-17 [facility] [id number] Common 11:56:00 11:56:[address] [facility] 2018-10-04 2018-10-04 Solomon Guerrero, [facility] [place] [id number] [place] 13:00:00 13:00:00 t; DONALDO Aj Multi Ph santy Guerrero, Specialty ans Jean Marie, TUB ATTENDANT 2018-06-05 2018-06-05 [facility] [id number] Common 08:15:00 08:15:[address] [facility] 2018-03-27 2018-03-27 Appointlonny Guerrero, [facility] [place] [id number] [place] 13:00:00 13:00:00 t; DONALDO Aj Multi Ph santy Guerrero, Specialty kar Aj APRN 2017-10-03 2017-10-03 Appointlonny Guerrero, [facility] [place] [id number] [place] 13:15:00 13:15:00 t; GABRIELA Aj Multi Phys gustavo Guerrero, Specialty ans GABRIELA Aj 2017-03-30 2017-03-30 Appointlonny Guerrero, [facility] UTP [id number] [place] 13:00:00 13:00:00 t; GABRIELA Aj Phys gustavo Daviswipitoe, kar Aj NP 2016-09-22 2016-09-22 Solomon Guerrero, [facility]TP [id number] [place] 11:15:00 11:15:00 t; GABRIELA Aj Phys ici Hardwipitokar welch NP 2016-01-14 2016-01-14 THEO Padgett UTP [id number] [place] 09:30:00 09:30:00 t; GABRIELA Aj Phys gustavo Ryankar martínez NP 2016-01-07 2016-01-07 THEO Padgett UTP [id number] [place] 10:00:00 10:00:00 t; GABRIELA Aj Phys gustavo Ellispitorebekah, kar Aj NP Results Test Description Test Time Test Comments Results Result Comments Source Positive Retinal Eye Exam (Diabetic) 2019-02-14 06:00:00 Test Item Value Reference Range Interpretation Comme nts Positive Diabetic Eye Screening (test code = Positive Diabetic Eye 07Bqu0031 A Screening) [facility]icians[facility]ISSUE [id number] 18:51:00Surgical Pathology Report Case: [id number] Authorizing Provider: Terri Perez Collected: 01/26/2019 1543 MD Tracy Ordering Location: [facility] Received: 01/29/2019 0754 Pathologist: Nora Ramon MD Specimen: Polyp, Colon - Sigmoid COLON, SIGMOID, POLYP, POLYPECTOMY: - TUBULAR ADENOMA Signing Pathologist Direct Phone Line: [phone] signed by Nora Ramon MD on 01/31/2019 at 6:51 PMNo definitive features of high grade dysplasia are seen.Intradepartmental consul tation: Dr. Krishna Austin has also reviewed selected slide of this case (A1) and concurs with the diagnosis.[id number] polypSigmoid colon polypThe specimen is received in a formalin-filled container and labeled with the patient's information and labeled "sigmoid colon polyp" and consists of two fuentes-red polyps measuring 0.6 and 1 cm in aggregate. Both are inked blue at the resection margin. Serially sectioned and submitted entirely as follows: A1, larger polyp, A2, smaller polyp. CG/pl PerformedBASIC METABOLIC [id number] 06:16:00 Test Item Value Reference Range Interpretation [...] APPLICABLE FOR DIALYSIS PATIEN TS. HEPATIC FUNCTION [id number] 06:16:00 Test Item Value Reference Range Interpretation [...] 6-55 347) CBC W/PLT COUNT & AUTO [id number] 05:39:00 Test Item Value Reference Range Interpretation [...] PERCENT (BEAKER) (test code = 2801) POCT-GLUCOSE [id number] 22:19:00 Test Item Value Reference Range Interpretation Comments POC-GLUCOSE METER 157 mg/dL 70-[address] [facility] (test code = LILY RAMOS 1538) 52586 POCT-GLUCOSE [id number] 16:45:00 Test Item Value Reference Range Interpretation Comments POC-GLUCOSE METER 129 mg/dL 70-110 H TEST[facility] AT [facility] 6720 [facility] (test code = LILY RAMOS 1538) 05897 POTASSIUM-STAT [id number] 12:37:00 Test Item Value Reference Range Interpretation Comments POTASSIUM (TRACI) (test code = 3.5 meq/L 3.6-5.5 L 379) HEMOGLOBIN-STAT [id number] 12:37:00 Test Item Value Reference Range Interpretation Comments HEMOGLOBIN (TRACI) (test code = 14.2 g/dL 13.0-16.8 410) POCT-GLUCOSE [id number] 12:20:00 Test Item Value Reference Range Interpretation Comments POC-GLUCOSE METER 98 mg/dL 70-110 TESTED AT [place] [address] [facility] (test code = [place] [address] 1538)
--- NOTE | 2023-06-23 14:33 | RAD REPORT ---
EXAM DESCRIPTION: RAD - Chest Single View - 06/23/2023 2:08 pm CLINICAL HISTORY: COUGH COMPARISON: Chest Single View dated 11/18/2022; Chest Single View dated 07/20/2022; Chest Single View dated 01/06/2018; Chest Pa And Lat (2 Views) dated 12/29/2017 FINDINGS: Lines: None. Lungs: No evidence of edema or pneumonia. Pleural: No significant pleural effusions or pneumothorax. Cardiac: The heart size is within normal limits. Mediastinum: Within normal limits. Bones: No acute fractures. Other: None IMPRESSION: No acute cardiopulmonary disease.
--- NOTE | 2023-06-23 14:33 | RAD REPORT ---
EXAM DESCRIPTION: RAD - Tib Fib Right - 06/23/2023 2:09 pm CLINICAL HISTORY: PAIN COMPARISON: No comparisons FINDINGS/IMPRESSION: No acute fracture. No malalignment. No significant focal degenerative changes.
--- NOTE | 2023-06-23 14:36 | ER ---
Nurse's Notes [facility] Name: Gavin Fraire Age: 77 yrs Sex: Male : 1945 Arrival Date: 06/23/2023 Time: 13:29 Bed 3 Private MD: Diagnosis: Cellulitis and acute lymphangitis of other parts of limb;Edema, unspecified;Type 2 diabetes mellitus with hyperglycemia;Obesity, unspecified;COPD/ Chronic obstructive pulmonary disease with (acute) exacerbation-mild;Hypokalemia Presentation: 06/23 13:41 Chief complaint: Patient states: wound check to right lower leg. Pt states that he has cm10 a wound to his leg and he noticed increased redness and drainage onset 1 week ago. Coronavirus screen: Vaccine status: Patient reports receiving the 2nd dose of the covid vaccine. Client denies travel out of the [place] in the last 14 days. Ebola Screen: Patient denies travel to an Ebola-affected area in the 21 days before illness onset. No symptoms or risks identified at this time. Initial Sepsis Screen: Does the patient meet any 2 criteria? No. Patient's initial sepsis screen is negative. Does the patient have a suspected source of infection? No. Patient's initial sepsis screen is negative. Risk Assessment: Do you want to hurt yourself or someone else? Patient reports no desire to harm self or others. Onset of symptoms was June 23, 2023. 13:41 Method Of Arrival: Ambulatory cm10 13:41 Acuity: PERLITA 3 cm10 Historical: - Allergies: 13:44 No Known Allergies; cm10 - PMHx: 13:44 CHF; COPD; cva/tia, L eye blind; diabetes mellitus; HIV; Hypertension; cm10 - Immunization history:: Adult Immunizations. - Social history:: Smoking status: Patient/guardian denies using tobacco, but has a distant history of tobacco abuse. Screenin:[facility] ED Fall Risk Assessment (Adult) History of falling in the last 3 months, ld1 including since admission No falls in past 3 months (0 pts). Abuse screen: Denies threats or abuse. Denies injuries from another. Nutritional screening: No deficits noted. Tuberculosis screening: No symptoms or risk factors identified. Assessment: 14:52 General: Appears in no apparent distress. comfortable, Behavior is calm, cooperative, ld1 appropriate for age. Pain: Denies pain. Neuro: Level of Consciousness is awake, alert, obeys commands, Oriented to person, place, time, situation. Cardiovascular: Capillary refill < 3 seconds Patient's skin is warm and dry. Rhythm is. Respiratory: Airway is patent Respiratory effort is even, unlabored. GI: Abdomen is round non-distended. : No signs and/or symptoms were reported regarding the genitourinary system. EENT: No signs and/or symptoms were reported regarding the EENT system. Derm: No signs and/or symptoms reported regarding the dermatologic system. Musculoskeletal: No signs and/or symptoms reported regarding the musculoskeletal system. 15:45 Reassessment: Patient appears in no apparent distress at this time. No changes from ld1 previously documented assessment. Patient and/or family updated on plan of care and expected duration. Pain level reassessed. Patient is alert, oriented x 3, equal unlabored respirations, skin warm/dry/pink. 17:00 Reassessment: Patient appears in no apparent distress at this time. Patient and/or ld1 family updated on plan of care and expected duration. Pain level reassessed. Patient is alert, oriented x 3, equal unlabored respirations, skin warm/dry/pink. 18:32 Reassessment: No changes from previously documented assessment. Patient and/or family ld1 updated on plan of care and expected duration. Pain level reassessed. 19:11 Reassessment: Patient appears in no apparent distress at this time. Patient and/or jb4 family updated on plan of care and expected duration. Pain level reassessed. Patient is alert, oriented x 3, equal unlabored respirations, skin warm/dry/pink. Vital Signs: 13:41 BP 154 / 59; Pulse 79; Resp 18; Temp 98.3; Pulse Ox 88% on R/A; Weight 102.51 kg; cm10 Height 5 ft. 10 in. ; Pain 5/10; 14:52 BP 140 / 80; Pulse 80; Resp 18; Pulse Ox 100% on R/A; ld1 16:00 BP 153 / 73; Pulse 63; Resp 18; Pulse Ox 97% on R/A; ld1 17:00 BP 170 / 76; Pulse 61; Resp 17; Pulse Ox 96% on R/A; ld1 18:00 BP 170 / 77; Pulse 74; Resp 12; Pulse Ox 95% on R/A; ld1 18:33 BP 140 / 89; Pulse 85; Resp 18; Pulse Ox 100% on R/A; ld1 13:41 Body Mass Index 32.43 (102.51 kg, 177.8 cm) cm10 13:41 Pain Scale: Adult cm10 ED Course: 13:33 Patient arrived in ED. rg4 13:44 Triage completed. cm10 13:45 Arm band placed on Patient placed in an exam room, on a stretcher. cm10 13:47 Vikash Jay MD is Attending Physician. geno 14:10 XRAY Chest (1 view) In Process Unspecified. EDMS 14:10 Tib Fib Right XRAY In Process Unspecified. EDMS 14:31 ultrasound at bedside. ap3 14:32 Jerzy Drummond MD is Hospitalizing Provider. geno 14:39 Blood Culture Adult (2) Sent. ld1 14:39 Lactate w/ 2H reflex if indic. Sent. ld1 14:39 Inserted saline lock: 20 gauge in left forearm, using aseptic technique. Blood ld1 collected. 14:50 Ada Weber, NELSON is Primary Nurse. ld1 14:52 Patient has correct armband on for positive identification. Placed in gown. Bed in low ld1 position. Call light in reach. Side rails up X2. line o scribe operator on. Pulse ox on. NIBP on. Door closed. Noise minimized. Warm blanket given. 14:52 No provider procedures requiring assistance completed. ld1 14:58 US Extremity Venous W Compression [place] In Process Unspecified. EDMS 14:59 US Lower Extremity Arterial Bilateral In Process Unspecified. EDMS 18:31 Patient admitted, IV remains in place. ap3 18:32 Provided Education on: medications prior to administration. ap3 Administered Medications: 14:51 Drug: NS 0.9% IV 1000 ml Route: IV; Rate: 125 ml/hr; Site: left forearm; ap3 18:33 Follow up: IV Status: Completed infusion ap3 14:51 Drug: Levalbuterol Inhalation 1.25 mg Route: Inhalation; ap3 15:08 Follow up: Response: No adverse reaction ap3 14:51 Drug: Ipratropium Inhalation Aerosol 0.5 mg Route: Inhalation; ap3 15:08 Follow up: Response: No adverse reaction ap3 14:51 Drug: Piperacillin-Tazobactam IVPB 3.375 grams Route: IVPB; Infused Over: 60 mins; ap3 Site: right forearm; 18:33 Follow up: IV Status: Completed infusion ap3 15:37 Drug: MethylPrednisoLONE IVP 125 mg Route: IVP; Site: left forearm; ap3 18:33 Follow up: Response: No adverse reaction ap3 15:37 Drug: Levalbuterol Inhalation 2.5 mg Route: Inhalation; ap3 19:38 Follow up: Response: No adverse reaction as6 15:37 Drug: Potassium PO Effervescent Tablet 25 mEq Route: PO; ap3 18:33 Follow up: Response: No adverse reaction ap3 Medication: 14:52 VIS not applicable for this client. ld1 Outcome: 14:36 Decision to Hospitalize by Provider. geno 18:31 Condition: good ap3 18:31 Instructed on the need for admit. 19:51 Admitted to Tele accompanied by tech, via stretcher, room 406, with chart, Report jb4 called to NELSON Scherer 19:51 Patient left the ED. jb4 Signatures: Dispatcher [employer] EDVikash Gilbert MD MD cha Garcia, Rubi rg4 Brian Palma RN RN jb4 Phyllis Burton RN RN grant3 Ada Weber RN RN ld1 Jerardo Kent RN RN as6 Ana Cifuentes, RN RN cm10
--- NOTE | 2023-06-23 14:36 | EDPHYS ---
Physician Documentation [facility] Name: Gavin Fraire Age: 77 yrs Sex: Male : 1945 Arrival Date: 06/23/2023 Time: 13:29 Bed 3 Private MD: ED Physician Vikash Jay HPI: 06/23 14:25 This 77 yrs old Male presents to ER via Ambulatory with complaints of Wound geno Check. 14:25 Patient presents to ED for recheck of: cellulitis. The affected area is on the lateral geno aspect of right calf, medial aspect of right calf and right titus. Previous treatment: Previous recheck: the patient's last recheck was 5 day(s) ago. Progress: The patient reports decreased. The patient has experienced similar episodes in the past, multiple times. Historical: - Allergies: 13:44 No Known Allergies; cm10 - PMHx: 13:44 CHF; COPD; cva/tia, L eye blind; diabetes mellitus; HIV; Hypertension; cm10 - Immunization history:: Adult Immunizations. - Social history:: Smoking status: Patient/guardian denies using tobacco, but has a distant history of tobacco abuse. ROS: 14:27 Constitutional: Negative for fever, chills, and weight loss, Eyes: Negative for injury, geno pain, redness, and discharge, ENT: Negative for injury, pain, and discharge, Neck: Negative for injury, pain, and swelling, Cardiovascular: Negative for chest pain, palpitations, and edema, Abdomen/GI: Negative for abdominal pain, nausea, vomiting, diarrhea, and constipation, Back: Negative for injury and pain, : Negative for injury, bleeding, discharge, and swelling, Neuro: Negative for headache, weakness, numbness, tingling, and seizure, Psych: Negative for depression, anxiety, suicide ideation, homicidal ideation, and hallucinations, Allergy/Immunology: Negative for hives, rash, and allergies, Endocrine: Negative for neck swelling, polydipsia, polyuria, polyphagia, and marked weight changes, Hematologic/Lymphatic: Negative for swollen nodes, abnormal bleeding, and unusual bruising. 14:27 Respiratory: Positive for cough, shortness of breath, at rest. 14:27 Abdomen/GI: Positive for abdominal distension. 14:27 MS/extremity: Positive for erythema, pain, swelling, tenderness, warmth, of the lateral aspect of right calf and right titus. Exam: 14:27 Constitutional: This is a well developed, well nourished patient who is awake, alert, geno and in no acute distress. Head/Face: Normocephalic, atraumatic. Eyes: Pupils equal round and reactive to light, extra-ocular motions intact. Lids and lashes normal. Conjunctiva and sclera are non-icteric and not injected. Cornea within normal limits. Periorbital areas with no swelling, redness, or edema. ENT: Nares patent. No nasal discharge, no septal abnormalities noted. Tympanic membranes are normal and external auditory canals are clear. Oropharynx with no redness, swelling, or masses, exudates, or evidence of obstruction, uvula midline. Mucous membranes moist. Neck: Trachea midline, no thyromegaly or masses palpated, and no cervical lymphadenopathy. Supple, full range of motion without nuchal rigidity, or vertebral point tenderness. No Meningismus. Chest/axilla: Normal chest wall appearance and motion. Nontender with no deformity. No lesions are appreciated. Cardiovascular: Regular rate and rhythm with a normal S1 and S2. No gallops, murmurs, or rubs. Normal PMI, no JVD. No pulse deficits. Abdomen/GI: Soft, non-tender, with normal bowel sounds. No distension or tympany. No guarding or rebound. No evidence of tenderness throughout. Back: No spinal tenderness. No costovertebral tenderness. Full range of motion. Male : Normal genitalia with no discharge or lesions. Neuro: Awake and alert, GCS 15, oriented to person, place, time, and situation. Cranial nerves II-XII grossly intact. Motor strength 5/5 in all extremities. Sensory grossly intact. Cerebellar exam normal. Normal gait. Psych: Awake, alert, with orientation to person, place and time. Behavior, mood, and affect are within normal limits. 14:27 Respiratory: the patient does not display signs of respiratory distress, Respirations: no acute changes, Breath sounds: decreased breath sounds, that are mild, rhonchi, that are mild, stridor, is not appreciated, Respiratory rate: 18 14:27 Musculoskeletal/extremity: ROM: intact in all extremities, full active range of motion, full passive range of motion, Pulses: noted to be 2+ in the right posterior tibial artery and right dorsalis pedis artery, Compartment Syndrome exam of affected extremity: is normal. Weight bearing: able to fully bear weight, DVT Exam: pain, swelling, tenderness, that is moderate, of the right leg, of the lateral aspect of right calf, lateral aspect of right foot, medial aspect of right calf, medial aspect of right foot, right titus and dorsum of right foot. 14:27 Neuro: Orientation: is normal, appropriate for stated age, no acute changes, Mentation: is normal, appropriate for stated age, no acute changes, Memory: is normal, appropriate for stated age, no acute changes, Motor: is normal, moves all fours, strength is normal, strength is 5/5 in all extremities, Sensation: is normal, Gait: appropriate for age, Babinski testing is normal, seizure activity, is not displayed by the patient. 15:01 ECG was reviewed by the Attending Physician. [facility] Vital Signs: 13:41 BP 154 / 59; Pulse 79; Resp 18; Temp 98.3; Pulse Ox 88% on R/A; Weight 102.51 kg; cm10 Height 5 ft. 10 in. ; Pain 5/10; 14:52 BP 140 / 80; Pulse 80; Resp 18; Pulse Ox 100% on R/A; ld1 16:00 BP 153 / 73; Pulse 63; Resp 18; Pulse Ox 97% on R/A; ld1 17:00 BP 170 / 76; Pulse 61; Resp 17; Pulse Ox 96% on R/A; ld1 18:00 BP 170 / 77; Pulse 74; Resp 12; Pulse Ox 95% on R/A; ld1 18:33 BP 140 / 89; Pulse 85; Resp 18; Pulse Ox 100% on R/A; ld1 13:41 Body Mass Index 32.43 (102.51 kg, 177.8 cm) cm10 13:41 Pain Scale: Adult cm10 MDM: 13:47 Patient medically screened. [facility] 14:30 Differential diagnosis: cellulitis. Data reviewed: vital signs, nurses notes, lab test [facility] result(s), EKG, radiologic studies, doppler, plain films, ultrasound. Consideration of Admission/Observation Patient was admitted/placed on observation. Escalation of care including admission/observation considered. I considered the following discharge prescriptions or medication management in the emergency department Medications were administered in the Emergency Department. See MAR. Test considered but Not performed: CT: no ct abd pelvis. Care significantly affected by the following chronic conditions: Diabetes, Congestive Heart Failure, Chronic Obstructive Pulmonary Disease, Obesity, hiv. Counseling: I had a detailed discussion with the patient and/or guardian regarding the historical points, exam findings, and any diagnostic results supporting the discharge/admit diagnosis, lab results, radiology results, the need for further work-up and treatment in the hospital. 06/23 13:56 Order name: Basic Metabolic Panel; Complete Time: 15:04 [facility] 06/23 13:56 Order name: CBC with Diff; Complete Time: 15:04 [facility] 06/23 13:56 Order name: LFT's; Complete Time: 15:04 [facility] 06/23 13:56 Order name: Magnesium; Complete Time: 15:04 [facility] 06/23 13:56 Order name: NT PRO-BNP; Complete Time: 15:04 [facility] 06/23 13:56 Order name: PT-INR; Complete Time: 15:04 [facility] 06/23 13:56 Order name: Troponin HS; Complete Time: 15:04 [facility] 06/23 13:56 Order name: Lipase; Complete Time: 15:04 [facility] 06/23 13:56 Order name: Blood Culture Adult (2) [facility] 06/23 13:56 Order name: Lactate w/ 2H reflex if indic.; Complete Time: 15:04 [facility] 06/23 15:16 Order name: Urinalysis w/ reflexes [facility] 06/23 15:16 Order name: Basic Metabolic Panel [facility] 06/23 15:16 Order name: Basic Metabolic Panel [facility] 06/23 15:16 Order name: Comprehensive Metabolic Panel [facility] 06/23 15:16 Order name: Comprehensive Metabolic Panel [facility] 06/23 18:41 Order name: Lactate Sepsis 2 HR Follow-up [facility] 06/23 13:56 Order name: XRAY Chest (1 view); Complete Time: 14:36 [facility] 06/23 13:56 Order name: Tib Fib Right XRAY; Complete Time: 14:36 [facility] 06/23 13:56 Order name: US Extremity Venous W Compression [place] [facility] 06/23 13:56 Order name: US Lower Extremity Arterial Bilateral [facility] 06/23 13:56 Order name: EKG; Complete Time: 13:57 [facility] 06/23 15:16 Order name: Heart Healthy [facility] 06/23 13:56 Order name: Cardiac monitoring; Complete Time: 14:51 [facility] 06/23 13:56 Order name: EKG - Nurse/Tech; Complete Time: 14:51 [facility] 06/23 13:56 Order name: IV Saline Lock; Complete Time: 14:39 [facility] 06/23 13:56 Order name: Labs collected and sent; Complete Time: 14:39 [facility] 06/23 13:56 Order name: O2 Per Protocol; Complete Time: 14:03 [facility] 06/23 13:56 Order name: O2 Sat Monitoring; Complete Time: 14:03 [facility] EC:01 Rate is 71 beats/min. Rhythm is regular. QRS [place] is Normal. [place] interval is normal. QRS geno interval is normal. QT interval is normal. No Q waves. T waves are Normal. No ST changes noted. Clinical impression: NSR w/ Non-specific ST/T Changes, Abnormal EKG without significant change, and No evidence of ischemia. Interpreted by me. Reviewed by me. Administered Medications: 14:51 Drug: NS 0.9% IV 1000 ml Route: IV; Rate: 125 ml/hr; Site: left forearm; ap3 18:33 Follow up: IV Status: Completed infusion ap3 14:51 Drug: Levalbuterol Inhalation 1.25 mg Route: Inhalation; ap3 15:08 Follow up: Response: No adverse reaction ap3 14:51 Drug: Ipratropium Inhalation Aerosol 0.5 mg Route: Inhalation; ap3 15:08 Follow up: Response: No adverse reaction ap3 14:51 Drug: Piperacillin-Tazobactam IVPB 3.375 grams Route: IVPB; Infused Over: 60 mins; ap3 Site: right forearm; 18:33 Follow up: IV Status: Completed infusion ap3 15:37 Drug: MethylPrednisoLONE IVP 125 mg Route: IVP; Site: left forearm; ap3 18:33 Follow up: Response: No adverse reaction ap3 15:37 Drug: Levalbuterol Inhalation 2.5 mg Route: Inhalation; ap3 19:38 Follow up: Response: No adverse reaction as6 15:37 Drug: Potassium PO Effervescent Tablet 25 mEq Route: PO; ap3 18:33 Follow up: Response: No adverse reaction ap3 Disposition Summary: 06/23/23 14:36 Hospitalization Ordered Hospitalization Status: Inpatient Admission geno Provider: Jerzy Drummond cha Location: Telemetry/MedSurg (Inpatient) geno Condition: Fair geno Problem: new geno Symptoms: have improved geno Bed/Room Type: Standard [facility] Room Assignment: 406(06/23/23 19:03) cg Diagnosis - Cellulitis and acute lymphangitis of other parts of limb geno - Edema, unspecified geno - Type 2 diabetes mellitus with hyperglycemia geno - Obesity, unspecified geno - COPD/ Chronic obstructive pulmonary disease with (acute) exacerbation - mild geno - Hypokalemia geno Forms: - Medication Reconciliation Form geno - SBAR form geno - Leadership Thank You Letter geno Signatures: Dispatcher [employer] Vikash Gipson MD MD cha Garcia, Cindy RN RN cg Phyllis Burton RN RN ap3 Ana Cifuentes RN RN cm10 Jerardo Kent RN as6 Corrections: (The following items were deleted from the chart) 19: 14:36 geno cg 19:03 19:03 404 cg cg
[2023-06-23 14:43] LABS: Absolute Lymphocytes (CBC) 1.7 K/uL (0.7-4.9); Hematocrit 39.4 % (39.6-49.0); Lymphocytes % 28.9 % (15.3-44.8); MCV 103.9 fL (80-100); MPV 6.8 fL (7.6-11.3); Platelets 175 thou/uL (152-406); Protime INR 1.06; RBC Red Blood Cell Count 3.79 M/uL (4.33-5.43)
[2023-06-23 14:58] LABS: Bilirubin Direct 0.2 mg/dL (0-0.2); Bilirubin Indirect, Calculated 0.2 mg/dL (0.2-0.8); Bilirubin Total 0.4 mg/dL (0.2-1.0); Potassium 3.3 mEq/L (3.5-5.1); Protein, Total 6.7 g/dL (6.4-8.2); Troponin High Sensitivity 12.4 pg/mL (<58.9)
[2023-06-23] MEDS ORDERED: ACETAMINOPHEN 325 MG TABLET PO PRN (15:10)
[2023-06-23] MEDS ORDERED: ONDANSETRON 4 MG/2 ML VIAL IV PRN (15:10)
--- NOTE | 2023-06-23 15:21 | RAD REPORT ---
EXAM DESCRIPTION: US - Extrem Venous W Compress [place] - 06/23/2023 3:03 pm CLINICAL HISTORY: Pain;Swelling COMPARISON: Extrem Venous W Compress [place] dated 11/18/2022 TECHNIQUE: Real-time sonographic evaluation of the lower extremity deep venous systems was performed using color Doppler, grayscale, and compression. FINDINGS: Bilateral lower extremities. Normal compressibility, flow augmentation, phasic flow and spontaneous flow is identified in both the left and right lower extremity deep venous systems. No intraluminal filling defects seen. IMPRESSION: No DVT in either lower extremity.
[2023-06-23] MEDS ORDERED: METHYLPREDNISOLONE 125 MG INJ ONE (15:32)
[2023-06-23] MEDS ORDERED: LEVALBUTEROL 1.25 MG/3 ML NEB ONE (15:32)
[2023-06-23] MEDS ORDERED: POTASSIUM 25 MEQ EFFERV TAB ONE (15:32)
--- NOTE | 2023-06-23 16:29 | RAD REPORT ---
EXAM DESCRIPTION: US - Lower Extremity Arterial Bilat - 06/23/2023 2:57 pm CLINICAL HISTORY: Leg pain COMPARISON: None FINDINGS: Color Doppler, grayscale, and spectral analysis was performed. The common femoral, superficial femoral and popliteal arteries bilaterally demonstrate multiphasic wa veforms The posterior tibial and dorsalis pedis arteries demonstrate multiphasic waveforms bilaterally. IMPRESSION: Multiphasic waveforms in the bilateral lower extremities. No flow limiting arterial sten osis identified.
[2023-06-23] MEDS: VANCOMYCIN 2 GM in NA CHLORIDE 0.9% 500 ML IVPB SCH (17:00)
--- NOTE | 2023-06-23 17:15 | P.HP ---
Certification for Inpatient Patient admitted to: Inpatient With expected LOS: >2 Midnights Practitioner: I am a practitioner with admitting privileges, knowledge of patient current condition, hospital course, and medical plan of care. Services: Services provided to patient in accordance with Admission requirements found in Title 42 Section 412.3 of the Code of Federal Regulations Patient History Date of Service: 06/23/23 Reason for admission: Cellulitis of the lower extremities. 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 He had hyperemia and discoloration of the lower extremity from a chronic wound which is being followed up by outpatient wound care. He reported increasing pain and he denied overt episode of discharge, fever, chills, night sweats. Because of concerns for worsening infections he was started on antibiotic therapy and had cultures taken. He was admitted for inpatient care. Allergies No Known Allergies Allergy (Verified 12/28/17 16:43) Home Medications: Albuterol Inhaler [Ventolin Inhaler*] 2 puff IH QIDP PRN 11/18/22 Allopurinol 300 mg PO DAILY 11/18/22 Amlodipine Besylate/Benazepril [Lotrel 10-40 mg Capsule] 1 tab PO DAILY 11/18/22 Aspirin 81 mg PO DAILY 11/18/22 Atorvastatin Calcium [Lipitor*] 20 mg PO BEDTIME 11/18/22 Duloxetine [Cymbalta *] 60 mg PO BEDTIME 11/18/22 Eplerenone 25 mg PO DAILY 11/18/22 Flaxseed Oil [Flaxseed] 1 cap PO DAILY 11/18/22 Fluticasone/Umeclidin/Vilanter [Trelegy Ellipta 100-62.5-25] 1 puff IH DAILY 11/18/22 Furosemide [Lasix*] 40 mg PO DAILY 11/18/22 Gabapentin 600 mg PO TID 11/18/22 Metformin ER [Glucophage ER*] 1,000 mg PO BIDWM 11/18/22 Metoprolol Tartrate [Lopressor] 50 mg PO BID 11/18/22 Polyethylene Glycol 3350 [Miralax] 1 packet PO DAILYPRN PRN 11/18/22 Amox/Clavulanate [Augmentin 875-125 Tab] 1 each PO BID #14 tab 11/20/22 Hydrocodone 7.5/APAP 325 [[place] 7.5/325 mg*] 1 tab PO Q4H PRN #15 tab 11/20/22 - Past Medical/Surgical History Diabetic: Yes -: HIV -: COPD -: HTN -: CAD -: BPH -: Hyperlipidemia -: Neuropathy -: Chronic back pain -: Pneumonia -: Diabetes -type 2 -: CHF -: lymphadema -: Hernia surgery -: Scrotal sx -: vericos vein removal Psychosocial/ Personal History: The patient is a . He has 1 child. He is retired. - Family History Mother -: Cancer Notes: Breast Cancer Father -: Heart disease - Social History Alcohol use: Yes CD- Drugs: No Caffeine use: Yes Physical Examination - Physical Exam General: Alert, Oriented x3 HEENT: Atraumatic, Normocephalic Neck: Supple Respiratory: Normal air movement Cardiovascular: Regular rate/rhythm, Normal S1 S2 Gastrointestinal: Soft and benign Musculoskeletal: Swelling, Erythema, Tenderness, Warmth Integumentary: Skin breakdown, Skin lesion, Erythema, Warmth Neurological: Normal speech, Normal strength at 5/5 x4 extr - Studies Laboratory Data (last 24 hrs) 06/23/23 06/23/23 06/23/23 14:25 14:25 14:25 WBC 5.90 Hgb 12.7 L Hct 39.4 L Plt Count 175 PT 11.7 INR 1.06 Sodium 145 Potassium 3.3 L BUN 17 Creatinine 1.58 H Glucose 193 H Magnesium 2.0 Total Bilirubin 0.4 AST 26 ALT 31 Alkaline Phosphatase 63 Lipase 28 Assessment and Plan - Plan Right lower extremity chronic wound infection: Patient does have chronic wound infection of the right lower extremity with increased hyperemia and discharge. We will have wound care evaluate patient. We will start empiric antibiotic therapy with vancomycin and cefepime pending further review. We will have surgeon evaluate for possible debridement. Type 2 diabetes: Continue sliding scale insulin and carb restricted diet. COPD: We will continue inhalational therapy Hypokalemia: Potassium is low at 3.3. We will replete and follow levels. Prophylaxis: Lovenox for DVT prophylaxis CODE STATUS: Full code Disposition: We will manage chronic right lower extremity wound and discharge once clinically stable. Discharge Plan: Home Plan to discharge in: [facility] than 2 days - Advance Directives Does patient have a Living Will: Yes Does patient have a Durable POA for Healthcare: Yes
[2023-06-23] MEDS ORDERED: CEFEPIME 1 GM in NA CHLORIDE 0.9% 100 ML IV SCH (18:00)
[2023-06-23] MEDS: ENOXAPARIN 40 MG/0.4 ML SQ SCH (20:25)
[2023-06-23] MEDS: INSULIN -REGULAR HUMAN 50 UNIT/0.5 ML ML SQ SCH ×2 (20:26→21:00)
[2023-06-23] MEDS: GABAPENTIN 300 MG CAP PO SCH (21:02)
[2023-06-23 21:52] VITALS: BMI 32.4
[2023-06-24] MEDS ORDERED: ALBUTEROL INHALER 60 PUFF/8 GM IH PRN (04:34)
[2023-06-24 04:54] LABS: Albumin 3.1 g/dL (3.4-5.0); Bilirubin Total 0.4 mg/dL (0.2-1.0); Potassium 3.5 mEq/L (3.5-5.1); Protein, Total 6.9 g/dL (6.4-8.2)
[2023-06-24] MEDS: carvediloL 25 MG TAB PO SCH ×2 (05:53→21:51)
[2023-06-24] MEDS ORDERED: AMLODIPINE BESYLATE PO SCH (09:00)
[2023-06-24] MEDS: EPLERENONE 25 MG PO SCH (09:00)
[2023-06-24] MEDS ORDERED: BENAZEPRIL PO SCH (09:00)
[2023-06-24] MEDS ORDERED: [UNRECOGNIZED DRUG - OTHER] PO SCH (09:00)
[2023-06-24] MEDS: INSULIN -REGULAR HUMAN 50 UNIT/0.5 ML ML SQ SCH ×4 (09:45→21:00)
[2023-06-24] MEDS: AMLODIPINE 5 MG TAB PO SCH (09:46)
[2023-06-24] MEDS: ASPIRIN 81 MG CHEWABLE TABLET PO SCH (09:46)
[2023-06-24] MEDS: TORSEMIDE 20 MG TAB PO SCH (09:47)
[2023-06-24] MEDS: GABAPENTIN 300 MG CAP PO SCH ×3 (09:48→21:51)
[2023-06-24] MEDS: BENAZEPRIL 20 MG TAB PO SCH (09:48)
[2023-06-24] MEDS: CEFEPIME 2 GM in NA CHLORIDE 0.9% 100 ML IV SCH ×2 (09:49→21:51)
[2023-06-24] MEDS: ENOXAPARIN 40 MG/0.4 ML SQ SCH (09:49)
--- NOTE | 2023-06-24 13:26 | P.PN ---
Subjective Date of Service: 06/24/23 Chief Complaint: Cellulitis of the lower extremities. Subjective: No new changes, Improving Physical Examination - Vital Signs Temperature: 97.6 F Blood Pressure: 159/74 Pulse: 62 Respirations: 16 Pulse Ox (%): 90 - Physical Exam General: Alert, Oriented x3 HEENT: Atraumatic, Normocephalic Respiratory: Normal air movement Cardiovascular: Regular rate/rhythm, Normal S1 S2 Gastrointestinal: Soft and benign Musculoskeletal: Erythema, Tenderness, Other (wound on the right leg.) Neurological: Normal speech, Normal strength at 5/5 x4 extr - Studies Laboratory Data (last 24 hrs) 06/23/23 06/23/23 06/23/23 14:25 14:25 14:25 WBC 5.90 Hgb 12.7 L Hct 39.4 L Plt Count 175 PT 11.7 INR 1.06 Sodium 145 Potassium 3.3 L BUN 17 Creatinine 1.58 H Glucose 193 H Magnesium 2.0 Total Bilirubin 0.4 AST 26 ALT 31 Alkaline Phosphatase 63 Lipase 28 Assessment And Plan - Plan Right lower extremity chronic wound infection: Pain and redness in lower extremity better. We will continue wound care. We will continue empiric antibiotic therapy with vancomycin and cefepime pending further review. surgeon to evaluate for possible debridement. Type 2 diabetes: we will continue sliding scale insulin and carb restricted diet. Oral hypoglycemic therapy to be continued. COPD: We will continue inhalational therapy Hypokalemia: Potassium is better today at 3.5. We will follow levels. HIV disease: We will continue HAART as outpt. Prophylaxis: Lovenox for DVT prophylaxis CODE STATUS: Full code Disposition: We will manage chronic right lower extremity wound and discharge once clinically stable.
--- NOTE | 2023-06-24 13:58 | EKG ---
Test Date: 2023-06-23 Test Time: 14:43:48 Housekeeper Nanny: Elida DE LA O MEASUREMENT RESULTS: Intervals: Rate: 70 CO: 164 QRSD: 84 QT: 416 QTc: 449 [place]: P: 48 CO: 164 QRS: 23 T: 2 INTERPRETIVE STATEMENTS: Sinus rhythm with fusion complexes Nonspecific T wave abnormality Abnormal ECG Compared to ECG 11/18/2022 15:49:33 Fusion complex(es) now present T-wave abnormality now present ST (T wave) deviation no longer present Electronically Signed On 06-24-23 13:56:16 CDT by Johnathon Helton
[2023-06-24] MEDS: METFORMIN ER 500 MG TAB PO SCH (21:51)
[2023-06-24] MEDS: ATORVASTATIN 20 MG TAB PO SCH (21:51)
[2023-06-25] MEDS: VANCOMYCIN 2 GM in NA CHLORIDE 0.9% 500 ML IVPB SCH (06:28)
[2023-06-25] MEDS: INSULIN -REGULAR HUMAN 50 UNIT/0.5 ML ML SQ SCH ×4 (07:30→21:00)
[2023-06-25] MEDS ORDERED: NA CHLORIDE 0.9% 100 ML ONE (07:40)
[2023-06-25] MEDS: ENOXAPARIN 40 MG/0.4 ML SQ SCH (07:56)
[2023-06-25] MEDS: ASPIRIN 81 MG CHEWABLE TABLET PO SCH (07:57)
[2023-06-25] MEDS: METFORMIN ER 500 MG TAB PO SCH ×2 (07:57→21:14)
[2023-06-25] MEDS: carvediloL 25 MG TAB PO SCH ×2 (07:57→21:15)
[2023-06-25] MEDS: GABAPENTIN 300 MG CAP PO SCH ×3 (07:58→21:14)
[2023-06-25] MEDS: TORSEMIDE 20 MG TAB PO SCH (07:58)
[2023-06-25] MEDS: AMLODIPINE 5 MG TAB PO SCH (07:59)
[2023-06-25] MEDS ORDERED: CEFEPIME 2 GM VIAL ONE (08:01)
[2023-06-25] MEDS: BENAZEPRIL 20 MG TAB PO SCH (08:05)
[2023-06-25] MEDS: CEFEPIME 2 GM in NA CHLORIDE 0.9% 100 ML IV SCH ×2 (09:00→21:16)
[2023-06-25] MEDS: Fluticasone/Umeclidin/Vilanter [Trelegy Ellipta 100-62.5-25] Blst.W.Dev IH SCH (09:00)
[2023-06-25] MEDS: DOLUTEGRAVIR SODIUM PO SCH (09:00)
[2023-06-25] MEDS: LAMIVUDINE PO SCH (09:00)
[2023-06-25] MEDS: EPLERENONE 25 MG PO SCH (09:00)
--- NOTE | 2023-06-25 14:44 | P.PN ---
Subjective Date of Service: 06/25/23 Chief Complaint: Cellulitis of the lower extremities. Physical Examination - Vital Signs Temperature: 97.4 F Blood Pressure: 126/61 Pulse: 63 Respirations: 18 Pulse Ox (%): 94 - Physical Exam General: Alert, Oriented x3 HEENT: Atraumatic, Normocephalic Neck: Supple Respiratory: Normal air movement Cardiovascular: Regular rate/rhythm, Normal S1 S2 Gastrointestinal: Soft and benign Musculoskeletal: No swelling Neurological: Normal speech Assessment And Plan - Plan Right lower extremity chronic wound infection: Pain and redness in lower extremity better. We will continue wound care. We will continue empiric antibiotic therapy with vancomycin and cefepime pending further review. surgeon to evaluate for possible debridement. Blood cultures are negative so far. Type 2 diabetes: we will continue sliding scale insulin and carb restricted diet. Oral hypoglycemic therapy to be continued. COPD: We will continue inhalational therapy Hypokalemia: Potassium is better at 3.5 on last check. We will follow levels. HIV disease: We will continue HAART as per outpt. Prophylaxis: Lovenox for DVT prophylaxis CODE STATUS: Full code Disposition: We will manage chronic right lower extremity wound and discharge once clinically stable.
[2023-06-25] MEDS: ATORVASTATIN 20 MG TAB PO SCH (21:14)
[2023-06-26] MEDS: INSULIN -REGULAR HUMAN 50 UNIT/0.5 ML ML SQ SCH ×4 (07:30→20:34)
--- NOTE | 2023-06-26 07:40 | P.PN ---
Date of Service: 06/26/23 Subjective: Feeling better today pain / swelling / redness of right leg improving per patient afebrile ROS: 10 point ROS as noted above, otherwise negative Physical Exam: GEN: Alert, oriented, NAD HEENT: Normal conjunctiva, sclera anicteric CV: Regular rate and rhythm, 1+ RLE, trace LLE Pulm: Nonlabored respirations on 2L NC ABD: Soft, nontender, nondistended Integumentary: RLE: erythema from ankle to just below knee, warm, superficial skin abrasions / ulcerations, no purulent drainage Neuro: Normal speech, normal affect vitals reviewed Problem List: RLE chronic wound, concern for infection COPD, Chronic NIDDM2 Hypokalemia HIV disease Hypertension Hyperlipidemia BPH RLE chronic wound, concern for infection Extremity venous u/s (06/23): no DVT in either extremity doppler u/s (06/23): Right lower extremity chronic wound, concern for infection xray tibia (06/23): No acute fracture. No malalignment. No significant focal degenerative changes. Blood cx: NGTD empiric vanc / cefepime (06/24-) de-escalate to ancef afebrile without leukocytosis continue wound care. pain / swelling / redness of right leg improving per patient COPD, chronic PRN nebs stable NIDDM2 ACHS Accu-Chek, SSI. Cont Metformin Hypokalemia Replete as needed HIV disease continue HAART as per outpt. Hypertension Hyperlipidemia BPH Confirm home medications, restart as appropriate VTE: Lovenox Code: Full Dispo: Home ~1-2 days
[2023-06-26] MEDS: TORSEMIDE 20 MG TAB PO SCH (08:44)
[2023-06-26] MEDS: BENAZEPRIL 20 MG TAB PO SCH (08:44)
[2023-06-26] MEDS: METFORMIN ER 500 MG TAB PO SCH ×2 (08:45→20:34)
[2023-06-26] MEDS: carvediloL 25 MG TAB PO SCH ×2 (08:45→20:34)
[2023-06-26] MEDS: AMLODIPINE 5 MG TAB PO SCH (08:46)
[2023-06-26] MEDS: GABAPENTIN 300 MG CAP PO SCH ×3 (08:46→20:33)
[2023-06-26] MEDS: DOLUTEGRAVIR SODIUM PO SCH (08:46)
[2023-06-26] MEDS: LAMIVUDINE PO SCH (08:46)
[2023-06-26] MEDS: EPLERENONE 25 MG PO SCH (08:47)
[2023-06-26] MEDS: ENOXAPARIN 40 MG/0.4 ML SQ SCH (08:47)
[2023-06-26] MEDS: Fluticasone/Umeclidin/Vilanter [Trelegy Ellipta 100-62.5-25] Blst.W.Dev IH SCH (08:47)
[2023-06-26] MEDS: ASPIRIN 81 MG CHEWABLE TABLET PO SCH (08:47)
[2023-06-26] MEDS: CEFEPIME 2 GM in NA CHLORIDE 0.9% 100 ML IV SCH (08:57)
[2023-06-26 11:07] LABS: Absolute Lymphocytes (CBC) 1.5 K/uL (0.7-4.9); Lymphocytes % 24.7 % (15.3-44.8); MPV 7.1 fL (7.6-11.3); Platelets 180 thou/uL (152-406); RBC Red Blood Cell Count 4.03 M/uL (4.33-5.43)
[2023-06-26 11:14] LABS: Potassium 3.2 mEq/L (3.5-5.1)
[2023-06-26] MEDS: VANCOMYCIN 2 GM in NA CHLORIDE 0.9% 500 ML IVPB SCH (16:30)
[2023-06-26] MEDS: CEFAZOLIN 1 GM in NA CHLORIDE 0.9% 50 ML IVPB SCH (18:25)
[2023-06-26] MEDS: ATORVASTATIN 20 MG TAB PO SCH (20:34)
[2023-06-27] MEDS: CEFAZOLIN 1 GM in NA CHLORIDE 0.9% 50 ML IVPB SCH ×2 (00:44→09:43)
[2023-06-27 06:14] LABS: Absolute Lymphocytes (CBC) 1.5 K/uL (0.7-4.9); Hematocrit 36.4 % (39.6-49.0); Lymphocytes % 25.9 % (15.3-44.8); MCV 102.8 fL (80-100); MPV 7.3 fL (7.6-11.3); Platelets 153 thou/uL (152-406); RBC Red Blood Cell Count 3.54 M/uL (4.33-5.43)
[2023-06-27 06:32] LABS: Potassium 3.2 mEq/L (3.5-5.1)
--- NOTE | 2023-06-27 07:28 | P.PN ---
Date of Service: 06/27/23 Subjective: Feeling better today pain / swelling / redness of right leg continues to improve no new / worsening problems afebrile ROS: 10 point ROS as noted above, otherwise negative Physical Exam: GEN: Alert, oriented, NAD HEENT: Normal conjunctiva, sclera anicteric CV: Regular rate and rhythm, 1+ RLE, trace LLE Pulm: Nonlabored respirations on 2L NC ABD: Soft, nontender, nondistended Integumentary: RLE: erythema from ankle to just below knee, warm, superficial skin abrasions / ulcerations, no purulent drainage Neuro: Normal speech, normal affect vitals reviewed Problem List: RLE chronic wound, concern for infection COPD, Chronic NIDDM2 Hypokalemia HIV disease Hypertension Hyperlipidemia BPH RLE chronic wound, concern for infection Extremity venous u/s (06/23): no DVT in either extremity doppler u/s (06/23): Right lower extremity chronic wound, concern for infection xray tibia (06/23): No acute fracture. No malalignment. No significant focal degenerative changes. Blood cx: NGTD empiric vanc / cefepime (06/24-) de-escalate to ancef afebrile without leukocytosis continue wound care. pain / swelling / redness of right leg improving per patient COPD, chronic wears CPAP at night at home PRN nebs stable NIDDM2 ACHS Accu-Chek, SSI. Cont Metformin Hypokalemia Replete as needed HIV disease continue HAART as per outpt. Hypertension Hyperlipidemia BPH Confirm home medications, restart as appropriate VTE: Lovenox Code: Full Dispo: Home ~1-2 days
[2023-06-27] MEDS: INSULIN -REGULAR HUMAN 50 UNIT/0.5 ML ML SQ SCH ×2 (07:30→11:30)
[2023-06-27 08:33] VITALS: BP 153/73; TEMP 97
[2023-06-27] MEDS: EPLERENONE 25 MG PO SCH (09:00)
[2023-06-27] MEDS: DOLUTEGRAVIR SODIUM PO SCH (09:00)
[2023-06-27] MEDS: LAMIVUDINE PO SCH (09:00)
[2023-06-27] MEDS: Fluticasone/Umeclidin/Vilanter [Trelegy Ellipta 100-62.5-25] Blst.W.Dev IH SCH (09:00)
[2023-06-27] MEDS ORDERED: POTASSIUM CL SA 10 MEQ TAB PO ONE (09:05)
--- NOTE | 2023-06-27 09:30 | P.CNS ---
Date of Consult: 06/27/23 Reason for Consult: cellulitis RLE Chief Complaint: Cellulitis of the lower extremities. History of Present Illness: Patient is a 77 yo male with a past medical history of HIV, COPD, DM2, BPH and hypertension who presented to the ED with complaints of right lower extremity wound which has been worsening. Patient admitted for RLE cellulitis. Infectious disease consulted. Allergies No Known Allergies Allergy (Verified 12/28/17 16:43) Home medications list reviewed: Yes Home Medications: Albuterol Inhaler [Ventolin Inhaler*] 2 puff IH Q6HP PRN 11/18/22 Aspirin 81 mg PO DAILY 11/18/22 Atorvastatin Calcium [Lipitor*] 20 mg PO BEDTIME 11/18/22 Eplerenone 25 mg PO DAILY 11/18/22 Flaxseed Oil [Flaxseed] 1 cap PO DAILY 11/18/22 Gabapentin 600 mg PO TID 11/18/22 Metformin ER [Glucophage ER*] 500 mg PO BID 11/18/22 Amlodipine Besylate/Benazepril [Amlodipine-Benazepril 5-40 mg] 1 tab PO DAILY 06/23/23 Carvedilol [Coreg] 25 mg PO BID 06/23/23 Dolutegravir Sodium/Lamivudine [Dovato 50-300 mg Tablet] 1 tab PO DAILY 06/23/23 Empagliflozin [Jardiance] 10 mg PO DAILY 06/23/23 Fluticasone/Umeclidin/Vilanter [Trelegy Ellipta 100-62.5-25] 1 puff IH DAILY 06/23/23 Torsemide [Soaanz] 3 tab PO DAILY 06/23/23 Silver Sulfadiazine [Silvadene 1% Cream] 1 appl TOP BID 14 Days #1 tube 06/27/23 cephALEXin [Cephalexin] 500 mg PO QID 10 Days #40 tab 06/27/23 - Past Medical/Surgical History Diabetic: Yes -: HIV -: COPD -: HTN -: CAD -: BPH -: Hyperlipidemia -: Neuropathy -: Chronic back pain -: Pneumonia -: Diabetes -type 2 -: CHF -: lymphadema -: Hernia surgery -: Scrotal sx -: vericos vein removal Psychosocial/ Personal History: The patient is a . He has 1 child. He is retired. - Family History Mother Medical History: Cancer Notes: Breast Cancer Father Medical History: Heart disease - Social History Smoking Status: Former smoker Alcohol use: Yes CD- Drugs: No Caffeine use: Yes Place of Residence: Home Review of Systems 10-point ROS is otherwise unremarkable Integumentary: As per HPI Physical Examination Temp Pulse Resp BP Pulse Ox 97.0 F 96 H 18 153/73 H 100 06/27/23 08:00 06/27/23 08:00 06/27/23 08:00 06/27/23 08:00 06/27/23 08:00 General: Alert, In no apparent distress, Oriented x3 HEENT: Atraumatic, Normocephalic Neck: Supple, JVD not distended Respiratory: Normal air movement, Diminished (at bases) Cardiovascular: Regular rate/rhythm Gastrointestinal: Normal bowel sounds, No tenderness Musculoskeletal: No clubbing Integumentary: Venous stasis ulcer (RLE) Neurological: Normal speech, Normal tone, Normal affect Laboratory Data - Reviewed Microbiology Data - Reviewed Imagings Data: - Reviewed Conclusions/Impression: Problem List Cellulitis of Right Lower Extremity HIV COPD BPH Diabetes Mellitus Type II Hypertension Hyperlipidemia Cellulitis of right lower extremity - XR tibia/fibula 06/23: "No acute fracture. No malalignment. No significant focal degenerative changes." - arterial US 06/23: Multiphasic waveforms in the bilateral lower extremities. No flow limiting arterial stenosis identified. - Blood cultures 06/23: No growth to date - No leukocytosis. Afebrile. - On Ancef Recommendations - Upon discharge, start on Keflex PO x 10 days - RLE wound care: Apply silvadene topical BID x 14 days. Keep leg elevated when possible to help minimize swelling. - Follow up with PCP in 1-2 weeks case discussed with Garrison Haddad
[2023-06-27] MEDS: BENAZEPRIL 20 MG TAB PO SCH (09:40)
[2023-06-27] MEDS: METFORMIN ER 500 MG TAB PO SCH (09:41)
[2023-06-27] MEDS: AMLODIPINE 5 MG TAB PO SCH (09:41)
[2023-06-27] MEDS: TORSEMIDE 20 MG TAB PO SCH (09:42)
[2023-06-27] MEDS: GABAPENTIN 300 MG CAP PO SCH ×2 (09:42→15:11)
[2023-06-27] MEDS: ASPIRIN 81 MG CHEWABLE TABLET PO SCH (09:42)
[2023-06-27] MEDS: carvediloL 25 MG TAB PO SCH (09:42)
[2023-06-27] MEDS: ENOXAPARIN 40 MG/0.4 ML SQ SCH (09:43)
[2023-06-27 10:05] VITALS: O2SAT 100
--- NOTE | 2023-06-27 14:11 | P.DS ---
Admission Date: 06/24/23 Discharge Date: 06/27/23 Disposition: ROUTINE DISCHARGE Discharge Condition: GOOD Reason for Admission: Cellulitis of the lower extremities. Consultations: Infectious Disease - Dr. 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 He had hyperemia and discoloration of the lower extremity from a chronic wound which is being followed up by outpatient wound care. He reported increasing pain and he denied overt episode of discharge, fever, chills, night sweats. Because of concerns for worsening infections he was started on antibiotic therapy and had cultures taken. Hospital Course: Problem List: RLE chronic wound / Cellulitis COPD, Chronic NIDDM2 Hypokalemia HIV disease Hypertension Hyperlipidemia BPH Patient presented with right lower extremity wound concerned for infection. Venous u/s, doppler u/s, and xray tibia were all negative for any acute findings. No DVT or arterial stenosis. No fracture Infectious Disease was consulted. Patient was given empiric vanc / cefepime. Wound with superficial skin abrasions / ulcerations, no purulent drainage. Blood cultures were without growth. Vanc/Cefepime were switched to ancef and patient continued to show improvement. Pain / redness / swelling of right leg continued to improve throughout hospitalization. Patient remained afebrile without leukocytosis, RLE wound improving, was deemed stable for discharge home. Patient is to complete 10 days course of keflex and silvedene creme on discharge. Medication: Silvadene twice daily x10 days Cephalexin 500mg [id number] x10 days Continue other home medications as previously prescribed. Follow up: PCP 3-5 days Continue wound care Physical Exam: GEN: Alert, oriented, NAD HEENT: Normal conjunctiva, sclera anicteric CV: Regular rate and rhythm, trace RLE edema Pulm: Nonlabored respirations on RA ABD: Soft, nontender, nondistended Integumentary: RLE: mild erythema from ankle to just below knee, superficial skin abrasions / ulcerations, no purulent drainage Neuro: Normal speech, normal affect Vital Signs/Physical Exam: Temp Pulse Resp BP Pulse Ox 97.0 F 96 H 18 153/73 H 100 06/27/23 08:00 06/27/23 09:42 06/27/23 08:00 06/27/23 09:42 06/27/23 08:00 Laboratory Data at Discharge: WBC 5.90 thou/uL (4.3-10.9) 06/27/23 05:59 Hgb 12.1 g/dL (13.6-17.9) L D 06/27/23 05:59 Hct 36.4 % (39.6-49.0) L 06/27/23 05:59 Plt Count 153 thou/uL (152-406) 06/27/23 05:59 PT 11.7 SECONDS (9.5-12.5) 06/23/23 14:25 INR 1.06 06/23/23 14:25 Sodium 140 mEq/L (136-145) 06/27/23 05:59 Potassium 3.2 mEq/L (3.5-5.1) L 06/27/23 05:59 BUN 18 mg/dL (7-18) 06/27/23 05:59 Creatinine 0.94 mg/dL (0.70-1.30) 06/27/23 05:59 Glucose 163 mg/dL (74-106) H 06/27/23 05:59 Magnesium 2.0 mg/dL (1.6-2.4) 06/23/23 14:25 Total Bilirubin 0.4 mg/dL (0.2-1.0) 06/24/23 04:18 AST 31 U/L (15-37) 06/24/23 04:18 ALT 39 U/L (16-61) 06/24/23 04:18 Alkaline Phosphatase 57 U/L (45-117) 06/24/23 04:18 Lipase 28 U/L (13-75) 06/23/23 14:25 Home Medications: Albuterol Inhaler [Ventolin Inhaler*] 2 puff IH Q6HP PRN 11/18/22 Aspirin 81 mg PO DAILY 11/18/22 Atorvastatin Calcium [Lipitor*] 20 mg PO BEDTIME 11/18/22 Eplerenone 25 mg PO DAILY 11/18/22 Flaxseed Oil [Flaxseed] 1 cap PO DAILY 11/18/22 Gabapentin 600 mg PO TID 11/18/22 Metformin ER [Glucophage ER*] 500 mg PO BID 11/18/22 Amlodipine Besylate/Benazepril [Amlodipine-Benazepril 5-40 mg] 1 tab PO DAILY 06/23/23 Carvedilol [Coreg] 25 mg PO BID 06/23/23 Dolutegravir Sodium/Lamivudine [Dovato 50-300 mg Tablet] 1 tab PO DAILY 06/23/23 Empagliflozin [Jardiance] 10 mg PO DAILY 06/23/23 Fluticasone/Umeclidin/Vilanter [Trelegy Ellipta 100-62.5-25] 1 puff IH DAILY 06/23/23 Torsemide [Soaanz] 3 tab PO DAILY 06/23/23 Silver Sulfadiazine [Silvadene 1% Cream] 1 appl TOP BID 14 Days #1 tube 06/27/23 cephALEXin [Cephalexin] 500 mg PO QID 10 Days #40 tab 06/27/23 New Medications: cephALEXin [Cephalexin] 500 mg PO QID 10 Days #40 tab Silver Sulfadiazine [Silvadene 1% Cream] 1 appl TOP BID 14 Days #1 tube Physician Discharge Instructions: Patient presented with right lower extremity wound concerned for infection. Venous u/s, doppler u/s, and xray tibia were all negative for any acute findings. No DVT or arterial stenosis. No fracture Infectious Disease was consulted. Patient was given empiric vanc / cefepime. Wound with superficial skin abrasions / ulcerations, no purulent drainage. Blood cultures were without growth. Vanc/Cefepime were switched to ancef and patient continued to show improvement. Pain / redness / swelling of right leg continued to improve throughout hospitalization. Patient remained afebrile without leukocytosis, RLE wound improving, was deemed stable for discharge home. Patient is to complete 10 days course of keflex and silvedene creme on discharge. Medication: Silvadene twice daily x10 days Cephalexin 500mg [id number] x10 days Continue other home medications as previously prescribed. Follow up: PCP 3-5 days Continue wound care Followup: NONE,NONE [Primary Care Provider] - Time spent managing pt's care (in minutes): 45
--- NOTE | 2023-06-27 18:10 | EKG ---
Test Date: 2023-06-23 Test Time: 14:45:21 Computer Video Game Designer: Elida DE LA O MEASUREMENT RESULTS: Intervals: Rate: 71 MT: 166 QRSD: 84 QT: 416 QTc: 452 [place]: P: 37 MT: 166 QRS: 49 T: 34 INTERPRETIVE STATEMENTS: Sinus rhythm with fusion complexes Low voltage QRS Nonspecific T wave abnormality Abnormal ECG Compared to ECG 06/23/2023 14:43:48 Low QRS voltage now present T-wave abnormality still present Electronically Signed On 06-27-23 18:01:04 CDT by Johnathon Helton
== END 2023-06-27 15:50 | disposition home or self-care (01) | DRG 603 ==
LOC: ER 13:29 → ERHOLD 15:10 → 4TH 19:17 → OBSVTOIN 06-24 16:34
PROVIDERS: ADMIT Internal Medicine Nephrology; ATTEND Hospitalist
DX: L03.115 Cellulitis of right lower limb (principal); B20 Human immunodeficiency virus [HIV] disease; I10 Essential (primary) hypertension; E87.6 Hypokalemia; H54.62 Unqualified visual loss, left eye, normal vision right eye; E11.65 Type 2 diabetes mellitus with hyperglycemia; E66.9 Obesity, unspecified; N40.0 Benign prostatic hyperplasia without lower urinary tract symptoms; G89.29 Other chronic pain; M54.9 Dorsalgia, unspecified; I25.10 Atherosclerotic heart disease of native coronary artery without angina pectoris; Z86.73 Personal history of transient ischemic attack (TIA), and cerebral infarction without residual deficits; Z68.32 Body mass index [BMI] 32.0-32.9, adult; Z79.82 Long term (current) use of aspirin; Z79.84 Long term (current) use of oral hypoglycemic drugs; Z79.899 Other long term (current) drug therapy; Z87.891 Personal history of nicotine dependence
CPT/HCPCS: 36415; 71045; 80048; 80053; 80076; 80202; 82947; 83605; 83690; 83735; 83880; 84484; 85025; 85610; 87040; 87070; 87205; 93005; 93925; 93970; 96365; 96366; 96375; 99285; G0378; J0690; J0692; J1650; J1815; J2930; J7040; J7614

== ENCOUNTER 2024-02-03 12:59 | Inpatient (IN) | payer OTHER ==
[2024-02-03 13:38] LABS: Absolute Eosinophils 0.2 K/uL (0-0.5); Absolute Lymphocytes (CBC) 1.7 K/uL (0.7-4.9); Absolute Neutrophil 7.1 K/uL (1.8-8.0); Basophils % 0.2 % (0-1.3); Eosinophils % 2.2 % (0-4.4); Hematocrit 38.3 % (39.6-49.0); Hemoglobin 12.8 g/dL (13.6-17.9); Lymphocytes % 16.9 % (15.3-44.8); MCH 34.7 pg (27.0-35.0); MCHC 33.5 g/dL (32.0-36.0); MCV 103.6 fL (80-100); MPV 7.3 fL (7.6-11.3); Monocytes % 10.1 % (3.3-12.3); Neutrophils % 70.6 % (41.7-73.7); Platelets 172 thou/uL (152-406); Red Cell Distribution Width 13.6 % (12.1-15.2)
--- NOTE | 2024-02-03 13:45 | RAD REPORT ---
EXAM DESCRIPTION: RAD - Chest Single View - 02/03/2024 1:25 pm CLINICAL HISTORY: Cough;Dyspnea Chest pain. COMPARISON: <Comparisons> FINDINGS: Portable technique limits examination quality. The lungs are emphysematous with mild opacities in both lung bases which could be atelectasis or mild infiltrate. The heart is mildly enlarged in size. No displaced fractures.
[2024-02-03 13:48] LABS: PT Prothrombin Time 13.1 SECONDS (9.5-12.5); Protime INR 1.2
[2024-02-03 13:51] LABS: Albumin 3.1 g/dL (3.4-5.0); Albumin/Globulin Ratio 0.7 (1.1-1.8); Anion Gap 7.8 mEq/L (5.0-15.0); Bilirubin Total 0.5 mg/dL (0.2-1.0); Globulin 4.5 g/dL (2.3-3.5); Potassium 3.8 mEq/L (3.5-5.1); Protein, Total 7.6 g/dL (6.4-8.2)
--- NOTE | 2024-02-03 13:59 | EDPHYS ---
Physician Documentation [facility] Name: Gavin Fraire Age: 78 yrs Sex: Male : 1945 Arrival Date: 02/03/2024 Time: 12:59 Bed 16 Private MD: ED Physician Preston Chavez HPI: 02/02 13:23 This 78 yrs old Male presents to ER via EMS with complaints of sob. rn 13:23 The patient has shortness of breath at rest. Onset: The symptoms/episode began/occurred rn at an unknown time. Duration: The symptoms are intermittent. The patient's shortness of breath is aggravated by exertion, light activity. Associated signs and symptoms: Pertinent positives: productive cough, fever, Pertinent negatives: hemoptysis. Severity of symptoms: At their worst the symptoms were moderate in the emergency department the symptoms have improved. The patient has experienced similar episodes in the past. Patient reports flulike illness that began 2 days ago. Associated with low oxygen, EMS reports oxygen 83% on room air, up to 97% with 2 L nasal cannula. Denies hemoptysis. Reports mild shortness of breath. Has history of CHF and COPD.. Historical: - Allergies: 13:04 No Known Allergies; rs5 - PMHx: 13:04 CHF; COPD; cva/tia; Hypertension; HIV; diabetes mellitus; rs5 - PSHx: 13:04 None; rs5 - Immunization history:: Adult Immunizations up to date. - Social history:: Smoking status: Patient/guardian denies using tobacco. - Family history:: not pertinent. - Hospitalizations: : No recent hospitalization is reported. ROS: 13:23 Constitutional: Positive for subjective fever Eyes: Negative for injury, pain, redness, rn and discharge, Neck: Negative for injury, pain, and swelling, Cardiovascular: Negative for chest pain, palpitations, and edema, Respiratory: Positive for cough and shortness of breath Abdomen/GI: Negative for abdominal pain, nausea, vomiting, diarrhea, and constipation, MS/Extremity: Negative for injury and deformity, Skin: Negative for injury, rash, and discoloration, Neuro: Positive for generalized weakness Exam: 13:23 Constitutional: This is a well developed, well nourished patient who is awake, alert, rn and in no acute distress. Cardiovascular: Regular rate and rhythm. No pulse deficits. Respiratory: Mild tachypnea, faint bilateral wheezing, diminished at bases Abdomen/GI: Soft, non-tender, distended (patient states baseline) MS/ Extremity: Pulses equal, no cyanosis. Neuro: Awake and alert, GCS 15 Vital Signs: 13:01 BP 122 / 68; Pulse 80; Resp 19; Temp 97.8(O); Pulse Ox 97% on 2 lpm NC; rs5 14:00 BP 122 / 76; Pulse 69; Resp 17; Pulse Ox 99% on R/A; rs5 15:10 BP 125 / 70; Pulse 77; Resp 18; Pulse Ox 99% on R/A; rs5 MDM: 13:01 Patient medically screened. rn 13:56 Differential diagnosis: Anemia Bronchitis Chronic Obstructive Pulmonary Disease rn Myocardial Infarction pneumonia, Pneumothorax pulmonary edema. Data reviewed: vital signs, nurses notes, lab test result(s), radiologic studies, plain films, and as a result, I will admit patient. Consideration of Admission/Observation Patient was admitted/placed on observation. Escalation of care including admission/observation considered. Care significantly affected by the following chronic conditions: Chronic Obstructive Pulmonary Disease. Counseling: I had a detailed discussion with the patient and/or guardian regarding the historical points, exam findings, and any diagnostic results supporting the discharge/admit diagnosis, lab results, radiology results, the need for further work-up and treatment in the hospital. Response to treatment: the patient's symptoms have mildly improved after treatment, and as a result, I will admit patient. 02/02 13:01 Order name: Blood Culture Adult (2) rn 02/02 13:01 Order name: CBC with Diff; Complete Time: 13:52 02/02 13:01 Order name: CMP; Complete Time: 13:52 02/02 13:01 Order name: Lactate w/ 2H reflex if indic.; Complete Time: 13:55 02/02 13:01 Order name: Protime (+inr); Complete Time: 13:52 02/02 13:01 Order name: Ptt, Activated; Complete Time: 13:52 02/02 13:01 Order name: Flu; Complete Time: 14:11 02/02 13:01 Order name: SARS RAPID; Complete Time: 14:11 02/02 13:01 Order name: BNP; Complete Time: 13:52 02/02 13:01 Order name: Chest Single View XRAY; Complete Time: 13:52 rn 02/02 13:01 Order name: EKG; Complete Time: 13: rn 02/02 13:01 Order name: Accucheck; Complete Time: 13:21 rn 02/02 13:01 Order name: Cardiac monitoring; Complete Time: 13:53 rn 02/02 13:01 Order name: EKG - Nurse/Tech; Complete Time: 13:53 rn 02/02 13:01 Order name: IV Saline Lock - Large Bore; Complete Time: 13:21 rn 02/02 13:01 Order name: Labs collected and sent; Complete Time: 13: rn 02/02 13:01 Order name: O2 Per Protocol; Complete Time: 13: rn 02/02 13:01 Order name: O2 Sat Monitoring; Complete Time: 13: rn 02/02 13:01 Order name: Vital Signs; Complete Time: 13:21 rn Administered Medications: 14:14 Drug: Rocephin IV 1 grams IV at calculated rate once; Given slow IV push per pharmacy rs5 instructions Route: IV; Rate: calculated rate; Site: left antecubital; 14:30 Follow up: Response: No adverse reaction rs5 14:14 Drug: Zithromax IVPB 500 mg IVPB once over 1 hrs; mix in 250 mL NS Route: IVPB; Infused rs5 Over: 1 hrs; Site: left antecubital; 14:30 Follow up: Response: No adverse reaction rs5 14:14 Drug: MethylPrednisoLONE IVP 125 mg IVP once Route: IVP; Site: left antecubital; rs5 14:32 Follow up: Response: No adverse reaction rs5 14:14 Drug: Levalbuterol Inhalation 1.25 mg Inhalation once Route: Inhalation; rs5 14:30 Follow up: Response: No adverse reaction rs5 Disposition Summary: 02/03/24 13:58 Hospitalization Ordered Notes: Hospitalization Status: Inpatient Admission rn Provider: Josias Chavez rn Location: Telemetry/MedSurg (Inpatient) rn Condition: Stable rn Problem: new rn Symptoms: have improved rn Bed/Room Type: Standard rn Room Assignment: 402(02/03/24 14:58) eb Diagnosis - Pneumonia, unspecified organism rn - COPD/ Chronic obstructive pulmonary disease with acute lower respiratory infection rn - Hypoxemia rn Forms: - Medication Reconciliation Form rn - SBAR form rn - Leadership Thank You Letter rn Signatures: Dispatcher [employer] Preston Barajas MD MD rn Botello, Elizabeth eb Sotelo, Ricky, RN RN rs5 Corrections: (The following items were deleted from the chart) 13:04 13:04 PMHx: cva/tia; rs5 rs5 13:04 13:04 PMHx: cva/tia; rs5 rs5 14:58 13:58 inez butterfield
--- NOTE | 2024-02-03 13:59 | ER ---
Nurse's Notes [facility] [place] Name: Gavin Fraire Age: 78 yrs Sex: Male : 1945 Arrival Date: 02/03/2024 Time: 12:59 Bed 16 Private MD: Diagnosis: Pneumonia, unspecified organism;COPD/ Chronic obstructive pulmonary disease with acute lower respiratory infection;Hypoxemia Presentation: 02/02 13:01 Chief complaint: EMS states: "[facility] toned out EMS for low ox sat and rs5 SOB. On arrival ox sats were 82%, placed on 2L via nasal cannula and sats are now 98%". Coronavirus screen: At this time, the client does not indicate any symptoms associated with coronavirus-19. Ebola Screen: No symptoms or risks identified at this time. Initial Sepsis Screen: Does the patient meet any 2 criteria? No. Patient's initial sepsis screen is negative. Does the patient have a suspected source of infection? No. Patient's initial sepsis screen is negative. Risk Assessment: Do you want to hurt yourself or someone else? Patient reports no desire to harm self or others. Onset of symptoms was February 03, 2024. 13:01 Method Of Arrival: EMS: [facility] rs5 13:01 Acuity: PERLITA 3 rs5 Triage Assessment: 13:04 General: Appears in no apparent distress. comfortable, Behavior is calm, cooperative. rs5 Pain: Denies pain. Historical: - Allergies: 13:04 No Known Allergies; rs5 - PMHx: 13:04 CHF; COPD; cva/tia; Hypertension; HIV; diabetes mellitus; rs5 - PSHx: 13:04 None; rs5 - Immunization history:: Adult Immunizations up to date. - Social history:: Smoking status: Patient/guardian denies using tobacco. - Family history:: not pertinent. - Hospitalizations: : No recent hospitalization is reported. Screenin:05 [facility] ED Fall Risk Assessment (Adult) History of falling in the last 3 months, rs5 including since admission No falls in past 3 months (0 pts) Confusion or Disorientation No (0 pts) Intoxicated or Sedated No (0 pts) Impaired Gait Yes (1 pt) Mobility Assist Device Used Yes (1 pt) Altered Elimination No (0 pt) Score/Fall Risk Level 0 - 2 = Low Risk Oriented to surroundings, Maintained a safe environment. Abuse screen: Denies threats or abuse. Nutritional screening: No deficits noted. Tuberculosis screening: No symptoms or risk factors identified. Assessment: 13:00 General: Appears in no apparent distress. uncomfortable, Behavior is calm, cooperative. rs5 Pain: Denies pain. Neuro: Level of Consciousness is awake, alert, obeys commands, Oriented to person, place, time, situation. Cardiovascular: Patient's skin is warm and dry. Rhythm is regular. Respiratory: Reports shortness of breath Airway is patent Respiratory effort is even, unlabored, Respiratory pattern is regular, symmetrical. 13:00 GI: Abdomen is round non-distended, Abd is soft and non tender X 4 quads. : No signs rs5 and/or symptoms were reported regarding the genitourinary system. EENT: No signs and/or symptoms were reported regarding the EENT system. Derm: Skin is intact. Musculoskeletal: Range of motion: intact in all extremities. 14:02 Reassessment: Patient and/or family updated on plan of care and expected duration. Pain rs5 level reassessed. Patient is alert, oriented x 3, equal unlabored respirations, skin warm/dry/pink. Patient states feeling better. 15:10 Reassessment: No changes from previously documented assessment. rs5 Vital Signs: 13:01 BP 122 / 68; Pulse 80; Resp 19; Temp 97.8(O); Pulse Ox 97% on 2 lpm NC; rs5 14:00 BP 122 / 76; Pulse 69; Resp 17; Pulse Ox 99% on R/A; rs5 15:10 BP 125 / 70; Pulse 77; Resp 18; Pulse Ox 99% on R/A; rs5 ED Course: 13:00 Patient arrived in ED. rn 13:00 Preston Chavez MD is Attending Physician. rn 13:01 Jones Pollard RN is Primary Nurse. rs5 13:04 Triage completed. rs5 13:05 No provider procedures requiring assistance completed. rs5 13:05 Patient has correct armband on for positive identification. Placed in gown. Bed in low rs5 position. Call light in reach. Side rails up X2. 13:21 Inserted saline lock: 20 gauge in left forearm, using aseptic technique. Blood kc6 collected. 13:27 Chest Single View XRAY In Process Unspecified. EDMS 13:58 Josias Chavez MD is Hospitalizing Provider. rn 15:40 Patient admitted, IV remains in place. rs5 Administered Medications: 14:14 Drug: Rocephin IV 1 grams IV at calculated rate once; Given slow IV push per pharmacy rs5 instructions Route: IV; Rate: calculated rate; Site: left antecubital; 14:30 Follow up: Response: No adverse reaction rs5 14:14 Drug: Zithromax IVPB 500 mg IVPB once over 1 hrs; mix in 250 mL NS Route: IVPB; Infused rs5 Over: 1 hrs; Site: left antecubital; 14:30 Follow up: Response: No adverse reaction rs5 14:14 Drug: MethylPrednisoLONE IVP 125 mg IVP once Route: IVP; Site: left antecubital; rs5 14:32 Follow up: Response: No adverse reaction rs5 14:14 Drug: Levalbuterol Inhalation 1.25 mg Inhalation once Route: Inhalation; rs5 14:30 Follow up: Response: No adverse reaction rs5 Medication: 13:30 VIS not applicable for this client. rs5 Outcome: 13:58 Decision to Hospitalize by Provider. rn 15:40 Admitted to Med/surg rs5 15:40 Condition: stable rs5 15:40 Discharge instructions given to patient, Instructed on the need for admit, Demonstrated understanding of instructions, 15:46 Patient left the ED. eb Signatures: Dispatcher [employer] [facility] Preston Chavez MD MD rn Botello, Elizabeth Monik Dordao RN RN [id number] Jones Pollard RN RN rs5 Corrections: (The following items were deleted from the chart) 13:04 13:04 PMHx: cva/tia; rs5 rs5 13:04 13:04 PMHx: cva/tia; rs5 rs5 19:11 15:00 BP 125 / 70; Pulse 77bpm; Resp 18bpm; Pulse Ox 99% RA; rs5 rs5
[2024-02-03] MEDS ORDERED: CEFTRIAXONE 1000 MG/VIAL ONE (14:03)
[2024-02-03] MEDS ORDERED: METHYLPREDNISOLONE 125 MG INJ ONE (14:04)
[2024-02-03] MEDS ORDERED: LEVALBUTEROL 1.25 MG/3 ML NEB ONE (14:04)
[2024-02-03] MEDS ORDERED: NA CHLORIDE 0.9% 250 ML ONE (14:04)
[2024-02-03] MEDS ORDERED: AZITHROMYCIN 500 MG INJ IVPB ONE (14:04)
[2024-02-03 14:08] LABS: SARS-CoV-2 Antigen CONTROL BLUE LINE VIS/BG OK; SARS-CoV-2 Antigen Rapid Res Negative (Negative)
--- NOTE | 2024-02-03 15:56 | P.HP ---
Certification for Inpatient Patient admitted to: Inpatient With expected LOS: >2 Midnights Patient will require the following post-hospital care: None Practitioner: I am a practitioner with admitting privileges, knowledge of patient current condition, hospital course, and medical plan of care. Services: Services provided to patient in accordance with Admission requirements found in Title 42 Section 412.3 of the Code of Federal Regulations Patient History Date of Service: 02/03/24 Reason for admission: Pneumonia, hypoxia History of Present Illness: 78-year-old male with history of COPD, diabetes mellitus type 2, HIV, hypertension, hyperlipidemia, BPH, chronic diastolic congestive heart failure presents to the emergency department with chief complaint of malaise, shortness of breath, hypoxia. He reports he has been feeling unwell the last 3 to 4 days and today when he checked his oxygen level it was in the low 80s. He reports he does have COPD and his typical oxygen level is around 90 to 92%. Many years ago he was on home oxygen for his COPD. He currently resides at [facility], patient was evaluated in the emergency department and his labs were significant for white blood cell count of 10.10 hemoglobin 12.8 medic at 38.3 INR 1.2 bicarb 38 creatinine 1.54 GFR 45 glucose 135 lactate 1.2 BNP 573 negative for COVID and influenza chest x-ray was performed which revealed emphysematous lungs with mild opacities in both lung bases which could be atelectasis or mild infiltrate. Heart is mildly enlarged no displaced fractures. ED provider wishes to admit patient for acute on chronic hypoxic respiratory failure, COPD exacerbation, suspected bilateral pneumonia. Allergies No Known Allergies Allergy (Verified 12/28/17 16:43) Home Medications: Albuterol Inhaler [Ventolin Inhaler*] 2 puff IH Q6HP PRN 11/18/22 Aspirin 81 mg PO DAILY 11/18/22 Atorvastatin Calcium [Lipitor*] 20 mg PO BEDTIME 11/18/22 Eplerenone 25 mg PO DAILY 11/18/22 Flaxseed Oil [Flaxseed] 1 cap PO DAILY 11/18/22 Gabapentin 600 mg PO TID 11/18/22 Metformin ER [Glucophage ER*] 500 mg PO BID 11/18/22 Amlodipine Besylate/Benazepril [Amlodipine-Benazepril 5-40 mg] 1 tab PO DAILY 06/23/23 Carvedilol [Coreg] 25 mg PO BID 06/23/23 Dolutegravir Sodium/Lamivudine [Dovato 50-300 mg Tablet] 1 tab PO DAILY 06/23/23 Empagliflozin [Jardiance] 10 mg PO DAILY 06/23/23 Fluticasone/Umeclidin/Vilanter [Trelegy Ellipta 100-62.5-25] 1 puff IH DAILY 06/23/23 Torsemide [Soaanz] 3 tab PO DAILY 06/23/23 - Past Medical/Surgical History Diabetic: Yes -: HIV -: COPD -: HTN -: CAD -: BPH -: Hyperlipidemia -: Neuropathy -: Chronic back pain -: Pneumonia -: Diabetes -type 2 -: CHF -: lymphadema -: Hernia surgery -: Scrotal sx -: vericos vein removal Psychosocial/ Personal History: The patient is a . He has 1 child. He is retired. - Family History Mother -: Cancer Notes: Breast Cancer Father -: Heart disease - Social History Smoking Status: Former smoker ([facility]) Alcohol use: Yes CD- Drugs: No Caffeine use: Yes Place of Residence: Home Review of Systems 10-point ROS is otherwise unremarkable Respiratory: Cough, Shortness of Breath Physical Examination - Physical Exam General: Alert, In no apparent distress, Oriented x3 HEENT: Atraumatic, PERRLA, EOMI Neck: Supple, 2+ carotid pulse no bruit Respiratory: Diminished, Expiratory wheezes Cardiovascular: Regular rate/rhythm, Normal S1 S2 Gastrointestinal: Normal bowel sounds Musculoskeletal: No tenderness Integumentary: No rashes Neurological: Normal gait, Normal speech, Normal strength at 5/5 x4 extr, Normal tone - Studies Laboratory Data (last 24 hrs) 02/03/24 02/03/24 02/03/24 13:21 13:21 13:21 WBC 10.10 Hgb 12.8 L Hct 38.3 L Plt Count 172 PT 13.1 H INR 1.20 APTT 31.0 Sodium 140 Potassium 3.8 BUN 34 H Creatinine 1.54 H Glucose 135 H Total Bilirubin 0.5 AST 19 ALT 18 Alkaline Phosphatase 77 Microbiology Data (last 24 hrs): 02/03/24 13:47 Nasopharnyx Influenza Type A Antigen Screen - Final 02/03/24 13:47 Nasopharnyx Influenza Type B Antigen Screen - Final Assessment and Plan - Plan Assessment: Acute on chronic hypoxic respiratory failure Suspected bilateral pneumonia COPD with exacerbation Chronic diastolic congestive heart failure HIV Diabetes mellitus type 2 Hypertension Neuropathy Lymphedema Plan: Acute on chronic hypoxic respiratory failure Suspected bilateral pneumonia COPD with exacerbation Continue antibiotics, as needed nebulizer treatments Started on prednisone twice daily Pulmonology consult Reports he was on home oxygen many years ago Typical room air sat for him is around 90 to 92% Was 82 to 83% today on room air Lactate less than 2, blood cultures ordered and pending Incentive spirometry ordered Chronic diastolic congestive heart failure Continue torsemide, carvedilol HIV Home medication continued Diabetes mellitus type 2 ACHS Accu-Chek, sliding scale insulin Hypertension Neuropathy Lymphedema Home medications continued DVT PPX: Lovenox Code status: Full Discharge Plan: Home Plan to discharge in: 72 Hours - Advance Directives Does patient have a Living Will: Yes Does patient have a Durable POA for Healthcare: Yes - Code Status/Comfort Care Code Status Assessed: Yes (Full code) Critical Care: No Time Spent Managing Pts Care (In Minutes): 70
[2024-02-03] MEDS ORDERED: ACETAMINOPHEN 500 MG TAB PO PRN (16:01)
[2024-02-03] MEDS ORDERED: ONDANSETRON 4 MG/2 ML VIAL IV PRN (16:01)
[2024-02-03] MEDS: INSULIN REGULAR (HUMAN) 100 UNIT/ML SQ SCH (16:30)
[2024-02-03] MEDS: METFORMIN ER 500 MG TAB PO SCH (16:49)
[2024-02-03] MEDS: ENOXAPARIN 40 MG/0.4 ML SQ SCH (16:49)
[2024-02-03] MEDS: GABAPENTIN 300 MG CAP PO SCH (16:49)
[2024-02-03] MEDS ORDERED: HOME MED 1 EA UNK (Gabapentin [Gabapentin] 600 MG Tablet) PO SCH (17:00)
[2024-02-03 17:06] VITALS: BMI 31.4
[2024-02-03] MEDS: carvediloL 25 MG TAB PO SCH (20:12)
[2024-02-03] MEDS: ATORVASTATIN 20 MG TAB PO SCH (20:12)
[2024-02-03] MEDS: predniSONE 10 MG TAB PO SCH (20:12)
[2024-02-03] MEDS: BENZONATATE 100 MG CAP PO PRN (20:12)
[2024-02-03] MEDS: MELATONIN 5 MG TABLET PO PRN (20:13)
[2024-02-03] MEDS: ALBUTEROL 2.5 MG/3 ML NEB SOL NEB PRN (20:50)
[2024-02-03] MEDS: IPRATROPIUM BROM 0.5MG/2.5ML NEB PRN (20:50)
[2024-02-04 05:29] LABS: Absolute Lymphocytes (CBC) 1.1 K/uL (0.7-4.9); Absolute Monocytes 0.2 K/uL (0.1-1.3); Absolute Neutrophil 8.2 K/uL (1.8-8.0); Hematocrit 37.8 % (39.6-49.0); Hemoglobin 12.8 g/dL (13.6-17.9); Lymphocytes % 11.8 % (15.3-44.8); MCH 35.4 pg (27.0-35.0); MCV 104.2 fL (80-100); MPV 7.6 fL (7.6-11.3); Monocytes % 1.7 % (3.3-12.3); Neutrophils % 86.5 % (41.7-73.7); Nucleated Red Blood Cells % 0.1 % (0-0); Platelets 172 thou/uL (152-406); RBC Red Blood Cell Count 3.63 M/uL (4.33-5.43); Red Cell Distribution Width 13.7 % (12.1-15.2)
[2024-02-04 05:45] LABS: Anion Gap 6.1 mEq/L (5.0-15.0); Potassium 4.1 mEq/L (3.5-5.1)
[2024-02-04 07:25] LABS: Blood Morphology Comment NOT SEEN (NOT SEEN); Platelet Estimate ADEQ; White Blood Cell Scan OK (OK)
[2024-02-04] MEDS: AMLODIPINE 5 MG TAB PO SCH (08:46)
[2024-02-04] MEDS: ASPIRIN 81 MG CHEWABLE TABLET PO SCH (08:46)
[2024-02-04] MEDS: BENAZEPRIL 20 MG TAB PO SCH (08:46)
[2024-02-04] MEDS: TORSEMIDE 20 MG TAB PO SCH (08:47)
[2024-02-04] MEDS: EPLERENONE 25 MG PO SCH (08:48)
[2024-02-04] MEDS: LAMIVUDINE PO SCH (08:48)
[2024-02-04] MEDS: DOLUTEGRAVIR SODIUM PO SCH (08:48)
[2024-02-04] MEDS: EMPAGLIFLOZIN 10 MG PO SCH (08:48)
[2024-02-04] MEDS: CEFTRIAXONE 1,000 MG in NA CHLORIDE 0.9% 50 ML IVPB SCH (08:48)
[2024-02-04] MEDS ORDERED: AMLODIPINE BESYLATE PO SCH (09:00)
[2024-02-04] MEDS ORDERED: [UNRECOGNIZED DRUG - OTHER] PO SCH (09:00)
[2024-02-04] MEDS ORDERED: BENAZEPRIL PO SCH (09:00)
[2024-02-04] MEDS: AZITHROMYCIN IV 500 MG in NA CHLORIDE 0.9% 250 ML IVPB SCH (09:34)
--- NOTE | 2024-02-04 09:39 | EKG ---
Test Date: 2024-02-03 Test Time: 14:11:05 Archives Director: BENNY MEASUREMENT RESULTS: Intervals: Rate: 69 TX: 180 QRSD: 96 QT: 414 QTc: 443 [place]: P: 45 TX: 180 QRS: -37 T: 63 INTERPRETIVE STATEMENTS: Sinus rhythm with fusion complexes Left axis deviation Low voltage QRS Nonspecific T wave abnormality Abnormal ECG Compared to ECG 06/23/2023 14:45:21 Left-axis deviation now present T-wave abnormality still present Electronically Signed On 02-04-24 09:38:17 CDT by Johnathon Helton
--- NOTE | 2024-02-04 10:58 | P.PN ---
Date of Service: 02/04/24 Subjective: feeling better today no acute events overnight ROS: 10 point ROS as noted above, otherwise negative Physical exam GEN: Alert, oriented, NAD HEENT: Normal conjunctiva, sclera anicteric CV: Regular rate and rhythm, no edema Pulm: Nonlabored respirations on nasal cannula ABD: Soft, nontender, nondistended MSK: No joint tenderness Integumentary: No rashes Neuro: Normal speech, normal affect Vitals reviewed Assessment: Acute on chronic hypoxic respiratory failure Suspected bilateral pneumonia COPD with exacerbation Chronic diastolic congestive heart failure HIV Diabetes mellitus type 2 Hypertension Neuropathy Lymphedema Plan: Acute on chronic hypoxic respiratory failure Suspected bilateral pneumonia COPD with exacerbation Continue antibiotics, as needed nebulizer treatments Started on prednisone twice daily Pulmonology consult Reports he was on home oxygen many years ago Typical room air sat for him is around 90 to 92% Was 82 to 83% today on room air Lactate less than 2, blood cultures ordered and pending Incentive spirometry ordered may need home oxygen at discharge Chronic diastolic congestive heart failure Continue torsemide, carvedilol HIV Home medication continued Diabetes mellitus type 2 ACHS Accu-Chek, sliding scale insulin Hypertension Neuropathy Lymphedema Home medications continued DVT PPX: Lovenox Code status: Full Discharge Plan: Home Plan to discharge in: 24 to 48 hours Time Spent Managing Pts Care (In Minutes): 35
--- NOTE | 2024-02-04 11:21 | P.CNS ---
Date of Consult: 02/04/24 Reason for Consult: COPD exacerbation Chief Complaint: Hypoxemia History of Present Illness: Patient is 78 years of age well-known to me he is come back and now he lives in care home with a history of obstructive sleep apnea. Patient is compliant with his CPAP machine apparently was found to have low oxygen sat and was sent here from the care home to the hospital he complains of a cough slight shortness of breath patient does not have any oxygen at home Allergies No Known Allergies Allergy (Verified 12/28/17 16:43) Home Medications: Albuterol Inhaler [Ventolin Inhaler*] 2 puff IH Q6HP PRN 11/18/22 Aspirin 81 mg PO DAILY 11/18/22 Atorvastatin Calcium [Lipitor*] 20 mg PO BEDTIME 11/18/22 Eplerenone 25 mg PO DAILY 11/18/22 Flaxseed Oil [Flaxseed] 1 cap PO DAILY 11/18/22 Gabapentin 600 mg PO TID 11/18/22 Metformin ER [Glucophage ER*] 500 mg PO BID 11/18/22 Amlodipine Besylate/Benazepril [Amlodipine-Benazepril 5-40 mg] 1 tab PO DAILY 06/23/23 Carvedilol [Coreg] 25 mg PO BID 06/23/23 Dolutegravir Sodium/Lamivudine [Dovato 50-300 mg Tablet] 1 tab PO DAILY 06/23/23 Empagliflozin [Jardiance] 10 mg PO DAILY 06/23/23 Fluticasone/Umeclidin/Vilanter [Trelegy Ellipta 100-62.5-25] 1 puff IH DAILY 06/23/23 Torsemide [Soaanz] 3 tab PO DAILY 06/23/23 - Past Medical/Surgical History Diabetic: Yes -: HIV -: COPD -: HTN -: CAD -: BPH -: Hyperlipidemia -: Neuropathy -: Chronic back pain -: Pneumonia -: Diabetes -type 2 -: CHF -: lymphadema -: Hernia surgery -: Scrotal sx -: vericos vein removal Psychosocial/ Personal History: The patient is a . He has 1 child. He is retired. - Family History Mother Medical History: Cancer Notes: Breast Cancer Father Medical History: Heart disease - Social History Smoking Status: Former smoker Alcohol use: Yes CD- Drugs: No Caffeine use: Yes Place of Residence: Care Home Review of Systems 10-point ROS is otherwise unremarkable General: Weakness Respiratory: Cough Physical Examination Temp Pulse Resp BP Pulse Ox 97.6 F 60 17 101/54 L 92 02/04/24 08:00 02/04/24 08:47 02/04/24 08:00 02/04/24 08:47 02/04/24 08:00 General: Alert, In no apparent distress, Oriented x3 HEENT: Atraumatic Neck: Supple Respiratory: Clear to auscultation bilaterally, Diminished Cardiovascular: No edema, Normal pulses, Regular rate/rhythm Integumentary: No rashes, Other (Patient has lower extremity bandages apparently he has had some chronic infection treatment for his lower extremity veins) Neurological: Normal speech Laboratory Data (last 24 hrs) 02/03/24 02/03/24 02/03/24 13:21 13:21 13:21 WBC 10.10 Hgb 12.8 L Hct 38.3 L Plt Count 172 PT 13.1 H INR 1.20 APTT 31.0 Sodium 140 Potassium 3.8 BUN 34 H Creatinine 1.54 H Glucose 135 H Total Bilirubin 0.5 AST 19 ALT 18 Alkaline Phosphatase 77 - Problems (1) COPD with exacerbation Onset Date: 11/11/17 Current Visit: No Status: Acute Plan: Patient is 78 years of age admitted with COPD exacerbation his chest x-ray is clear renal function is normal white count is normal doubt pneumonia patient's vital signs are stable oxygenation satisfactory can DC IV fluids evaluate for home O2 patient was on oxygen before he also has a history of obstructive sleep apnea is compliant with his machine. DC IV antibiotics changed to p.o. Augmentin plan for discharge and to follow-up with me in 2 weeks he has been treated for chronic lower extremity ulcerations
[2024-02-04] MEDS ORDERED: NA CHLORIDE 0.9% 1,000 ML IV SCH (12:00)
[2024-02-04] MEDS: NA CHLORIDE 0.9% 1,000 ML IV SCH (20:30)
[2024-02-04] MEDS: AMOX/K CLAV 875 MG TAB PO SCH (20:30)
[2024-02-05 09:44] LABS: Absolute Lymphocytes (CBC) 1.6 K/uL (0.7-4.9); Absolute Monocytes 0.7 K/uL (0.1-1.3); Absolute Neutrophil 10.2 K/uL (1.8-8.0); Hematocrit 36.7 % (39.6-49.0); Hemoglobin 12.4 g/dL (13.6-17.9); Lymphocytes % 12.8 % (15.3-44.8); MCH 34.9 pg (27.0-35.0); MCHC 33.7 g/dL (32.0-36.0); MCV 103.4 fL (80-100); MPV 7.3 fL (7.6-11.3); Monocytes % 5.6 % (3.3-12.3); Neutrophils % 81.6 % (41.7-73.7); Nucleated Red Blood Cells % 0.1 % (0-0); Platelets 188 thou/uL (152-406); RBC Red Blood Cell Count 3.55 M/uL (4.33-5.43); Red Cell Distribution Width 13.5 % (12.1-15.2)
--- NOTE | 2024-02-05 11:53 | P.PN ---
Date of Service: 02/05/24 Subjective: Still needing supplemental oxygen No other concerns/complaints No acute events overnight ROS: 10 point ROS as noted above, otherwise negative Physical exam GEN: Alert, oriented, NAD HEENT: Normal conjunctiva, sclera anicteric CV: Regular rate and rhythm, no edema Pulm: Nonlabored respirations on nasal cannula ABD: Soft, nontender, nondistended MSK: No joint tenderness Integumentary: No rashes Neuro: Normal speech, normal affect Vitals reviewed Assessment: Acute on chronic hypoxic respiratory failure Suspected bilateral pneumonia COPD with exacerbation Chronic diastolic congestive heart failure HIV Diabetes mellitus type 2 Hypertension Neuropathy Lymphedema Plan: Acute on chronic hypoxic respiratory failure Suspected bilateral pneumonia COPD with exacerbation Continue antibiotics, as needed nebulizer treatments Started on prednisone twice daily Pulmonology consult Reports he was on home oxygen many years ago Typical room air sat for him is around 90 to 92% Was 82 to 83% today on room air Lactate less than 2, blood cultures ordered-no growth in 24 hours Incentive spirometry ordered may need home oxygen at discharge On PO augmentin now per pulm Chronic diastolic congestive heart failure Continue torsemide, carvedilol HIV Home medication continued Diabetes mellitus type 2 ACHS Accu-Chek, sliding scale insulin Hypertension Neuropathy Lymphedema Home medications continued DVT PPX: Lovenox Code status: Full Discharge Plan: Home Plan to discharge in: 24 to 48 hours Time Spent Managing Pts Care (In Minutes): 35
[2024-02-06 07:34] LABS: Absolute Lymphocytes (CBC) 1.7 K/uL (0.7-4.9); Absolute Monocytes 0.8 K/uL (0.1-1.3); Absolute Neutrophil 6.9 K/uL (1.8-8.0); Basophils % 0.3 % (0-1.3); Eosinophils % 0.1 % (0-4.4); Hematocrit 38.3 % (39.6-49.0); Hemoglobin 12.8 g/dL (13.6-17.9); Lymphocytes % 18.4 % (15.3-44.8); MCH 34.8 pg (27.0-35.0); MCHC 33.6 g/dL (32.0-36.0); MCV 103.5 fL (80-100); MPV 7.3 fL (7.6-11.3); Monocytes % 8.8 % (3.3-12.3); Neutrophils % 72.4 % (41.7-73.7); Nucleated Red Blood Cells % 0.1 % (0-0); Platelets 179 thou/uL (152-406)
[2024-02-06 07:46] LABS: Anion Gap 6.1 mEq/L (5.0-15.0); Potassium 4.1 mEq/L (3.5-5.1)
[2024-02-06 09:18] VITALS: BP 129/62; TEMP 98.7; O2SAT 95
--- NOTE | 2024-02-06 11:20 | P.DS ---
Admission Date: 02/03/24 Discharge Date: 02/06/24 Disposition: ROUTINE DISCHARGE Discharge Condition: GOOD Reason for Admission: Hypoxemia Brief History of Present Illness: 78-year-old male with history of COPD, diabetes mellitus type 2, HIV, hypertension, hyperlipidemia, BPH, chronic diastolic congestive heart failure presents to the emergency department with chief complaint of malaise, shortness of breath, hypoxia. He reports he has been feeling unwell the last 3 to 4 days and today when he checked his oxygen level it was in the low 80s. He reports he does have COPD and his typical oxygen level is around 90 to 92%. Many years ago he was on home oxygen for his COPD. He currently resides at [facility], patient was evaluated in the emergency department and his labs were significant for white blood cell count of 10.10 hemoglobin 12.8 medic at 38.3 INR 1.2 bicarb 38 creatinine 1.54 GFR 45 glucose 135 lactate 1.2 BNP 573 negative for COVID and influenza chest x-ray was performed which revealed emphysematous lungs with mild opacities in both lung bases which could be atelectasis or mild infiltrate. Heart is mildly enlarged no displaced fractures. ED provider wishes to admit patient for acute on chronic hypoxic respiratory failure, COPD exacerbation, suspected bilateral pneumonia. Hospital Course: Assessment: Acute on chronic hypoxic respiratory failure Suspected bilateral pneumonia COPD with exacerbation Chronic diastolic congestive heart failure HIV Diabetes mellitus type 2 Hypertension Neuropathy Lymphedema Vital Signs/Physical Exam: Temp Pulse Resp BP Pulse Ox 98.7 F 52 16 129/62 92 02/06/24 08:00 02/06/24 08:00 02/06/24 08:00 02/06/24 08:00 02/06/24 09:41 General: Alert, In no apparent distress, Oriented x3 HEENT: Atraumatic, PERRLA Neck: Supple, JVD not distended Respiratory: Clear to auscultation bilaterally, Normal air movement Cardiovascular: Regular rate/rhythm, Normal S1 S2 Gastrointestinal: Normal bowel sounds, No tenderness Musculoskeletal: No tenderness Integumentary: No rashes Neurological: Normal speech, Normal tone Laboratory Data at Discharge: WBC 9.50 thou/uL (4.3-10.9) 02/06/24 07:10 Hgb 12.8 g/dL (13.6-17.9) L 02/06/24 07:10 Hct 38.3 % (39.6-49.0) L 02/06/24 07:10 Plt Count 179 thou/uL (152-406) 02/06/24 07:10 PT 13.1 SECONDS (9.5-12.5) H 02/03/24 13:21 INR 1.20 02/03/24 13:21 APTT 31.0 SECONDS (24.3-36.9) 02/03/24 13:21 Sodium 140 mEq/L (136-145) 02/06/24 07:10 Potassium 4.1 mEq/L (3.5-5.1) D 02/06/24 07:10 BUN 39 mg/dL (7-18) H 02/06/24 07:10 Creatinine 1.08 mg/dL (0.70-1.30) 02/06/24 07:10 Glucose 128 mg/dL (74-106) H 02/06/24 07:10 Total Bilirubin 0.5 mg/dL (0.2-1.0) 02/03/24 13:21 AST 19 U/L (15-37) 02/03/24 13:21 ALT 18 U/L (16-61) 02/03/24 13:21 Alkaline Phosphatase 77 U/L (45-117) 02/03/24 13:21 Home Medications: Albuterol Inhaler [Ventolin Inhaler*] 2 puff IH Q6HP PRN 11/18/22 Aspirin 81 mg PO DAILY 11/18/22 Atorvastatin Calcium [Lipitor*] 20 mg PO BEDTIME 11/18/22 Eplerenone 25 mg PO DAILY 11/18/22 Flaxseed Oil [Flaxseed] 1 cap PO DAILY 11/18/22 Gabapentin 600 mg PO TID 11/18/22 Metformin ER [Glucophage ER*] 500 mg PO BID 11/18/22 Amlodipine Besylate/Benazepril [Amlodipine-Benazepril 5-40 mg] 1 tab PO DAILY 06/23/23 Carvedilol [Coreg] 25 mg PO BID 06/23/23 Dolutegravir Sodium/Lamivudine [Dovato 50-300 mg Tablet] 1 tab PO DAILY 06/23/23 Empagliflozin [Jardiance] 10 mg PO DAILY 06/23/23 Fluticasone/Umeclidin/Vilanter [Trelegy Ellipta 100-62.5-25] 1 puff IH DAILY 06/23/23 Torsemide [Soaanz] 3 tab PO DAILY 06/23/23 Amox/Clavulanate [Augmentin 875-125 Tab] 875 mg PO BID 4 Days #8 tab 02/06/24 predniSONE [Deltasone*] 10 mg PO BID 5 Days #10 tab 02/06/24 New Medications: Amox/Clavulanate [Augmentin 875-125 Tab] 875 mg PO BID 4 Days #8 tab predniSONE [Deltasone*] 10 mg PO BID 5 Days #10 tab Physician Discharge Instructions: Physician discharge instructions Patient was admitted to the hospital for hypoxia, suspected bilateral pneumonia, COPD exacerbation. He was treated with IV antibiotics, oral steroids, as needed nebulizer treatments and had significant improvement in his symptoms. Room air oxygen level was assessed with 6-minute ambulation and he did not qualify for home oxygen. He is feeling much better, breathing has significantly improved and is stable for discharge today. Recommends continuation of his home medications New medications will be the following: Augmentin 875 mg mouth twice daily for 4 additional days Prednisone 10 mg twice daily for 5 days Please follow-up with Dr. Jesus pulmonology in 1 week Please also follow-up with your primary care doctor 1 to 2 weeks Patient is a resident at: [address] P:[phone] F:[phone] Diet: AHA Activity: Fall precautions Followup: Duran Jesus MD [ACTIVE - CAN ADMIT] - 1 Week NONE,NONE [Primary Care Provider] - 1-2 Weeks Time spent managing pt's care (in minutes): 35
--- NOTE | 2024-02-06 13:47 | EKG ---
Test Date: 2024-02-03 Test Time: 14:12:03 Chisel Mortiser Operator: BENNY MEASUREMENT RESULTS: Intervals: Rate: 71 VA: 174 QRSD: 96 QT: 456 QTc: 495 [place]: P: 26 VA: 174 QRS: -47 T: 63 INTERPRETIVE STATEMENTS: Normal sinus rhythm Left axis deviation Low voltage QRS Prolonged QT Abnormal ECG Compared to ECG 02/03/2024 14:11:05 Prolonged QT interval now present Fusion complex(es) no longer present T-wave abnormality no longer present Electronically Signed On 02-06-24 13:38:30 CDT by Johnathon Helton
== END 2024-02-06 12:15 | DRG 193 ==
LOC: ER 12:59 → ERHOLD 14:50 → 4TH 15:04
PROVIDERS: ADMIT Hospitalist; ATTEND Hospitalist
DX: J18.9 Pneumonia, unspecified organism (principal); J96.21 Acute and chronic respiratory failure with hypoxia; I87.313 Chronic venous hypertension (idiopathic) with ulcer of bilateral lower extremity; L97.919 Non-pressure chronic ulcer of unspecified part of right lower leg with unspecified severity; L97.929 Non-pressure chronic ulcer of unspecified part of left lower leg with unspecified severity; J44.1 Chronic obstructive pulmonary disease with (acute) exacerbation; I50.32 Chronic diastolic (congestive) heart failure; J44.0 Chronic obstructive pulmonary disease with (acute) lower respiratory infection; I11.0 Hypertensive heart disease with heart failure; E78.5 Hyperlipidemia, unspecified; I89.0 Lymphedema, not elsewhere classified; G89.29 Other chronic pain; M54.9 Dorsalgia, unspecified; E11.40 Type 2 diabetes mellitus with diabetic neuropathy, unspecified; N40.0 Benign prostatic hyperplasia without lower urinary tract symptoms; I25.10 Atherosclerotic heart disease of native coronary artery without angina pectoris; Z21 Asymptomatic human immunodeficiency virus [HIV] infection status; Z79.82 Long term (current) use of aspirin; Z99.81 Dependence on supplemental oxygen; Z79.02 Long term (current) use of antithrombotics/antiplatelets; Z86.73 Personal history of transient ischemic attack (TIA), and cerebral infarction without residual deficits; Z79.899 Other long term (current) drug therapy; Z87.891 Personal history of nicotine dependence
CPT/HCPCS: 36415; 71045; 80048; 80053; 82947; 83605; 83880; 85025; 85610; 85730; 87040; 87804; 87811; 93005; 94640; 96374; 96375; 99285; J0696; J1650; J1815; J2930; J7030; J7050; J7512; J7613; J7614; J7644